=== PATIENT | male | born 1935 | race Caucasian/White ===

== ENCOUNTER → 2019-03-31 09:19 | Outpatient (BNVA) | payer MEDICARE, SELFPAY | PROVIDERS: Family Provider Internal Medicine; PCP Internal Medicine | DX: I48.91 Unspecified atrial fibrillation (principal) | CPT/HCPCS: 85610 ==

== ENCOUNTER → 2019-04-07 09:54 | Outpatient (BNVA) | payer MEDICARE, SELFPAY | PROVIDERS: Family Provider Internal Medicine; PCP Internal Medicine; Visit Provider Internal Medicine Cardiovascular Disease | DX: I48.91 Unspecified atrial fibrillation (principal) | CPT/HCPCS: 85610 ==

== ENCOUNTER → 2019-04-14 10:52 | Outpatient (BNVA) | payer MEDICARE, SELFPAY | PROVIDERS: Family Provider Internal Medicine; PCP Internal Medicine; Visit Provider Internal Medicine Cardiovascular Disease | DX: I48.91 Unspecified atrial fibrillation (principal) | CPT/HCPCS: 85610 ==

== ENCOUNTER → 2019-04-20 16:40 | Outpatient (BNVA) | payer MEDICARE, SELFPAY | PROVIDERS: Family Provider Internal Medicine; PCP Internal Medicine; Visit Provider Internal Medicine Cardiovascular Disease | DX: I48.19 Other persistent atrial fibrillation (principal); Z95.0 Presence of cardiac pacemaker; I10 Essential (primary) hypertension; E78.2 Mixed hyperlipidemia; I65.23 Occlusion and stenosis of bilateral carotid arteries; I42.0 Dilated cardiomyopathy | CPT/HCPCS: 85610 ==

== ENCOUNTER → 2019-05-18 10:30 | Outpatient (BNVA) | payer MEDICARE, SELFPAY | PROVIDERS: Family Provider Internal Medicine; PCP Internal Medicine; Visit Provider Internal Medicine Cardiovascular Disease | DX: I48.91 Unspecified atrial fibrillation (principal); Z79.01 Long term (current) use of anticoagulants | CPT/HCPCS: 85610 ==

== ENCOUNTER → 2019-05-21 11:19 | Outpatient (BNVA) | payer MEDICARE, SELFPAY | PROVIDERS: Family Provider Internal Medicine; PCP Internal Medicine; Visit Provider Internal Medicine Cardiovascular Disease | DX: I48.91 Unspecified atrial fibrillation (principal) | CPT/HCPCS: 85610 ==

== ENCOUNTER 2019-05-30 01:32 | Emergency (ER) | payer MEDICARE, SELFPAY ==
[2019-05-30 01:41] VITALS: BP 172/84; PULSE 65; RESP 18; O2SAT 96; BMI 30.6
--- NOTE | 2019-05-30 01:48 | XR_ITS ---
WS: [id number] XR chest 1V portable [id number] REASON FOR EXAM: chest pain FINDINGS: Comparisons were made to November 18, 2017. A dual electrode pacemaker seen extends from the left side. There is again noted right lower lung pleural and are parenchymal scarring granulomatous changes are again noted in both lung judge. The heart is borderline enlarged. XR/XR chest 1V portable [id number] IMPRESSION: Prior defibrillator device placement. Mild arteriosclerotic heart disease. Right lower lobe pleural and or parenchymal scarring. No acute findings in the chest.
--- NOTE | 2019-05-30 01:48 | ECG_ITS ---
Measurements Intervals [place] Rate: 61 P: -13 RI: 179 QRS: -59 QRSD: 158 T: 133 QT: 419 QTc: 424 SINUS RHYTHM LEFT AXIS DEVIATION [QRS AXIS < -30] LEFT BUNDLE BRANCH BLOCK [120+ ms QRS DURATION, 80+ ms Q/S IN V1/V2, 85+ ms R IN I/aVL/V5/V6] Compared to ECG 09/30/2017 18:23:08 Atrial-paced complex(es) or rhythm no longer present Electronically Signed On 05-30-2019 19:04:04 MEDICAL CODING AUDITOR by Grant Leonardo M.D. [email or web address]
--- NOTE | 2019-05-30 01:56 | ED_ITS ---
Entered by Madalyn Jones, acting as scribe for Keith Melendez DO May 30, 2019 01:32 HPI - Chest Pain General: Chief Complaint: Chest Pain Stated Complaint: CHEST PRESSURE/HANLEY Time Seen by Provider: 05/30/19 01:54 Source: patient Mode of arrival: ambulatory Limitations: no limitations History of Present Illness: HPI narrative: 84 yo m came to the er pov for chest pressure and headache. Onset was last night. Pt said that he was at rest when this pain started. Pt states that the pressure and pain is in the center of his chest. Pt said that he has a pacemaker. Pt said that he has been some short of breath and that he has had some mild swelling in the right foot. 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 Pt said that he has a cpap machine. MD complaint: chest pain Onset (ago): day(s) (yesterday) Prior episodes: Yes Onset: during rest Pain location: epigastric (tenderness) Pain radiation: none Severity: mild Quality: tightness Associated symptoms: Reports abdominal pain and dyspnea; Deny fever(s), nausea or vomiting Review of Systems General: Reports: other (negative unless marked) Const: Denies: fever, chills or body aches Card: Reports: chest pain and swelling of feet/ankles Resp: Reports: shortness of breath GI: Reports: abdominal pain; Denies: nausea, vomiting or vomiting blood : Denies: flank pain or painful urination Musc: Denies: neck pain or back pain Skin/Breast: Denies: rash Neuro: Reports: headache; Denies: weakness in extremities, confusion or slurred speech Psych: Denies: anxiety PFSH ED PFSH: Medical History Atrial fibrillation Cardiomyopathy Carotid artery stenosis COPD (chronic obstructive pulmonary disease) DDD (degenerative disc disease) GERD (gastroesophageal reflux disease) Gout Hyperlipidemia Hypertension Pacemaker Surgical History History of appendectomy History of cataract extraction History of tonsillectomy and adenoidectomy Hx of laminectomy Social History Smoking and tobacco status: never smoked Alcohol intake: never Physical Exam Const: GENERAL APPEARANCE: well developed ORIENTATION/CONSCIOUSNESS: Yes oriented to person, Yes oriented to place and Yes oriented to time HENMT: COMMON NORMALS: external nose normal FACE & SINUS: normal facial exam NOSE: external nose normal and no nasal discharge MOUTH: tongue normal Eye: COMMON NORMALS: PERRL, EOMs intact bilaterally and conjunctivae normal EYELID: eyelids normal CONJUNCTIVA: Yes conjunctivae normal PUPIL: Yes PERRL Neck/C-Spine: COMMON NORMALS: full ROM GENERAL: No tracheal deviation Chest: COMMONS NORMALS: inspection of chest normal CHEST: No tenderness Resp: COMMON NORMALS: clear to auscultation bilaterally EFFORT & INSPECTION: No tachypneic, No respiratory distress, No retractions, No uses accessory muscles and No tracheal deviation AUSCULTATION: clear to auscultation bilaterally, no rhonchi, no wheezes and lung sounds not diminished Cardio: COMMON NORMALS: regular rate and regular rhythm RATE: regular rate RHYTHM: regular rhythm HEART SOUNDS: no murmurs PERIPHERAL PULSES: radial pulses present GI: COMMON NORMALS: soft to palpation INSPECTION: No abdominal distension AUSCULTATION: No hyperactive bowel sounds and No hypoactive bowel sounds PALPATION: Yes soft, Yes tender (epigastric), No guarding and No rigid PERCUSSION: no dullness to percussion and no tympanic to percussion Neuro: SENSORIUM/ORIENTATION: Yes oriented to person, Yes oriented to place and Yes oriented to time Psych: COMMON NORMALS: mental status grossly normal Skin: COMMON NORMALS: no rashes or lesions noted GENERAL SKIN EXAM: no rashes or lesions noted Course Vital Signs: Vital signs: Vital Signs Pulse Rate 78 05/30/19 04:28 Respiratory Rate 28 H 05/30/19 04:28 Blood Pressure 152/71 05/30/19 03:17 Pulse Oximetry 100 05/30/19 04:28 MDM - Chest Pain MDM Narrative: Medical decision making narrative: 84-year-old gentleman with a history of pacemaker placement, but evidently no history of heart failure or coronary disease, presents with chest discomfort. Chest discomfort is essentially epigastric discomfort, that is reproducible on exam. It is completely relieved with a GI cocktail. His troponin did not change at 2 hours. His EKG shows a paced rhythm. His chest x-ray is negative for acute infiltrate. His labs are otherwise benign. With resolution of his symptoms, he will be allowed home. We will place him on some famotidine for control. Lab Data: Labs: Lab Results 05/30/19 05/30/19 05/30/19 Range/Units 01:51 01:51 01:51 WBC 6.7 (4.0-10.0) 10^3/ uL RBC 5.10 (4.1-5.3) 10^6/u L Hgb 15.4 (11.7-16.6) g/dL Hct 47.2 (42.0-52.0) % MCV 92.5 (80-94) fL MCH 30.2 (28.0-34.0) pg MCHC 32.6 (30.0-36.0) g/dL RDW 13.0 (12.1-15.1) % Plt Count 148 (130-400) 10^3/c mm MPV 9.6 (7.4-10.4) fL Neut % (Auto) 75.7 % Lymph % (Auto) 11.9 % Lipscomb % (Auto) 10.1 % Eos % (Auto) 1.8 % Baso % (Auto) 0.4 % Neut # (Auto) 5.1 (1.8-7.7) 10^3/u L Lymph # (Auto) 0.8 (0.8-4.8) 10^3/u L Lipscomb # (Auto) 0.7 (0.2-0.9) 10^3/u L Eos # (Auto) 0.1 (0.0-0.8) 10^3/u L Baso # (Auto) 0.0 (0.0-0.1) 10^3/u L Nucleated RBC % (a uto) 0 % Nucleated RBCs # 0.0 /100WBC PT (10.5-13.3) SECO NDS INR (0.8-1.2) Sodium 133 L (136-145) mmol/L Potassium 4.8 (3.5-5.1) mmol/L Chloride 98 (98-107) mmol/L Carbon Dioxide 25 (22-29) mmol/L Anion Gap 14.8 (5-19) BUN 26 H (8-23) mg/dL Creatinine 2.0 H (0.7-1.2) mg/dL Glucose 110 (65-115) mg/dL Calcium 9.8 (8.5-10.5) mg/dL Total Bilirubin 0.4 (0.15-1.2) mg/dL AST 17 (0-40) U/L ALT 12 (0-41) U/L Alkaline Phosphata se 92 (40-130) IU/L Troponin T Baselin e 21 H (0-15) ng/mL Troponin T 120 Min yun (0-15) ng/mL Delta Troponin T (0-10) ABS# NT-Pro-B Natriuret Pep (0-450) pg/mL Total Protein 7.0 (6.6-8.7) g/dL Albumin 3.8 (3.5-5.2) g/dL Globulin 3.2 (1.3-4.6) g/dL 05/30/19 05/30/19 05/30/19 Range/Units 01:51 01:51 03:41 WBC (4.0-10.0) 10^3/ uL RBC (4.1-5.3) 10^6/u L Hgb (11.7-16.6) g/dL Hct (42.0-52.0) % MCV (80-94) fL MCH (28.0-34.0) pg MCHC (30.0-36.0) g/dL RDW (12.1-15.1) % Plt Count (130-400) 10^3/c mm MPV (7.4-10.4) fL Neut % (Auto) % Lymph % (Auto) % Lipscomb % (Auto) % Eos % (Auto) % Baso % (Auto) % Neut # (Auto) (1.8-7.7) 10^3/u L Lymph # (Auto) (0.8-4.8) 10^3/u L Lipscomb # (Auto) (0.2-0.9) 10^3/u L Eos # (Auto) (0.0-0.8) 10^3/u L Baso # (Auto) (0.0-0.1) 10^3/u L Nucleated RBC % (a uto) % Nucleated RBCs # /100WBC PT 37.40 H (10.5-13.3) SECO NDS INR 3.61 H (0.8-1.2) Sodium (136-145) mmol/L Potassium (3.5-5.1) mmol/L Chloride (98-107) mmol/L Carbon Dioxide (22-29) mmol/L Anion Gap (5-19) BUN (8-23) mg/dL Creatinine (0.7-1.2) mg/dL Glucose (65-115) mg/dL Calcium (8.5-10.5) mg/dL Total Bilirubin (0.15-1.2) mg/dL AST (0-40) U/L ALT (0-41) U/L Alkaline Phosphata se (40-130) IU/L Troponin T Baselin e (0-15) ng/mL Troponin T 120 Min yun 18.19 H (0-15) ng/mL Delta Troponin T -2.81 L (0-10) ABS# NT-Pro-B Natriuret Pep 526 H (0-450) pg/mL Total Protein (6.6-8.7) g/dL Albumin (3.5-5.2) g/dL Globulin (1.3-4.6) g/dL Discharge Plan Discharge Patient Disposition: Home, Self-Care Clinical Impression: Chest pain Qualifiers: Chest pain type: unspecified Qualified Code(s): R07.9 - Chest pain, unspecified Gastro-esophageal reflux Qualifiers: Esophagitis presence: esophagitis presence not specified Qualified Code(s): K21.9 - Gastro-esophageal reflux disease without esophagitis Condition: Stable Prescriptions: New famotidine 40 mg tablet 40 mg PO BID Qty: 20 RF: 0 No Action paroxetine HCl PO .at bedtime RF: 0 tamsulosin 0.4 mg capsule 0.4 mg PO QDAY RF: 0 allopurinol PO DAILY RF: 0 metoprolol tartrate 75 mg tablet 75 mg PO BID RF: 0 Lantus U-100 Insulin 100 unit/mL solution 15 unit SUBCUT QDAY RF: 0 warfarin 1 mg tablet 1 mg PO DAILY RF: 0 warfarin 4 mg tablet 4 mg PO QDAY Qty: 90 RF: 3 Discharge Orders: Discharge Order (Routine); Ordered 05/30/19 Ordered By: Keith Melendez Referrals: Magaly Rivas MD [Primary Care Provider] - 4-7 days Discharge Diet: Advance as tolerated Discharge Activity: Increase activity as tolerated Patient Instructions: Chest Pain (ED), Gastroesophageal Reflux Disease (ED) Activity Restrictions/Additional Instructions: Return for return of chest pain, shortness of breath, nausea or vomiting, fever greater than 100, other concerning symptoms. Coding Level of Care Code ED Printed Circuit Boards Laminator for Chg Fwd Exam Comprehensive The documentation recorded by the Robert bush Stephanie Lyn, accurately reflects the service I personally performed and the decisions made by Al london Jeremy John, DO May 30, 2019 01:32
[2019-05-30 01:57] VITALS: O2SAT 95
[2019-05-30 02:00] LABS: Basophils % 0.4 %; Eosinophils # 0.1 10^3/uL (0.0-0.8); Eosinophils % 1.8 %; Hematocrit 47.2 % (42.0-52.0); Hemoglobin 15.4 g/dL (11.7-16.6); Lymphocytes # 0.8 10^3/uL (0.8-4.8); Lymphocytes % 11.9 %; Mean Corpuscular HGB Conc 32.6 g/dL (30.0-36.0); Mean Corpuscular Hemoglobin 30.2 pg (28.0-34.0); Mean Corpuscular Volume 92.5 fL (80-94); Mean Platelet Volume 9.6 fL (7.4-10.4); Monocytes # 0.7 10^3/uL (0.2-0.9); Monocytes % 10.1 %; Neutrophils # 5.1 10^3/uL (1.8-7.7); Neutrophils % 75.7 %; Nucleated Red Blood Cells % 0 %; Platelet Count 148 10^3/cmm (130-400); White Blood Count 6.7 10^3/uL (4.0-10.0)
[2019-05-30] MEDS: lidocaine 2% viscous 15 ML, aluminum-mag hydrox-simethicon 30 ML, sucralfate oral liq 1 GM PO (02:17)
[2019-05-30] MEDS: morphine 4 mg/mL SDV 1 mL IVP (02:17)
[2019-05-30] MEDS: ondansetron 2 mg/ML SDV 2 mL 4 MG IVP (02:18)
[2019-05-30 02:27] LABS: Alanine Aminotransferase 12 U/L (0-41); Albumin Level 3.8 g/dL (3.5-5.2); Alkaline Phosphatase 92 IU/L (40-130); Anion Gap 14.8 (5-19); Aspartate Amino Transferase 17 U/L (0-40); Blood Urea Nitrogen 26 mg/dL (8-23); Calcium 9.8 mg/dL (8.5-10.5); Carbon Dioxide 25 mmol/L (22-29); Chloride 98 mmol/L (98-107); Globulin 3.2 g/dL (1.3-4.6); Glucose 110 mg/dL (65-115); INR 3.61 (0.8-1.2); Potassium 4.8 mmol/L (3.5-5.1); Sodium 133 mmol/L (136-145); Total Bilirubin 0.4 mg/dL (0.15-1.2)
[2019-05-30 02:30] LABS: Troponin(5th) Baseline 21 ng/mL (0-15)
[2019-05-30 02:53] LABS: NT Pro B Type Natriuretic Pept 526 pg/mL (0-450)
[2019-05-30 03:17] VITALS: BP 152/71; PULSE 63; O2SAT 92
--- NOTE | 2019-05-30 03:17 | PC.NURSE ---
portable chest xray at bedside
--- NOTE | 2019-05-30 03:48 | ECG_ITS ---
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 [id number]
--- NOTE | 2019-05-30 04:00 | PC.NURSE ---
pt placed on BIPAP ventilation
[2019-05-30 04:05] LABS: Troponin 5 2HR 18.19 ng/mL (0-15)
[2019-05-30 04:12] LABS: Troponin 5 2HR Delta -2.81 ABS# (0-10)
--- NOTE | 2019-05-30 04:14 | PC.NURSE ---
EKG done at 0405 and shown to ER doctor
[2019-05-30 04:28] VITALS: PULSE 78; RESP 28; O2SAT 100
[2019-05-30 04:57] VITALS: BP 107/75; PULSE 64; RESP 16; O2SAT 97
== END 2019-05-30 04:57 | disposition home or self-care (01) ==
PROVIDERS: Emergency Provider Emergency Medicine; Family Provider Internal Medicine; PCP Internal Medicine
DX: R07.89 Other chest pain (principal); K21.9 Gastro-esophageal reflux disease without esophagitis; I48.91 Unspecified atrial fibrillation; I42.9 Cardiomyopathy, unspecified; J44.9 Chronic obstructive pulmonary disease, unspecified; E78.5 Hyperlipidemia, unspecified; I10 Essential (primary) hypertension; Z79.01 Long term (current) use of anticoagulants; Z95.0 Presence of cardiac pacemaker
CPT/HCPCS: 12345; 36415; 71045; 80053; 83880; 84484; 85025; 85610; 93005; 96374; 96375; 99283; 99284; J2270; J2405

== ENCOUNTER → 2019-06-18 11:03 | Outpatient (BNVA) | payer MEDICARE, SELFPAY | PROVIDERS: Family Provider Internal Medicine; PCP Internal Medicine; Visit Provider Internal Medicine Cardiovascular Disease | DX: I48.91 Unspecified atrial fibrillation (principal) | CPT/HCPCS: 85610 ==

== ENCOUNTER → 2019-07-02 10:41 | Outpatient (BNVA) | payer MEDICARE, SELFPAY | PROVIDERS: Family Provider Internal Medicine; PCP Internal Medicine; Visit Provider Internal Medicine Cardiovascular Disease | DX: I48.91 Unspecified atrial fibrillation (principal) | CPT/HCPCS: 85610 ==

== ENCOUNTER → 2019-07-16 11:01 | Outpatient (BNVA) | payer MEDICARE, SELFPAY | PROVIDERS: Family Provider Internal Medicine; PCP Internal Medicine; Visit Provider Internal Medicine Cardiovascular Disease | DX: I48.91 Unspecified atrial fibrillation (principal) | CPT/HCPCS: 85610 ==

== ENCOUNTER 2019-08-20 15:43 | Outpatient (CLI) | payer MEDICARE, SELFPAY ==
--- NOTE | 2019-08-20 15:53 | CT_ITS ---
WS: [id number] CT CHEST TECHNIQUE: Noncontrast CT of the chest with coronal and sagittal reformatted images. CLINICAL INFORMATION: PULMONARY NODULE COMPARISON: October 30 2018 DLP: 1110.[address] scans at [facility] use at least one of these dose optimization techniques: automat ed exposure control; mA and/or kV adjustment per patient size (includes targeted exams where dose is matched to clinical indication); or iterative reconstruction. FINDINGS: Moderate chronic emphysematous changes. Subsegmental atelectasis and parenchymal fibrosis bilateral l ower lobes similar to previous. No acute-appearing pulmonary infiltrates. No consolidation or pleural fluid. AICD. No mediastinal or hilar lymphadenopathy. Fibrosis right lung apex. Small hazy noncalcified pulmonary nodule in the right middle lobe measuring 6 mm. Additional hazy non calcified pulmonary nodule in the left lung apex measuring 5.36 mm better seen today but appears stab le from previous. Scattered calcified granulomas. Tiny calcified granulomas.Vascular calcification including coronary. No axillary lymphadenopathy. Partially visualized right greater than left renal cysts. Normal gastroesophageal junction. Fatty atr ophy of the pancreas. Adrenal glands are normal. Hypertrophic changes thoracic spine with ankylosis. Chronic compression fracture with anterior wedging L1 vertebral body. CT/CT chest wo con [id number] IMPRESSION: 1. Moderate chronic emphysematous changes. 2. No acute pulmonary infiltrates. 3. Stable pleural plaques in right lung base along the right hemidiaphragm. 4. Stable subsegmental atelectasis and parenchymal fibrosis in the lung bases. 5. Stable 6 mm noncalcified subpleural nodule right middle lobe. Additional st able hazy groundglass nodule left upper lobe measuring 5.3 mm. Recommend 12 mon follow-up.
== END 2019-08-20 15:44 | disposition home or self-care (01) ==
PROVIDERS: Family Provider Internal Medicine; PCP Internal Medicine; Visit Provider Internal Medicine
DX: R91.1 Solitary pulmonary nodule (principal); J98.11 Atelectasis
CPT/HCPCS: 71250

== ENCOUNTER 2020-03-10 09:30 | Outpatient (CLI) | payer MEDICARE, SELFPAY ==
--- NOTE | 2020-03-10 09:39 | ECG_ITS ---
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 The perfusion scan will be documented separately. DATA: Baseline heart rate was 73 beats per minute. Baseline blood pressure was 106/77 millimeters of mercury. Target heart rate was 138. Maximum heart rate achieved was 88. which was 63 % of the predicted target heart rate. Maximum blood pressure was 135/77 millimeters of mercury. The reason for ending the test was completion of the protocol. The patient did not experience any symptoms. ELECTROCARDIOGRAM: BASELINE: Paced rhythm, no further analysis EXERCISE: After Lexiscan injection, no ST-T changes suggestive of ischemic noted. No arrhythmia noted. CONCLUSION: Please note due to baseline abnormality of the EKG specificity and sensitivity of the EKG portion of LexiScan MIBI stress test will be low 1. EKG not suggestive of ischemia 2. Lexiscan injection unremarkable. 3. Perfusion scan will be documented separately. Electronically Signed On 03-10-2020 19:30:23 CUSHION SPRING ASSEMBLER by JASON OSULLIVAN [id number]
--- NOTE | 2020-03-10 09:39 | NMCV_ITS ---
NM aurelia perf SPECT r/s* [id number] Alexey An Age: 84 Gender: M : 1935 Exam Date: 03/10/2020 11:05 Ordering Phys: Magaly Rivas MD Technologist: LUIS ANGEL Dougherty Exam Location: [facility] Indications: CHEST PAIN STRESS TEST [facility] IMAGE PROTOCOL Rest/Stress 1 Lexiscan Day Radiopharmaceutical Dose (mCi) Administration Site Administered by Rest: Tc-99m 10.6 IV LUIS ANGEL Arteaga Sestamibi Stress:Tc-99m 32.6 IV LUIS ANGEL Arteaga Sestamibi Rest: 10-Mar-2020 60 Discovery 630 Stress: 10-Mar-2020 30 Discovery 630 0.4mg Lexiscan. Supine position only as patient was unable to lay prone. SPECT RESULTS Technical Quality: Excellent Raw Data Analysis: Normal Image Corrections: No attenuation or motion correction applied Summed Stress Score: 7 Summed Rest Score: 7 Summed Difference Score: 1 PERFUSION FINDINGS Medium-sized area of persistently decreased tracer uptake noted in basal to distal inferior wall surrounded by medium-sized area of moderate reversibility suggestive of old myocardial infarction surrounded by moderate cathie-infarct ischemia FUNCTIONAL RESULTS (calculated via Gated SPECT) Stress Image LV EF (%): 50 Stress EDV (mL):101 TID: 0.91 Stress ESV (mL):51 Rest Image LV EF (%): 50 FUNCTIONAL FINDINGS: Inferior wall hypokinesis IMPRESSIONS 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 Please note that patient was not able to perform prone images therefore cannot rule out artifact. EKG segment will be documented separately. Grant Leonardo MD (Electronically Signed) Final Date: 10 March 2020 19:23 S
[2020-03-10 09:40] VITALS: BMI 29.7
--- NOTE | 2020-03-10 12:07 | SUR.PREOP ---
Patient reports no pain or discomfort prior to the start of the procedure.
[2020-03-10] MEDS: regadenoson 0.4 Mg/5 ml Syringe IVP (12:08)
[2020-03-10 12:51] VITALS: BP 120/78; PULSE 73
== END 2020-03-10 09:31 | disposition home or self-care (01) ==
LOC: RAD 09:34 → CDL 09:38
PROVIDERS: PCP Internal Medicine; Visit Provider Internal Medicine
DX: I25.2 Old myocardial infarction (principal); R07.9 Chest pain, unspecified; Z95.0 Presence of cardiac pacemaker
CPT/HCPCS: 78452; 93017; A9500; J2785

== ENCOUNTER 2020-07-18 12:46 | Outpatient (CLI) | payer MEDICARE, SELFPAY ==
--- NOTE | 2020-07-18 12:59 | CT_ITS ---
WS: [id number] Exam: CT neck wo con [id number] Date/Time of Exam: 07/18/2020 12:59 PM Reason For Exam: NECK MASS DLP: All CT scans at [facility] use at least one of these dose optimization techniques: automat ed exposure control; mA and/or kV adjustment per patient size (includes targeted exams where dose is matched to clinical indication); or iterative reconstruction. The clinically reported lump in the left neck is marked with a metallic skin marker. The neck is eric luated in the axial plane with sagittal and coronal reformatted images. There was no sign of neck mass or significant cervical lymphadenopathy. No masses or nodules identifi ed in the region of the left skin marker. The airway is patent. No lesions noted in the region of the tongue base. The parotid glands and submandibular glands are symmetrical side to side. Opacified rig ht maxillary sinus. Mucosal thickening in the ethmoid sinuses. Normal orbits and optic globes. Modera te degenerative change and spondylosis of the cervical spine. Normal thyroid tissue. No superior medi astinal lymphadenopathy. CT/CT neck wo con [id number] IMPRESSION: 1. No sign of neck mass or significant cervical lymphadenopathy. 2. Opacified right maxillary sinus. Chronic mucosal thickening in the ethmoid s inuses as well as the anterior left maxillary sinus.
--- NOTE | 2020-07-18 12:59 | CT_ITS ---
WS: [id number] Exam: CT chest wo con [id number] Date/Time of Exam: 07/18/2020 12:59 PM Reason For Exam: PULMONARY NODULE DLP: All CT scans at [facility] use at least one of these dose optimization techniques: automat ed exposure control; mA and/or kV adjustment per patient size (includes targeted exams where dose is matched to clinical indication); or iterative reconstruction. Comparison with the most recent exam 08/20/2019. Stable-appearing 6 mm noncalcified nodule in the right middle lobe. There is also a stable 5 mm groun dglass nodule in the left upper lobe. There is pulmonary parenchymal scarring noted in the both lower lobes. Right-sided calcified pleural plaque formation noted and also calcified pleural plaque format ion along the right diaphragm stable in appearance. No acute infiltrates are seen. No pleural effusio ns. The airway is patent. No lymphadenopathy in the chest. The thoracic aorta is normal in caliber. A permanent cardiac pacer is implanted in the left chest wall. No pericardial effusion is noted. Multi ple cysts in the visualized right kidney. No destructive bone lesions are seen. Old stable appearing compression fracture of L1 noted. CT/CT chest wo con [id number] IMPRESSION: 1. Stable-appearing subcentimeter nodules in the right middle lobe and left upp er lobe. 2. Calcified pleural plaque formation involving the right pleural cavity and ri ght diaphragm. 3. Bilateral pulmonary parenchymal scarring. No sign of new suspicious pulmonar y mass or lymphadenopathy in the chest.
== END 2020-07-18 12:47 | disposition home or self-care (01) ==
PROVIDERS: PCP Internal Medicine; Visit Provider Internal Medicine
DX: R91.1 Solitary pulmonary nodule (principal)
CPT/HCPCS: 70490; 71250

== ENCOUNTER 2020-08-15 12:32 | Outpatient (CLI) | payer MEDICARE, SELFPAY ==
--- NOTE | 2020-08-15 12:42 | CT_ITS ---
WS: [id number] CT HEAD NONCONTRAST HISTORY: TINNITUS, LEFT EAR TECHNIQUE: Contiguous axial imaging performed through the brain in 2.5 mm imaging. Bone and soft tiss ue windows. Sagittal and coronal reformats reviewed. All CT scans at [facility] use at ast one of these dose optimization techniques: automated exposure control; mA and/or kV adjustment pe r patient size (includes targeted exams where dose is matched to clinical indication); or iterative r econstruction. DLP: 1058.18 mGycm COMPARISON: 10/02/2018 No acute intracranial hemorrhage, midline shift or mass effect. Mild atrophy and mild chronic microvascular ischemic disease. Prior lacunar infarcts noted near the c audate heads bilaterally. Ventricles: Normal size with no hydrocephalus. Paranasal sinuses: Extensive mucoperiosteal thickening and near complete opacification of the RIGHT m axillary sinus. Mild ethmoid sinus disease. Mastoid air cells: Well pneumatized. Calvarium and scalp: Skull is intact with no soft tissue edema or swelling. CT/CT head wo con* [id number] IMPRESSION: 1. No acute intracranial hemorrhage or edema. 2. Mild atrophy and mild chronic microvascular ischemic disease. 3. RIGHT maxillary and sphenoid sinusitis.
== END 2020-08-15 12:33 | disposition home or self-care (01) ==
PROVIDERS: PCP Internal Medicine; Visit Provider Specialist
DX: H93.12 Tinnitus, left ear (principal); J01.30 Acute sphenoidal sinusitis, unspecified; J01.00 Acute maxillary sinusitis, unspecified
CPT/HCPCS: 70450

== ENCOUNTER 2020-09-20 10:49 | Emergency (ER) | payer MEDICARE, SELFPAY ==
[2020-09-20 11:10] VITALS: BP 185/67; PULSE 42; RESP 16; TEMP 36.4; O2SAT 96; BMI 29.3
--- NOTE | 2020-09-20 12:12 | PC.NURSE ---
Patient reports severe back pain starting on Saturday. Denies any known injury. Denies any previous history. Reports right sided low back pain that radiates down leg. Rates pain as 10 and describes as stabbing.
[2020-09-20 12:15] VITALS: BP 116/92; PULSE 68; RESP 18; O2SAT 94
--- NOTE | 2020-09-20 12:41 | CT_ITS ---
WS: [id number] CT LUMBAR SPINE TECHNIQUE: Noncontrast CT of the lumbar spine with coronal and sagittal reformatted images. CLINICAL INFORMATION: back pain COMPARISON: CT myelogram 1 DLP: 2477.[address] scans at [facility] use at least one of these dose optimization techniques: automat ed exposure control; mA and/or kV adjustment per patient size (includes targeted exams where dose is matched to clinical indication); or iterative reconstruction. FINDINGS: Mild lumbar curve. No acute compression. Slight retrolisthesis L2 on L3. Chronic compression L1 verte bral body with bony fusion is unchanged since 2014. Anterior hypertrophic changes in the lower thorac ic and upper lumbar spine. L1-L2: Osteophytic ridging. Slight effacement of ventral thecal sac. Moderate facet arthropathy. Slig ht narrowing of the subarticular recess. Foramen are patent. L2-L3: Slight retrolisthesis L2 on L3. Mild disc bulging with osteophytic ridging. Tiny central protr usion. Mild central canal stenosis. Slight impingement traversing L3 nerve roots bilaterally. Foramen are patent. Moderate facet arthropathy. L3-L4: Central disc osteophyte protrusion with moderate central canal stenosis. Impingement subarticu lar recess bilaterally. Moderate bilateral foraminal narrowing with eccentric disc bulging. Advanced facet arthropathy. This is progressed since 2014. L4-L5: Mild disc bulging with osteophytic ridging. Mild central canal stenosis. Impingement subarticu lar recess bilaterally. Moderate bilateral foraminal narrowing. This is worse in the right with impin gement on the exiting right L4 nerve root with small right foraminal protrusion. This is slightly pro gressed compared to 2014. L5-S1: Mild disc bulging and osteophytic ridging. Moderate to advanced facet arthropathy. Mild centra l canal stenosis. Slight impingement traversing S1 nerve roots. Mild to moderate bilateral foraminal narrowing. Adrenal glands are normal. Partially visualized renal cysts right greater than left. Polycystic right kidney. Normal caliber abdominal aorta. CT/CT lumbar spine wo con* [id number] IMPRESSION: 1. Mild lumbar curve. No acute compression. Chronic burst fracture L1 is uncha nged. 2. Disc bulging L3-L4 with central protrusion is progressed compared to 2014 w ith moderate central canal stenosis and impingement on the traversing L4 nerve roots. Advanced facet arthropathy at this level. 3. Moderate bilateral L3-L4 foraminal narrowing. 4. Right foraminal protrusion L4-5 impinges the exiting right L4 nerve root wi th moderate right foraminal narrowing. This appears slightly progressed compare d to previous. Moderate central canal stenosis at this level appears stable. 5. Mild central canal stenosis L5-S1 with slight impingement on the traversing S1 nerve roots bilaterally and mild to moderate foraminal narrowing slightly p rogressed compared to previous. 6. No other significant interval changes.
[2020-09-20 12:55] VITALS: RESP 18
[2020-09-20] MEDS: morphine 4 mg/mL SDV 1 mL IVP (12:55)
--- NOTE | 2020-09-20 13:09 | W.ED.BACK ---
HPI - Back Pain/Injury General: Chief Complaint: Back Pain/Injury Stated Complaint: BACK PAIN Time Seen by Provider: 09/20/20 12:16 History of Present Illness: HPI Narrative: 85-year-old male presents emergency room with complaints of sharp pain in his back feels like it is seizing up. While I was at the bedside patient had several episodes where he would have back spasm severe pain states pain radiates down his right leg at times. He has not had any problem with urinary retention or fecal incontinence he has previously had surgery on his back. No recent precipitating events that seem to just slowly worsen over the course of several days culminating in today's visit. Denies any dysuria urgency or frequency no history of cancer although he does have BPH and is on tamsulosin. He has been able to void without difficulty. He denies any hematuria. MD elicited complaint: back pain Pertinent past history: prior back pain Onset (ago): day(s) Timing: intermittent Severity: severe Quality: sharp, stabbing and spasming Location: lumbar spine Radiation: none Exacerbating factors: none Relieving factors: immobilization Associated symptoms: Deny abdominal pain, arthralgias, chills, change in bowel habits, difficulty walking, dysuria, fatigue, fecal incontinence, fever(s), hematuria, myalgias, nausea, numbness, syncope, tingling/numbness/burning, urinary frequency, urinary urgency, vomiting or weakness Review of Systems Const: Denies: fever(s), chills or fatigue ENMT: Denies: throat pain, ear or mastoid pain, nasal discharge or nasal congestion Card: Denies: syncope Resp: Denies: dyspnea, productive cough or non-productive cough GI: Denies: abdominal pain, nausea, vomiting, fecal incontinence or change in bowel habits : Denies: dysuria, urinary urgency or hematuria Skin/Breast: Denies: rash or pruritus Neuro: Denies: difficulty walking PFSH ED PFSH: Medical History Atrial fibrillation Cardiomyopathy Carotid artery stenosis COPD (chronic obstructive pulmonary disease) DDD (degenerative disc disease) GERD (gastroesophageal reflux disease) Gout Hyperlipidemia Hypertension Pacemaker Surgical History History of appendectomy History of cataract extraction History of tonsillectomy and adenoidectomy Hx of laminectomy Family History Mother CAD (coronary artery disease) Brother Chronic kidney disease (CKD) Father Stroke Family/Other Suicide Denies family history of Diabetes Clotting disorder Dementia Anesthesia complication Bleeding disorder Lung disease Cancer Social History Smoking and tobacco status: never smoked Alcohol intake: never Physical Exam Const: COMMON NORMALS: no acute distress GENERAL APPEARANCE: cooperative and comfortable ORIENTATION/CONSCIOUSNESS: Yes awake, Yes oriented to person, Yes oriented to place and Yes oriented to time HENMT: COMMON NORMALS: normocephalic, atraumatic and hearing grossly normal bilaterally HEAD & SCALP: normocephalic and atraumatic Eye: COMMON NORMALS: Equal, round and reactive pupils present, EOMs intact bilaterally, conjunctivae normal and no scleral icterus CONJUNCTIVA: Yes conjunctivae normal PUPIL: Yes Equal, round and reactive pupils present Neck/C-Spine: COMMON NORMALS: full ROM, no lymphadenopathy, supple and no JVD Lymph: LYMPHATIC: no lymphadenopathy noted and no lymphedema noted Resp: COMMON NORMALS: normal respiratory effort, No retractions, No use of accessory muscles and clear to auscultation bilaterally AUSCULTATION: clear to auscultation bilaterally Cardio: COMMON NORMALS: no JVD, regular rate, regular rhythm and No murmurs present (Cardio) RATE: regular rate RHYTHM: regular rhythm GI: COMMON NORMALS: Soft to palpation and No hepatosplenomegaly present AUSCULTATION: Yes normoactive bowel sounds PALPATION: Yes Soft to palpation, No Tenderness to palpation present (GI), No Guarding due to palpation present (GI) and Yes No hepatosplenomegaly present Extremity: COMMON NORMALS: normal to inspection, capillary refill normal, no clubbing, cyanosis or edema, no calf tenderness and no pedal edema Neuro: SENSORIUM/ORIENTATION: Yes oriented to person, Yes oriented to place and Yes oriented to time Skin: COMMON NORMALS: no rashes or lesions noted GENERAL SKIN EXAM: no rashes or lesions noted Course Vital Signs: Vital signs: Vital Signs Temperature 97.7 F 09/20/20 14:48 Pulse Rate 65 09/20/20 14:48 Respiratory Rate 18 09/20/20 14:48 Blood Pressure 160/90 09/20/20 14:48 Pulse Oximetry 96 09/20/20 14:48 Discharge Plan Discharge Patient Disposition: Home Clinical Impression: Lumbar radiculopathy Condition: Stable Prescriptions: New hydrocodone-acetaminophen 5-325 mg tablet 1 tab PO Q6H PRN (Reason: pain) Qty: 20 RF: 0 diclofenac sodium 75 mg tablet,delayed release (DR/EC) 75 mg PO Q12H PRN (Reason: pain) Qty: 20 RF: 0 Medrol (Zhen) 4 mg tablets,dose pack See Rx Instructions .ROUTE .COMPLEX Qty: 21 RF: 0 tizanidine 2 mg capsule 2 mg PO Q6H PRN (Reason: muscle spasticity) Qty: 20 RF: 0 No Action famciclovir 500 mg tablet 500 mg PO Q8H 7 Days Qty: 21 RF: 0 paroxetine HCl PO .at bedtime RF: 0 tamsulosin 0.4 mg capsule 0.4 mg PO QDAY RF: 0 Lantus U-100 Insulin 100 unit/mL solution 15 unit SUBCUT QDAY RF: 0 allopurinol 1 ea PO DAILY RF: 0 isosorbide mononitrate 30 mg tablet extended release 24 hr 30 mg PO DAILY RF: 0 cyclobenzaprine 10 mg tablet 10 mg PO .bedtime Qty: 15 RF: 0 warfarin 1 mg tablet 1 mg PO DAILY RF: 0 warfarin 4 mg tablet 4 mg PO QDAY Qty: 90 RF: 3 warfarin 6 mg tablet 6 mg PO DAILY Qty: 30 RF: 6 metoprolol tartrate 75 mg tablet 75 mg PO BID Qty: 180 RF: 3 losartan 100 mg tablet 100 mg PO DAILY Qty: 90 RF: 3 famotidine 40 mg tablet 40 mg PO BID Qty: 20 RF: 0 Discharge Orders: Discharge ED (Routine); Ordered 09/20/20 Ordered By: Yifan Restrepo Referrals: Magaly Rivas MD [Primary Care Provider] - Discharge Diet: As Directed Discharge Activity: Increase activity as tolerated Patient Instructions: Opioid Safety Activity Restrictions/Additional Instructions: Follow-up with your primary care doctor to be evaluated for possible advanced imaging and/or referral to neurosurgery or spine surgery. 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
[2020-09-20 14:00] VITALS: BP 157/77; PULSE 64; RESP 18; O2SAT 95
[2020-09-20 14:48] VITALS: BP 160/90; PULSE 65; RESP 18; TEMP 36.5; O2SAT 96
== END 2020-09-20 14:48 | disposition home or self-care (01) ==
PROVIDERS: Emergency Provider Family Medicine; PCP Internal Medicine
DX: M54.16 Radiculopathy, lumbar region (principal); Z79.4 Long term (current) use of insulin; Z79.01 Long term (current) use of anticoagulants; J44.9 Chronic obstructive pulmonary disease, unspecified; E78.5 Hyperlipidemia, unspecified; I10 Essential (primary) hypertension; Z95.0 Presence of cardiac pacemaker
CPT/HCPCS: 72131; 96374; 99283; J2270

== ENCOUNTER → 2020-10-06 13:20 | Outpatient (BNVA) | payer MEDICARE, SELFPAY | PROVIDERS: PCP Internal Medicine; Referring Provider Internal Medicine; Visit Provider Orthopaedic Surgery | DX: M54.9 Dorsalgia, unspecified (principal); M54.5 Low back pain; M47.819 Spondylosis without myelopathy or radiculopathy, site unspecified | CPT/HCPCS: 72110 ==

== ENCOUNTER 2020-10-31 17:04 | Emergency (ER) | payer MEDICARE, SELFPAY ==
[2020-10-31 17:55] LABS: Basophils # 0.1 10^3/uL (0.0-0.1); Eosinophils # 0.2 10^3/uL (0.0-0.8); Eosinophils % 3.3 %; Hematocrit 41.2 % (42.0-52.0); Hemoglobin 13.6 g/dL (11.7-16.6); Lymphocytes # 1.3 10^3/uL (0.8-4.8); Lymphocytes % 18.8 %; Mean Corpuscular Hemoglobin 32.2 pg (28.0-34.0); Mean Corpuscular Volume 97.6 fL (80-94); Mean Platelet Volume 9.7 fL (7.4-10.4); Monocytes # 0.7 10^3/uL (0.2-0.9); Monocytes % 9.8 %; Neutrophils # 4.59 10^3/uL (1.8-7.7); Neutrophils % 66.8 %; Nucleated Red Blood Cells % 0 %; Platelet Count 184 10^3/cmm (130-400); Red Blood Count 4.22 10^6/uL (4.1-5.3); Red Cell Distribution Width 14.3 % (12.1-15.1); White Blood Count 6.9 10^3/uL (4.0-10.0)
[2020-10-31 18:18] LABS: INR 1.49 (0.8-1.2)
[2020-10-31 18:19] LABS: Partial Thromboplastin Time 30.6 SECONDS (23.9-36.7)
[2020-10-31 18:34] LABS: Alanine Aminotransferase 12 U/L (0-41); Albumin Level 3.4 g/dL (3.5-5.2); Alkaline Phosphatase 94 IU/L (40-130); Aspartate Amino Transferase 12 U/L (0-40); Blood Urea Nitrogen 31 mg/dL (8-23); Calcium 9.1 mg/dL (8.5-10.5); Carbon Dioxide 22 mmol/L (22-29); Chloride 107 mmol/L (98-107); Globulin 2.9 g/dL (1.3-4.6); Glucose 89 mg/dL (65-115); Total Bilirubin 0.2 mg/dL (0.15-1.2); Total Protein 6.3 g/dL (6.6-8.7)
[2020-10-31 18:39] LABS: Osmolality Calculated 304 mOsm/kg (285-295)
[2020-10-31 18:59] LABS: Anion Gap 19.3 (5-19)
[2020-10-31 19:01] LABS: Potassium 4.3 mmol/L (3.5-5.1); Sodium 144 mmol/L (136-145)
== END 2020-10-31 17:57 ==
LOC: ER 17:09
PROVIDERS: Physician Assistant; PCP Internal Medicine
DX: Z53.21 Procedure and treatment not carried out due to patient leaving prior to being seen by health care provider (principal)
CPT/HCPCS: 36415; 80053; 85025; 85610; 85730

== ENCOUNTER 2020-11-29 11:48 | Outpatient (CLI) | payer MEDICARE, SELFPAY ==
--- NOTE | 2020-11-29 12:05 | XRR_ITS ---
PROCEDURE INFORMATION: Exam: XR Chest Exam date and time: 11/29/2020 12:05 PM Age: 85 years old Clinical indication: Condition or disease; Lung condition and disease; Copd; Complications not specified; Cough; Prior surgery; Surgery type: Pacemaker; Additional info: Rul crackles/copd/cough TECHNIQUE: Imaging protocol: XR of the chest. Views: 2 views. Total images: 2 COMPARISON: CT chest wo con [id number] 07/18/2020 1:18 PM FINDINGS: Tubes, catheters and devices: AICD projects in satisfactory location. Lungs: Coarse chronic pulmonary markings. Benign granulomatous disease of the lung is noted. Trace bibasilar atelectasis or scar. Pleural spaces: Pleural calcifications noted at the right lung base; There is blunting of the right costophrenic angle, likely indicating chronic pleural thickening. Heart/Mediastinum: Heart size is stable when compared to the prior exam. Bones/joints: Unremarkable. XR/XR chest 2V* [id number] IMPRESSION: 1. Coarse chronic pulmonary markings. 2. Trace bibasilar atelectasis or scar. 3. There is blunting of the right costophrenic angle, likely indicating chronic pleural thickening.
== END 2020-11-29 11:49 | disposition home or self-care (01) ==
PROVIDERS: PCP Internal Medicine; Visit Provider Internal Medicine
DX: R05 Cough (principal); J44.9 Chronic obstructive pulmonary disease, unspecified
CPT/HCPCS: 71046

== ENCOUNTER → 2020-12-01 12:40 | Outpatient (BNVA) | payer MEDICARE, SELFPAY | PROVIDERS: PCP Internal Medicine; Visit Provider Anesthesiology Pain Medicine | DX: G89.29 Other chronic pain (principal); M54.41 Lumbago with sciatica, right side; M48.062 Spinal stenosis, lumbar region with neurogenic claudication; M47.816 Spondylosis without myelopathy or radiculopathy, lumbar region; M51.36 Other intervertebral disc degeneration, lumbar region; M79.606 Pain in leg, unspecified; F17.210 Nicotine dependence, cigarettes, uncomplicated | CPT/HCPCS: 99205 ==

== ENCOUNTER → 2020-12-14 13:07 | Outpatient (BNVA) | payer MEDICARE, SELFPAY | PROVIDERS: PCP Internal Medicine; Visit Provider Anesthesiology Pain Medicine | DX: M47.816 Spondylosis without myelopathy or radiculopathy, lumbar region (principal); M48.062 Spinal stenosis, lumbar region with neurogenic claudication; Z79.891 Long term (current) use of opiate analgesic | CPT/HCPCS: 64493; 64494; 64495; J3490 ==

== ENCOUNTER → 2020-12-28 10:07 | Outpatient (BNVA) | payer MEDICARE, SELFPAY | PROVIDERS: PCP Internal Medicine; Visit Provider Anesthesiology Pain Medicine | DX: M48.062 Spinal stenosis, lumbar region with neurogenic claudication (principal); M47.816 Spondylosis without myelopathy or radiculopathy, lumbar region; M51.36 Other intervertebral disc degeneration, lumbar region; Z87.891 Personal history of nicotine dependence | CPT/HCPCS: 99214 ==

== ENCOUNTER 2021-01-06 08:43 | Outpatient (CLI) | payer MEDICARE, SELFPAY ==
--- NOTE | 2021-01-06 | XR_ITS ---
WS: [id number] XR lumbar spine 2-3V* [id number] REASON FOR EXAM: UNSUCCESSFUL MYELO FINDINGS: Examination is unchanged compared to previous study 10/06/2020. Old wedge-shaped compression deformity of L1 with focal dorsal kyphosis. Calcification in the adjacen t disc spaces. No other significant vertebral body abnormality. Significant narrowing of the L5-S1 disc space. 6 to 7 mm of anterolisthesis of L3 in relation to L2. 4-5 mm of anterolisthesis of L4 in relation to L3. XR/XR lumbar spine 2-3V* [id number] IMPRESSION: Old compression deformity in degenerative spondylosis degenerative changes in t he facet joints L3-S1.
== END 2021-01-06 08:44 | disposition home or self-care (01) ==
LOC: RAD 08:46
PROVIDERS: PCP Internal Medicine; Visit Provider Orthopaedic Surgery
DX: M54.50 Low back pain, unspecified (principal); M47.817 Spondylosis without myelopathy or radiculopathy, lumbosacral region
CPT/HCPCS: 36415; 62304; 72100; 72120; 85610

== ENCOUNTER 2021-01-09 12:33 | Outpatient (CLI) | payer MEDICARE, SELFPAY ==
--- NOTE | 2021-01-09 12:37 | IR_ITS ---
WS: [id number] MYELOGRAM LUMBAR SPINE Fluoroscopic guided lumbar myelogram Fluoroscopy time: CLINICAL INFORMATION: M54.5 - Low back pain COMPARISON: None. TECHNIQUE: The procedure, including risks, benefits, and complications, were discussed with the patie nt who agreed to proceed. A timeout was performed to confirm correct patient, procedure, and site. Using sterile technique, the patient was prepped and draped in the usual sterile fashion. After admin istration of local anesthesia using 1% preservative-free lidocaine and using fluoroscopic guidance, a 22-gauge spinal needle was advanced into the subarachnoid space at the L5-S1 level. Subsequently 13 cc of Omnipaque 240 was administered into the thecal sac. The needle was removed and hemostasis was a chieved. Spot fluoroscopic images were obtained. IR/[place] myelogram sp lumbar [id number] IMPRESSION: 1. Uncomplicated lumbar myelogram. 2. Please see CT myelogram report for additional detail.
--- NOTE | 2021-01-09 12:37 | CT_ITS ---
WS: [id number] CT LUMBAR SPINE TECHNIQUE: Contrast-enhanced CT of the lumbar spine with coronal and sagittal reformatted images. CLINICAL INFORMATION: M54.5 - Low back pain COMPARISON: CT September 20, 2020 DLP: 2608.[address] scans at [facility] use at least one of these dose optimization techniques: automated e xposure control; mA and/or kV adjustment per patient size (includes targeted exams where dose is matc hed to clinical indication); or iterative reconstruction. FINDINGS: Mild lumbar curve. No acute compression. Chronic compression fracture L1 vertebral body with anterior wedging and chronic ankylosis is unchanged. Minimal chronic retropulsion of the posterior L1 cortex with mild central canal stenosis. Stable slight retrolisthesis L2 on L3. L1-L2: Osteophytic ridging. Spinal canal and foramen are patent. Moderate facet arthropathy. L2-L3: Slight retrolisthesis. Mild disc osteophytic bulging with slight narrowing of the left subarti cular recess. Mild left foraminal narrowing. Right foramen is patent. Moderate facet arthropathy. Spi nal canal is patent. L3-L4: Disc osteophyte complex with small central disc protrusion. Moderate central canal stenosis. N arrowing of the subarticular recess bilaterally. Moderate left greater than right foraminal narrowing . Moderate facet arthropathy and ligamentum flavum hypertrophy. L4-L5: Mild disc osteophytic ridging with slight effacement of the ventral thecal sac. Slight narrowi ng of the subarticular recess bilaterally. Mild central canal stenosis. Moderate right and mild left foraminal narrowing. Moderate to advanced facet arthropathy. L5-S1: Mild disc bulging with osteophytic ridging. Slight effacement of ventral thecal sac. Mild bila teral foraminal narrowing. Advanced facet arthropathy ligament flavum hypertrophy. Adrenal glands are normal. Bilateral renal cysts larger on the right. CT/CT lumbar spine w con [id number] IMPRESSION: 1. Mild lumbar curve. No acute compression. Chronic compression fracture L1 wi th bony ankylosis is unchanged. 2. Moderate central canal stenosis L3-4 with impingement traversing L4 nerve r oots bilaterally. Advanced facet arthropathy. 3. Eccentric disc bulging L3-4 with moderate bilateral L3-4 foraminal narrowin g. 4. Right foraminal protrusion L4-5 impinges the exiting right L4 nerve root wi th moderate right foraminal narrowing. Mild central canal stenosis L4-5. 5. Eccentric disc bulging L5-S1 with mild bilateral L5-S1 foraminal narrowing. 6. Moderate to advanced facet arthropathy L3-L5.
[2021-01-09 13:17] LABS: INR 1.11 (0.83-1.21); Prothrombin Time (Patient) 14.7 Seconds (12.0-15.1)
[2021-01-09 13:31] LABS: Alanine Aminotransferase 23 U/L (0-41); Albumin Level 3.8 g/dL (3.5-5.2); Alkaline Phosphatase 95 IU/L (40-130); Aspartate Amino Transferase 29 U/L (0-40); Globulin 2.8 g/dL (1.3-4.6); Total Bilirubin 0.5 mg/dL (0.15-1.2); Total Protein 6.6 g/dL (6.6-8.7)
[2021-01-09] MEDS: iohexol 240 mg/mL 50 mL Btl INTRATHECA (15:35)
== END 2021-01-09 12:34 | disposition home or self-care (01) ==
LOC: RAD 12:35
PROVIDERS: Internal Medicine Cardiovascular Disease; PCP Internal Medicine; Visit Provider Orthopaedic Surgery
DX: M54.50 Low back pain, unspecified (principal); M48.062 Spinal stenosis, lumbar region with neurogenic claudication; I48.19 Other persistent atrial fibrillation; E78.2 Mixed hyperlipidemia; I10 Essential (primary) hypertension
CPT/HCPCS: 36415; 62304; 72120; 72132; 80076; 85610

== ENCOUNTER 2021-02-20 12:48 | Emergency (ER) | payer MEDICARE, SELFPAY ==
[2021-02-20 13:40] VITALS: BP 144/70; PULSE 96; RESP 16; TEMP 36.8; O2SAT 96; BMI 30.2
[2021-02-20 14:04] VITALS: BP 167/89; PULSE 62; RESP 16; O2SAT 97
--- NOTE | 2021-02-20 14:04 | XRR_ITS ---
PROCEDURE INFORMATION: Exam: XR Right Shoulder Exam date and time: 02/20/2021 2:04 PM Age: 85 years old Clinical indication: Fall with blunt right shoulder trauma. Injury date: 02/15/21. Fall landing on shoulder. TECHNIQUE: Imaging protocol: XR Right shoulder. Views: 2 or more views. COMPARISON: CR XR chest 2V* [id number] 11/29/2020 12:27 PM FINDINGS: Bones/joints: There is mild primary osteoarthritis at the acromioclavicular joint. Irregularity of the greater tuberosity likely reflecting rotator cuff degeneration and/or tearing. No fracture, dislocation or subluxation. No periosteal reaction or supsicious bone lesion. Lungs: A calcified granuloma is again noted in the right chest. Soft tissues: No gross soft tissue swelling. XR/XR shoulder RT min 2V* [id number] IMPRESSION: 1. No acute fracture is seen. 2. Probable rotator cuff degeneration and/or tearing. 3. 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 Radiation Dose CTDIVOL = (mGy): DLP = (mGy-cm)
--- NOTE | 2021-02-20 14:04 | XRR_ITS ---
PROCEDURE INFORMATION: Exam: XR Chest Exam date and time: 02/20/2021 2:04 PM Age: 85 years old Clinical indication: Cough. Dizziness. Fall. COPD. TECHNIQUE: Imaging protocol: XR of the chest. Views: 2 views. COMPARISON: CR XR chest 2V* [id number] 11/29/2020 12:27 PM FINDINGS: Tubes, catheters and devices: A left subclavian AICD is noted. An electronic device overlies the heart. Lungs: Mild scarring at the right base. No leia consolidation is seen. Pleural spaces: There is pleural based calcification and thickening on the right. No pleural effusion.. No pneumothorax. Heart/Mediastinum: The cardiac silhouette is grossly unchanged. No gross evidence of pneumomediastinum. Bones/joints: No gross fracture. Soft tissues: A calcified nodule in the mid to lower right chest is unchanged. XR/XR chest 2V* [id number] IMPRESSION: 1. No acute cardiopulmonary abnormality identified. 2. Probable prior asbestos exposure. Radiation Dose CTDIVOL = (mGy): DLP = (mGy-cm)
--- NOTE | 2021-02-20 14:32 | ED_ITS ---
HPI - Fall General: Chief Complaint: Fall Stated Complaint: LIGHT HEADED, FALL Time Seen by Provider: 02/20/21 13:54 Source: patient Mode of arrival: ambulatory Limitations: no limitations History of Present Illness: HPI Narrative: 85-year-old male presents to the ER today for right shoulder pain and a cough x5 days. Patient reports his shoulder began hurting last Saturday after he fell from a stool. 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 Patient reports he has a large bruise to the posterior shoulder and has tenderness over the posterior shoulder and with any movement greater than 60 degrees. Patient denies any prior injury to that shoulder and reports prior to the incident he was able to move it normally. He has not taken anything for the pain at this time. Patient also reports a cough that began around last Saturday and is w orsening. Patient has a history of COPD and takes home inhalers as prescribed. Patient reports the cough is productive and seems to be worsening and he has increased shortness of breath. Denies any fever or chills. Denies any recent sick contacts. Denies any headache, ear pain, congestion, runny nose, sore throat, chest pain, nausea, vomiting, diarrhea, constipation. MD complaint: fall PFSH ED PFSH: Medical History (Updated 02/20/21 @ 14:59 by Neha Collins PA-C) Atrial fibrillation Cardiomyopathy Carotid artery stenosis COPD (chronic obstructive pulmonary disease) DDD (degenerative disc disease) GERD (gastroesophageal reflux disease) Gout Hyperlipidemia Hypertension Pacemaker Surgical History History of appendectomy History of cataract extraction History of tonsillectomy and adenoidectomy Hx of laminectomy Family History Mother CAD (coronary artery disease) Brother Chronic kidney disease (CKD) Father Stroke Family/Other Suicide Denies family history of Diabetes Clotting disorder Dementia Anesthesia complication Bleeding disorder Lung disease Cancer Social History Smoking and tobacco status: former smoker Alcohol intake: never Course Vital Signs: Vital signs: Vital Signs Temperature 98.3 F 02/20/21 13:40 Pulse Rate 62 02/20/21 14:04 Respiratory Rate 16 02/20/21 14:04 Blood Pressure 167/89 02/20/21 14:04 Pulse Oximetry 97 02/20/21 14:04 MDM - Fall MDM Narrative: Medical decision making narrative: 85-year-old male presents to the ER today for right shoulder pain after falling 5 days ago. Patient also reports a worsening cough with a history of COPD. X-ray of the right shoulder indicates chronic changes with probable rotator cuff injury. This is consistent with physical exam. I discussed findings with patient and recommended follow-up with PCP for probable MRI. We will try prednisone to treat COPD exacerbation at this time. The prednisone may also help patient some with the shoulder pain. We will also try meloxicam for shoulder pain, do not take ibuprofen in addition to the meloxicam. Warm moist heat alternating with ice should be applied to the shoulder for comfort. Follow-up with PCP in 7 to 10 days. Return to the ER with any new or worsening symptoms. Patient verbalized understanding and is in agreement with this treatment plan. Imaging Data^: Xray Ortho: Radiologist's impression: [facility] [employer] [place] [address] XRay Report Signed Patient: Alexey An Unit #: [id number] : 1935 Age/Sex: 85 / M ADM Date: 02/20/21 Loc: ER Room/Bed: Attending Dr: Ordering Provider/Ordering MD: Neha Collins Date of Service: 02/20/21 Procedure(s): XR shoulder RT min 2V* [id number] Accession Number(s): [id number] Report Number: [id number] PROCEDURE INFORMATION: Exam: XR Right Shoulder Exam date and time: 02/20/2021 2:04 PM Age: 85 years old Clinical indication: Fall with blunt right shoulder trauma. Injury date: 02/15/21. Fall landing on shoulder. TECHNIQUE: Imaging protocol: XR Right shoulder. Views: 2 or more views. COMPARISON: CR XR chest 2V* [id number] 11/29/2020 12:27 PM FINDINGS: Bones/joints: There is mild primary osteoarthritis at the acromioclavicular joint. Irregularity of the greater tuberosity likely reflecting rotator cuff degeneration and/or tearing. No fracture, dislocation or subluxation. No periosteal reaction or supsicious bone lesion. Lungs: A calcified granuloma is again noted in the right chest. Soft tissues: No gross soft tissue swelling. XR/XR shoulder RT min 2V* [id number] IMPRESSION: 1. No acute fracture is seen. 2. Probable rotator cuff degeneration and/or tearing. 3. 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 Radiation Dose CTDIVOL = (mGy): DLP = (mGy-cm) Dictated By: Kris John Signed By: Kris John Signed Date/Time: 1441 DD/ 1404 CXR: Radiologist's impression: [address] [address] XRay Report Signed Patient: Alexey An Unit #: [id number] : 1935 Age/Sex: 85 / M ADM Date: 02/20/21 Loc: ER Room/Bed: Attending Dr: Ordering Provider/Ordering MD: Neha Collins Date of Service: 02/20/21 Procedure(s): XR chest 2V* [id number] Accession Number(s): [id number] Report Number: [id number] PROCEDURE INFORMATION: Exam: XR Chest Exam date and time: 02/20/2021 2:04 PM Age: 85 years old Clinical indication: Cough. Dizziness. Fall. COPD. TECHNIQUE: Imaging protocol: XR of the chest. Views: 2 views. COMPARISON: CR XR chest 2V* [id number] 11/29/2020 12:27 PM FINDINGS: Tubes, catheters and devices: A left subclavian AICD is noted. An electronic device overlies the heart. Lungs: Mild scarring at the right base. No leia consolidation is seen. Pleural spaces: There is pleural based calcification and thickening on the right. No pleural effusion.. No pneumothorax. Heart/Mediastinum: The cardiac silhouette is grossly unchanged. No gross evidence of pneumomediastinum. Bones/joints: No gross fracture. Soft tissues: A calcified nodule in the mid to lower right chest is unchanged. XR/XR chest 2V* [id number] IMPRESSION: 1. No acute cardiopulmonary abnormality identified. 2. Probable prior asbestos exposure. Radiation Dose CTDIVOL = (mGy): DLP = (mGy-cm) Dictated By: Kris John Signed By: Kris John Signed Date/Time: 02/20/21 1443 DD/ 1404 Critical Care Time Critical Care Time: Critical Care Time: No Discharge Plan Discharge Patient Disposition: Home Clinical Impression: COPD exacerbation Sprain of shoulder, right Qualifiers: Encounter type: initial encounter Shoulder sprain type: rotator cuff capsule Qualified Code(s): S43.421A - Sprain of right rotator cuff capsule, initial encounter Condition: Stable Prescriptions: New prednisone 20 mg tablet 40 mg PO DAILY 4 Days RF: 0 meloxicam 15 mg tablet 15 mg PO DAILY Qty: 10 RF: 0 No Action paroxetine HCl 30 mg tablet 30 mg PO DAILY RF: 0 cyclobenzaprine 5 mg tablet 5 mg PO BID PRN (Reason: muscle spasm) Qty: 60 RF: 0 tamsulosin 0.4 mg capsule 0.4 mg PO QDAY RF: 0 Lantus U-100 Insulin 100 unit/mL solution 15 unit SUBCUT QDAY RF: 0 allopurinol 1 ea PO DAILY RF: 0 isosorbide mononitrate 30 mg tablet extended release 24 hr 30 mg PO DAILY RF: 0 metoprolol tartrate 75 mg tablet 75 mg PO BID Qty: 180 RF: 3 warfarin 4 mg tablet 4 mg PO QDAY Qty: 90 RF: 3 warfarin 6 mg tablet 6 mg PO DAILY Qty: 30 RF: 6 warfarin 1 mg tablet 1 mg PO DAILY Qty: 90 RF: 2 losartan 100 mg tablet 100 mg PO DAILY Qty: 30 RF: 0 prednisone 50 mg tablet 50 mg PO DAILY Qty: 3 RF: 0 diphenhydramine HCl [Benadryl Allergy] 25 mg tablet 25 mg PO TID PRN (Reason: allergy symptoms) Qty: 2 RF: 0 hydrocodone-acetaminophen 5-325 mg tablet 1 tab PO Q6H PRN (Reason: pain) Qty: 20 RF: 0 Discharge Orders: Discharge ED (Routine); Ordered 02/20/21 Ordered By: Neha Collins Referrals: Magaly Rivas MD [Primary Care Provider] - Discharge Diet: Usual diet Discharge Activity: Limit activity as instructed Patient Instructions: Rotator Cuff Injury (ED), Rotator Cuff Injury Exercises (DC), Opioid Safety Activity Restrictions/Additional Instructions: Take steroid as prescribed. Take meloxicam as prescribed. Avoid lifting anything greater than 10 pounds. Apply ice alternated with heat for comfort of shoulder pain. Follow-up with primary care doctor in 7 to 10 days regarding shoulder, probable MRI will be needed. Continue home medications for COPD. Mucinex twice daily recommended. Return to the ER with any new or worsening symptoms. 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
== END 2021-02-20 15:06 | disposition home or self-care (01) ==
PROVIDERS: Emergency Provider Physician Assistant; PCP Internal Medicine
DX: J44.1 Chronic obstructive pulmonary disease with (acute) exacerbation (principal); Z87.891 Personal history of nicotine dependence; S43.421A Sprain of right rotator cuff capsule, initial encounter; W08.XXXA Fall from other furniture, initial encounter
CPT/HCPCS: 71046; 73030; 99282

== ENCOUNTER 2021-04-21 11:33 | Emergency (ER) | payer MEDICARE, SELFPAY ==
[2021-04-21 11:33] VITALS: BP 178/111; PULSE 82; RESP 18; TEMP 36.5; O2SAT 95; BMI 30.6
--- NOTE | 2021-04-21 11:45 | CT_ITS ---
WS: [id number] CT CERVICAL SPINE HISTORY: trauma TECHNIQUE: Contiguous 2.5 mm axial imaging performed through the entire cervical spine. Sagittal and coronal reformats also performed. All CT scans at [facility] use at least one of these dose o ptimization techniques: automated exposure control; mA and/or kV adjustment per patient size (include s targeted exams where dose is matched to clinical indication); or iterative reconstruction. DLP: 747.78 mGy.cm COMPARISON: 07/18/2020 Straightening and mild scoliosis of the cervical spine. Posterior alignment is normal. Large anterior bridging osteophytes in the mid to lower cervical spine. No fractures. Facet joints are narrowed thr oughout. C2-C3: Mild facet joint arthritis. C3-C4: Moderate bilateral facet joint arthritis and osteophytic ridging. Moderate central and bilater al foraminal stenosis. C4-C5: Moderate LEFT foraminal stenosis. Small central disc protrusion. C5-C6: Severe osteophytic ridging encroaching into the central canal and foramina. C6-C7: Mild osteophytic ridging. Mild central and foraminal stenosis. C7-T1: Normal. Calcification in the RIGHT carotid artery. CT/CT cervical spin wo con* [id number] IMPRESSION: 1. No acute cervical spine fracture identified. 2. Advanced facet joint arthritis and spondylitic changes. 3. Central and foraminal stenosis as above. Most significant at C5-6.
--- NOTE | 2021-04-21 11:45 | XR_ITS ---
WS: [id number] RIGHT SHOULDER: 3 VIEW(S) TECHNIQUE: Internal and external rotation with Y view. HISTORY: trauma COMPARISON: 02/20/2021 and 12/30/2009 No fracture or dislocation or soft tissue abnormality. Moderate narrowing of the AC joint. The alignment is similar to a prior study from 05/02/2009. High rid ing RIGHT humeral head. Small spur from the distal acromion causing encroachment upon the humeral hea d. XR/XR shoulder RT min 2V* [id number] IMPRESSION: 1. No acute shoulder fracture. 2. Moderate AC joint arthritis and acromial osteophytosis. Similar to prior radha.
--- NOTE | 2021-04-21 11:45 | CT_ITS ---
WS: [id number] CT HEAD NONCONTRAST HISTORY: trauma TECHNIQUE: Contiguous axial imaging performed through the brain in 2.5 mm imaging. Bone and soft tiss ue windows. Sagittal and coronal reformats reviewed. All CT scans at [facility] use at least one of these dose optimization techniques: automated exposure control; mA and/or kV adjustment per pa tient size (includes targeted exams where dose is matched to clinical indication); or iterative recon struction. DLP: 1031.24 mGy.cm COMPARISON: 08/15/2020 No acute intracranial hemorrhage, midline shift or mass effect. Mild atrophy and mild chronic microvascular ischemic disease. No prior infarcts. Ventricles: Normal size with no hydrocephalus. No inferior displacement of the cerebellar tonsils. Paranasal sinuses: No air-fluid levels. Mild mucoperiosteal thickening throughout the ethmoid air moises ls. Mastoid air cells: Well pneumatized. Calvarium and scalp: No skull fracture. There is a moderate size scalp hematoma centered over the RIG HT frontal bone. Soft tissue laceration extends to the frontal bone. No foreign body. CT/CT head wo con* [id number] IMPRESSION: 1. No acute intracranial hemorrhage or edema. 2. Scalp hematoma with laceration over the RIGHT frontal bone. 3. Mild cerebral atrophy and chronic microvascular ischemic disease.
--- NOTE | 2021-04-21 11:45 | XR_ITS ---
WS: [id number] RIGHT HAND: 3 VIEW(S) TECHNIQUE: PA, oblique and lateral. HISTORY: trauma COMPARISON: None available. No acute fracture or dislocation. Mild diffuse interphalangeal joint space narrowing. Mild narrowing of the radiocarpal joint. XR/XR hand RT min 3V* [id number] IMPRESSION: No acute RIGHT hand fracture.
[2021-04-21 11:54] VITALS: BP 178/111; PULSE 66; O2SAT 98
[2021-04-21] MEDS: tetanus-diphtheria tox (adult) 0.5 mL SDV IM (12:00)
--- NOTE | 2021-04-21 12:16 | ED_ITS ---
HPI - Fall General: Chief Complaint: Fall Stated Complaint: FALL/ LACERATION TO HEAD Time Seen by Provider: 04/21/21 11:42 History of Present Illness: Laceration, patient lungs Dr. Lema and he has done charting on patient. [facility] ED PFSH: Medical History Atrial fibrillation Cardiomyopathy Carotid artery stenosis COPD (chronic obstructive pulmonary disease) DDD (degenerative disc disease) GERD (gastroesophageal reflux disease) Gout Hyperlipidemia Hypertension Pacemaker Surgical History History of appendectomy History of cataract extraction History of tonsillectomy and adenoidectomy Hx of laminectomy Family History Mother CAD (coronary artery disease) valve replaced at 86 Brother Chronic kidney disease (CKD) Father Stroke Family/Other Suicide Denies family history of Diabetes Clotting disorder Dementia Anesthesia complication Bleeding disorder Lung disease Cancer Social History Smoking and tobacco status: former smoker Alcohol intake: never Procedures Laceration Laceration 1: Site: face Size (cm): 8 Description: irregular and other (Upside down horseshoe shape) Depth: simple, single layer Local Anesthetic: lidocaine 1% Amount of anesthesia used (mL): 5 Pre-repair: wound explored, irrigated extensively and deep structures intact Skin layer closed with: nylon (4) Size (cm): 4-0 Number of sutures: 11 Technique: simple, interrupted Course Vital Signs: Vital signs: Vital Signs Temperature 97.7 F 04/21/21 11:33 Pulse Rate 66 04/21/21 11:54 Respiratory Rate 18 04/21/21 11:33 Blood Pressure 178/111 04/21/21 11:54 Pulse Oximetry 98 04/21/21 11:54 MDM - Fall Medical Decision Making Laceration repair patient is a patient Dr. Lema's Lab Data : 04/21/21 12:00 Laboratory Results WBC 10.0 10^3/uL (4.0-10.0) 04/21/21 12:00 RBC 4.16 10^6/uL (4.1-5.3) 04/21/21 12:00 Hgb 13.2 g/dL (11.7-16.6) 04/21/21 12:00 Hct 40.4 % (42.0-52.0) L 04/21/21 12:00 MCV 97.1 fl (80-94) H 04/21/21 12:00 MCH 31.7 pg (28.0-34.0) 04/21/21 12:00 MCHC 32.7 g/dL (30.0-36.0) 04/21/21 12:00 RDW 13.2 % (12.1-15.1) 04/21/21 12:00 Plt Count 202 10^3/cmm (130-400) 04/21/21 12:00 MPV 10.0 fL (7.4-10.4) 04/21/21 12:00 Neut % (Auto) 64.4 % 04/21/21 12:00 Lymph % (Auto) 21.1 % 04/21/21 12:00 [place] % (Auto) 10.7 % 04/21/21 12:00 Eos % (Auto) 2.9 % 04/21/21 12:00 Baso % (Auto) 0.6 % 04/21/21 12:00 Neut # (Auto) 6.44 10^3/uL (1.8-7.7) 04/21/21 12:00 Lymph # (Auto) 2.1 10^3/uL (0.8-4.8) 04/21/21 12:00 [place] # (Auto) 1.1 10^3/uL (0.2-0.9) H 04/21/21 12:00 Eos # (Auto) 0.3 10^3/uL (0.0-0.8) 04/21/21 12:00 Baso # (Auto) 0.1 10^3/uL (0.0-0.1) 04/21/21 12:00 Nucleated RBC % (auto) 0 % 04/21/21 12:00 Nucleated RBCs # 0.0 /100WBC 04/21/21 12:00 Discharge Plan Discharge Condition: Stable Prescriptions: No Action paroxetine HCl 30 mg tablet 30 mg PO DAILY 0RF cyclobenzaprine 5 mg tablet 5 mg PO BID PRN (Reason: muscle spasm) Qty: 60 0RF losartan 100 mg tablet 50 mg PO BID 0RF tamsulosin 0.4 mg capsule 0.4 mg PO QDAY 0RF Lantus U-100 Insulin 100 unit/mL solution 15 unit SUBCUT QDAY 0RF allopurinol 1 ea PO DAILY 0RF metoprolol tartrate 75 mg tablet 75 mg PO BID Qty: 180 3RF warfarin 4 mg tablet 4 mg PO QDAY Qty: 90 3RF Protocol: Dose Management Condition: Saturday Dose/Route: 4 mg Instruction: 1 x 4 mg tablet Condition: Saturday Dose/Route: 4 mg Instruction: 1 x 4 mg tablet Condition: Saturday Dose/Route: 3 mg Instruction: 3 x 1 mg tablets Condition: Saturday Dose/Route: 4 mg Instruction: 1 x 4 mg tablet Condition: Dose/Route: 4 mg Instruction: 1 x 4 mg tablet Condition: Saturday Dose/Route: 4 mg Instruction: 1 x 4 mg tablet Condition: Saturday Dose/Route: 4 mg Instruction: 1 x 4 mg tablet Protocol Text: Adjustment Start Date: Saturday04/07/21 INR Value: 3.0 INR Date: 04/04/21 Recheck Date: 04/14/21 Rx Instructions: As directed by Dr Hsieh warfarin 6 mg tablet 6 mg PO DAILY Qty: 30 6RF Protocol: Dose Management Condition: Saturday Dose/Route: 4 mg Instruction: 1 x 4 mg tablet Condition: Saturday Dose/Route: 4 mg Instruction: 1 x 4 mg tablet Condition: Saturday Dose/Route: 3 mg Instruction: 3 x 1 mg tablets Condition: Saturday Dose/Route: 4 mg Instruction: 1 x 4 mg tablet Condition: Dose/Route: 4 mg Instruction: 1 x 4 mg tablet Condition: Saturday Dose/Route: 4 mg Instruction: 1 x 4 mg tablet Condition: Saturday Dose/Route: 4 mg Instruction: 1 x 4 mg tablet Protocol Text: Adjustment Start Date: Saturday04/07/21 INR Value: 3.0 INR Date: 04/04/21 Recheck Date: 04/14/21 warfarin 1 mg tablet 1 mg PO DAILY Qty: 90 2RF Protocol: Dose Management Condition: Saturday Dose/Route: 4 mg Instruction: 1 x 4 mg tablet Condition: Saturday Dose/Route: 4 mg Instruction: 1 x 4 mg tablet Condition: Saturday Dose/Route: 3 mg Instruction: 3 x 1 mg tablets Condition: Saturday Dose/Route: 4 mg Instruction: 1 x 4 mg tablet Condition: Dose/Route: 4 mg Instruction: 1 x 4 mg tablet Condition: Saturday Dose/Route: 4 mg Instruction: 1 x 4 mg tablet Condition: Saturday Dose/Route: 4 mg Instruction: 1 x 4 mg tablet Protocol Text: Adjustment Start Date: Saturday04/07/21 INR Value: 3.0 INR Date: 04/04/21 Recheck Date: 04/14/21 prednisone 50 mg tablet 50 mg PO DAILY Qty: 3 0RF Rx Instructions: Take 1- 50 mg tablet [address] Take 1- 50mg tablet [address] Take 1- 50 mg tablet [address] diphenhydramine HCl [Benadryl Allergy] 25 mg tablet 25 mg PO TID PRN (Reason: allergy symptoms) Qty: 2 0RF Rx Instructions: Take 50mg (2-25mg) tab [address] scan hydrocodone-acetaminophen 5-325 mg tablet 1 tab PO Q6H PRN (Reason: pain) Qty: 20 0RF meloxicam 15 mg tablet 15 mg PO DAILY Qty: 10 0RF Referrals: Magaly Rivas MD [Primary Care Provider] - Coding Level of Care Code ED Segment Block Layer for Nataliia Suggs
[2021-04-21 12:23] LABS: Basophils # 0.1 10^3/uL (0.0-0.1); Basophils % 0.6 %; Eosinophils # 0.3 10^3/uL (0.0-0.8); Eosinophils % 2.9 %; Hematocrit 40.4 % (42.0-52.0); Hemoglobin 13.2 g/dL (11.7-16.6); Lymphocytes # 2.1 10^3/uL (0.8-4.8); Lymphocytes % 21.1 %; Mean Corpuscular HGB Conc 32.7 g/dL (30.0-36.0); Mean Corpuscular Hemoglobin 31.7 pg (28.0-34.0); Mean Corpuscular Volume 97.1 fl (80-94); Monocytes # 1.1 10^3/uL (0.2-0.9); Monocytes % 10.7 %; Neutrophils # 6.44 10^3/uL (1.8-7.7); Neutrophils % 64.4 %; Nucleated Red Blood Cells % 0 %; Platelet Count 202 10^3/cmm (130-400); Red Blood Count 4.16 10^6/uL (4.1-5.3); Red Cell Distribution Width 13.2 % (12.1-15.1)
== END 2021-04-21 14:19 | disposition home or self-care (01) ==
PROVIDERS: Emergency Provider Family Medicine; PCP Internal Medicine
DX: S01.81XA Laceration without foreign body of other part of head, initial encounter (principal); Z79.4 Long term (current) use of insulin; Z79.01 Long term (current) use of anticoagulants; Z87.891 Personal history of nicotine dependence; J44.9 Chronic obstructive pulmonary disease, unspecified; E78.5 Hyperlipidemia, unspecified; I10 Essential (primary) hypertension; Z95.0 Presence of cardiac pacemaker; X58.XXXA Exposure to other specified factors, initial encounter; Z23 Encounter for immunization
CPT/HCPCS: 12015; 70450; 72125; 73030; 73130; 85025; 90471; 90714; 99283

== ENCOUNTER 2021-05-04 13:47 | Outpatient (CLI) | payer MEDICARE, SELFPAY ==
--- NOTE | 2021-05-04 14:22 | XR_ITS ---
WS: [id number] XR hip RT 2-3V wo/w pel* [id number] REASON FOR EXAM: PAIN IN R HIP FINDINGS: No fracture or focal bone lesion. Moderate narrowing of the joint space with subchondral sclerosis and marginal osteophyte formation of the acetabulum. No soft tissue calcification. XR/XR hip RT 2-3V wo/w pel* [id number] IMPRESSION: Osteoarthritis right hip.
== END 2021-05-04 13:48 | disposition home or self-care (01) ==
LOC: RAD 14:18
PROVIDERS: PCP Internal Medicine; Visit Provider Internal Medicine
DX: M16.11 Unilateral primary osteoarthritis, right hip (principal)
CPT/HCPCS: 73502

== ENCOUNTER → 2021-05-24 16:15 | Outpatient (BNVA) | payer MEDICARE, SELFPAY | PROVIDERS: PCP Internal Medicine; Visit Provider Internal Medicine Cardiovascular Disease | DX: Z79.01 Long term (current) use of anticoagulants (principal) ==

== ENCOUNTER → 2021-06-02 10:53 | Outpatient (BNVA) | payer MEDICARE, SELFPAY | PROVIDERS: PCP Internal Medicine; Visit Provider Internal Medicine Cardiovascular Disease | DX: Z79.01 Long term (current) use of anticoagulants (principal) ==

== ENCOUNTER → 2021-06-07 14:33 | Outpatient (BNVA) | payer MEDICARE, SELFPAY | PROVIDERS: PCP Internal Medicine; Visit Provider Internal Medicine Cardiovascular Disease | DX: Z79.01 Long term (current) use of anticoagulants (principal) ==

== ENCOUNTER → 2021-06-16 08:12 | Outpatient (BNVA) | payer MEDICARE, SELFPAY | PROVIDERS: PCP Internal Medicine; Visit Provider Internal Medicine Cardiovascular Disease | DX: Z79.01 Long term (current) use of anticoagulants (principal) ==

== ENCOUNTER → 2021-06-23 13:24 | Outpatient (BNVA) | payer MEDICARE, SELFPAY | PROVIDERS: PCP Internal Medicine; Visit Provider Internal Medicine Cardiovascular Disease | DX: I48.91 Unspecified atrial fibrillation (principal); Z79.01 Long term (current) use of anticoagulants ==

== ENCOUNTER → 2021-07-12 11:41 | Outpatient (BNVA) | payer MEDICARE, SELFPAY | PROVIDERS: PCP Internal Medicine; Visit Provider Internal Medicine Cardiovascular Disease | DX: Z79.01 Long term (current) use of anticoagulants (principal) ==

== ENCOUNTER → 2021-07-14 10:29 | Outpatient (BNVA) | payer MEDICARE, SELFPAY | PROVIDERS: PCP Internal Medicine; Visit Provider Internal Medicine Cardiovascular Disease | DX: Z45.02 Encounter for adjustment and management of automatic implantable cardiac defibrillator (principal) | CPT/HCPCS: 93283 ==

== ENCOUNTER → 2021-07-20 09:19 | Outpatient (BNVA) | payer MEDICARE, SELFPAY | PROVIDERS: PCP Internal Medicine; Visit Provider Internal Medicine Cardiovascular Disease | DX: Z79.01 Long term (current) use of anticoagulants (principal) ==

== ENCOUNTER → 2021-07-27 15:33 | Outpatient (BNVA) | payer MEDICARE, SELFPAY | PROVIDERS: PCP Internal Medicine; Visit Provider Internal Medicine Cardiovascular Disease | DX: Z79.01 Long term (current) use of anticoagulants (principal) ==

== ENCOUNTER → 2021-08-04 09:53 | Outpatient (BNVA) | payer MEDICARE, SELFPAY | PROVIDERS: PCP Internal Medicine; Visit Provider Internal Medicine Cardiovascular Disease | DX: Z79.01 Long term (current) use of anticoagulants (principal) ==

== ENCOUNTER → 2021-08-11 11:43 | Outpatient (BNVA) | payer MEDICARE, SELFPAY | PROVIDERS: PCP Internal Medicine; Visit Provider Internal Medicine Cardiovascular Disease | DX: Z79.01 Long term (current) use of anticoagulants (principal) ==

== ENCOUNTER → 2021-08-17 10:32 | Outpatient (BNVA) | payer MEDICARE, SELFPAY | PROVIDERS: PCP Internal Medicine; Visit Provider Internal Medicine Cardiovascular Disease | DX: Z79.01 Long term (current) use of anticoagulants (principal) ==

== ENCOUNTER → 2021-08-25 10:10 | Outpatient (BNVA) | payer MEDICARE, SELFPAY | PROVIDERS: PCP Internal Medicine; Visit Provider Internal Medicine Cardiovascular Disease | DX: Z79.01 Long term (current) use of anticoagulants (principal) ==

== ENCOUNTER → 2021-09-01 11:23 | Outpatient (BNVA) | payer MEDICARE, SELFPAY | PROVIDERS: PCP Internal Medicine; Visit Provider Internal Medicine Cardiovascular Disease | DX: Z79.01 Long term (current) use of anticoagulants (principal) ==

== ENCOUNTER → 2021-09-07 09:54 | Outpatient (BNVA) | payer MEDICARE, SELFPAY | PROVIDERS: PCP Internal Medicine; Visit Provider Internal Medicine Cardiovascular Disease | DX: Z79.01 Long term (current) use of anticoagulants (principal) ==

== ENCOUNTER → 2021-09-14 17:18 | Outpatient (BNVA) | payer MEDICARE, SELFPAY | PROVIDERS: PCP Internal Medicine; Visit Provider Internal Medicine Cardiovascular Disease | DX: Z79.01 Long term (current) use of anticoagulants (principal) ==

== ENCOUNTER → 2021-09-22 10:24 | Outpatient (BNVA) | payer MEDICARE, SELFPAY | PROVIDERS: PCP Internal Medicine; Visit Provider Internal Medicine Cardiovascular Disease | DX: Z79.01 Long term (current) use of anticoagulants (principal) ==

== ENCOUNTER → 2021-09-27 11:49 | Outpatient (BNVA) | payer MEDICARE, SELFPAY | PROVIDERS: PCP Internal Medicine; Visit Provider Internal Medicine Cardiovascular Disease | DX: I48.19 Other persistent atrial fibrillation (principal); Z95.0 Presence of cardiac pacemaker | CPT/HCPCS: 85610; 99214 ==

== ENCOUNTER → 2021-10-06 09:18 | Outpatient (BNVA) | payer MEDICARE, SELFPAY | PROVIDERS: PCP Internal Medicine; Visit Provider Internal Medicine Cardiovascular Disease | DX: Z79.01 Long term (current) use of anticoagulants (principal) ==

== ENCOUNTER → 2021-10-12 10:11 | Outpatient (BNVA) | payer MEDICARE, SELFPAY | PROVIDERS: PCP Internal Medicine; Visit Provider Internal Medicine Cardiovascular Disease | DX: Z79.01 Long term (current) use of anticoagulants (principal) ==

== ENCOUNTER → 2021-10-13 10:22 | Outpatient (BNVA) | payer MEDICARE, SELFPAY | PROVIDERS: PCP Internal Medicine; Visit Provider Internal Medicine Cardiovascular Disease | DX: Z45.02 Encounter for adjustment and management of automatic implantable cardiac defibrillator (principal) | CPT/HCPCS: 93283 ==

== ENCOUNTER → 2021-10-17 11:25 | Outpatient (BNVA) | payer MEDICARE, SELFPAY | PROVIDERS: PCP Internal Medicine; Visit Provider Internal Medicine Cardiovascular Disease | DX: Z79.01 Long term (current) use of anticoagulants (principal) ==

== ENCOUNTER 2021-10-26 13:26 | Observation (INO) | payer OTHER, MEDICARE, SELFPAY ==
[2021-10-26] VITALS (7 sets, daily range): BP systolic 148–183; BP diastolic 76–97; PULSE 63–86; RESP 14–26; TEMP 36.4–36.6; O2SAT 93–98; BMI 29.7
--- NOTE | 2021-10-26 14:38 | W.ED.GENADLT ---
HPI - General Adult General: Chief complaint: General Medical Stated complaint: Confusion, Lethargic, memory loss Time Seen by Provider: 10/26/21 14:38 History of Present Illness: Mr. An is an 86-year-old gentleman with history of hypertension, hyperlipidemia, carotid artery stenosis, A. fib on warfarin, history of TIAs who presents to the emergency department due to abnormal neurologic symptoms. Symptom onset was approximately 2 weeks ago and subacute. Since that time he has had intermittent episodes of gait instability which he describes as feeling off balance as well as lightheadedness and episodes of confusion. These have become more frequent and intense and essentially have been more constant over the past 4 days. He denies new numbness or tingling. He did have difficulty with texting and did not know what day it was earlier today when texting granddaughter. Intensity of symptoms is moderate to severe. No other specific changes in health, exacerbating, or alleviating factors identified. Onset (ago): week(s) Severity: moderate Pain Consistency: intermittent Review of Systems General: Reports: 10 or more systems reviewed and unremarkable except in HPI and below PFSH ED PFSH: Medical History (Updated 10/28/21 @ 00:01 by ) Ataxia Atrial fibrillation Cardiomyopathy Carotid artery stenosis Chronic anticoagulation COPD (chronic obstructive pulmonary disease) CVA (cerebral vascular accident) DDD (degenerative disc disease) GERD (gastroesophageal reflux disease) Gout Hyperlipidemia Hypertension Implantable cardioverter-defibrillator (ICD) discharge Long-term (current) use of anticoagulants, INR goal 2.0-3.0 Pacemaker Stroke-like symptom Surgical History History of appendectomy History of cataract extraction History of tonsillectomy and adenoidectomy Hx of laminectomy Family History Mother CAD (coronary artery disease) valve replaced at 86 Brother Chronic kidney disease (CKD) Father Stroke Family/Other Suicide Denies family history of Diabetes Clotting disorder Dementia Anesthesia complication Bleeding disorder Lung disease Cancer Social History Smoking and tobacco status: former smoker Alcohol intake: never Physical Exam Const: COMMON NORMALS: patient oriented x3 and alert GENERAL APPEARANCE: cooperative and well developed HENMT: COMMON NORMALS: normocephalic and atraumatic HEAD & SCALP: normocephalic and atraumatic THROAT: posterior oropharynx normal Eye: COMMON NORMALS: conjunctivae normal CONJUNCTIVA: Yes conjunctivae normal SCLERA: sclerae normal Neck/C-Spine: COMMON NORMALS: supple GENERAL: Yes trachea midline Resp: COMMON NORMALS: normal respiratory effort EFFORT & INSPECTION: Yes able to speak in complete sentences Cardio: COMMON NORMALS: regular rate and regular rhythm RATE: regular rate RHYTHM: regular rhythm GI: COMMON NORMALS: Soft to palpation PALPATION: Yes Soft to palpation and No Tenderness to palpation present (GI) PERCUSSION: normal to percussion Extremity: GENERAL: Yes normal exam except as noted and No edema Neuro: COMMON NORMALS: patient oriented x3, CN's II-XII intact bilaterally, moves all extremities, no focal motor deficits and no sensory deficits noted SENSORIUM/ORIENTATION: Yes alert and No Orientation impaired Psych: COMMON NORMALS: mental status grossly normal and Normal thought process present THOUGHT PROCESS: Normal thought process present Course ED course: - Patient was seen and evaluated by me at bedside - Patient placed on cardiac monitors, IV access obtained - Initial evaluation notable for exam as above. - Labs and xrays personally interpreted by me. EKG showing sinus rhythm with first-degree AV block, nonspecific ST segment abnormalities. No STEMI. - Labs notable for no leukocytosis, normal hemoglobin. INR mildly supratherapeutic. Elevated creatinine. Negative delta troponin. No evidence of urinary tract infection. - Imaging notable for no lobar consolidation or pneumothorax on chest x-ray. CT head without acute intracranial hemorrhage or mass. - Upon serial reexamination after treatment the patient was similar. Patient ambulates with ataxic unsteady gait upon ambulation testing. - Based on patient history, evaluation, and testing as interpreted the most likely cause of the patient's condition is ataxia with other neurologic symptoms of uncertain etiology. - The results of ED evaluation were discussed with the patient including plan for admission due to requirement for level of care not available if discharged to prevent significant worsening/deterioration. - Admitting service was contacted and [] with [] agreed to admit the patient - Patient was admitted without further deterioration or significant events. Note: Click bubbles or prepopulated judge in note writing are used for assistance with data collection and billing and are inherently more limited than narrative and other text portions of this note. Please use narrative for additional clinical history and defer to narrative/free test for any case of contradictory information. If information appears in only free text or click bubble it should be considered present or absent as reported. Please contact note insurance underwriter sales for clarifications of clinical information or contradictory information. MDM is a brief summary, contradictory or erroneous seeming information should be clarified and full note should be reviewed. Vital Signs: Vital signs: Vital Signs Temperature 98.0 F 10/27/21 11:59 Pulse Rate 65 10/27/21 11:59 Respiratory Rate 18 10/27/21 11:59 Blood Pressure 148/73 10/27/21 11:59 Pulse Oximetry 96 10/27/21 11:59 Oxygen Delivery Me thod 10/27/21 11:59 Fraction of Inspir ed Oxygen 21 10/27/21 00:54 MDM - General Adult Medical Decision Making 86-year-old gentleman with 2-week history of progressive abnormal neurologic symptoms. No focality on initial exam however gait is grossly ataxic and patient unable to ambulate safely. No clear etiology on ED evaluation. Admitted for further management. Medical Records I reviewed the patient's medical records. Lab Data I reviewed the patient's lab results. : 10/27/21 02:11 10/27/21 02:11 Radiology Impressions Chest X-Ray 10/26/21 14:52 Impression: Atherosclerosis and permanent pacemaker. Head CT 10/26/21 14:52 IMPRESSION: 1. No evidence of intracranial hemorrhage or mass effect. 2. Mild small vessel changes with mild parenchymal volume loss. 3. Tiny chronic appearing lacunar infarct RIGHT thalamus is new from previous but has a chronic appearance. 4. No other significant findings. Laboratory Results WBC 6.6 10^3/uL (4.0-10.0) 10/26/21 15:16 RBC 4.09 10^6/uL (4.1-5.3) L 10/26/21 15:16 Hgb 12.8 g/dL (11.7-16.6) 10/26/21 15:16 Hct 39.3 % (42.0-52.0) L 10/26/21 15:16 MCV 96.1 fl (80-94) H 10/26/21 15:16 MCH 31.3 pg (28.0-34.0) 10/26/21 15:16 MCHC 32.6 g/dL (30.0-36.0) 10/26/21 15:16 RDW 14.1 % (12.1-15.1) 10/26/21 15:16 Plt Count 174 10^3/cmm (130-400) 10/26/21 15:16 MPV 9.7 fL (7.4-10.4) 10/26/21 15:16 Neut % (Auto) 59.3 % 10/26/21 15:16 Lymph % (Auto) 27.4 % 10/26/21 15:16 Simpson % (Auto) 8.6 % 10/26/21 15:16 Eos % (Auto) 3.6 % 10/26/21 15:16 Baso % (Auto) 0.8 % 10/26/21 15:16 Neut # (Auto) 3.92 10^3/uL (1.8-7.7) 10/26/21 15:16 Lymph # (Auto) 1.8 10^3/uL (0.8-4.8) 10/26/21 15:16 Simpson # (Auto) 0.6 10^3/uL (0.2-0.9) 10/26/21 15:16 Eos # (Auto) 0.2 10^3/uL (0.0-0.8) 10/26/21 15:16 Baso # (Auto) 0.1 10^3/uL (0.0-0.1) 10/26/21 15:16 Nucleated RBC % (auto) 0 % 10/26/21 15:16 Nucleated RBCs # 0.0 /100WBC 10/26/21 15:16 PT 42.20 SECONDS (12.1-14.9) H 10/26/21 15:16 INR 4.39 (0.8-1.2) H 10/26/21 15:16 APTT 47.6 SECONDS (23.9-36.7) H 10/26/21 15:16 Sodium 138 mmol/L (136-145) 10/26/21 15:16 Potassium 4.8 mmol/L (3.5-5.1) 10/26/21 15:16 Chloride 105 mmol/L (98-107) 10/26/21 15:16 Carbon Dioxide 27 mmol/L (22-29) 10/26/21 15:16 Anion Gap 10.8 (5-19) 10/26/21 15:16 BUN 28 mg/dL (8-23) H 10/26/21 15:16 Creatinine 2.2 mg/dL (0.7-1.2) H 10/26/21 15:16 GFR Calculation Not Reportable 10/26/21 15:16 Glucose 90 mg/dL (65-115) 10/26/21 15:16 POC Glucose 105 mg/dL (70-110) 10/26/21 18:30 Estimat Average Glucose 131 10/26/21 15:16 Hemoglobin A1c 6.2 % (4.0-6.0) H 10/26/21 15:16 Calculated Osmolality 291 mOsm/kg (285-295) 10/26/21 15:16 Calcium 9.3 mg/dL (8.5-10.5) 10/26/21 15:16 Total Bilirubin 0.2 mg/dL (0.15-1.2) 10/26/21 15:16 AST 14 U/L (0-40) 10/26/21 15:16 ALT 11 U/L (0-41) 10/26/21 15:16 Alkaline Phosphatase 113 IU/L (40-130) 10/26/21 15:16 Ammonia 15 umol/L (16-60) L 10/26/21 16:38 Troponin T Baseline 25 ng/L (0-15) H 10/26/21 15:16 Troponin T 120 Minute 24.14 ng/L (0-15) H 10/26/21 17:07 Delta Troponin T -0.86 ABS# (0-10) L 10/26/21 17:07 Troponin T Hi Sens 6Hr 23.46 ng/L (0-15) H 10/26/21 21:41 Troponin T Hi Sens 6Hr Delta -1.54 ng/L (0-12) L 10/26/21 21:41 NT-Pro-B Natriuret Pep 428 pg/mL (0-450) 10/26/21 15:16 Total Protein 6.3 g/dL (6.6-8.7) L 10/26/21 15:16 Albumin 3.4 g/dL (3.5-5.2) L 10/26/21 15:16 Globulin 2.9 g/dL (1.3-4.6) 10/26/21 15:16 Triglycerides 174 mg/dL (0-150) H 10/26/21 15:16 Cholesterol 181 mg/dL (0-200) 10/26/21 15:16 LDL Cholesterol, Calc 115 mg/dL (50-129) 10/26/21 15:16 HDL Cholesterol 31 mg/dL (60-100) L 10/26/21 15:16 LDL/HDL Ratio 3.71 RATIO (0.00-3.22) H 10/26/21 15:16 Cholesterol/HDL Ratio 5.84 mg/dL (1.0-5.00) H 10/26/21 15:16 Vitamin B12 388 pg/mL (232-1245) 10/26/21 15:16 TSH 2.19 uIU/mL (0.27-4.20) 10/26/21 15:16 TSH 2.26 uIU/mL (0.27-4.20) 10/26/21 15:16 Urine Color Yellow (Yellow) 10/26/21 16:18 Urine Appearance Clear (CLEAR) 10/26/21 16:18 Urine pH 6 (5-7) 10/26/21 16:18 Ur Specific [place] 1.020 (1.005-1.030) 10/26/21 16:18 Urine Protein 2+ (Negative) H 10/26/21 16:18 Urine Glucose (UA) Norm (Normal) 10/26/21 16:18 Urine Ketones Negative (Negative) 10/26/21 16:18 Urine Blood Trace (Negative) H 10/26/21 16:18 Urine Nitrate Negative (Negative) 10/26/21 16:18 Urine Bilirubin Neg (Negative) 10/26/21 16:18 Urine Urobilinogen Norm mg/dL (Negative) 10/26/21 16:18 Ur Leukocyte Esterase Negative (Negative) 10/26/21 16:18 Urine RBC 0-4 /hpf (0-2) H 10/26/21 16:18 Urine WBC 0-4 /hpf (0-5) H 10/26/21 16:18 Ur Squamous Epith Cells 0-4 /hpf (0-5) H 10/26/21 16:18 Amorphous Sediment Not Reportable 10/26/21 16:18 Urine Bacteria None /hpf (NONE) 10/26/21 16:18 Discharge Plan Discharge Patient Disposition: Placed in Observation Admit Provider: Sanjana Busch Clinical Impression: Stroke-like symptom Discharge Diet: Diabetic Discharge Activity: As per PT/OT instructions Coding Level of Care Code ED Digital Marketing Analyst for Chg Fwd Exam Comprehensive
--- NOTE | 2021-10-26 14:52 | ECG_ITS ---
[facility] Test Date: 2021-10-26 Pat Name: Alexey An Department: Room: Gender: Male Radio Host: : [phone] Requested By: Rubens Cueto Order Number: [id number] Iain MD: Munira Balderas M.D. Measurements Intervals [place] Rate: 66 P: 117 IN: 222 QRS: -42 QRSD: 166 T: 138 QT: 430 QTc: 451 Interpretive Statements ELECTRONIC ATRIAL PACEMAKER LEFT AXIS DEVIATION [QRS AXIS < -30] LEFT BUNDLE BRANCH BLOCK [120+ ms QRS DURATION, 80+ ms Q/S IN V1/V2, 85+ ms R IN I/aVL/V5/V6] Compared to ECG 05/30/2019 04:09:46 No significant changes Electronically Signed On 10-27-2021 12:49:39 CDT by Munira Balderas M.D. [id number]
--- NOTE | 2021-10-26 14:52 | XR_ITS ---
WS: [id number] Portable AP upright chest, 10/26/2021 Clinical Data: confusion Comparison: PA and lateral chest, 02/20/2021. Findings: No nodules, masses or effusions are seen. The heart is normal. The pulmonary vascularity is not increased. No pneumonia or pneumothorax is seen. The aortic arch and descending thoracic aorta s how mild tortuosity. There is a permanent pacemaker in good position with the generator overlying the left lower lateral chest. There is a calcification of the surface of the right diaphragm. XR/XR chest 1V portable [id number] Impression: Atherosclerosis and permanent pacemaker.
--- NOTE | 2021-10-26 14:52 | CT_ITS ---
WS: [id number] CT HEAD TECHNIQUE: Noncontrast CT of the head obtained from the skullbase to the vertex. CLINICAL INFORMATION: off balance, confusion COMPARISON: April 21, 2021 DLP: 1048.[address] scans at [facility] use at least one of these dose optimization techniques: automated e xposure control; mA and/or kV adjustment per patient size (includes targeted exams where dose is matc hed to clinical indication); or iterative reconstruction. FINDINGS: No evidence of intracranial hemorrhage or mass effect. Ventricular system and basal cisterns are jean nt. Mild small vessel changes with mild parenchymal volume loss. Tiny chronic appearing lacunar infar ct RIGHT thalamus is new from previous but has a chronic appearance. Chronic lacunar infarct LEFT cau date unchanged. Intracranial vascular calcification. No extra-axial fluid collections. No evidence of mass or mass effect. Partial opacification RIGHT maxillary sinus mucosal thickening. Mucosal thickening ethmoid air cells. Partial opacification RIGHT mastoid air cells. CT/CT head wo con* [id number] IMPRESSION: 1. No evidence of intracranial hemorrhage or mass effect. 2. Mild small vessel changes with mild parenchymal volume loss. 3. Tiny chronic appearing lacunar infarct RIGHT thalamus is new from previous but has a chronic appearance. 4. No other significant findings.
[2021-10-26 15:28] LABS: Basophils # 0.1 10^3/uL (0.0-0.1); Basophils % 0.8 %; Eosinophils # 0.2 10^3/uL (0.0-0.8); Eosinophils % 3.6 %; Hematocrit 39.3 % (42.0-52.0); Hemoglobin 12.8 g/dL (11.7-16.6); Lymphocytes # 1.8 10^3/uL (0.8-4.8); Lymphocytes % 27.4 %; Mean Corpuscular HGB Conc 32.6 g/dL (30.0-36.0); Mean Corpuscular Hemoglobin 31.3 pg (28.0-34.0); Mean Corpuscular Volume 96.1 fl (80-94); Mean Platelet Volume 9.7 fL (7.4-10.4); Monocytes # 0.6 10^3/uL (0.2-0.9); Monocytes % 8.6 %; Neutrophils # 3.92 10^3/uL (1.8-7.7); Neutrophils % 59.3 %; Nucleated Red Blood Cells % 0 %; Platelet Count 174 10^3/cmm (130-400); Red Blood Count 4.09 10^6/uL (4.1-5.3); Red Cell Distribution Width 14.1 % (12.1-15.1); White Blood Count 6.6 10^3/uL (4.0-10.0)
[2021-10-26 15:55] LABS: INR 4.39 (0.8-1.2)
[2021-10-26 15:56] LABS: Partial Thromboplastin Time 47.6 SECONDS (23.9-36.7)
[2021-10-26 16:06] LABS: Troponin(5th) Baseline 25 ng/L (0-15)
[2021-10-26 16:13] LABS: Alanine Aminotransferase 11 U/L (0-41); Albumin Level 3.4 g/dL (3.5-5.2); Alkaline Phosphatase 113 IU/L (40-130); Anion Gap 10.8 (5-19); Aspartate Amino Transferase 14 U/L (0-40); Blood Urea Nitrogen 28 mg/dL (8-23); Calcium 9.3 mg/dL (8.5-10.5); Carbon Dioxide 27 mmol/L (22-29); Chloride 105 mmol/L (98-107); Globulin 2.9 g/dL (1.3-4.6); Glucose 90 mg/dL (65-115); NT Pro B Type Natriuretic Pept 428 pg/mL (0-450); Osmolality Calculated 291 mOsm/kg (285-295); Potassium 4.8 mmol/L (3.5-5.1); Sodium 138 mmol/L (136-145); Thyroid Stimulating Hormone 2.26 uIU/mL (0.27-4.20); Total Bilirubin 0.2 mg/dL (0.15-1.2); Total Protein 6.3 g/dL (6.6-8.7)
[2021-10-26 16:43] LABS: Add Urine Microscopic? YES; Bilirubin Urine Neg (Negative); Blood Urine Trace (Negative); Glucose Urine UA Norm (Normal); Ketones Urine Negative (Negative); Leukocyte Esterase Urine Negative (Negative); Nitrate Urine Negative (Negative); Protein Urine 2+ (Negative); Urine Appearance Clear (CLEAR); Urine Color Yellow (Yellow); Urobilinogen Urine Norm (Negative); pH Urine 6 (5-7)
[2021-10-26 16:59] LABS: Add Urine Culture? No; RBC Urine 0-4 /hpf (0-2); Squamous Epithelial Cell Urine 0-4 /hpf (0-5); WBC Urine 0-4 /hpf (0-5)
[2021-10-26 17:05] LABS: Ammonia 15 umol/L (16-60)
--- NOTE | 2021-10-26 17:26 | ECG_ITS ---
[facility] Test Date: 2021-10-26 Pat Name: Alexey An Department: Room: Gender: Male Belt Picker: : [phone] Requested By: Rubens Cueto Order Number: [id number] Iain MD: Munira Balderas M.D. Measurements Intervals [place] Rate: 79 P: 121 WI: 252 QRS: -48 QRSD: 166 T: 141 QT: 423 QTc: 487 Interpretive Statements ELECTRONIC ATRIAL PACEMAKER LEFT AXIS DEVIATION [QRS AXIS < -30] LEFT BUNDLE BRANCH BLOCK [120+ ms QRS DURATION, 80+ ms Q/S IN V1/V2, 85+ ms R IN I/aVL/V5/V6] Compared to ECG 10/26/2021 15:24:41 No significant changes Electronically Signed On 10-27-2021 12:53:11 CDT by Munira Balderas M.D. [id number]
[2021-10-26 17:59] LABS: Troponin 5 2HR 24.14 ng/L (0-15)
[2021-10-26 18:01] LABS: Troponin 5 2HR Delta -0.86 ABS# (0-10)
[2021-10-26 18:34] LABS: Glucose Point of Care 105 mg/dL (70-110)
--- NOTE | 2021-10-26 19:18 | P.HP_ITS ---
Providers/Chief Complaint Primary Care Provider: Magaly Rivas MD Chief Complaint: Confusion, Lethargic, memory loss History of Present Illness Alexey An is a 86 year old male with history of atrial fibrillation, carotid artery stenosis, COPD, GERD, gout, hyperlipidemia, hypertension, pacemaker, history of TIAs who presented to the ER with abnormal neurological symptoms. Patient has been experiencing gait instability and has been feeling off balance as well as being lightheaded and has been having intermittent episodes of confusion. These have become more more frequent and have pretty much become constant over the last few days. He was also unable to text his granddaughter earlier as he was having difficulty typing the text on his phone. He is also being forgetful in the recent past. Patient is chronically on warfarin for his atrial fibrillation. He says he did have a recent ear infection about a month ago and was on antibiotics. He also describes the room spinning around him at times and he also gets lightheaded when he tries to walk. Because of that he tends to sway right to left. He says he attempts to walk straight but sometimes finds himself going to the right and sometimes find himself going to the left. He has had TIAs before needs to follow-up with Dr. Mckeon. Used to be on a statin and aspirin but no longer takes them. Also describes issues with sinus congestion. Is not currently on any nasal sprays at home. He says that he has noticed that ever since his ear infection his symptoms have worsened. Patient does follow with Dr. Hsieh as an outpatient. At his most recent visit on September 27, 2021 he did report frequent falls dizziness and presyncope. With last episode being 3 weeks prior to his visit in September. INR has also been subtherapeutic lately. Overall functional status seems to be slowly deteriorating as per cardiology note. ICD function was found to be appropriate. ED course: Blood pressure 181/79, history 14, pulse 75, temperature 97.8, saturating 96% on room air. Head CT done showed no evidence of intracranial hemorrhage or mass-effect. It did show tiny chronic appearing lacunar infarct right thalamus that is new from previous but has a chronic appearance. Medications/Allergies Home Medications Medication Instructions Recorded Confirmed Last Taken Type tamsulosin 0.4 mg capsule 0.4 mg PO DAILY 04/13/19 10/26/21 10/26/21 History hydrocodone 5 mg-acetaminophen 325 1 tab PO Q6H PRN pain #20 tabs 09/20/20 10/26/21 Unknown Rx mg tablet paroxetine HCl 30 mg tablet 30 mg PO BEDTIME 12/01/20 10/26/21 10/25/21 History diphenhydramine HCl 25 mg tablet 25 mg PO TID PRN allergy symptoms 01/06/21 10/26/21 Unknown Rx (Benadryl Allergy) #2 tabs allopurinol 100 mg tablet 100 mg PO DAILY 10/26/21 10/26/21 10/26/21 History metoprolol tartrate 100 mg tablet 100 mg PO BID 10/26/21 10/26/21 10/26/21 History omeprazole 20 mg capsule,delayed 20 mg PO DAILY 10/26/21 10/26/21 10/26/21 History release warfarin 4 mg tablet See Rx Instructions .Route .COMPLEX 10/26/21 10/26/21 10/26/21 History 4 MG Allergies Allergy/AdvReac Type Severity Reaction Status Date / Time Iodinated Contrast Media AdvReac STOMACH Verified 10/26/21 13:42 CRAMPING DURING A STRESS TEST. WAS TOLD D/T IODINE PFSH Acute PFSH: Medical History (Updated 10/26/21 @ 19:20 by Sanjana Busch MD) Atrial fibrillation Cardiomyopathy Carotid artery stenosis COPD (chronic obstructive pulmonary disease) DDD (degenerative disc disease) GERD (gastroesophageal reflux disease) Gout Hyperlipidemia Hypertension Long-term (current) use of anticoagulants, INR goal 2.0-3.0 Pacemaker Surgical History History of appendectomy History of cataract extraction History of tonsillectomy and adenoidectomy Hx of laminectomy Family History Mother CAD (coronary artery disease) valve replaced at 86 Brother Chronic kidney disease (CKD) Father Stroke Family/Other Suicide Denies family history of Diabetes Clotting disorder Dementia Anesthesia complication Bleeding disorder Lung disease Cancer Social History Smoking and tobacco status: former smoker Alcohol intake: never Vitals/I&O/Wt Last Vital Signs Temp 97.8 F 10/26/21 13:39 Pulse 75 10/26/21 18:14 Resp 14 10/26/21 18:14 BP 181/79 10/26/21 18:14 Pulse Ox 96 10/26/21 18:14 O2 Del Method 10/26/21 18:14 Physical Exam Narrative: General: Alert oriented x3, patient seen sitting up in bed appearing comfortable with HEENT: Normocephalic, atraumatic, EOMI, breathing normally on room air Cardio: Regular rate rhythm, normal S1-S2, ICD in place Respiratory: CTA b/l, no wheezes or ronchi GI: Abdomen soft, nontender, nondistended, bowel sounds + Behavior: Appropriate and cooperative Extremities: No lower extremity edema noted Neuro: Cranial nerves II to XII intact, strength 5 out of 5 upper extremity symmetrical, 4 out of 5 bilateral lower extremity symmetrical. No apparent ataxia noted however while walking at one point he felt dizzy for few seconds which resolved immediately. No dysdiadochokinesia, no dysmetria, romberg sign negative. Data : 10/26/21 15:16 10/26/21 15:16 A&P Assessment and plan (1) Stroke-like symptom: Status: Acute (2) Implantable cardioverter-defibrillator (ICD) discharge: Status: Acute (3) Hypertension: Status: Acute Qualifiers: Hypertension type: essential hypertension Qualified Code(s): I10 - Essential (primary) hypertension (4) Hyperlipidemia: Status: Acute Qualifiers: Hyperlipidemia type: mixed hyperlipidemia Qualified Code(s): E78.2 - Mixed hyperlipidemia (5) Carotid artery stenosis: Status: Acute Qualifiers: Laterality: bilateral Qualified Code(s): I65.23 - Occlusion and stenosis of bilateral carotid arteries (6) Atrial fibrillation: Status: Acute Qualifiers: Atrial fibrillation type: other persistent Qualified Code(s): I48.19 - Other persistent atrial fibrillation (7) Chronic anticoagulation: Status: Acute (8) CVA (cerebral vascular accident): Status: Acute (9) Ataxia: Status: Acute Plan #Vertigo and ataxic gait 2/2 to TIA vs vestibular neuritis? 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 However there is a questionable report of lacunar infarct in right thalamus that is new from previous but also appears chronic at this time. CTA head and neck not done due to elevated creatinine and patient allergic to contrast. ? MRI cannot be done at this time due to ICD in place ? We will check echo and carotid Dopplers. ? Start on aspirin, atorvastatin. ? Pharmacy consult to dose warfarin. INR supratherapeutic today at 4.39. ? Continue metoprolol heart rate 100 twice daily, paroxetine 30 at bedtime, tamsulosin 0.4 daily ? This is probably a subacute recent event and not within the last 1 or 2 days. ? Blood pressure 170-180 systolic. We will add amlodipine 5 mg daily. ? We will need to titrate blood pressure medications -Patient did have a recent ear infection and was antibiotics. He also has chronic sinusitis issues. There is some fluid bubbles noted behind the right tympanic membrane, right TM very opaque. Loss of light reflex. Unsure if there is a questionable vestibular neuritis. ? Start meclizine 25 every 6 hours as needed ? We will start fluticasone nasal spray twice a day ? Patient may benefit from short course of oral steroids. To be reevaluated. Patient to follow-up with primary care doctor. ? We will check vitamin B12 level. ? Highly recommend neurology follow-up at discharge. Patient used to follow-up with Dr. Mckeon but no longer sees her. Full code DVT prophylaxis: On warfarin supratherapeutic INR today. Granddaughter at bedside. Updated in detail. Attestations Medical Necessity Statement*: Admit for observation overnight for stroke workup. Coding Level of Care Code Acute Tape Control Skin Or [employer] Operator for [facility] Fwd Diagnoses Stroke-like symptom R29.90 Implantable cardioverter-defibrillator (ICD) discharge Z45.02 Hypertension I10 Hypertension type: essential hypertension Hyperlipidemia E78.2 Hyperlipidemia type: mixed hyperlipidemia Carotid artery stenosis I65.23 Laterality: bilateral Atrial fibrillation I48.19 Atrial fibrillation type: other persistent Chronic anticoagulation Z79.01 CVA (cerebral vascular accident) I63.9 Ataxia R27.0
--- NOTE | 2021-10-26 19:24 | USCV_ITS ---
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 DM2. Non-smoker. BP: 169 / 94 HR: 74 Rhythm: Sinus Technical Quality: Adequate with [employer] MEASUREMENTS (Male / Female) Normal Values 2D ECHO LV Diastolic Diameter PLAX 4.5 cm 4.2 - 5.9 / 3.9 - 5.3 cm LV Systolic Diameter PLAX 3.0 cm IVS Diastolic Thickness 1.6 cm 0.6 - 1.0 / 0.6 - 0.9 cm IVS Systolic Thickness 1.7 cm LVPW Diastolic Thickness 1.0 cm 0.6 - 1.0 / 0.6 - 0.9 cm LVPW Systolic Thickness 2.9 cm LVOT Diameter 2.2 cm LV Ejection Fraction 2D Teich 62.3 % LV Ejection Fraction MOD 2C 58.4 % LV Ejection Fraction 2C AL 61.2 % LA Diameter 3.4 cm LA Width 3.0 cm LA Height 4.9 cm RA Width 3.1 cm RA Height 5.5 cm Aorta at Sinotubular Diameter 3.0 cm IVC Diameter 1.7 cm M-MODE Aortic Annulus Diameter 3.3 cm LA Ao Ratio MM 1.1 MV E Point Septal Separation 0.8 cm DOPPLER AV Peak Velocity 146.0 cm/s LVOT Peak Velocity 56.0 cm/s AV Area Cont Eq vti 1.5 cm squared AV Area Cont Eq pk 1.4 cm squared MV Area PHT 3.5 cm squared Mitral E to A Ratio 0.8 MV E' Velocity 43.5 cm/s Mitral E to MV E' Ratio 14.4 Mitral E to LV E' Lateral Ratio 13.5 Mitral E to LV E' Septal Ratio 15.5 TR Peak Velocity 254.0 cm/s TR Peak Gradient 25.8 mmHg TV Peak E Velocity 59.0 cm/s Right Atrial Pressure 5.0 mmHg Pulmonary Artery Systolic Pressu 30.8 mmHg PV Peak Velocity 106.0 cm/s RV Acceleration Time 0.0 s RV Ejection Time 0.4 s RV AcT/ET 0.1 FINDINGS Left Ventricle Normal left ventricular cavity size. Mildly decreased left ventricular systolic function. Left ventricular ejection fraction is estimated at 45 %. Mild global hypokinesis. Abnormal septal motion consistent with pacemaker. Right Ventricle Normal right ventricular size and systolic function. Right ventricular systolic pressure 30.8 mmHg. Pacemaker wire visualized in the right ventricle. Right Atrium Normal right atrial size. Left Atrium Normal left atrial size. Mitral Valve Structurally normal mitral valve. No mitral valve stenosis. Mild mitral valve regurgitation. Aortic Valve Mildly thickened and calcified trileaflet aortic valve. Sclerotic aortic valve without significant stenosis. Mild aortic valve regurgitation. Tricuspid Valve Structurally normal tricuspid valve. No tricuspid valve stenosis. Mild tricuspid valve regurgitation. Pulmonic Valve Structurally normal pulmonic valve. Trace pulmonary valve regurgitation. Pericardium No pericardial effusion. Aorta Normal size aortic root and proximal ascending aorta. IVC Normal IVC dimension with >50% respiratory change of the inferior vena cava. CONCLUSIONS 1. This is a technically difficult study in spite of using echo contrast. 2. Normal left ventricular cavity size. Mildly decreased left ventricular systolic function. Left ventricular ejection fraction is estimated at 45 %. Mild global hypokinesis. 3. Mild mitral and tricuspid valve regurgitation. 4. Sclerotic aortic valve without significant stenosis. Mild aortic valve regurgitation. 5. When compared to study dated 02/28/2016, left ventricle systolic function seems to have decreased. Munira Balderas MD (Electronically Signed) Final Date: 27 October 2021 12:22 S
--- NOTE | 2021-10-26 19:24 | USCV_ITS ---
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 DM2. Non-smoker. 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 DM2. Non-smoker. Previous Vascular Surgery: None Right Brachial BP: / Left Brachial BP: / Right Left Velocity (cm/s) Spectral Plaque Velocity (cm/s) Spectral Plaque Syst/Diast Broadening Syst/Diast Broadening 91.50/ 8.80 None None Prox CCA 56.90 / 7.80 None None 66.20/ 8.80 None None Mid CCA 62.80 / 9.90 None None 53.90/ 11.20 None None Distal CCA 59.50 / 11.00 None None 63.20/ 17.10 Min Kennedy Prox ICA 72.20 / 21.00 Min Kennedy 44.00/ 12.50 Min Hetro Mid ICA 154.70/ 41.40 Min Hetro 232.10/41.40 Mod Hetro Distal ICA 161.90/ 23.40 Mod Hetro 130.10 Min None ECA 81.60 Min None 2.54 ICA/CCA 2.58 Antegrade Vertebral Antegrade 36.00/ 10.80 cm/s 59.50/ 12.10 cm/s Tri Subclavian Tri 112.5 63.20 0 FINDINGS Comparison:. 12/10/14. Diffuse bilateral scattered calcified plaque and intimal thickening throughout the common carotid arteries and extending through the bifurcation. Systolic velocity is elevated in the distal ICA's but low diastolic velocity. Antegrade vertebral arteries. CONCLUSIONS Bilateral ICA stenosis less than 50%. Diffuse mid carotid atherosclerotic disease. Dr. Nicolle Noland DO (Electronically Signed) Final Date: 27 October 2021 07:23 S
[2021-10-26 20:26] LABS: Chol HDL Ratio 5.84 mg/dL (1.0-5.00); Cholesterol 181 mg/dL (0-200); HDL Cholesterol 31 mg/dL (60-100); LDL Cholesterol Calculated 115 mg/dL (50-129); LDL HDL Ratio 3.71 RATIO (0.00-3.22); Thyroid Stimulating Hormone 2.19 uIU/mL (0.27-4.20); Triglycerides 174 mg/dL (0-150); Vitamin B12 388 pg/mL (232-1245)
[2021-10-26 21:28] LABS: Estmated Average Glucose 131; Hemoglobin A1C 6.2 % (4.0-6.0)
--- NOTE | 2021-10-26 22:06 | ECG_ITS ---
[facility] Test Date: 2021-10-26 Pat Name: Alexey An Department: Room: 251 Gender: Male Landmen: : 1935 Requested By: Rubens Cueto Order Number: [id number] Iain MD: Munira Balderas M.D. Measurements Intervals Rolfe Rate: 68 P: 102 MA: 211 QRS: -42 QRSD: 154 T: 245 QT: 418 QTc: 446 Interpretive Statements ELECTRONIC ATRIAL PACEMAKER LEFT AXIS DEVIATION [QRS AXIS < -30] LEFT BUNDLE BRANCH BLOCK [120+ ms QRS DURATION, 80+ ms Q/S IN V1/V2, 85+ ms R IN I/aVL/V5/V6] Compared to ECG 10/26/2021 17:26:31 No significant changes Electronically Signed On 10-27-2021 12:52:09 CDT by Munira Balderas M.D. [email or web address]
[2021-10-26 22:11] LABS: Troponin 5 6HR 23.46 ng/L (0-15)
[2021-10-26 22:13] LABS: Troponin 5 6HR Delta -1.54 ng/L (0-12)
[2021-10-26] MEDS: PARoxetine 20 mg Tablet 30 MG PO (23:36)
[2021-10-26] MEDS: fluticasone nasal spray 16gm Btl 2 SPRAY NASAL (23:36)
[2021-10-26] MEDS: meclizine 25 mg tablet PO (23:36)
[2021-10-27 00:54] VITALS: PULSE 107; RESP 15; O2SAT 95
[2021-10-27 02:18] LABS: Basophils # 0.1 10^3/uL (0.0-0.1); Basophils % 0.8 %; Eosinophils # 0.2 10^3/uL (0.0-0.8); Eosinophils % 3.3 %; Hematocrit 39.1 % (42.0-52.0); Hemoglobin 12.8 g/dL (11.7-16.6); Lymphocytes # 1.8 10^3/uL (0.8-4.8); Lymphocytes % 24.3 %; Mean Corpuscular HGB Conc 32.7 g/dL (30.0-36.0); Mean Corpuscular Hemoglobin 31.3 pg (28.0-34.0); Mean Corpuscular Volume 95.6 fl (80-94); Mean Platelet Volume 9.8 fL (7.4-10.4); Monocytes # 0.7 10^3/uL (0.2-0.9); Monocytes % 9.3 %; Neutrophils # 4.52 10^3/uL (1.8-7.7); Nucleated Red Blood Cells % 0 %; Platelet Count 167 10^3/cmm (130-400); Red Blood Count 4.09 10^6/uL (4.1-5.3); White Blood Count 7.3 10^3/uL (4.0-10.0)
[2021-10-27 02:43] LABS: Alanine Aminotransferase 8 U/L (0-41); Albumin Level 3.1 g/dL (3.5-5.2); Alkaline Phosphatase 102 IU/L (40-130); Aspartate Amino Transferase 15 U/L (0-40); Blood Urea Nitrogen 27 mg/dL (8-23); Calcium 9.3 mg/dL (8.5-10.5); Carbon Dioxide 24 mmol/L (22-29); Chloride 108 mmol/L (98-107); Globulin 2.9 g/dL (1.3-4.6); Glucose 106 mg/dL (65-115); Magnesium 1.7 mg/dL (1.7-2.3); Osmolality Calculated 294 mOsm/kg (285-295); Phosphorus 2.7 mg/dL (2.5-4.5); Sodium 139 mmol/L (136-145); Total Bilirubin 0.2 mg/dL (0.15-1.2)
[2021-10-27 02:59] LABS: INR 3.32 (0.8-1.2)
[2021-10-27 04:00] VITALS: BP 157/91; PULSE 55; RESP 16; TEMP 36.4; O2SAT 94
[2021-10-27] MEDS: perflutren protein-a microsphr 0.22 mg/mL SDV 3 mL IV (05:39)
[2021-10-27 07:41] VITALS: BP 159/77; PULSE 63; RESP 18; TEMP 36.5; O2SAT 98
[2021-10-27] MEDS: metoprolol tartrate 50 mg Tablet 100 MG PO (09:07)
[2021-10-27] MEDS: aspirin 81 mg EC Tablet PO (09:07)
[2021-10-27] MEDS: pantoprazole DR 40 mg Tablet PO (09:08)
[2021-10-27] MEDS: meclizine 25 mg tablet PO (09:08)
[2021-10-27] MEDS: allopurinol 100 mg Tablet PO (09:08)
[2021-10-27] MEDS: atorvastatin 40 mg Tablet PO (09:08)
[2021-10-27] MEDS: pyridoxine 50 mg Tablet 25 MG PO (09:08)
[2021-10-27] MEDS: fluticasone nasal spray 16gm Btl 2 SPRAY NASAL (09:10)
[2021-10-27] MEDS: tamsulosin 0.4 mg Capsule PO (09:10)
--- NOTE | 2021-10-27 11:17 | P.DS_ITS ---
Discharge Providers Date of Admission: 10/26/21 22:20 Date of Discharge: October 27, 2021 Attending Provider at Admission: Sanjana Busch MD Attending Provider at Discharge: Grant Levin MD Primary Care Provider: Magaly Rivas MD Diagnoses at Discharge Discharge Diagnosis (1) Stroke-like symptom: Status: Acute (2) Implantable cardioverter-defibrillator (ICD) discharge: Status: Acute (3) Hypertension: Status: Acute Qualifiers: Hypertension type: essential hypertension Qualified Code(s): I10 - Essential (primary) hypertension (4) Hyperlipidemia: Status: Acute Qualifiers: Hyperlipidemia type: mixed hyperlipidemia Qualified Code(s): E78.2 - Mixed hyperlipidemia (5) Carotid artery stenosis: Status: Acute Qualifiers: Laterality: bilateral Qualified Code(s): I65.23 - Occlusion and stenosis of bilateral carotid arteries (6) Atrial fibrillation: Status: Acute Qualifiers: Atrial fibrillation type: other persistent Qualified Code(s): I48.19 - Other persistent atrial fibrillation (7) Chronic anticoagulation: Status: Acute (8) CVA (cerebral vascular accident): Status: Acute (9) Ataxia: Status: Acute Reason for Visit Reason for Visit: Confusion, Lethargic, memory loss Hospital Course Hospital Course Detail note was written by admitting physician Dr. Jo-Ann Hernándezjacqueline An is a 86 year old male with history of atrial fibrillation, carotid artery stenosis, COPD, GERD, gout, hyperlipidemia, hypertension, pacemaker, history of TIAs who presented to the ER with abnormal neurological symptoms.? Patient has been experiencing gait instability and has been feeling off balance as well as being lightheaded and has been having intermittent episodes of confusion.? These have become more more frequent and have pretty much become constant over the last few days.? He was also unable to text his granddaughter earlier as he was having difficulty typing the text on his phone.? He is also being forgetful in the recent past.? Patient is chronically on warfarin for his atrial fibrillation.? He says he did have a recent ear infection about a month ago and was on antibiotics.? He also describes the room spinning around him at times and he also gets lightheaded when he tries to walk.? Because of that he tends to sway right to left.? He says he attempts to walk straight but sometimes finds himself going to the right and sometimes find himself going to the left.? He has had TIAs before needs to follow-up with Dr. Mckeon.? Used to be on a statin and aspirin but no longer takes them.? Also describes issues with sinus congestion.? Is not currently on any nasal sprays at home.? He says that he has noticed that ever since his ear infection his symptoms have worsened. Patient does follow with Dr. Hsieh as an outpatient.? At his most recent visit on September 27, 2021 he did report frequent falls dizziness and presyncope.? With last episode being 3 weeks prior to his visit in September.? INR has also been subtherapeutic lately.? Overall functional status seems to be slowly deteriorating as per cardiology note.? ICD function was found to be appropriate Hospital course Patient was admitted for management evaluation of presyncope. At the time of my examination patient is able to walk on his own, PT recommended using a cane or sticks for ambulation to avoid falls. Romberg sign negative, B12 [id number] which is borderline normal. No signs of stroke. No nystagmus with An-Hallpike maneuver. 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 Sethi for retinal exam. Recently aicdd interrogation unremarkable. I do believe patient has essential tremors. He has resting tremors which get worse on any activity. I would add low-dose propanolol. Carotid Doppler study unremarkable. Head CT unremarkable. Physical Exam Narrative: No signs of stroke Able to walk Romberg sign negative No nystagmus No signs of typical vertigo S1, S2 variable Abdomen soft Pleasant cooperative Euvolemic Discharge Data Studies Completed and Pending Completed Studies During Hospitalization Category Date Time Status CT head wo con* [id number] Urgent Cat Scan 10/26/21 14:52 Completed XR chest 1V portable [id number] Urgent Exams 10/26/21 14:52 Completed CV carotid duplex BI* [id number] Urgent Ultrasound 10/26/21 19:24 Completed Pending at discharge Category Date Time Status CV. echo wo/w contrast [id number] Urgent Ultrasound 10/26/21 19:24 Taken Radiology Impressions Chest X-Ray 10/26/21 14:52 Impression: Atherosclerosis and permanent pacemaker. Head CT 10/26/21 14:52 IMPRESSION: 1. No evidence of intracranial hemorrhage or mass effect. 2. Mild small vessel changes with mild parenchymal volume loss. 3. Tiny chronic appearing lacunar infarct RIGHT thalamus is new from previous but has a chronic appearance. 4. No other significant findings. Laboratory Results WBC 7.3 10^3/uL (4.0-10.0) 10/27/21 02:11 RBC 4.09 10^6/uL (4.1-5.3) L 10/27/21 02:11 Hgb 12.8 g/dL (11.7-16.6) 10/27/21 02:11 Hct 39.1 % (42.0-52.0) L 10/27/21 02:11 MCV 95.6 fl (80-94) H 10/27/21 02:11 MCH 31.3 pg (28.0-34.0) 10/27/21 02:11 MCHC 32.7 g/dL (30.0-36.0) 10/27/21 02:11 RDW 14.0 % (12.1-15.1) 10/27/21 02:11 Plt Count 167 10^3/cmm (130-400) 10/27/21 02:11 MPV 9.8 fL (7.4-10.4) 10/27/21 02:11 Neut % (Auto) 62.0 % 10/27/21 02:11 Lymph % (Auto) 24.3 % 10/27/21 02:11 [place] % (Auto) 9.3 % 10/27/21 02:11 Eos % (Auto) 3.3 % 10/27/21 02:11 Baso % (Auto) 0.8 % 10/27/21 02:11 Neut # (Auto) 4.52 10^3/uL (1.8-7.7) 10/27/21 02:11 Lymph # (Auto) 1.8 10^3/uL (0.8-4.8) 10/27/21 02:11 [place] # (Auto) 0.7 10^3/uL (0.2-0.9) 10/27/21 02:11 Eos # (Auto) 0.2 10^3/uL (0.0-0.8) 10/27/21 02:11 Baso # (Auto) 0.1 10^3/uL (0.0-0.1) 10/27/21 02:11 Nucleated RBC % (auto) 0 % 10/27/21 02:11 Nucleated RBCs # 0.0 /100WBC 10/27/21 02:11 PT 33.90 SECONDS (12.1-14.9) H 10/27/21 02:11 INR 3.32 (0.8-1.2) H 10/27/21 02:11 APTT 47.6 SECONDS (23.9-36.7) H 10/26/21 15:16 Sodium 139 mmol/L (136-145) 10/27/21 02:11 Potassium 5.0 mmol/L (3.5-5.1) 10/27/21 02:11 Chloride 108 mmol/L (98-107) H 10/27/21 02:11 Carbon Dioxide 24 mmol/L (22-29) 10/27/21 02:11 Anion Gap 12.0 (5-19) 10/27/21 02:11 BUN 27 mg/dL (8-23) H 10/27/21 02:11 Creatinine 2.1 mg/dL (0.7-1.2) H 10/27/21 02:11 GFR Calculation Not Reportable 10/27/21 02:11 Glucose 106 mg/dL (65-115) 10/27/21 02:11 POC Glucose 105 mg/dL (70-110) 10/26/21 18:30 Estimat Average Glucose 131 10/26/21 15:16 Hemoglobin A1c 6.2 % (4.0-6.0) H 10/26/21 15:16 Calculated Osmolality 294 mOsm/kg (285-295) 10/27/21 02:11 Calcium 9.3 mg/dL (8.5-10.5) 10/27/21 02:11 Phosphorus 2.7 mg/dL (2.5-4.5) 10/27/21 02:11 Magnesium 1.7 mg/dL (1.7-2.3) 10/27/21 02:11 Total Bilirubin 0.2 mg/dL (0.15-1.2) 10/27/21 02:11 AST 15 U/L (0-40) 10/27/21 02:11 ALT 8 U/L (0-41) 10/27/21 02:11 Alkaline Phosphatase 102 IU/L (40-130) 10/27/21 02:11 Ammonia 15 umol/L (16-60) L 10/26/21 16:38 Troponin T Baseline 25 ng/L (0-15) H 10/26/21 15:16 Troponin T 120 Minute 24.14 ng/L (0-15) H 10/26/21 17:07 Delta Troponin T -0.86 ABS# (0-10) L 10/26/21 17:07 Troponin T Hi Sens 6Hr 23.46 ng/L (0-15) H 10/26/21 21:41 Troponin T Hi Sens 6Hr Delta -1.54 ng/L (0-12) L 10/26/21 21:41 NT-Pro-B Natriuret Pep 428 pg/mL (0-450) 10/26/21 15:16 Total Protein 6.0 g/dL (6.6-8.7) L 10/27/21 02:11 Albumin 3.1 g/dL (3.5-5.2) L 10/27/21 02:11 Globulin 2.9 g/dL (1.3-4.6) 10/27/21 02:11 Triglycerides 174 mg/dL (0-150) H 10/26/21 15:16 Cholesterol 181 mg/dL (0-200) 10/26/21 15:16 LDL Cholesterol, Calc 115 mg/dL (50-129) 10/26/21 15:16 HDL Cholesterol 31 mg/dL (60-100) L 10/26/21 15:16 LDL/HDL Ratio 3.71 RATIO (0.00-3.22) H 10/26/21 15:16 Cholesterol/HDL Ratio 5.84 mg/dL (1.0-5.00) H 10/26/21 15:16 Vitamin B12 388 pg/mL (232-1245) 10/26/21 15:16 TSH 2.19 uIU/mL (0.27-4.20) 10/26/21 15:16 TSH 2.26 uIU/mL (0.27-4.20) 10/26/21 15:16 Urine Color Yellow (Yellow) 10/26/21 16:18 Urine Appearance Clear (CLEAR) 10/26/21 16:18 Urine pH 6 (5-7) 10/26/21 16:18 Ur Specific [place] 1.020 (1.005-1.030) 10/26/21 16:18 Urine Protein 2+ (Negative) H 10/26/21 16:18 Urine Glucose (UA) Norm (Normal) 10/26/21 16:18 Urine Ketones Negative (Negative) 10/26/21 16:18 Urine Blood Trace (Negative) H 10/26/21 16:18 Urine Nitrate Negative (Negative) 10/26/21 16:18 Urine Bilirubin Neg (Negative) 10/26/21 16:18 Urine Urobilinogen Norm mg/dL (Negative) 10/26/21 16:18 Ur Leukocyte Esterase Negative (Negative) 10/26/21 16:18 Urine RBC 0-4 /hpf (0-2) H 10/26/21 16:18 Urine WBC 0-4 /hpf (0-5) H 10/26/21 16:18 Ur Squamous Epith Cells 0-4 /hpf (0-5) H 10/26/21 16:18 Amorphous Sediment Not Reportable 10/26/21 16:18 Urine Bacteria None /hpf (NONE) 10/26/21 16:18 Vitals Last Vital Signs Temp 97.7 F 10/27/21 07:41 Pulse 63 10/27/21 07:41 Resp 18 10/27/21 07:41 BP 159/77 10/27/21 07:41 Pulse Ox 98 10/27/21 07:41 O2 Del Method 10/27/21 07:41 FiO2 21 10/27/21 00:54 Discharge Plan Discharge Patient Disposition: Home Condition: Stable Prescriptions: New meclizine 25 mg Tablet 25 mg PO TID Qty: 90 0RF propranolol 10 mg tablet 10 mg PO BID Qty: 60 2RF Continued paroxetine HCl 30 mg tablet 30 mg PO BEDTIME tamsulosin 0.4 mg capsule 0.4 mg PO DAILY diphenhydramine HCl [Benadryl Allergy] 25 mg tablet 25 mg PO TID PRN (Reason: allergy symptoms) Qty: 2 0RF Rx Instructions: Take 50mg (2-25mg) tab [address] scan hydrocodone-acetaminophen 5-325 mg tablet 1 tab PO Q6H PRN (Reason: pain) Qty: 20 0RF metoprolol tartrate 100 mg Tablet 100 mg PO BID allopurinol 100 mg Tablet 100 mg PO DAILY warfarin 4 mg Tablet See Rx Instructions .ROUTE .COMPLEX Rx Instructions: 2 mg orally on SAT, , AND SATURDAY 4 mg orally on ,, SAT, SUN omeprazole 20 mg Capsule,Delayed Release(Dr/Ec) 20 mg PO DAILY Discharge Orders: Discharge Order (Routine); Ordered 10/27/21 Ordered By: Grant Levin Referrals: Magaly Rivas MD [Primary Care Provider] - 11/02/21 9:30 am (APPOINTMENT WITH NURSE PRACTITIONER BRENDAN ADHIKARI. ) King Sethi MD [Physician] - 7-10 days Discharge Diet: Diabetic Discharge Activity: As per PT/OT instructions Patient Instructions: Opioid Safety Discharge Attestations Time Spent in Discharge Care*: less than 30 min Quality Metrics Clinical Quality Measures [ No reported AMI, CVA or VTE this stay] Coding Level of Care Code Acute Chg FW DC note Diagnoses Stroke-like symptom R29.90 Implantable cardioverter-defibrillator (ICD) discharge Z45.02 Hypertension I10 Hypertension type: essential hypertension Hyperlipidemia E78.2 Hyperlipidemia type: mixed hyperlipidemia Carotid artery stenosis I65.23 Laterality: bilateral Atrial fibrillation I48.19 Atrial fibrillation type: other persistent Chronic anticoagulation Z79.01 CVA (cerebral vascular accident) I63.9 Ataxia R27.0
[2021-10-27 11:59] VITALS: BP 148/73; PULSE 65; RESP 18; TEMP 36.7; O2SAT 96
== END 2021-10-27 13:18 | disposition home or self-care (01) ==
LOC: ER 19:14 → MEDSURG 21:49
PROVIDERS: Admitting Provider Internal Medicine; Emergency Provider Emergency Medicine; PCP Internal Medicine; Visit Provider Internal Medicine
DX: R29.90 Unspecified symptoms and signs involving the nervous system (principal); Z45.02 Encounter for adjustment and management of automatic implantable cardiac defibrillator; I10 Essential (primary) hypertension; E78.2 Mixed hyperlipidemia; I65.23 Occlusion and stenosis of bilateral carotid arteries; I48.19 Other persistent atrial fibrillation; Z79.01 Long term (current) use of anticoagulants; I63.9 Cerebral infarction, unspecified; R27.0 Ataxia, unspecified; I48.91 Unspecified atrial fibrillation; J44.9 Chronic obstructive pulmonary disease, unspecified; Z87.891 Personal history of nicotine dependence; Z86.73 Personal history of transient ischemic attack (TIA), and cerebral infarction without residual deficits; I44.7 Left bundle-branch block, unspecified
CPT/HCPCS: 36415; 36416; 70450; 71045; 80053; 80061; 81001; 82140; 82607; 82962; 83036; 83735; 83880; 84100; 84443; 84484; 85025; 85610; 85730; 93005; 93306; 93880; 94660; 97110; 97161; 97530; 99285; C8929; G0378; J8597; Q9956

== ENCOUNTER 2021-11-15 14:03 | Outpatient (RCR) | payer MEDICARE, SELFPAY | END 2021-11-22 23:59 | disposition home or self-care (01) | LOC: SPT 14:03 | PROVIDERS: PCP Internal Medicine; Visit Provider Internal Medicine | DX: Z91.81 History of falling (principal) | CPT/HCPCS: 97110; 97161 ==

== ENCOUNTER 2021-11-23 06:00 | Outpatient (RCR) | payer OTHER, SELFPAY | END 2021-12-07 23:59 | disposition home or self-care (01) | LOC: SPT 06:00 | PROVIDERS: PCP Internal Medicine; Visit Provider Internal Medicine | DX: R26.9 Unspecified abnormalities of gait and mobility (principal) | CPT/HCPCS: 97110 ==

== ENCOUNTER 2021-12-13 06:00 | Outpatient (RCR) | payer OTHER, SELFPAY | END 2021-12-22 23:59 | disposition home or self-care (01) | LOC: SPT 06:00 | PROVIDERS: PCP Internal Medicine; Visit Provider Emergency Medicine Emergency Medical Services | DX: R26.9 Unspecified abnormalities of gait and mobility (principal) | CPT/HCPCS: 97110; 97161 ==

== ENCOUNTER 2021-12-23 06:00 | Outpatient (RCR) | payer OTHER, SELFPAY | END 2022-01-22 23:59 | disposition home or self-care (01) | LOC: SPT 06:00 | PROVIDERS: PCP Internal Medicine; Visit Provider Emergency Medicine Emergency Medical Services | DX: R26.9 Unspecified abnormalities of gait and mobility (principal); R29.6 Repeated falls | CPT/HCPCS: 97110 ==

== ENCOUNTER 2022-01-22 18:32 | Emergency (ER) | payer OTHER, SELFPAY ==
[2022-01-22 19:25] VITALS: BP 132/68; PULSE 71; RESP 16; TEMP 36.4; O2SAT 97
--- NOTE | 2022-01-22 20:12 | XRR_ITS ---
PROCEDURE INFORMATION: Exam: XR Chest Exam date and time: 01/22/2022 9:28 PM Age: 86 years old Clinical indication: Prior surgery; Surgery type: Pacer; Patient HX: C/O burning pain sensation around pacemaker. ; Additional info: SOB TECHNIQUE: Imaging protocol: Radiologic exam of the chest. Views: 1 view. COMPARISON: CR XR chest 1V portable [id number] 10/26/2021 2:59 PM FINDINGS: Tubes, catheters and devices: Left-sided pacemaker. Lungs: Right mid lung field calcified granuloma. Pleural spaces: Unremarkable. No pleural effusion. No pneumothorax. Heart/Mediastinum: Borderline cardiomegaly. Bones/joints: Unremarkable. XR/XR chest 1V portable [id number] IMPRESSION: 1. Negative for infiltrate 2. Left-sided pacemaker. 3. Right mid lung field calcified granuloma. 4. Borderline cardiomegaly.
--- NOTE | 2022-01-22 20:12 | ECG_ITS ---
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 Measurements Intervals [place] Rate: 60 P: 98 AK: 208 QRS: -46 QRSD: 157 T: 132 QT: 413 QTc: 413 Interpretive Statements ELECTRONIC ATRIAL PACEMAKER LEFT AXIS DEVIATION [QRS AXIS < -30] LEFT BUNDLE BRANCH BLOCK [120+ ms QRS DURATION, 80+ ms Q/S IN V1/V2, 85+ ms R IN I/aVL/V5/V6] Compared to ECG 10/26/2021 22:06:03 No significant changes Electronically Signed On 01-23-2022 21:42:15 CDT by Raya Hsieh M.D. [id number]
[2022-01-22 22:03] LABS: Basophils # 0.1 10^3/uL (0.0-0.1); Basophils % 0.9 %; Eosinophils # 0.3 10^3/uL (0.0-0.8); Eosinophils % 4.2 %; Hematocrit 44.4 % (42.0-52.0); Hemoglobin 14.2 g/dL (11.7-16.6); Lymphocytes % 25.8 %; Mean Corpuscular Hemoglobin 31.2 pg (28.0-34.0); Mean Corpuscular Volume 97.6 fl (80-94); Mean Platelet Volume 10.1 fL (7.4-10.4); Monocytes # 0.8 10^3/uL (0.2-0.9); Monocytes % 9.9 %; Neutrophils # 4.66 10^3/uL (1.8-7.7); Neutrophils % 58.8 %; Nucleated Red Blood Cells % 0 %; Platelet Count 189 10^3/cmm (130-400); Red Blood Count 4.55 10^6/uL (4.1-5.3); Red Cell Distribution Width 12.7 % (12.1-15.1); White Blood Count 7.9 10^3/uL (4.0-10.0)
--- NOTE | 2022-01-22 22:04 | ED_ITS ---
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 He is well-appearing here he denies any pain currently denies any shortness of breath denies any fever he is in no distress. Associated symptoms: Deny chest pain, dyspnea, headache(s), nausea, rash or vomiting Review of Systems Const: Denies: fever(s), chills, body aches or change in appetite Eyes: Denies: blurry vision or eye discomfort ENMT: Denies: throat pain or dental pain Card: Denies: chest pain Resp: Denies: dyspnea GI: Denies: abdominal pain, nausea, vomiting or diarrhea : Denies: dysuria Musc: Denies: neck pain or back pain Skin/Breast: Denies: rash Neuro: Denies: headache(s) Psych: Denies: depression Eriberto/Lymph: Denies: easy bruising All/Imm: Denies: urticaria PFSH ED PFSH: Medical History Ataxia Atrial fibrillation Cardiomyopathy Carotid artery stenosis Chronic anticoagulation COPD (chronic obstructive pulmonary disease) CVA (cerebral vascular accident) DDD (degenerative disc disease) GERD (gastroesophageal reflux disease) Gout Hyperlipidemia Hypertension Implantable cardioverter-defibrillator (ICD) discharge Long-term (current) use of anticoagulants, INR goal 2.0-3.0 Pacemaker Stroke-like symptom Surgical History History of appendectomy History of cataract extraction History of tonsillectomy and adenoidectomy Hx of laminectomy Family History Mother CAD (coronary artery disease) valve replaced at 86 Brother Chronic kidney disease (CKD) Father Stroke Family/Other Suicide Denies family history of Diabetes Clotting disorder Dementia Anesthesia complication Bleeding disorder Lung disease Cancer Social History Smoking and tobacco status: former smoker Alcohol intake: never Physical Exam Const: COMMON NORMALS: no acute distress, patient oriented x3 and healthy appearing HENMT: COMMON NORMALS: normocephalic and atraumatic HEAD & SCALP: normocephalic and atraumatic Eye: COMMON NORMALS: Equal, round and reactive pupils present and EOMs intact bilaterally PUPIL: Yes Equal, round and reactive pupils present Neck/C-Spine: COMMON NORMALS: full ROM and supple Chest: COMMONS NORMALS: normal inspection of the chest and normal palpation of entire chest wall Resp: COMMON NORMALS: normal respiratory effort, No retractions, No use of accessory muscles and clear to auscultation bilaterally AUSCULTATION: clear to auscultation bilaterally Cardio: COMMON NORMALS: regular rate, regular rhythm and No murmurs present (Cardio) RATE: regular rate RHYTHM: regular rhythm GI: COMMON NORMALS: Normal to inspection, nondistended, normoactive bowel sounds present, Soft to palpation, non-tender and no masses PALPATION: Yes Soft to palpation Extremity: COMMON NORMALS: normal to inspection and full ROM Neuro: COMMON NORMALS: patient oriented x3, moves all extremities and no focal motor deficits Psych: COMMON NORMALS: mental status grossly normal, Normal thought process present and cooperative THOUGHT PROCESS: Normal thought process present Skin: COMMON NORMALS: no rashes or lesions noted and no wounds GENERAL SKIN EXAM: no rashes or lesions noted Course Vital Signs: Vital signs: Vital Signs Temperature 97.5 F L 01/22/22 22:35 Pulse Rate 72 01/22/22 22:35 Respiratory Rate 16 01/22/22 22:35 Blood Pressure 188/92 01/22/22 22:35 Pulse Oximetry 97 01/22/22 22:35 Oxygen Delivery Me thod 01/22/22 22:35 MDM - General Adult Medical Decision Making Patient presents for dyspnea and concerns about his pacemaker his pacemaker is working well here he is well-appearing here blood work EKG and x-ray are all normal he stable for discharge he is to follow-up with Dr. Hsieh and return if worsening. Lab Data : 01/22/22 21:31 01/22/22 21:31 Radiology Impressions Chest X-Ray 01/22/22 20:12 IMPRESSION: 1. Negative for infiltrate 2. Left-sided pacemaker. 3. Right mid lung field calcified granuloma. 4. Borderline cardiomegaly. Laboratory Results WBC 7.9 10^3/uL (4.0-10.0) 01/22/22 21: RBC 4.55 10^6/uL (4.1-5.3) 01/22/22 21: Hgb 14.2 g/dL (11.7-16.6) 01/22/22 21: Hct 44.4 % (42.0-52.0) 01/22/22 21: MCV 97.6 fl (80-94) H 01/22/22 21: MCH 31.2 pg (28.0-34.0) 01/22/22 21: MCHC 32.0 g/dL (30.0-36.0) 01/22/22 21: RDW 12.7 % (12.1-15.1) 01/22/22 21: Plt Count 189 10^3/cmm (130-400) 01/22/22 21: MPV 10.1 fL (7.4-10.4) 01/22/22 21: Neut % (Auto) 58.8 % 01/22/22 21: Lymph % (Auto) 25.8 % 01/22/22 21: [place] % (Auto) 9.9 % 01/22/22 21: Eos % (Auto) 4.2 % 01/22/22 21: Baso % (Auto) 0.9 % 01/22/22 21: Neut # (Auto) 4.66 10^3/uL (1.8-7.7) 01/22/22 21: Lymph # (Auto) 2.0 10^3/uL (0.8-4.8) 01/22/22 21: [place] # (Auto) 0.8 10^3/uL (0.2-0.9) 01/22/22 21: Eos # (Auto) 0.3 10^3/uL (0.0-0.8) 01/22/22 21: Baso # (Auto) 0.1 10^3/uL (0.0-0.1) 01/22/22 21:31 Nucleated RBC % (auto) 0 % 01/22/22 21:31 Nucleated RBCs # 0.0 /100WBC 01/22/22 21:31 PT 43.70 SECONDS (12.1-14.9) H 01/22/22 21:31 INR 4.61 (0.8-1.2) H 01/22/22 21:31 Sodium 138 mmol/L (136-145) 01/22/22 21:31 Potassium 4.5 mmol/L (3.5-5.1) 01/22/22 21:31 Chloride 104 mmol/L (98-107) 01/22/22 21:31 Carbon Dioxide 25 mmol/L (22-29) 01/22/22 21:31 Anion Gap 13.5 (5-19) 01/22/22 21:31 BUN 38 mg/dL (8-23) H 01/22/22 21:31 Creatinine 2.6 mg/dL (0.7-1.2) H 01/22/22 21:31 GFR Calculation Not Reportable 01/22/22 21: Glucose 139 mg/dL (65-115) H 01/22/22 21:31 Calculated Osmolality 297 mOsm/kg (285-295) H 01/22/22 21:31 Calcium 9.9 mg/dL (8.5-10.5) 01/22/22 21:31 Total Bilirubin 0.2 mg/dL (0.15-1.2) 01/22/22 21:31 AST 13 U/L (0-40) 01/22/22 21: ALT 11 U/L (0-41) 01/22/22 21:31 Alkaline Phosphatase 110 U/L (40-130) 01/22/22 21:31 NT-Pro-B Natriuret Pep 465 pg/mL (0-450) H 01/22/22 21:31 Total Protein 7.1 g/dL (6.6-8.7) 01/22/22 21:31 Albumin 3.7 g/dL (3.5-5.2) 01/22/22 21:31 Globulin 3.4 g/dL (1.3-4.6) 01/22/22 21:31 Discharge Plan Discharge Patient Disposition: Home Clinical Impression: Dyspnea Condition: Stable Prescriptions: No Action paroxetine HCl 30 mg tablet 30 mg PO BEDTIME tamsulosin 0.4 mg capsule 0.4 mg PO DAILY diphenhydramine HCl [Benadryl Allergy] 25 mg tablet 25 mg PO TID PRN (Reason: allergy symptoms) Qty: 2 0RF Rx Instructions: Take 50mg (2-25mg) tab [address] scan warfarin 5 mg tablet 5 mg PO DAILY Qty: 90 0RF Protocol: Dose Management Condition: Saturday Dose/Route: 4 mg Instruction: 1 x 4 mg tablet Condition: Saturday Dose/Route: 4 mg Instruction: 1 x 4 mg tablet Condition: Saturday Dose/Route: 4 mg Instruction: 1 x 4 mg tablet Condition: Saturday Dose/Route: 4 mg Instruction: 1 x 4 mg tablet Condition: Dose/Route: 4 mg Instruction: 1 x 4 mg tablet Condition: Saturday Dose/Route: 4 mg Instruction: 1 x 4 mg tablet Condition: Saturday Dose/Route: 4 mg Instruction: 1 x 4 mg tablet Protocol Text: Adjustment Start Date: 01/18/22 INR Value: 3.4 INR Date: 01/15/22 Recheck Date: 01/25/22 hydrocodone-acetaminophen 5-325 mg tablet 1 tab PO Q6H PRN (Reason: pain) Qty: 20 0RF metoprolol tartrate 100 mg Tablet 100 mg PO BID allopurinol 100 mg Tablet 100 mg PO DAILY warfarin 4 mg Tablet See Rx Instructions .ROUTE .COMPLEX Protocol: Dose Management Condition: Saturday Dose/Route: 4 mg Instruction: 1 x 4 mg tablet Condition: Saturday Dose/Route: 4 mg Instruction: 1 x 4 mg tablet Condition: Saturday Dose/Route: 4 mg Instruction: 1 x 4 mg tablet Condition: Saturday Dose/Route: 4 mg Instruction: 1 x 4 mg tablet Condition: Dose/Route: 4 mg Instruction: 1 x 4 mg tablet Condition: Saturday Dose/Route: 4 mg Instruction: 1 x 4 mg tablet Condition: Saturday Dose/Route: 4 mg Instruction: 1 x 4 mg tablet Protocol Text: Adjustment Start Date: 01/18/22 INR Value: 3.4 INR Date: 01/15/22 Recheck Date: 01/25/22 Rx Instructions: 2 mg orally on SAT, , AND SATURDAY 4 mg orally on E[place] SANTOS SAT, SUN omeprazole 20 mg Capsule,Delayed Release(Dr/Ec) 20 mg PO DAILY meclizine 25 mg Tablet 25 mg PO TID Qty: 90 0RF propranolol 10 mg tablet 10 mg PO BID Qty: 60 2RF Discharge Orders: Discharge ED (Routine); Ordered 01/22/22 Ordered By: Berna Erwin Referrals: Magaly Rivas MD [Primary Care Provider] - Discharge Diet: Advance as tolerated Discharge Activity: Resume usual activity Patient Instructions: Dyspnea (ED) Coding Level of Care Code ED Vending Route Driver for Chg Fwd Exam Comprehensive
[2022-01-22 22:35] VITALS: BP 188/92; PULSE 72; RESP 16; TEMP 36.4; O2SAT 97
[2022-01-22 22:38] LABS: Alanine Aminotransferase 11 U/L (0-41); Albumin Level 3.7 g/dL (3.5-5.2); Alkaline Phosphatase 110 U/L (40-130); Anion Gap 13.5 (5-19); Aspartate Amino Transferase 13 U/L (0-40); Blood Urea Nitrogen 38 mg/dL (8-23); Calcium 9.9 mg/dL (8.5-10.5); Carbon Dioxide 25 mmol/L (22-29); Chloride 104 mmol/L (98-107); Globulin 3.4 g/dL (1.3-4.6); Glucose 139 mg/dL (65-115); NT Pro B Type Natriuretic Pept 465 pg/mL (0-450); Osmolality Calculated 297 mOsm/kg (285-295); Potassium 4.5 mmol/L (3.5-5.1); Sodium 138 mmol/L (136-145); Total Bilirubin 0.2 mg/dL (0.15-1.2); Total Protein 7.1 g/dL (6.6-8.7)
[2022-01-22 22:40] LABS: INR 4.61 (0.8-1.2)
[2022-01-22 23:43] VITALS: BP 157/97; PULSE 90; RESP 18; TEMP 36.4; O2SAT 98
== END 2022-01-22 23:45 | disposition home or self-care (01) ==
PROVIDERS: Emergency Provider Emergency Medicine; PCP Internal Medicine
DX: R06.00 Dyspnea, unspecified (principal); Z79.01 Long term (current) use of anticoagulants; Z87.891 Personal history of nicotine dependence; J44.9 Chronic obstructive pulmonary disease, unspecified; Z86.73 Personal history of transient ischemic attack (TIA), and cerebral infarction without residual deficits; E78.5 Hyperlipidemia, unspecified; I10 Essential (primary) hypertension; Z95.0 Presence of cardiac pacemaker
CPT/HCPCS: 36415; 71045; 80053; 83880; 85025; 85610; 93005; 99285

== ENCOUNTER 2022-01-23 06:00 | Outpatient (RCR) | payer MEDICARE, SELFPAY | END 2022-02-09 23:59 | disposition home or self-care (01) | LOC: SPT 06:00 | PROVIDERS: PCP Internal Medicine; Visit Provider Emergency Medicine Emergency Medical Services | DX: R26.9 Unspecified abnormalities of gait and mobility (principal) | CPT/HCPCS: 97530 ==

== ENCOUNTER → 2022-02-08 10:12 | Outpatient (BNVA) | payer MEDICARE, SELFPAY | PROVIDERS: PCP Internal Medicine; Visit Provider Internal Medicine Cardiovascular Disease | DX: Z45.02 Encounter for adjustment and management of automatic implantable cardiac defibrillator (principal) | CPT/HCPCS: 93283 ==

== ENCOUNTER 2022-03-06 16:31 | Outpatient (CLI) | payer MEDICARE, SELFPAY ==
[2022-03-06 17:20] LABS: Prothrombin Time (Patient) 56.9 Seconds (12.0-15.1)
[2022-03-07 08:57] LABS: INR 6.49 (0.83-1.21)
== END 2022-03-06 16:32 | disposition home or self-care (01) ==
LOC: LAB 16:34
PROVIDERS: PCP Internal Medicine; Visit Provider Internal Medicine Cardiovascular Disease
DX: I48.19 Other persistent atrial fibrillation (principal)
CPT/HCPCS: 85610

== ENCOUNTER → 2022-03-27 08:33 | Outpatient (BNVA) | payer MEDICARE, MEDICAID, SELFPAY | PROVIDERS: PCP Internal Medicine; Referring Provider Emergency Medicine Emergency Medical Services; Visit Provider Specialist | DX: R25.1 Tremor, unspecified (principal); G31.84 Mild cognitive impairment of uncertain or unknown etiology; I95.1 Orthostatic hypotension; G62.9 Polyneuropathy, unspecified; G45.9 Transient cerebral ischemic attack, unspecified; G47.33 Obstructive sleep apnea (adult) (pediatric); Z86.73 Personal history of transient ischemic attack (TIA), and cerebral infarction without residual deficits; I48.91 Unspecified atrial fibrillation; Z79.01 Long term (current) use of anticoagulants; Z87.891 Personal history of nicotine dependence | CPT/HCPCS: 96116; 99205 ==

== ENCOUNTER 2022-05-08 20:00 | Outpatient (CLI) | payer MEDICARE, MEDICAID, SELFPAY | END 2022-05-08 20:01 | disposition home or self-care (01) | PROVIDERS: PCP Internal Medicine; Visit Provider Specialist | DX: G47.33 Obstructive sleep apnea (adult) (pediatric) (principal) | CPT/HCPCS: 95811 ==

== ENCOUNTER → 2022-05-18 08:01 | Outpatient (BNVA) | payer MEDICARE, SELFPAY | PROVIDERS: PCP Internal Medicine; Visit Provider Nurse Practitioner Family | DX: I42.0 Dilated cardiomyopathy (principal); Z87.891 Personal history of nicotine dependence; Z79.01 Long term (current) use of anticoagulants; Z95.810 Presence of automatic (implantable) cardiac defibrillator; I48.91 Unspecified atrial fibrillation | CPT/HCPCS: 99214 ==

== ENCOUNTER → 2022-05-22 09:02 | Outpatient (BNVA) | payer MEDICARE, SELFPAY | PROVIDERS: PCP Internal Medicine; Visit Provider Specialist | DX: R25.1 Tremor, unspecified (principal); G31.84 Mild cognitive impairment of uncertain or unknown etiology; G62.9 Polyneuropathy, unspecified; I95.1 Orthostatic hypotension; G47.33 Obstructive sleep apnea (adult) (pediatric); Z87.891 Personal history of nicotine dependence | CPT/HCPCS: 99214 ==

== ENCOUNTER 2022-05-29 06:00 | Outpatient (RCR) | payer OTHER, SELFPAY | END 2022-06-22 23:59 | disposition home or self-care (01) | LOC: SPT 06:00 | PROVIDERS: PCP Internal Medicine; Visit Provider Emergency Medicine Emergency Medical Services | DX: R25.1 Tremor, unspecified (principal) | CPT/HCPCS: 97110; 97161 ==

== ENCOUNTER 2022-06-18 13:00 | Outpatient (CLI) | payer MEDICARE, SELFPAY ==
[2022-06-18 14:20] LABS: INR 2.09 (0.83-1.21); Prothrombin Time (Patient) 24.2 Seconds (12.0-15.1)
== END 2022-06-18 13:01 | disposition home or self-care (01) ==
LOC: LAB 13:04
PROVIDERS: PCP Internal Medicine; Visit Provider Internal Medicine Cardiovascular Disease
DX: I48.91 Unspecified atrial fibrillation (principal)
CPT/HCPCS: 36415; 85610

== ENCOUNTER 2022-06-23 06:00 | Outpatient (RCR) | payer OTHER, SELFPAY | END 2022-07-12 23:59 | disposition home or self-care (01) | LOC: SPT 06:00 | PROVIDERS: PCP Internal Medicine; Visit Provider Emergency Medicine Emergency Medical Services | DX: R25.1 Tremor, unspecified (principal) | CPT/HCPCS: 97110 ==

== ENCOUNTER 2022-10-10 17:36 | Inpatient (IN) | payer OTHER, SELFPAY ==
[2022-10-10 17:40] VITALS: BP 192/109; PULSE 99; RESP 25; TEMP 37.2; O2SAT 93
--- NOTE | 2022-10-10 17:41 | CTR_ITS ---
PROCEDURE INFORMATION: Exam: CT Head Without Contrast Exam date and time: 10/10/2022 6:45 PM Age: 87 years old Clinical indication: Altered mental status/memory loss; Additional info: AMS TECHNIQUE: Imaging protocol: Computed tomography of the head without contrast. Radiation optimization: All CT scans at this facility use at least one of these dose optimization techniques: automated exposure control; mA and/or kV adjustment per patient size (includes targeted exams where dose is matched to clinical indication); or iterative reconstruction. REPORTING DATA: Count of CT and Cardiac NM exams in prior 12 months: This patient has received [address] and 0 known cardiac nuclear medicine studies in the 12 months prior to the current study. COMPARISON: CT head wo con* [id number] 10/26/2021 3:43 PM RADIATION DOSE METRICS: Total DLP (mGy-cm): 1168.28 FINDINGS: Brain: No hemorrhage. No edema. Moderate diffuse cerebral atrophy and mild sequela of chronic small vessel ischemic disease. Old lacunar infarcts noted in the right thalamus and deep white matter tracts of the left frontal lobe. No mass effect. Cerebral ventricles: No ventriculomegaly. Paranasal sinuses: Visualized sinuses are unremarkable. No fluid levels. Mastoid air cells: Visualized mastoid air cells are well aerated. Bones/joints: Unremarkable. No acute fracture. Soft tissues: Unremarkable. CT/CT head wo con* [id number] IMPRESSION: No acute intracranial abnormality.
--- NOTE | 2022-10-10 17:41 | XRR_ITS ---
PROCEDURE INFORMATION: Exam: XR Chest Exam date and time: 10/10/2022 6:01 PM Age: 87 years old Clinical indication: Other: Fever and weakness; Prior surgery; Surgery date: 6+ months; Surgery type: Pacemaker TECHNIQUE: Imaging protocol: Radiologic exam of the chest. Views: 1 view. COMPARISON: CR (CHEST, ) 01/22/2022 9:28 PM FINDINGS: Tubes, catheters and devices: There is stable intact pacemaker hardware. Lungs: Reduced lung volumes. No consolidation. Pleural spaces: Unremarkable. No pleural effusion. No pneumothorax. Heart/Mediastinum: Unremarkable. No cardiomegaly. Bones/joints: Unremarkable. XR/XR chest 1V portable [id number] IMPRESSION: No acute findings.
--- NOTE | 2022-10-10 17:42 | ECG_ITS ---
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 Measurements Intervals [place] Rate: 91 P: 34 TN: 165 QRS: -51 QRSD: 154 T: 112 QT: 352 QTc: 433 Interpretive Statements SINUS RHYTHM LEFT AXIS DEVIATION [QRS AXIS < -30] LEFT BUNDLE BRANCH BLOCK [120+ ms QRS DURATION, 80+ ms Q/S IN V1/V2, 85+ ms R IN I/aVL/V5/V6] Compared to ECG 01/22/2022 22:08:47 Atrial-paced complex(es) or rhythm no longer present Electronically Signed On 10-10-2022 21:20:23 CDT by Raya Hsieh M.D. [id number]
[2022-10-10 18:03] LABS: ABG PCO2 29.5 mmHg (35-45); ABG PH Result 7.43 (7.35-7.45); Arterial Blood Gas Hematocrit 45.6 % (42-52); Base Excess ABG -3.3 mmol/L (-2.0-2.0); Blood Gas Allen Test Pos; Blood Gas Operator Identificat WALCI; Blood Gas Sample Site Radial, left; Blood Gas Sample Type Arterial; HCO3 ABG 19.7 mmol/L (22-26); Oxygen Device ROOM AIR; PO2 ABG 64.7 mmHg (80.0-100.0)
[2022-10-10] MEDS: acetaminophen 325 mg Tablet 650 MG PO (18:08)
[2022-10-10] MEDS: sodium chloride 0.9% 1,000 ML 999 ML IV (18:09)
--- NOTE | 2022-10-10 18:15 | W.ED.AMS ---
HPI - Altered Mental Status General: Chief Complaint: Altered Mental Status Stated Complaint: Weakness Time Seen by Provider: 10/10/22 17:37 Source: patient, family and EMS Mode of arrival: EMS Limitations: altered mental status History of Present Illness: 87-year-old male who is here with EMS for weakness and confusion. He does have history of some cognitive impairments and his family had seen him for 2 days, checked on him and he did was in bed he states that he was extremely weak and unable to get out of bed. Per EMS he was febrile he does not have a fever here denies any vomiting patient is able to tell me his name he is confused on the year and worries that Review of Systems General: Reports: ROS unobtainable due to mental status PFSH ED PFSH: Medical History (Updated 10/10/22 @ 20:47 by Avi Mackey MD) Ataxia Atrial fibrillation Cardiomyopathy Carotid artery stenosis Chronic anticoagulation Chronic kidney disease COPD (chronic obstructive pulmonary disease) CVA (cerebral vascular accident) DDD (degenerative disc disease) GERD (gastroesophageal reflux disease) Gout Hyperlipidemia Hypertension Implantable cardioverter-defibrillator (ICD) discharge Long-term (current) use of anticoagulants, INR goal 2.0-3.0 Obstructive sleep apnea Pacemaker Stroke-like symptom Surgical History History of appendectomy History of cataract extraction History of tonsillectomy and adenoidectomy Hx of laminectomy Family History Mother CAD (coronary artery disease) valve replaced at 86 Brother Chronic kidney disease (CKD) Father Stroke Family/Other Suicide Denies family history of Diabetes Clotting disorder Dementia Anesthesia complication Bleeding disorder Lung disease Cancer Social History Smoking and tobacco status: former smoker Alcohol intake: never Substance/Drug Use: never Physical Exam Const: COMMON NORMALS: negative for patient oriented x3 GENERAL APPEARANCE: frail appearing ORIENTATION/CONSCIOUSNESS: Yes oriented to person; not oriented to place and not oriented to time HENMT: COMMON NORMALS: normocephalic and atraumatic HEAD & SCALP: normocephalic and atraumatic Eye: COMMON NORMALS: Equal, round and reactive pupils present, EOMs intact bilaterally and conjunctivae normal CONJUNCTIVA: Yes conjunctivae normal PUPIL: Yes Equal, round and reactive pupils present Neck/C-Spine: COMMON NORMALS: supple Chest: COMMONS NORMALS: normal inspection of the chest Resp: COMMON NORMALS: normal respiratory effort and clear to auscultation bilaterally AUSCULTATION: clear to auscultation bilaterally Cardio: COMMON NORMALS: regular rate and regular rhythm RATE: regular rate RHYTHM: regular rhythm GI: COMMON NORMALS: Normal to inspection, nondistended, normoactive bowel sounds present, Soft to palpation and non-tender PALPATION: Yes Soft to palpation Extremity: COMMON NORMALS: normal to inspection Neuro: COMMON NORMALS: negative for patient oriented x3 SENSORIUM/ORIENTATION: Yes oriented to person, No oriented to place and No oriented to time CRANIAL NERVES: Yes CN normal except as noted MOTOR EXAM: 5/5 motor strength present throughout Psych: COMMON NORMALS: negative for mental status grossly normal Skin: COMMON NORMALS: no rashes or lesions noted GENERAL SKIN EXAM: no rashes or lesions noted Course Vital Signs: Vital signs: Vital Signs Temperature 98.9 F 10/10/22 17:40 Pulse Rate 95 10/10/22 19:45 Respiratory Rate 16 10/10/22 19:45 Blood Pressure 159/79 10/10/22 19:45 Pulse Oximetry 92 10/10/22 19:45 Oxygen Delivery Me thod Room Air 10/10/22 17:40 MDM - Altered Mental Status Medical Decision Making Patient presents here with weakness along with some altered mental status he has a mildly elevated CK spoke to the hospitalist and will admit at this time Medical Records I reviewed the patient's medical records. Lab Data I reviewed the patient's lab results. 10/10/22 17:30 10/10/22 17:30 Radiology Impressions Chest X-Ray 10/10/22 17:41 IMPRESSION: No acute findings. Head CT 10/10/22 17:41 IMPRESSION: No acute intracranial abnormality. Laboratory Results WBC 13.5 10^3/uL (4.0-10.0) H 10/10/22 17:30 RBC 4.74 10^6/uL (4.1-5.3) 10/10/22 17:30 Hgb 14.7 g/dL (11.7-16.6) 10/10/22 17:30 Hct 45.1 % (42.0-52.0) 10/10/22 17:30 MCV 95.1 fl (80-94) H 10/10/22 17:30 MCH 31.0 pg (28.0-34.0) 10/10/22 17:30 MCHC 32.6 g/dL (30.0-36.0) 10/10/22 17:30 RDW 12.9 % (12.1-15.1) 10/10/22 17:30 Plt Count 159 10^3/cmm (130-400) 10/10/22 17:30 MPV 10.6 fL (7.4-10.4) H 10/10/22 17:30 Neut % (Auto) 88.1 % 10/10/22 17:30 Lymph % (Auto) 4.8 % 10/10/22 17:30 [place] % (Auto) 5.8 % 10/10/22 17:30 Eos % (Auto) 0.0 % 10/10/22 17: Baso % (Auto) 0.1 % 10/10/22 17: Neut # (Auto) 11.86 10^3/uL (1.8-7.7) H 10/10/22 17:30 Lymph # (Auto) 0.6 10^3/uL (0.8-4.8) L 10/10/22 17:30 [place] # (Auto) 0.8 10^3/uL (0.2-0.9) 10/10/22 17:30 Eos # (Auto) 0.0 10^3/uL (0.0-0.8) 10/10/22 17:30 Baso # (Auto) 0.0 10^3/uL (0.0-0.1) 10/10/22 17: Nucleated RBC % (auto) 0 % 10/10/22 17: Nucleated RBCs # 0.0 /100WBC 10/10/22 17: PT 20.30 SECONDS (12.1-14.9) H 10/10/22 17:30 INR 1.67 (0.8-1.2) H 10/10/22 17:30 Specimen Type Arterial 10/10/22 17:51 Sample Site Radial, left 10/10/22 17:51 ABG pH 7.43 (7.35-7.45) 10/10/22 17:51 ABG pCO2 29.5 mmHg (35-45) L 10/10/22 17:51 ABG pO2 64.7 mmHg (80.0-100.0) L 10/10/22 17:51 ABG HCO3 19.7 mmol/L (22-26) L 10/10/22 17:51 ABG Base Excess -3.3 mmol/L (-2.0-2.0) L 10/10/22 17:51 López Test Pos 10/10/22 17:51 Hematocrit 45.6 % (42-52) 10/10/22 17:51 O2 Delivery Device Room air 10/10/22 17:51 FiO2 21.0 % 10/10/22 17:51 Moderate Needs Teacher ID Agatha 10/10/22 17:51 Sodium 135 mmol/L (136-145) L 10/10/22 17:30 Potassium 4.7 mmol/L (3.5-5.1) 10/10/22 17:30 Chloride 99 mmol/L (98-107) 10/10/22 17:30 Carbon Dioxide 22 mmol/L (22-29) 10/10/22 17:30 Anion Gap 18.7 (5-19) 10/10/22 17:30 BUN 37 mg/dL (8-23) H 10/10/22 17:30 Creatinine 2.6 mg/dL (0.7-1.2) H 10/10/22 17:30 GFR Calculation Not Reportable 10/10/22 17:30 Glucose 123 mg/dL (65-115) H 10/10/22 17:30 Calculated Osmolality 290 mOsm/kg (285-295) 10/10/22 17:30 Lactic Acid 2.7 mmol/L (0.5-2.2) H 10/10/22 19:25 Calcium 9.9 mg/dL (8.5-10.5) 10/10/22 17:30 Magnesium 1.6 mg/dL (1.7-2.3) L 10/10/22 17:30 Total Bilirubin 0.5 mg/dL (0.15-1.2) 10/10/22 17:30 AST 28 U/L (0-40) 10/10/22 17:30 ALT 11 U/L (0-41) 10/10/22 17:30 Alkaline Phosphatase 82 U/L (40-130) 10/10/22 17:30 Creatine Kinase 796 U/L (39-308) H* 10/10/22 17:30 Total Protein 7.7 g/dL (6.6-8.7) 10/10/22 17:30 Albumin 3.7 g/dL (3.5-5.2) 10/10/22 17: Globulin 4.0 g/dL (1.3-4.6) 10/10/22 17:30 TSH 1.53 uIU/mL (0.27-4.20) 10/10/22 17:30 Urine Color Yellow (Yellow) 10/10/22 19:25 Urine Appearance Clear (CLEAR) 10/10/22 19:25 Urine pH 6 (5-7) 10/10/22 19:25 Ur Specific [place] 1.010 (1.005-1.030) 10/10/22 19:25 Urine Protein 3+ (Negative) H 10/10/22 19:25 Urine Glucose (UA) Trace (Normal) H 10/10/22 19:25 Urine Ketones Negative (Negative) 10/10/22 19:25 Urine Blood 3+ (Negative) H 10/10/22 19:25 Urine Nitrate Negative (Negative) 10/10/22 19:25 Urine Bilirubin Neg (Negative) 10/10/22 19:25 Urine Urobilinogen Norm mg/dL (Negative) 10/10/22 19:25 Ur Leukocyte Esterase Negative (Negative) 10/10/22 19:25 Urine RBC 40-50 /hpf (0-2) H 10/10/22 19:25 Urine WBC 5-10 /hpf (0-5) H 10/10/22 19:25 Ur Squamous Epith Cells 0-4 /hpf (0-5) H 10/10/22 19:25 Amorphous Sediment 2+ /hpf 10/10/22 19:25 Urine Bacteria None /hpf (NONE) 10/10/22 19:25 Urine Mucus 1+ /hpf 10/10/22 19:25 Discharge Plan Discharge Admit Provider: Avi Mackey Condition: Stable Coding Level of Care Code ED Correspondence Review Clerk for Chg Ifeanyi
[2022-10-10 18:26] LABS: Basophils % 0.1 %; Hematocrit 45.1 % (42.0-52.0); Hemoglobin 14.7 g/dL (11.7-16.6); Lymphocytes # 0.6 10^3/uL (0.8-4.8); Lymphocytes % 4.8 %; Mean Corpuscular HGB Conc 32.6 g/dL (30.0-36.0); Mean Corpuscular Volume 95.1 fl (80-94); Mean Platelet Volume 10.6 fL (7.4-10.4); Monocytes # 0.8 10^3/uL (0.2-0.9); Monocytes % 5.8 %; Neutrophils # 11.86 10^3/uL (1.8-7.7); Neutrophils % 88.1 %; Nucleated Red Blood Cells % 0 %; Platelet Count 159 10^3/cmm (130-400); Red Blood Count 4.74 10^6/uL (4.1-5.3); Red Cell Distribution Width 12.9 % (12.1-15.1); White Blood Count 13.5 10^3/uL (4.0-10.0)
[2022-10-10 18:27] LABS: INR 1.67 (0.8-1.2)
[2022-10-10 18:47] LABS: Alanine Aminotransferase 11 U/L (0-41); Albumin Level 3.7 g/dL (3.5-5.2); Alkaline Phosphatase 82 U/L (40-130); Aspartate Amino Transferase 28 U/L (0-40); Blood Urea Nitrogen 37 mg/dL (8-23); Calcium 9.9 mg/dL (8.5-10.5); Carbon Dioxide 22 mmol/L (22-29); Chloride 99 mmol/L (98-107); Glucose 123 mg/dL (65-115); Magnesium 1.6 mg/dL (1.7-2.3); Osmolality Calculated 290 mOsm/kg (285-295); Sodium 135 mmol/L (136-145); Thyroid Stimulating Hormone 1.53 uIU/mL (0.27-4.20); Total Bilirubin 0.5 mg/dL (0.15-1.2); Total Protein 7.7 g/dL (6.6-8.7)
[2022-10-10 19:04] LABS: Anion Gap 18.7 (5-19); Potassium 4.7 mmol/L (3.5-5.1)
[2022-10-10 19:05] LABS: Creatine Phosphokinase 796 U/L (39-308)
[2022-10-10 19:45] VITALS: BP 159/79; PULSE 95; RESP 16; O2SAT 92
[2022-10-10 20:04] LABS: Blood Urine 3+ (Negative); Glucose Urine UA Trace (Normal); Ketones Urine Negative (Negative); Protein Urine 3+ (Negative); Urine Appearance Clear (CLEAR); Urine Color Yellow (Yellow); pH Urine 6 (5-7)
[2022-10-10 20:05] LABS: Add Urine Microscopic? YES; Bilirubin Urine Neg (Negative); Leukocyte Esterase Urine Negative (Negative); Nitrate Urine Negative (Negative); RBC Urine 40-50 /hpf (0-2); Urobilinogen Urine Norm (Negative)
[2022-10-10 20:06] LABS: Add Urine Culture? Yes; Amorphous Sediment Urine 2+ /hpf; Mucus Urine 1+ /hpf; Squamous Epithelial Cell Urine 0-4 /hpf (0-5)
[2022-10-10 20:11] LABS: Lactic Sepsis W/Reflex 2.7 mmol/L (0.5-2.2)
--- NOTE | 2022-10-10 20:11 | CTR_ITS ---
PROCEDURE INFORMATION: Exam: CT Abdomen And Pelvis Without Contrast Exam date and time: 10/10/2022 8:34 PM Age: 87 years old Clinical indication: Other: Hematuria; Prior surgery; Surgery date: 6+ months; Surgery type: Appendectomy, laminectomy TECHNIQUE: Imaging protocol: Computed tomography of the abdomen and pelvis without contrast. Radiation optimization: All CT scans at this facility use at least one of these dose optimization techniques: automated exposure control; mA and/or kV adjustment per patient size (includes targeted exams where dose is matched to clinical indication); or iterative reconstruction. REPORTING DATA: Count of CT and Cardiac NM exams in prior 12 months: This patient has received [address] and 0 known cardiac nuclear medicine studies in the 12 months prior to the current study. COMPARISON: CR XR hip RT 2-3V wo/w pel* [id number] 05/04/2021 2:37 PM RADIATION DOSE METRICS: Total DLP (mGy-cm): 990.22 FINDINGS: Limitations: The absence of intravenous contrast lessens the sensitivity of this study for solid organ abnormalities. Study is somewhat limited by patient respiratory motion. Lungs: There is calcified granuloma in the left lower lobe. Pleural spaces: There is calcified pleural plaque at the right lung base. Liver: There is no focal abnormality within the liver. Gallbladder and bile ducts: Multiple calcified gallstones are present. Pancreas: Pancreas is atrophic but otherwise unremarkable. Spleen: The spleen is normal. Adrenal glands: The adrenal glands are normal. Kidneys and ureters: There are multiple simple renal cysts. Largest cysts are on the right with a 5.8 cm sized cyst in the upper pole of the kidney and multiple cysts in the 2-3 cm size range. There is no evidence of hydronephrosis. There is no evidence of renal or ureteral calcifications. Stomach and bowel: There is no evidence of colitis/diverticulitis. Appendix: Not identified Intraperitoneal space: There is no evidence of free intraperitoneal fluid. Vasculature: The aorta demonstrates moderate atherosclerotic calcification. There is no evidence of an abdominal aortic aneurysm. Lymph nodes: Unremarkable. No enlarged lymph nodes. Urinary bladder: There is mild thickening of the urinary bladder wall which may be due to muscular hypertrophy from chronic outlet obstruction. Reproductive: The prostate demonstrates moderate nonspecific enlargement. The seminal vesicles are normal. Bones/joints: There is chronic appearing compression fracture of L1. The lumbar spine demonstrates moderate degenerative changes at multiple levels. Soft tissues: Unremarkable. CT/CT kidney stone [id number] IMPRESSION: 1. Bilateral renal cysts. 2. No acute findings. 3. The cause for the patient's hematuria not identified on this exam. COMMENTS: Consistent with the [employer]'s Incidental Findings Committee white paper (J Am Fernie Radiol 2018): Any incidental renal lesion less than 1 cm or classified as too small to characterize, or any incidental cystic renal lesion characterized as simple-appearing, is likely benign. No follow-up imaging is recommended for these lesions per consensus recommendations based on imaging criteria.
[2022-10-10] MEDS: cefTRIAXone 1,000 MG in sodium chloride 0.9% (plus) 50 ML 100 MG IV (20:22)
--- NOTE | 2022-10-10 20:37 | PM.HP ---
Providers/Chief Complaint Admitting Physician: Avi Mackey MD Primary Care Provider: Magaly Rivas MD Chief Complaint: Weakness History of Present Illness Alexey An is a 87 year old male presenting from home. Past medical history consistent TIA, hypertension, A-fib. Apparently when caregiver checked on him at some point yesterday had a fever, and was very weak. Today, no one had heard from them so went over to check on him and he had not gotten out of bed, was incontinent of urine, and confused. Family member does not believe he had any specific focal weakness, but comments that he has some chronic left-sided weakness and often tilts that way when walking. Patient has become less confused after presentation to the ER. He reports no chest pain, or shortness of breath. Family reports he is coughing quite a bit. No history of nausea, vomiting, diarrhea, blood in stool. Review of Systems General: Reports: 10 or more systems reviewed and unremarkable except in HPI and below Card: Denies: chest pain Resp: Reports: non-productive cough GI: Denies: abdominal pain, nausea, vomiting, hematochezia or melena Medications/Allergies Home Medications Medication Instructions Recorded Confirmed Last Taken Type tamsulosin 0.4 mg capsule 0.4 mg PO DAILY 04/13/19 05/22/22 10/26/21 History hydrocodone 5 mg-acetaminophen 325 1 tab PO Q6H PRN pain #20 tabs 09/20/20 05/22/22 Unknown Rx mg tablet paroxetine HCl 30 mg tablet 30 mg PO BEDTIME 12/01/20 05/22/22 10/25/21 History allopurinol 100 mg tablet 100 mg PO DAILY 10/26/21 05/22/22 10/26/21 History omeprazole 20 mg capsule,delayed 20 mg PO DAILY 10/26/21 05/22/22 10/26/21 History release warfarin 4 mg tablet See Rx Instructions .Route .COMPLEX 10/26/21 10/05/22 10/26/21 History 4 MG warfarin 5 mg tablet 5 mg PO DAILY #90 tabs 01/09/22 10/05/22 Unknown Rx warfarin 3 mg tablet 3 mg PO DAILY #90 tabs 03/09/22 10/05/22 Unknown Rx calcitriol 0.5 mcg capsule 0.5 mcg PO DAILY 05/18/22 05/22/22 Unknown History metoprolol tartrate 100 mg tablet 50 mg PO BID 05/18/22 05/22/22 Unknown History omega 4-pom-mpj-fish oil 1,000 mg 1 cap PO BID 05/18/22 05/22/22 Unknown History (120 mg-180 mg) capsule (Fish Oil) BiPAP #1 ea 07/11/22 Unknown Rx Allergies Allergy/AdvReac Type Severity Reaction Status Date / Time Iodinated Contrast Media AdvReac STOMACH Verified 05/22/22 09:36 CRAMPING DURING A STRESS TEST. WAS TOLD D/T IODINE PFSH Acute PFSH: Medical History (Updated 10/10/22 @ 20:47 by Avi Mackey MD) Ataxia Atrial fibrillation Cardiomyopathy Carotid artery stenosis Chronic anticoagulation Chronic kidney disease COPD (chronic obstructive pulmonary disease) CVA (cerebral vascular accident) DDD (degenerative disc disease) GERD (gastroesophageal reflux disease) Gout Hyperlipidemia Hypertension Implantable cardioverter-defibrillator (ICD) discharge Long-term (current) use of anticoagulants, INR goal 2.0-3.0 Obstructive sleep apnea Pacemaker Stroke-like symptom Surgical History History of appendectomy History of cataract extraction History of tonsillectomy and adenoidectomy Hx of laminectomy Family History Mother CAD (coronary artery disease) valve replaced at 86 Brother Chronic kidney disease (CKD) Father Stroke Family/Other Suicide Denies family history of Diabetes Clotting disorder Dementia Anesthesia complication Bleeding disorder Lung disease Cancer Social History Smoking and tobacco status: former smoker Alcohol intake: never Substance/Drug Use: never Vitals/I&O/Wt Last Vital Signs Temp 98.9 F 10/10/22 17:40 Pulse 95 10/10/22 19:45 Resp 16 10/10/22 19:45 BP 159/79 10/10/22 19:45 Pulse Ox 92 10/10/22 19:45 O2 Del Method Room Air 10/10/22 17:40 Physical Exam Narrative: General exam demonstrates a slightly confused white male, in no distress, occasional cough who is able to recognize his family members but has trouble with the daughter's name HEENT atraumatic and normocephalic. Oropharynx clear Neck is supple no lymphadenopathy thyromegaly Cardiovascular regular rate and rhythm, heart sounds distant, no obvious murmur Lungs slightly coarse bilaterally. Occasional wheeze Abdomen is soft with positive bowel sounds. No obvious organomegaly. exams deferred Extremities no sinus clubbing edema, cap refill brisk Skin no rash Neuro no obvious focal deficits. Data 10/10/22 17:30 10/10/22 17:30 Other Labs: Previous echocardiogram EF was 45%, global hypokinesis, mild mitral and tricuspid regurgitation as well as aortic regurgitation Chest x-ray by my evaluation demonstrates pacemaker, left chest and cardiomegaly EKG demonstrates left axis deviation, left bundle branch block by my interpretation CT head negative INR 1.67 ABG demonstrates pH 7.43, PCO2 29, PO2 64 LFTs normal Magnesium low at 1.6 Calcium, albumin normal Ammonia pending CK7 96 Troponin pending TSH 1.53 Urinalysis 40-50 white blood cells, 5-10 whites I have ordered a CT renal protocol through the emergency department Micro: Microbiology 10/10/22 19:53 Blood Culture - Preliminary Blood SPECIMEN COLLECTED 10/10/22 18:24 Blood Culture - Preliminary Blood SPECIMEN COLLECTED A&P Assessment and plan (1) Acute metabolic encephalopathy: Patient presents with acute metabolic encephalopathy Etiology not completely clear but could include urinary tract infection. Cannot completely rule out respiratory infection secondary to cough and history of fever as well. Fall precautions Up with PT tomorrow (2) Hypomagnesemia: Supplement IV Recheck tomorrow (3) UTI (urinary tract infection): Blood and urine cultures Initiate Rocephin Continue to follow closely Note that his urine was obtained by cath CT renal protocol secondary to hematuria (4) Rhabdomyolysis: Low-dose IV fluids. These are given cautiously secondary to his known cardiomyopathy Repeat CK tomorrow And as CK is high (5) Cardiomyopathy: Last echocardiogram EF 45% Note that he has a pacemaker. We will perform pacemaker check as he was found down. Qualifiers: Cardiomyopathy type: dilated Qualified Code(s): I42.0 - Dilated cardiomyopathy (6) Atrial fibrillation: Continue metoprolol Continue Coumadin. Pharmacy consultation for management Telemetry Qualifiers: Atrial fibrillation type: other persistent Qualified Code(s): I48.19 - Other persistent atrial fibrillation (7) Chronic kidney disease: Close follow-up of kidney function daily Avoid renal toxic medications Plan History of COPD. Some cough and wheezing. I do not think steroids are warranted currently. DuoNeb every 6 hours, budesonide twice daily, follow closely. Check COVID PCR Other medical problems as outlined in past medical history DNR, confirmed with family and patient Coumadin will suffice for DVT prophylaxis Attestations Medical Necessity Statement*: May require less than 2 midnight stay for evaluation and treatment of acute encephalopathy on admission Diagnoses Acute metabolic encephalopathy G93.41 Hypomagnesemia E83.42 UTI (urinary tract infection) N39.0 Rhabdomyolysis M62.82 Cardiomyopathy I42.0 Cardiomyopathy type: dilated Atrial fibrillation I48.19 Atrial fibrillation type: other persistent Chronic kidney disease N18.9 Time Spent (min) 43
[2022-10-10 20:50] LABS: Troponin(5th) Baseline 52 ng/L (0-15)
[2022-10-10 21:07] LABS: Ammonia 13 umol/L (16-60)
[2022-10-10 21:10] LABS: SARS Covid-2 Antigen negative (Negative)
[2022-10-10 21:36] LABS: Reflex Lactate Order REFLEX LACTIC ORDERD
[2022-10-10 21:53] LABS: Glucose Point of Care 100 mg/dL (70-110)
[2022-10-10 22:00] VITALS: PULSE 100
[2022-10-10] MEDS: magnesium sulfate premix 2 GM/50 ML PIGGYBACK IV (22:13)
[2022-10-10] MEDS: sodium chloride 0.9% 1,000 ML 50 ML IV (22:14)
[2022-10-10] MEDS: PARoxetine 20 mg Tablet 30 MG PO (22:21)
[2022-10-10 22:49] LABS: Lactic Acid level (Lactate) 3.4 mmol/L (0.5-2.2)
[2022-10-10] MEDS: ipratropium-albuterol 3 mL Neb INHALATION (22:53)
[2022-10-10 22:54] VITALS: RESP 20; O2SAT 95
[2022-10-10 22:56] VITALS: RESP 20; O2SAT 95
--- NOTE | 2022-10-10 23:01 | ECG_ITS ---
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 Measurements Intervals [place] Rate: 78 P: 89 MA: 171 QRS: -41 QRSD: 161 T: 158 QT: 384 QTc: 439 Interpretive Statements SINUS RHYTHM LEFT AXIS DEVIATION [QRS AXIS < -30] LEFT BUNDLE BRANCH BLOCK [120+ ms QRS DURATION, 80+ ms Q/S IN V1/V2, 85+ ms R IN I/aVL/V5/V6] Compared to ECG 10/10/2022 17:51:02 No significant changes Electronically Signed On 10-11-2022 4:30:45 CDT by Munira Balderas M.D. [id number]
[2022-10-11] VITALS (18 sets, daily range): BP systolic 139–159; BP diastolic 63–78; PULSE 65–101; RESP 15–27; TEMP 36.4–37.3; O2SAT 85–100
[2022-10-11] MEDS: ipratropium-albuterol 3 mL Neb INHALATION ×4 (01:52→20:32)
--- NOTE | 2022-10-11 02:13 | ECG_ITS ---
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 Measurements Intervals [place] Rate: 104 P: 45 IN: 171 QRS: -47 QRSD: 145 T: 114 QT: 352 QTc: 465 Interpretive Statements SINUS TACHYCARDIA LEFT AXIS DEVIATION [QRS AXIS < -30] LEFT BUNDLE BRANCH BLOCK [120+ ms QRS DURATION, 80+ ms Q/S IN V1/V2, 85+ ms R IN I/aVL/V5/V6] Compared to ECG 10/10/2022 23:01:47 Sinus rhythm no longer present Electronically Signed On 10-11-2022 4:29:36 CDT by Munira Balderas M.D. [id number]
[2022-10-11 03:21] LABS: Basophils % 0.2 %; Hematocrit 38.6 % (42.0-52.0); Hemoglobin 12.6 g/dL (11.7-16.6); Lymphocytes # 0.5 10^3/uL (0.8-4.8); Lymphocytes % 3.8 %; Mean Corpuscular HGB Conc 32.6 g/dL (30.0-36.0); Mean Corpuscular Hemoglobin 31.1 pg (28.0-34.0); Mean Corpuscular Volume 95.3 fl (80-94); Mean Platelet Volume 9.9 fL (7.4-10.4); Monocytes # 0.9 10^3/uL (0.2-0.9); Monocytes % 7.1 %; Neutrophils # 10.59 10^3/uL (1.8-7.7); Neutrophils % 88.4 %; Nucleated Red Blood Cells % 0 %; Platelet Count 127 10^3/cmm (130-400); Red Blood Count 4.05 10^6/uL (4.1-5.3)
[2022-10-11 03:36] LABS: INR 1.81 (0.8-1.2)
[2022-10-11 03:42] LABS: Troponin 5 6HR 61.17 ng/L (0-15)
[2022-10-11 03:45] LABS: Alanine Aminotransferase 11 U/L (0-41); Alkaline Phosphatase 62 U/L (40-130); Anion Gap 17.3 (5-19); Aspartate Amino Transferase 33 U/L (0-40); Chloride 100 mmol/L (98-107); Glucose 110 mg/dL (65-115); Magnesium 1.9 mg/dL (1.7-2.3); Potassium 4.3 mmol/L (3.5-5.1); Total Bilirubin 0.3 mg/dL (0.15-1.2)
[2022-10-11 03:51] LABS: Troponin 5 6HR Delta 9.17 ng/L (0-12)
[2022-10-11 03:54] LABS: Blood Urea Nitrogen 35 mg/dL (8-23); Calcium 8.3 mg/dL (8.5-10.5); Carbon Dioxide 19 mmol/L (22-29); Osmolality Calculated 283 mOsm/kg (285-295); Sodium 132 mmol/L (136-145)
[2022-10-11 03:55] LABS: Albumin Level 3.1 g/dL (3.5-5.2); Total Protein 6.1 g/dL (6.6-8.7)
[2022-10-11 03:58] LABS: Creatine Phosphokinase 984 U/L (39-308)
[2022-10-11] MEDS: budesonide 0.5 mg/2 mL Neb INHALATION ×2 (08:12→20:32)
--- NOTE | 2022-10-11 09:08 | PC.PHAR ---
Addendum entered by Anai Jimenes 10/11/22 15:49: medications entered are from the med bottles the pt brought in and [facility] med list has warfarin 3mg daily-rx bottle brought in dated 03/09/22-pt also brought in bottle for warfarin 5mg daily dated 01/09/22 and warfarin 4mg daily dated 02/28/22-me med list has norco 7.5/325ng one tab bid prn- Addendum entered by Anai Jimenes 10/11/22 12:49: pasquale called back states she is unsure what the pts warfarin dose is-[facility] to call the [facility] and [facility] should [facility] the correct meds for the pt-faxed me for med list Addendum entered by Anai Jimenes 10/11/22 12:25: called pasquale [phone] still no answer Original Note: pt brought in home medication bottles-pts daughter states the pts granddaughter pasquale [phone] could tell me the name of the pts home health-called pasquale [phone] mail box was full and couldnt leave message-called [facility] [phone] states he hasnt been with your company at least 3 months for pc- [facility] [phone] states they dont set up meds for pt per [facility] [place] [phone] states they dont set up his medications -will call pts granddaughter again
[2022-10-11] MEDS: pantoprazole DR 40 mg Tablet PO (09:48)
[2022-10-11] MEDS: allopurinol 100 mg Tablet PO (09:48)
[2022-10-11] MEDS: tamsulosin 0.4 mg Capsule PO (09:48)
[2022-10-11] MEDS: metoprolol tartrate 50 mg Tablet PO ×2 (09:48→20:10)
--- NOTE | 2022-10-11 10:16 | PC.CHAP ---
Pastoral Care Encounter/Spiritual Assessment Type of Contact [] Declined after school tutor visit [] Patient/Family/Request visit [] Outpatient visit [] Follow-up visit [] Physician referral [] Code/Alert [x] Routine visit [] Staff referral [] Actively dying [] Patient sleeping [] Family support [] [] Out of room [] Palliative care [] [x] Receiving care in room [] Pre-surgical visit [] Trauma [] Long length of stay [] ICU visit [] Other: Relational/Emotional Strength [x] Patient feels connected with others/family/visitors/staff [] Distress [] Loneliness/isolation [] Abandonment Spirituality of Patient [x] Person of Sari [] Attends Hinduism of their Sari [x] Believes in Prayer [] Reads Bible or Anabaptism materials [] There are Spiritual issues to be addressed Hat Trimmer Interventions [x] Prayer [x] Active listening [x] Non-anxious presence [x] Spiritual/emotional support [] Crisis/trauma care [x] Spiritual counseling [] Bereavement support [] Provided bereavement packet [] Provided Bible/devotional materials [] Provided toy/stuffed animal, coloring book to patient or family member [] Provided Communion [] Anointing/[place] [] Salvation [x] Completed spiritual assessment [] Other: Impact on Illness or Injury [] Angry [] Fearful [] Anxious [] Often cries [] Exhaustion [] Unable to work [] Unable to attend quaker [] Unable to walk/stand [] Unable to read [] Unable to drive [] Unable to eat/drink [] Unable to sleep [] Unable to be with family [] Patient intubated [] Other: Summary on staff montoring system he is able to communicate not sure when he well go home Time spent with patient 10 mins
[2022-10-11 12:34] LABS: Adenovirus Not Detected (NOT DETECT); Chlamydia Pneumoniae Not Detected (NOT DETECT); Coronavirus 229E,HKU1,NL63,OC4 Not Detected (NOT DETECT); Human Metapneumovirus Not Detected (NOT DETECT); Human Rhinovirus/Enterovirus Not Detected (NOT DETECT); Influenza A Not Detected (NOT DETECT); Influenza A H1 Not Detected (NOT DETECT); Influenza A H1-2009 Not Detected (NOT DETECT); Influenza A H3 Not Detected (NOT DETECT); Influenza B Not Detected (NOT DETECT); Mycoplasma Pneumoniae Not Detected (NOT DETECT); Parainfluenza Virus Type 1 Not Detected (NOT DETECT); Parainfluenza Virus Type 2 Not Detected (NOT DETECT); Parainfluenza Virus Type 3 Not Detected (NOT DETECT); Parainfluenza Virus Type 4 Not Detected (NOT DETECT); Respiratory Syncytial Virus A Not Detected (NOT DETECT); Respiratory Syncytial Virus B Not Detected (NOT DETECT); SARS-COV-2 Not Detected (NOT DETECT)
--- NOTE | 2022-10-11 14:21 | P.PN_ITS ---
Subjective Subjective: He reports he is okay. Denies pain. Knows he is in the hospital. Does take a multiple time to answer questions. States that name is abdominal correctly. States the year is 1982. Does not recall anything events from yesterday. Vitals/I&O/Wt Last Vital Signs Temp 98.6 F 10/11/22 11:44 Pulse 78 10/11/22 11:44 Resp 16 10/11/22 11:44 BP 139/70 10/11/22 07:39 Pulse Ox 97 10/11/22 11:44 O2 Del Method BiPAP 10/11/22 11:44 FiO2 35 10/11/22 08:14 10/10/22 10/11/22 10/11/22 22:59 06:59 14:59 Intake Total 1050 / 1050 290 / 1340 240 / 240 Balance 1050 / 1050 290 / 1340 240 / 240 Physical Exam Const: GENERAL APPEARANCE: cooperative ORIENTATION/CONSCIOUSNESS: Yes awake and Yes confused (Mildly) HENMT: COMMON NORMALS: oropharynx normal Neck/C-Spine: COMMON NORMALS: no JVD Resp: COMMON NORMALS: normal respiratory effort and clear to auscultation bilaterally AUSCULTATION: clear to auscultation bilaterally Cardio: COMMON NORMALS: no JVD, regular rhythm, S1 normal heart sound present, S2 normal heart sound present and No murmurs present (Cardio) RHYTHM: regular rhythm HEART SOUNDS: S1 normal heart sound present and S2 normal heart sound present GI: COMMON NORMALS: Normal to inspection, nondistended, normoactive bowel sounds present, Soft to palpation and non-tender PALPATION: Yes Soft to palpation Extremity: COMMON NORMALS: no joint enlargement and no pedal edema Neuro: COMMON NORMALS: moves all extremities OTHER: Noted intention tremor Skin: COMMON NORMALS: no rashes or lesions noted GENERAL SKIN EXAM: no rashes or lesions noted Data 10/11/22 03:13 10/11/22 03:13 Micro: Microbiology 10/10/22 19:53 Blood Culture - Preliminary Blood SPECIMEN COLLECTED 10/10/22 18:24 Blood Culture - Preliminary Blood SPECIMEN COLLECTED A&P Assessment and plan (1) Acute metabolic encephalopathy: Persistent mild to moderate metabolic encephalopathy which is an acute neurologic change from his baseline. He is not oriented to year, no recollection of recent events. Does seem to know that he is in the hospital, not sure why. Continue treatment of urinary tract infection. With reported cough, fever, check viral panel. Noted normal TSH, B12. Magnesium noted replaced, repeat magnesium 1.9. Follow-up magnesium level. Pacemaker interrogated. Monitor on telemetry. Continue to reorient. Add OT assessment. 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 Neurology note reviewed noted tremor, mild cognitive impairment with memory loss. This was back in April. Noted history of orthostasis. Check orthostatics. Platelet count noted to reduce to 127. Sodium mildly low 132. Transaminases otherwise unremarkable. No focal abnormality in the liver on CT. Difficult to get an idea of synthetic function of the liver as he is also on warfarin, INR 1.8. Albumin mildly low 3.1. Ammonia was checked, noted 13. Patient presents with acute metabolic encephalopathy Etiology not completely clear but could include urinary tract infection. Cannot completely rule out respiratory infection secondary to cough and history of fever as well. Fall precautions Discussed with case management. (2) Hypomagnesemia: Noted 1.9. Recheck magnesium. (3) UTI (urinary tract infection): Follow-up urine culture Blood culture collected, reviewed, so far without results on Gram stain All his medications for some reason became discontinued. Had to restart Rocephin. Continue to follow closely Note that his urine was obtained by cath CT renal protocol without obvious cause of hematuria. No stone, no obstruction. Noted leukocytosis with some improvement down to 12. Predominant neutrophilic neutrophils 10.59. (4) Rhabdomyolysis: Mild rhabdo, but with worsening CK up to 984. Hold additional IV fluids as he is at risk of fluid overload with cardiomyopathy history. Follow-up CK level requested. (5) Cardiomyopathy: Last echocardiogram EF 45% Note that he has a pacemaker. Pacemaker interrogated. Qualifiers: Cardiomyopathy type: dilated Qualified Code(s): I42.0 - Dilated cardiomyopathy (6) Atrial fibrillation: Continue metoprolol Continue Coumadin. Follow-up INR requested Pharmacy consultation for management Telemetry Qualifiers: Atrial fibrillation type: other persistent Qualified Code(s): I48.19 - Other persistent atrial fibrillation (7) Chronic kidney disease: Close follow-up of kidney function daily Avoid renal toxic medications Plan History of COPD. Rapid COVID was noted negative, requested respiratory viral panel. Some cough and wheezing. DuoNeb every 6 hours, budesonide twice daily, follow closely. 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 BP 139/70. Other medical problems as outlined in past medical history DNR Coumadin will suffice for DVT prophylaxis Attestations Medical Necessity Statement*: Continue hospitalization for assessment and management of acute encephalopathy, UTI complicated by encephalopathy, electrolyte replacement, rhabdomyolysis, at r isk of fluid overload, post discharge planning, additional comorbidities as above. Diagnoses Acute metabolic encephalopathy G93.41 Hypomagnesemia E83.42 UTI (urinary tract infection) N39.0 Rhabdomyolysis M62.82 Cardiomyopathy I42.0 Cardiomyopathy type: dilated Atrial fibrillation I48.19 Atrial fibrillation type: other persistent Chronic kidney disease N18.9
[2022-10-11] MEDS: warfarin 2 mg Tablet 4 MG PO (15:49)
[2022-10-11] MEDS: cefTRIAXone 1,000 MG in sodium chloride 0.9% (plus) 50 ML 100 MG IV (20:07)
[2022-10-11] MEDS: PARoxetine 20 mg Tablet 30 MG PO (20:10)
[2022-10-12] VITALS (15 sets, daily range): BP systolic 117–174; BP diastolic 67–81; PULSE 63–107; RESP 15–22; TEMP 36.3–37.6; O2SAT 93–98
[2022-10-12 02:18] LABS: Basophils % 0.1 %; Hematocrit 40.6 % (42.0-52.0); Hemoglobin 13.4 g/dL (11.7-16.6); Lymphocytes # 0.6 10^3/uL (0.8-4.8); Lymphocytes % 7.6 %; Mean Platelet Volume 9.9 fL (7.4-10.4); Monocytes # 0.6 10^3/uL (0.2-0.9); Monocytes % 7.9 %; Neutrophils # 6.31 10^3/uL (1.8-7.7); Nucleated Red Blood Cells % 0 %; Platelet Count 122 10^3/cmm (130-400); Red Blood Count 4.32 10^6/uL (4.1-5.3); White Blood Count 7.5 10^3/uL (4.0-10.0)
[2022-10-12 02:41] LABS: Anion Gap 15.5 (5-19); Blood Urea Nitrogen 41 mg/dL (8-23); Calcium 8.6 mg/dL (8.5-10.5); Carbon Dioxide 21 mmol/L (22-29); Chloride 98 mmol/L (98-107); Glucose 88 mg/dL (65-115); Magnesium 1.8 mg/dL (1.7-2.3); Osmolality Calculated 280 mOsm/kg (285-295); Potassium 4.5 mmol/L (3.5-5.1); Sodium 130 mmol/L (136-145)
[2022-10-12 02:45] LABS: Creatine Phosphokinase 647 U/L (39-308)
[2022-10-12] MEDS: ipratropium-albuterol 3 mL Neb INHALATION ×4 (03:14→20:42)
[2022-10-12 07:59] LABS: INR 1.64 (0.8-1.2)
--- NOTE | 2022-10-12 09:20 | ECG_ITS ---
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 Measurements Intervals [place] Rate: 67 P: 99 [place]: 174 QRS: -43 QRSD: 160 T: 142 QT: 404 QTc: 428 Interpretive Statements SINUS RHYTHM WITH OCCASIONAL SUPRAVENTRICULAR PREMATURE COMPLEXES Occasional atrial pacing with ventricular sensing LEFT AXIS DEVIATION [QRS AXIS < -30] LEFT BUNDLE BRANCH BLOCK [120+ ms QRS DURATION, 80+ ms Q/S IN V1/V2, 85+ ms R IN I/aVL/V5/V6] Compared to ECG 10/11/2022 02:30:19 Sinus tachycardia no longer present Electronically Signed On 10-12-2022 11:45:09 CDT by Bharath Christopher M.D. [id number]
[2022-10-12] MEDS: albumin 25 G/100 ML BAG 60 G IV (09:43)
[2022-10-12] MEDS: allopurinol 100 mg Tablet PO (09:49)
[2022-10-12] MEDS: pantoprazole DR 40 mg Tablet PO (09:49)
[2022-10-12] MEDS: metoprolol tartrate 50 mg Tablet PO (09:49)
[2022-10-12] MEDS: tamsulosin 0.4 mg Capsule PO (09:49)
[2022-10-12 11:07] LABS: Troponin(5th) Baseline 67 ng/L (0-15)
[2022-10-12] MEDS: magnesium sulfate premix 2 GM/50 ML PIGGYBACK IV (11:36)
[2022-10-12 13:11] LABS: Troponin 5 2HR 65.32 ng/L (0-15)
[2022-10-12 13:15] LABS: Troponin 5 2HR Delta -1.68 ABS# (0-10)
[2022-10-12] MEDS: warfarin 5 mg Tablet PO (15:34)
--- NOTE | 2022-10-12 15:44 | ECG_ITS ---
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 Measurements Intervals [place] Rate: 76 P: 103 [place]: 195 QRS: -50 QRSD: 172 T: 128 QT: 426 QTc: 480 Interpretive Statements ELECTRONIC ATRIAL PACEMAKER LEFT AXIS DEVIATION [QRS AXIS < -30] LEFT BUNDLE BRANCH BLOCK [120+ ms QRS DURATION, 80+ ms Q/S IN V1/V2, 85+ ms R IN I/aVL/V5/V6] Compared to ECG 10/12/2022 09:20:26 Sinus rhythm no longer present Electronically Signed On 10-15-2022 21:40:21 CDT by Munira Balderas M.D. [id number]
[2022-10-12 17:44] LABS: Troponin 5 6HR 58.51 ng/L (0-15)
[2022-10-12 17:46] LABS: Troponin 5 6HR Delta -8.49 ng/L (0-12)
--- NOTE | 2022-10-12 19:38 | P.PN_ITS ---
Subjective Subjective: Today he is doing somewhat better. However, wide-complex tachycardia seen on the monitor up to 140. He is sitting up in a chair. He is not symptomatic. Denies any lightheadedness, weakness, chest pain, pressure or shortness of breath. Earlier he was trying to drink from a cup, currently trying to use a urinal but having difficulty with access. Accompanied by his daughter and son-in-law. Vitals/I&O/Wt Last Vital Signs Temp 97.8 F 10/12/22 15:16 Pulse 78 10/12/22 15:16 Resp 15 10/12/22 15:16 BP 136/70 10/12/22 15:16 Pulse Ox 95 10/12/22 15:16 O2 Del Method Nasal Cannula 10/12/22 15:16 O2 Flow Rate 1 10/12/22 14:00 FiO2 35 10/12/22 03:15 10/12/22 10/12/22 10/12/22 06:59 14:59 22:59 Intake Total 390 / 390 240 / 630 Output Total 400 / 400 Balance 390 / 390 -160 / 230 Physical Exam Const: GENERAL APPEARANCE: cooperative ORIENTATION/CONSCIOUSNESS: Yes awake and Yes confused (Mildly) OTHER: More alert, has easier time interacting. Family reports today is oriented x3. HENMT: COMMON NORMALS: oropharynx normal Neck/C-Spine: COMMON NORMALS: no JVD Resp: COMMON NORMALS: normal respiratory effort and clear to auscultation bilaterally AUSCULTATION: clear to auscultation bilaterally Cardio: COMMON NORMALS: no JVD, regular rhythm, S1 normal heart sound present, S2 normal heart sound present and No murmurs present (Cardio) RHYTHM: regular rhythm HEART SOUNDS: S1 normal heart sound present and S2 normal heart sound present GI: COMMON NORMALS: Normal to inspection, nondistended, normoactive bowel sounds present, Soft to palpation and non-tender PALPATION: Yes Soft to palpation Extremity: COMMON NORMALS: no joint enlargement and no pedal edema Neuro: COMMON NORMALS: moves all extremities OTHER: Milder intention tremor Skin: COMMON NORMALS: no rashes or lesions noted GENERAL SKIN EXAM: no rashes or lesions noted Data 10/12/22 02:05 10/12/22 02:05 Micro: Microbiology 10/10/22 19:25 Urine Culture - Final Urine,Clean Catch 10/10/22 19:53 Blood Culture - Preliminary Blood NEGATIVE TO DATE 10/10/22 18:24 Blood Culture - Preliminary Blood NEGATIVE TO DATE A&P Assessment and plan (1) Acute metabolic encephalopathy: Today he is doing somewhat better. He is oriented x3. More alert, having easier time interacting. Encephalopathy improving. Additional magnesium replaced. Continue treatment of urinary tract infection. With reported cough, fever, noted unremarkable viral panel. Noted normal TSH, B12. Continue to reorient. PT, OT He is quite deconditioned. Trying to chair to bed to the required two-person assist. Going home independently at the moment is not a safe option. He and family understand this, we will work with case management on setting up rehabilitation. Discussed with case management. Discussed with family also history of mild cognitive impairment, likely made him predisposed to acute encephalopathy, question may be regarding how long recovery may take and whether he will recover back to his prior baseline. He lives by himself. 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 Neurology note reviewed noted tremor, mild cognitive impairment with memory loss. This was back in April. Noted history of orthostasis. Check orthostatics. Platelet count noted to reduce to 127. Sodium mildly low 132. Transaminases o therwise unremarkable. No focal abnormality in the liver on CT. Difficult to get an idea of synthetic function of the liver as he is also on warfarin, INR 1.8. Albumin mildly low 3.1. Ammonia was checked, noted 13. Patient presents with acute metabolic encephalopathy Etiology not completely clear but could include urinary tract infection. Cannot completely rule out respiratory infection secondary to cough and history of fever as well. Fall precautions Discussed with his family and case management. (2) Hypomagnesemia: Noted 1.8. Additional 2 g medium given. Recheck magnesium. (3) UTI (urinary tract infection): Urine culture unrevealing, 10-20,000 mixed superficial lexy. Blood culture negative to date. Empirically continue with ceftriaxone for now. CT renal protocol without obvious cause of hematuria. No stone, no obstruction. Leukocytosis noted resolved. WBC 7.5. Neutrophilia resolved. (4) Wide-complex tachycardia: Overnight reported nonsustained 5 beats of V. tach. This morning tachycardia af ter sitting up in chair on the monitor wide-complex tachycardia up to 130s 140s concern for possible ventricular tachycardia. However, asymptomatic. With left bundle branch block, intermittently paced rhythm with pacemaker in place. Appears to be likely tachycardia. Troponin EKG series obtained. Given additional magnesium. Requesting additional PPM interrogation. (5) Rhabdomyolysis: Improving. CK down to 647. Follow-up CK level requested. (6) Cardiomyopathy: Last echocardiogram EF 45% Note that he has a pacemaker. Pacemaker interrogated. Qualifiers: Cardiomyopathy type: dilated Qualified Code(s): I42.0 - Dilated cardiomyopathy (7) Atrial fibrillation: Continue metoprolol Continue Coumadin. Follow-up INR 1.64. Repeat INR. Pharmacy consultation for management Telemetry Qualifiers: Atrial fibrillation type: other persistent Qualified Code(s): I48.19 - Other persistent atrial fibrillation (8) Chronic kidney disease: Worsening of BUN up to 41, creatinine 3.1. No clear cause. Albumin 25 g x 1 as he is at risk of fluid overload. No urinary obstruction noted on CT. Close follow-up of kidney function daily Avoid renal toxic medications Plan History of COPD. Rapid COVID was noted negative, noted unremarkable respiratory viral panel. Some cough and wheezing. DuoNeb every 6 hours, budesonide twice d aily, follow closely. 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 BP 139/70. Other medical problems as outlined in past medical history DNR Coumadin will suffice for DVT prophylaxis Attestations Medical Necessity Statement*: Continue hospitalization for assessment and management of acute encephalopathy, UTI complicated by encephalopathy, electrolyte replacement, rhabdomyolysis, at risk of fluid overload, post discharge planning, additional comorbidities as above. Diagnoses Acute metabolic encephalopathy G93.41 Hypomagnesemia E83.42 UTI (urinary tract infection) N39.0 Wide-complex tachycardia R00.0 Rhabdomyolysis M62.82 Cardiomyopathy I42.0 Cardiomyopathy type: dilated Atrial fibrillation I48.19 Atrial fibrillation type: other persistent Chronic kidney disease N18.9
[2022-10-12] MEDS: budesonide 0.5 mg/2 mL Neb INHALATION (20:42)
[2022-10-12] MEDS: cefTRIAXone 1,000 MG in sodium chloride 0.9% (plus) 50 ML 100 MG IV (21:39)
[2022-10-12] MEDS: PARoxetine 20 mg Tablet 30 MG PO (21:45)
[2022-10-12] MEDS: metoprolol tartrate 50 mg Tablet 100 MG PO (21:45)
[2022-10-13] VITALS (14 sets, daily range): BP systolic 110–132; BP diastolic 67–82; PULSE 76–116; RESP 16–23; TEMP 36.6–37.7; O2SAT 92–97
[2022-10-13] MEDS: ipratropium-albuterol 3 mL Neb INHALATION ×4 (03:11→20:11)
[2022-10-13 05:32] LABS: Basophils % 0.2 %; Eosinophils % 0.2 %; Hematocrit 34.6 % (42.0-52.0); Hemoglobin 11.7 g/dL (11.7-16.6); Lymphocytes # 0.8 10^3/uL (0.8-4.8); Lymphocytes % 15.1 %; Mean Corpuscular HGB Conc 33.8 g/dL (30.0-36.0); Mean Corpuscular Hemoglobin 31.5 pg (28.0-34.0); Mean Corpuscular Volume 93.3 fl (80-94); Mean Platelet Volume 10.2 fL (7.4-10.4); Monocytes # 0.6 10^3/uL (0.2-0.9); Monocytes % 12.2 %; Neutrophils # 3.72 10^3/uL (1.8-7.7); Neutrophils % 72.1 %; Nucleated Red Blood Cells % 0 %; Platelet Count 105 10^3/cmm (130-400); Red Blood Count 3.71 10^6/uL (4.1-5.3); Red Cell Distribution Width 13.1 % (12.1-15.1); White Blood Count 5.2 10^3/uL (4.0-10.0)
[2022-10-13 05:55] LABS: Anion Gap 16.5 (5-19); Blood Urea Nitrogen 52 mg/dL (8-23); Carbon Dioxide 20 mmol/L (22-29); Chloride 100 mmol/L (98-107); Glucose 140 mg/dL (65-115); Osmolality Calculated 290 mOsm/kg (285-295); Potassium 4.5 mmol/L (3.5-5.1); Sodium 132 mmol/L (136-145)
[2022-10-13 06:10] LABS: INR 1.97 (0.8-1.2)
[2022-10-13 06:14] LABS: Calcium 8.4 mg/dL (8.5-10.5)
[2022-10-13] MEDS: budesonide 0.5 mg/2 mL Neb INHALATION ×2 (09:30→20:10)
[2022-10-13] MEDS: metoprolol tartrate 50 mg Tablet 100 MG PO ×2 (10:05→21:52)
[2022-10-13] MEDS: allopurinol 100 mg Tablet PO (10:06)
[2022-10-13] MEDS: pantoprazole DR 40 mg Tablet PO (10:06)
[2022-10-13] MEDS: tamsulosin 0.4 mg Capsule PO (10:06)
[2022-10-13 15:00] LABS: Procalcitonin 0.91 ng/mL (0-0.5)
[2022-10-13 15:24] LABS: Lactate Dehydrogenase 275 U/L (135-225)
[2022-10-13 15:30] LABS: LAB Peripheral Smear Sent for Review
[2022-10-13] MEDS: warfarin 5 mg Tablet PO (15:51)
--- NOTE | 2022-10-13 19:03 | USR_ITS ---
PROCEDURE INFORMATION: Exam: US Duplex Lower Extremity Veins, Bilateral Exam date and time: 10/13/2022 7:56 PM Age: 87 years old Clinical indication: Edema, localized; Lower extremity, bilateral; Additional info: Assess for dvt TECHNIQUE: Imaging protocol: Real-time duplex ultrasound of the bilateral extremities with 2-D red scale, color Doppler flow and spectral waveform analysis including responses to compression and other maneuvers (when performed) with image documentation. Complete exam focused on the lower extremity veins. COMPARISON: US renal BI* [id number] 10/28/2018 4:45 PM FINDINGS: Right deep veins: Unremarkable. The common femoral, femoral, proximal profunda femoral and popliteal veins are patent without thrombus. Normal Doppler waveforms. Normal compressibility and/or augmentation response. Right superficial veins: Saphenofemoral junction is patent without thrombus. Left deep veins: Unremarkable. The common femoral, femoral, proximal profunda femoral and popliteal veins are patent without thrombus. Normal Doppler waveforms. Normal compressibility and/or augmentation response. Left superficial veins: Saphenofemoral junction is patent without thrombus. Soft tissues: Unremarkable. US/[place] [id number] IMPRESSION: No evidence of deep vein thrombosis.
[2022-10-13 19:40] LABS: Erythrocyte Sedimentation Rate 41 mm/hr (0-10)
--- NOTE | 2022-10-13 19:53 | P.PN_ITS ---
Subjective Subjective: Today he is feeling somewhat tired. He has been more sleepy this morning compared to yesterday. Denies any new complaints, no new discomfort or pain. Denies headache, no photophobia or neck pain, denies any temporal pain or tenderness, no jaw claudication, no muscle pain. Denies any new respiratory, GI or urinary symptoms. No rash. Vitals/I&O/Wt Last Vital Signs Temp 98.4 F 10/13/22 16:00 Pulse 90 10/13/22 16:00 Resp 18 10/13/22 16:00 BP 126/76 10/13/22 16:00 Pulse Ox 94 10/13/22 16:00 O2 Del Method Nasal Cannula 10/13/22 16:00 O2 Flow Rate 2 10/13/22 13:30 FiO2 35 10/13/22 08:00 10/13/22 10/13/22 10/13/22 06:59 14:59 22:59 Intake Total 360 / 360 480 / 840 Balance 360 / 360 480 / 840 Physical Exam Const: GENERAL APPEARANCE: cooperative OTHER: Sleeping, wakes up to voice. Afterwards but falls back asleep. HENMT: COMMON NORMALS: oropharynx normal Neck/C-Spine: COMMON NORMALS: no JVD Resp: COMMON NORMALS: normal respiratory effort and clear to auscultation bilaterally AUSCULTATION: clear to auscultation bilaterally Cardio: COMMON NORMALS: no JVD, regular rhythm, S1 normal heart sound present, S2 normal heart sound present and No murmurs present (Cardio) RHYTHM: regular rhythm HEART SOUNDS: S1 normal heart sound present and S2 normal heart sound present GI: COMMON NORMALS: Normal to inspection, nondistended, normoactive bowel sounds present, Soft to palpation and non-tender PALPATION: Yes Soft to palpation Extremity: COMMON NORMALS: no joint enlargement and no pedal edema Neuro: COMMON NORMALS: moves all extremities OTHER: Milder intention tremor Skin: COMMON NORMALS: no rashes or lesions noted GENERAL SKIN EXAM: no rashes or lesions noted Data 10/13/22 05:23 10/13/22 05:23 A&P Assessment and plan (1) Acute metabolic encephalopathy: Today some worsening of encephalopathy. He does appear to be still oriented, family tell me he is more sleepy today. Discussed with him and his family low- grade temp 99.8. He does not appear to have any new complaints to explain his symptoms. Possible UTI, although urine culture has been unrevealing, only 10- 20,000 mixed lexy. Noted some worsening thrombocytopenia, platelets down to 105. Additional assessment of thrombocytopenia as below. Check ferritin. No hepatosplenomegaly. Follow-up hypomagnesemia. Discussed with case management. With reported cough, fever, noted unremarkable viral panel. Not coughing currently. Noted normal TSH, B12. Continue to reorient. PT, OT He is quite deconditioned. Trying to chair to bed to the required two-person assist. Going home independently at the moment is not a safe option. He and family understand this, we will work with case management on setting up rehabilitation. Discussed with case management. Discussed with family also history of mild cognitive impairment, likely made him predisposed to acute encephalopathy, question may be regarding how long recovery may take and whether he will recover back to his prior baseline. He lives by himself. 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 Neurology note reviewed noted tremor, mild cognitive impairment with memory loss. This was back in April. Noted history of orthostasis. Check orthostatics. Platelet count noted to reduce to 127. Sodium mildly low 132. Transaminases otherwise unremarkable. No focal abnormality in the liver on CT. Difficult to get an idea of synthetic function of the liver as he is also on warfarin, INR 1.8. Albumin mildly low 3.1. Ammonia was checked, noted 13. Patient presents with acute metabolic encephalopathy Etiology not completely clear but could include urinary tract infection. Cannot completely rule out respiratory infection secondary to cough and history of fever as well. Fall precautions (2) Thrombocytopenia: Noted some worsening thrombocytopenia, platelets down to 105. Discussed we are obtaining some additional blood work, haptoglobin, LDH, peripheral smear. Plasmic score for TTP is low. Procalcitonin obtained, 0.91, although not reliable in setting of CKD. Does not appear to have symptoms of temporal arteritis/PMR. Noted to have some microscopic hematuria, without good explanation found on CT. Noted some proteinuria. We will check urine protein. Check LARRY, ANCA. We will hold Rocephin after tonight's dose. Hold Protonix. (3) Hypomagnesemia: Recheck magnesium level. (4) UTI (urinary tract infection): Urine culture unrevealing, 10-20,000 mixed superficial lexy. Blood culture negative to date. Empirically ceftriaxone tonight and hold after that in case contributing to his thrombocytopenia. CT renal protocol without obvious cause of hematuria. No stone, no obstruction. Leukocytosis noted resolved. Normal WBC. (5) Wide-complex tachycardia: Overnight reported nonsustained 5 beats of V. tach. This morning tachycardia after sitting up in chair on the monitor wide-complex tachycardia up to 130s 140s concern for possible ventricular tachycardia. However, asymptomatic. With left bundle branch block, intermittently paced rhythm with pacemaker in place. Appears to be likely tachycardia. Troponin EKG series obtained. Given additional magnesium. Requesting additional PPM interrogation. (6) Rhabdomyolysis: Recheck CK (7) Cardiomyopathy: Last echocardiogram EF 45% Note that he has a pacemaker. Pacemaker interrogated. Qualifiers: Cardiomyopathy type: dilated Qualified Code(s): I42.0 - Dilated cardiomyopathy (8) Atrial fibrillation: Continue metoprolol Continue Coumadin. INR noted 1.97. Pharmacy consultation for management Telemetry Qualifiers: Atrial fibrillation type: other persistent Qualified Code(s): I48.19 - Other persistent atrial fibrillation (9) Chronic kidney disease: BUN 52, creatinine improved to 2.9. Reassess renal function. Hold ceftriaxone, pantoprazole. Additional assessment of microscopic hematuria as above. No urinary obstruction noted on CT. Close follow-up of kidney function daily Avoid renal toxic medications (10) Microscopic hematuria: No obvious etiology so far. Urine culture not revealing of UTI. Nothing obv ious on CT, no stone, no mass. Additional work-up as above. Will need follow-up for resolution, or addition work-up to exclude urologic malignancy or other source. Plan History of COPD. Rapid COVID was noted negative, noted unremarkable respiratory viral panel. Some cough and wheezing. DuoNeb every 6 hours, budesonide twice daily, follow closely. 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 Other medical problems as outlined in past medical history DNR Coumadin will suffice for DVT prophylaxis Attestations Medical Necessity Statement*: Continue hospitalization for assessment and management of acute encephalopathy, UTI complicated by encephalopathy, electrolyte replacement, rhabdomyolysis, at risk of fluid overload, post discharge planning, additional comorbidities as above. Diagnoses Acute metabolic encephalopathy G93.41 Thrombocytopenia D69.6 Hypomagnesemia E83.42 UTI (urinary tract infection) N39.0 Wide-complex tachycardia R00.0 Rhabdomyolysis M62.82 Cardiomyopathy I42.0 Cardiomyopathy type: dilated Atrial fibrillation I48.19 Atrial fibrillation type: other persistent Chronic kidney disease N18.9 Microscopic hematuria R31.29
[2022-10-13 20:00] LABS: C Reactive Protein 125.3 mg/L (0.0-4.9)
[2022-10-13 21:08] LABS: Ferritin 2130 ng/mL (30-400)
[2022-10-13] MEDS: cefTRIAXone 1,000 MG in sodium chloride 0.9% (plus) 50 ML 100 MG IV (21:51)
[2022-10-13] MEDS: PARoxetine 20 mg Tablet 30 MG PO (21:52)
[2022-10-14] VITALS (14 sets, daily range): BP systolic 124–153; BP diastolic 79–90; PULSE 74–100; RESP 18–30; TEMP 36.3–37.1; O2SAT 94–97
[2022-10-14] MEDS: ipratropium-albuterol 3 mL Neb INHALATION ×4 (02:49→19:48)
[2022-10-14 04:14] LABS: Basophils % 0.3 %; Eosinophils # 0.1 10^3/uL (0.0-0.8); Eosinophils % 0.8 %; Hematocrit 34.3 % (42.0-52.0); Hemoglobin 11.7 g/dL (11.7-16.6); Lymphocytes # 0.8 10^3/uL (0.8-4.8); Lymphocytes % 11.6 %; Mean Corpuscular HGB Conc 34.1 g/dL (30.0-36.0); Mean Corpuscular Hemoglobin 31.7 pg (28.0-34.0); Mean Platelet Volume 10.6 fL (7.4-10.4); Monocytes % 14.1 %; Neutrophils # 5.25 10^3/uL (1.8-7.7); Neutrophils % 72.8 %; Nucleated Red Blood Cells % 0 %; Platelet Count 124 10^3/cmm (130-400); Red Blood Count 3.69 10^6/uL (4.1-5.3); White Blood Count 7.2 10^3/uL (4.0-10.0)
[2022-10-14 04:22] LABS: INR 1.95 (0.8-1.2)
[2022-10-14 04:44] LABS: Creatine Phosphokinase 215 U/L (39-308)
[2022-10-14 04:49] LABS: Anion Gap 15.4 (5-19); Blood Urea Nitrogen 51 mg/dL (8-23); Calcium 8.1 mg/dL (8.5-10.5); Carbon Dioxide 19 mmol/L (22-29); Chloride 98 mmol/L (98-107); Glucose 103 mg/dL (65-115); Osmolality Calculated 280 mOsm/kg (285-295); Potassium 4.4 mmol/L (3.5-5.1); Sodium 128 mmol/L (136-145)
[2022-10-14] MEDS: budesonide 0.5 mg/2 mL Neb INHALATION ×2 (08:58→19:48)
[2022-10-14] MEDS: metoprolol tartrate 50 mg Tablet 100 MG PO ×2 (09:19→19:53)
[2022-10-14] MEDS: allopurinol 100 mg Tablet PO (09:19)
[2022-10-14] MEDS: tamsulosin 0.4 mg Capsule PO (09:19)
[2022-10-14] MEDS: valACYclovir 1,000 mg Tablet 1000 MG PO (12:30)
[2022-10-14] MEDS: warfarin 5 mg Tablet PO (14:19)
--- NOTE | 2022-10-14 14:21 | XRR_ITS ---
PROCEDURE INFORMATION: Exam: XR Chest Exam date and time: 10/14/2022 2:39 PM Age: 87 years old Clinical indication: Cough TECHNIQUE: Imaging protocol: Radiologic exam of the chest. Views: 1 view. COMPARISON: CR (CHEST, ) 10/10/2022 6:01 PM FINDINGS: Tubes, catheters and devices: Two lead pacemaker device. Lungs: There are hazy opacities at the left lung base. Pleural spaces: Calcified pleural plaques are present at the right lung base. Heart/Mediastinum: Unremarkable. No cardiomegaly. Bones/joints: Unremarkable. XR/XR chest 1V portable [id number] IMPRESSION: Hazy opacities at the left lung base are nonspecific and may represent atelectasis and or pneumonia.
[2022-10-14] MEDS: PARoxetine 20 mg Tablet 30 MG PO (19:55)
--- NOTE | 2022-10-14 21:21 | P.PN_ITS ---
Subjective Subjective: Today he is doing better. He is more alert. Denies any new discomfort. However, daughter states that he had developed a rash on his lower lateral left leg with a central blister which got popped by SCDs. Area is very tender. Vitals/I&O/Wt Last Vital Signs Temp 97.3 F L 10/14/22 19:25 Pulse 77 10/14/22 19:48 Resp 22 H 10/14/22 19:48 BP 141/88 10/14/22 19:25 Pulse Ox 94 10/14/22 19:48 O2 Del Method Nasal Cannula 10/14/22 19:48 O2 Flow Rate 2 10/14/22 20:00 FiO2 35 10/14/22 19:48 10/14/22 10/14/22 10/14/22 06:59 14:59 22:59 Intake Total 240 / 1080 960 / 960 360 / 1320 Balance 240 / 1080 960 / 960 360 / 1320 Weight last 48 hrs Weight 113.852 kg Physical Exam Narrative: Daughter at bedside Const: GENERAL APPEARANCE: cooperative ORIENTATION/CONSCIOUSNESS: Yes awake OTHER: Sleeping, wakes up to voice. Afterwards but falls back asleep. HENMT: COMMON NORMALS: oropharynx normal Neck/C-Spine: COMMON NORMALS: no JVD Resp: COMMON NORMALS: normal respiratory effort and clear to auscultation bilaterally AUSCULTATION: clear to auscultation bilaterally Cardio: COMMON NORMALS: no JVD, regular rhythm, S1 normal heart sound present, S2 normal heart sound present and No murmurs present (Cardio) RHYTHM: regular rhythm HEART SOUNDS: S1 normal heart sound present and S2 normal heart sound present GI: COMMON NORMALS: Normal to inspection, nondistended, normoactive bowel sounds present, Soft to palpation and non-tender PALPATION: Yes Soft to palpation Extremity: COMMON NORMALS: no joint enlargement and no pedal edema Neuro: COMMON NORMALS: moves all extremities OTHER: Milder intention tremor Skin: OTHER: Of erythemaNoted small shallow ulceration on lateral left lower leg. Surrounded by small papular lesions. No erythema between papules. Area is very tender to touch. Data 10/14/22 03:15 10/14/22 03:15 A&P Assessment and plan (1) Acute metabolic encephalopathy: Today he is doing better again. No further fever so far. Noted rash on lower left leg, very tender, appears to be secondary to herpes zoster in L5 distribution. Possibly contributed to his condition. Continue to reassess mental status. Reorient. Stopped Rocephin after last night's dose, reassess thrombocytopenia. Urine culture did not confirm UTI. Received 4 days of treatment. However, more cough today, more productive. Discussed repeating chest x-ray. Chest x-ray with noted hazy opacities in left lung base, appears to also have pneumonia not apparent on initial imaging. Again possibly contributing to his encephalopathy. Additionally with pulmonary infiltrates, proteinuria, hematuria, renal dysfunction pending LARRY, ANCA. Noted elevated ferritin. Still does not fit criteria for HLH. Possibly acute phase reactant. Will check additionally iron panel. Noted some worsening thrombocytopenia, platelets down to 105. Pending peripheral smear. Additional assessment of thrombocytopenia as below. Magnesium reassessment noted 2 Discussed with case management. With reported cough, fever, noted unremarkable viral panel. Not coughing currently. Noted normal TSH, B12. Continue to reorient. PT, OT, fall precautions. He is quite deconditioned. Discussed with case management -working with him and family on arrangement of acute rehab. Discussed with family also history of mild cognitive impairment, likely made him predisposed to acute encephalopathy, question may be regarding how long recovery may take and whether he will recover back to his prior baseline. He lives by himself. 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 Neurology note reviewed noted tremor, mild cognitive impairment with memory loss. This was back in April. Noted history of orthostasis. Check orthostatics. Some worsening hyponatremia, down to 128. Not limiting sodium in diet. Follow- up chemistry. Transaminases unremarkable. No focal abnormality in the liver on CT. Ammonia was checked, noted 13. Acute metabolic encephalopathy Etiology not completely clear. (2) Herpes zoster: Central blister ration which popped with SCD on lateral left lower leg surrounded by small papular lesions exquisitely tender to touch. No evidence of cellulitis, no purulent drainage. In L5 dermatome distribution. Appears to be herpes zoster. He does have history of zoster in the past. Start renally adjusted valacyclovir. May have been responsible for his fever, inflammatory markers. We will image central lesion with ultrasound to exclude underlying abscess etiology. (3) Thrombocytopenia: With noted improvement. Held Protonix. Stopped ceftriaxone. Reassess CBC. Pending peripheral smear. Plasmic score for TTP is low. Procalcitonin obtained, 0.91, although not reliable in setting of CKD. Does not appear to have symptoms of temporal arteritis/PMR. Noted to have some microscopic hematuria, without good explanation found on CT. Noted some proteinuria. Requested urine protein. Check LARRY, ANCA for possible autoimmune condition affecting his kidneys and lungs. Noted elevated CRP. (4) Hypomagnesemia: Replaced. (5) UTI (urinary tract infection): Urine culture not suggestive of UTI. Urine culture unrevealing, 10-20,000 mixed superficial lexy. Blood culture negative to date. Discontinued ceftriaxone. Received [address] renal protocol without obvious cause of hematuria. No stone, no obstruction. Leukocytosis noted resolved. Normal WBC. (6) Wide-complex tachycardia: Intermittent wide-complex tachycardia in the setting of LBBB. Requested pacemaker interrogation. Magnesium replaced. (7) Rhabdomyolysis: Recheck CK noted normal. Rhabdomyolysis resolved. (8) Cardiomyopathy: Last echocardiogram EF 45% Note that he has a pacemaker. Pacemaker interrogated. Qualifiers: Cardiomyopathy type: dilated Qualified Code(s): I42.0 - Dilated cardiomyopathy (9) Atrial fibrillation: Continue metoprolol Continue Coumadin. INR noted 1.95. Pharmacy consultation for management Telemetry Qualifiers: Atrial fibrillation type: other persistent Qualified Code(s): I48.19 - Other persistent atrial fibrillation (10) Chronic kidney disease: About steady renal function, BUN 51, creatinine 2.8. Reassess chemistry. Held ceftriaxone, pantoprazole. Proteinuria on dipstick. Microscopic hematuria. Requested urine protein, LARRY, ANCA. With renal disease, pulm infiltrates, assess for possible granulomatosis with polyangiitis. No urinary obstruction noted on CT. Close follow-up of kidney function daily Avoid renal toxic medications (11) Microscopic hematuria: No obvious etiology so far. Urine culture not revealing of UTI. Nothing obvious on CT, no stone, no mass. Additional work-up as above. Will need follow-up for resolution, or addition work-up to exclude urologic malignancy or other source. Plan History of COPD. Rapid COVID was noted negative, noted unremarkable respiratory viral panel. Some cough and wheezing. DuoNeb every 6 hours, budesonide twice daily, follow closely. 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 Other medical problems as outlined in past medical history DNR Coumadin will suffice for DVT prophylaxis Attestations Medical Necessity Statement*: Continue hospitalization for assessment and management of acute encephalopathy, pneumonia complicated by encephalopathy, herpes zoster, electrolyte replacement, assessment for possible autoimmune etiology, post discharge planning, additional comorbidities as above. and High Time for a total of 75 minutes, includes reviewing past or interval history, examining/interviewing patient, placing orders, counseling patient/family/other support, updating patient/family/other support, discussing plan of care with staff, communicating with other healthcare providers, documenting encounter and coordinating care Diagnoses Acute metabolic encephalopathy G93.41 Herpes zoster B02.9 Thrombocytopenia D69.6 Hypomagnesemia E83.42 UTI (urinary tract infection) N39.0 Wide-complex tachycardia R00.0 Rhabdomyolysis M62.82 Cardiomyopathy I42.0 Cardiomyopathy type: dilated Atrial fibrillation I48.19 Atrial fibrillation type: other persistent Chronic kidney disease N18.9 Microscopic hematuria R31.29
[2022-10-14] MEDS: levoFLOXacin 750 mg Tablet PO (22:40)
[2022-10-15] VITALS (16 sets, daily range): BP systolic 117–143; BP diastolic 61–93; PULSE 78–94; RESP 17–27; TEMP 36.2–37.3; O2SAT 92–98
[2022-10-15] MEDS: ipratropium-albuterol 3 mL Neb INHALATION ×4 (03:05→19:33)
[2022-10-15 06:19] LABS: Basophils % 0.3 %; Eosinophils # 0.2 10^3/uL (0.0-0.8); Eosinophils % 2.3 %; Hematocrit 34.5 % (42.0-52.0); Hemoglobin 11.5 g/dL (11.7-16.6); Lymphocytes # 1.3 10^3/uL (0.8-4.8); Lymphocytes % 16.7 %; Mean Corpuscular HGB Conc 33.3 g/dL (30.0-36.0); Mean Corpuscular Hemoglobin 30.9 pg (28.0-34.0); Mean Corpuscular Volume 92.7 fl (80-94); Neutrophils # 5.29 10^3/uL (1.8-7.7); Neutrophils % 67.2 %; Nucleated Red Blood Cells % 0 %; Platelet Count 143 10^3/cmm (130-400); Red Blood Count 3.72 10^6/uL (4.1-5.3); Red Cell Distribution Width 13.1 % (12.1-15.1); White Blood Count 7.9 10^3/uL (4.0-10.0)
[2022-10-15 06:30] LABS: INR 2.58 (0.8-1.2)
[2022-10-15 06:42] LABS: Anion Gap 13.8 (5-19); Blood Urea Nitrogen 55 mg/dL (8-23); Calcium 8.5 mg/dL (8.5-10.5); Carbon Dioxide 21 mmol/L (22-29); Chloride 97 mmol/L (98-107); Glucose 99 mg/dL (65-115); Osmolality Calculated 279 mOsm/kg (285-295); Potassium 4.8 mmol/L (3.5-5.1); Sodium 127 mmol/L (136-145)
[2022-10-15 07:17] LABS: Iron 36 ug/dL (59-158); Percent Saturation 21.1 % (20-50); Total Iron Binding Capacity 170 mcg/dl; Unsaturated Iron Binding 134 ug/dL (112-347)
[2022-10-15] MEDS: allopurinol 100 mg Tablet PO (08:51)
[2022-10-15] MEDS: metoprolol tartrate 50 mg Tablet 100 MG PO ×2 (08:51→22:34)
[2022-10-15] MEDS: valACYclovir 1,000 mg Tablet 1000 MG PO (08:52)
[2022-10-15] MEDS: tamsulosin 0.4 mg Capsule PO (08:52)
[2022-10-15] MEDS: budesonide 0.5 mg/2 mL Neb INHALATION ×2 (08:52→19:32)
--- NOTE | 2022-10-15 13:00 | PM.PN ---
Subjective Subjective: Concern related to contact dermatitis versus herpes Considering worsening kidney function I will hold off on acyclovir for now As per the nursing staff and the patient this rash developed while he was in the hospital and he had SCDs on Creatinine 2.8, sodium 128 Patient is not endorsing new complaints Pleasant and cooperative during my evaluation No signs of confusion Vitals/I&O/Wt Last Vital Signs Temp 97.5 F L 10/15/22 11:48 Pulse 90 10/15/22 11:48 Resp 19 H 10/15/22 11:48 BP 117/77 10/15/22 11:48 Pulse Ox 96 10/15/22 11:48 O2 Del Method Nasal Cannula 10/15/22 11:48 O2 Flow Rate 2 10/15/22 08:00 FiO2 35 10/15/22 03:06 10/14/22 10/15/22 10/15/22 22:59 06:59 14:59 Intake Total 360 / 1320 960 / 960 Output Total 300 / 300 Balance 60 / 1020 960 / 960 Weight last 48 hrs Weight 116.256 kg Weight 113.852 kg Physical Exam Narrative: Awake and alert Laying supine Currently on room air Nonfocal neuro exam GCS 15 Noted left lower extremity blisters rash seems to be involving more than 1 dermatome No signs of meningitis Awake and alert S1, S2 variable Abdomen soft Clinical signs of dehydration Data 10/15/22 05:00 10/15/22 05:00 A&P Assessment and plan (1) Herpes zoster: (2) Microscopic hematuria: (3) Thrombocytopenia: (4) Wide-complex tachycardia: (5) Chronic kidney disease: (6) Atrial fibrillation: Qualifiers: Atrial fibrillation type: other persistent Qualified Code(s): I48.19 - Other persistent atrial fibrillation (7) Rhabdomyolysis: (8) UTI (urinary tract infection): (9) Hypomagnesemia: (10) Acute metabolic encephalopathy: (11) Obstructive sleep apnea: (12) TIA (transient ischemic attack): (13) Peripheral neuropathy: (14) Orthostatic hypotension: (15) Mild cognitive impairment with memory loss: Plan Blisters noted on left lower extremity involving more than 1 dermatome I do not suspect patient had disseminated herpes no need of airborne isolation I will discontinue valacyclovir considering creatinine of 2.8 Acute metabolic encephalopathy: Resolved Therefore temporal arteritis is low ESR not very high A-fib without RVR INR 2.5 Therapeutic Acute on chronic kidney disease No sign of kidney stone Hematuria noted by the admitting physician ANCA autoimmune work-up is pending Clinically patient looks dehydrated I will give him normal saline In case of further worsening of creatinine might consult nephro Hyponatremia: Clinically hypovolemic Add normal saline salt tablet Thrombocytopenia: Ruled out No active signs of TTP Concern for pneumonia Renal dose levofloxacin every 48 hours discontinued, added Augmentin Cardiomyopathy no acute exacerbation EF 45% Pacemaker interrogated UTI: Treated ceftriaxone which has been discontinued History of COPD, TIA, Social dynamics Will need SNF Attestations Medical Necessity Statement*: Continue medical management Diagnoses Herpes zoster B02.9 Microscopic hematuria R31.29 Thrombocytopenia D69.6 Wide-complex tachycardia R00.0 Chronic kidney disease N18.9 Atrial fibrillation I48.19 Atrial fibrillation type: other persistent Rhabdomyolysis M62.82 UTI (urinary tract infection) N39.0 Hypomagnesemia E83.42 Acute metabolic encephalopathy G93.41 Obstructive sleep apnea G47.33 TIA (transient ischemic attack) G45.9 Peripheral neuropathy G62.9 Orthostatic hypotension I95.1 Mild cognitive impairment with memory loss G31.84
[2022-10-15] MEDS: warfarin 5 mg Tablet PO (13:26)
[2022-10-15] MEDS: sodium chloride 1 gm Tablet PO ×2 (13:26→17:34)
[2022-10-15] MEDS: sodium chloride 0.9% 1,000 ML 75 ML IV (13:26)
--- NOTE | 2022-10-15 17:24 | PC.NURSE ---
Patient daughter (Madalyn) came to Jarad Sun LPN asking for information pertaining to this patient. Said daughter was not in the contact list for patient. Patient verbalized Nurse may give information to said daughter. PHI was completed by patient with Jarad Sun LPN as the witness. PHI was placed into the patient's chart.
[2022-10-15] MEDS: amoxicillin-clav 875-125 mg Tablet 1 TAB PO (17:34)
[2022-10-15 21:12] LABS: Urine Creatinine 81 mg/dL (39-259); Urine Random Sodium 31 mmol/L
[2022-10-15 21:16] LABS: Creatinine Urine, Random 80 mg/dL (39-259); Microalbumin Random Urine 38 ug/dL (0-20)
[2022-10-15 21:18] LABS: Microalbum Creatinine Ratio Ur 475 mg/dL (0-20)
--- NOTE | 2022-10-15 21:20 | US_ITS ---
WS: [id number] ULTRASOUND SOFT TISSUES LEFT lower extremity HISTORY: Lateral left lower leg lesion surrounded by rash COMPARISON: None available. TECHNIQUE: 2-D and color Doppler imaging is submitted. Ultrasound is performed of the LEFT lateral lower extremity in the area of edema and rash. There is s mall amount of infiltrating subcutaneous soft tissue edema. No focal collection or abscess. US/US soft tissue/extremity [id number] IMPRESSION: Minimal subcutaneous soft tissue edema LEFT lower extremity.
[2022-10-15 21:27] LABS: Urine Protein Random 65 mg/dL
[2022-10-15] MEDS: PARoxetine 20 mg Tablet 30 MG PO (22:34)
[2022-10-16] VITALS (11 sets, daily range): BP systolic 125–164; BP diastolic 82–84; PULSE 69–93; RESP 16–22; TEMP 36.3–36.6; O2SAT 92–98
[2022-10-16] MEDS: ipratropium-albuterol 3 mL Neb INHALATION ×4 (02:01→23:55)
[2022-10-16 05:29] LABS: Basophils % 0.3 %; Eosinophils # 0.3 10^3/uL (0.0-0.8); Hematocrit 34.7 % (42.0-52.0); Hemoglobin 11.4 g/dL (11.7-16.6); Lymphocytes # 1.2 10^3/uL (0.8-4.8); Lymphocytes % 18.4 %; Mean Corpuscular HGB Conc 32.9 g/dL (30.0-36.0); Mean Corpuscular Hemoglobin 30.8 pg (28.0-34.0); Mean Corpuscular Volume 93.8 fl (80-94); Mean Platelet Volume 10.1 fL (7.4-10.4); Monocytes # 0.8 10^3/uL (0.2-0.9); Monocytes % 11.1 %; Neutrophils # 4.42 10^3/uL (1.8-7.7); Neutrophils % 65.5 %; Nucleated Red Blood Cells % 0 %; Platelet Count 170 10^3/cmm (130-400); Red Cell Distribution Width 13.1 % (12.1-15.1); White Blood Count 6.8 10^3/uL (4.0-10.0)
[2022-10-16 05:43] LABS: INR 2.93 (0.8-1.2)
[2022-10-16 05:57] LABS: Blood Urea Nitrogen 56 mg/dL (8-23); Calcium 8.1 mg/dL (8.5-10.5); Carbon Dioxide 15 mmol/L (22-29); Chloride 103 mmol/L (98-107); Glucose 115 mg/dL (65-115); Osmolality Calculated 288 mOsm/kg (285-295); Sodium 131 mmol/L (136-145)
[2022-10-16 05:59] LABS: Anion Gap 17.2 (5-19); Potassium 4.2 mmol/L (3.5-5.1)
[2022-10-16] MEDS: tamsulosin 0.4 mg Capsule PO (08:31)
[2022-10-16] MEDS: allopurinol 100 mg Tablet PO (08:31)
[2022-10-16] MEDS: sodium chloride 1 gm Tablet PO ×2 (08:31→17:52)
[2022-10-16] MEDS: amoxicillin-clav 875-125 mg Tablet 1 TAB PO ×2 (08:31→17:52)
[2022-10-16] MEDS: metoprolol tartrate 50 mg Tablet 100 MG PO ×2 (08:31→21:37)
[2022-10-16] MEDS: budesonide 0.5 mg/2 mL Neb INHALATION ×2 (10:12→23:54)
--- NOTE | 2022-10-16 13:04 | PM.PN ---
Subjective Subjective: Sodium improving Patient endorsing feeling better Maximal assist with PT Required jail placement On contact isolation Creatinine improved as well. Patient does have proteinuria Vitals/I&O/Wt Last Vital Signs Temp 97.5 F L 10/16/22 11:17 Pulse 80 10/16/22 11:17 Resp 18 10/16/22 11:17 BP 125/83 10/16/22 11:17 Pulse Ox 92 10/16/22 11:17 O2 Del Method Room Air 10/16/22 11:17 O2 Flow Rate 3 10/16/22 09:53 FiO2 35 10/15/22 03:06 10/15/22 10/16/22 10/16/22 22:59 06:59 14:59 Intake Total 480 / 1440 1000 / 2440 480 / 480 Output Total 300 / 650 500 / 1150 Balance 180 / 790 500 / 1290 480 / 480 Weight last 48 hrs Weight 113.897 kg Weight 116.256 kg Weight 113.852 kg Physical Exam Narrative: Patient is awake and alert On focal neuro exam Fatigued and lethargic Currently on room air Afebrile Hemodynamic stable No signs of meningitis or stroke S1, S2 Abdomen soft Eating breakfast Data 10/16/22 05:20 10/16/22 05:20 Micro: Microbiology 10/10/22 19:53 Blood Culture - Final Blood NO GROWTH AFTER 5 DAYS 10/10/22 18:24 Blood Culture - Final Blood NO GROWTH AFTER 5 DAYS A&P Assessment and plan (1) Herpes zoster: (2) Microscopic hematuria: (3) Thrombocytopenia: (4) Wide-complex tachycardia: (5) Chronic kidney disease: (6) Atrial fibrillation: Qualifiers: Atrial fibrillation type: other persistent Qualified Code(s): I48.19 - Other persistent atrial fibrillation (7) Rhabdomyolysis: (8) UTI (urinary tract infection): (9) Hypomagnesemia: (10) Acute metabolic encephalopathy: (11) TIA (transient ischemic attack): (12) Pacemaker: (13) Cardiomyopathy: Qualifiers: Cardiomyopathy type: dilated Qualified Code(s): I42.0 - Dilated cardiomyopathy Plan Blisters on left lower extremity not worsening Nontender nonpruritic today No signs of vascular ischemia Antiviral discontinued 10/15 Acute metabolic encephalopathy related to UTI: Resolved Acute on chronic kidney disease: Creatinine seems to be trending down A-fib without RVR Continue low-dose Eliquis Hypovolemic hyponatremia: Sodium improving gradually Discontinue salt tablets on 10/17 Thrombocytopenia: Stable Community-acquired pneumonia: Patient currently is on Augmentin, IV antibiotics changed to p.o. on 10/15 UTI: Ceftriaxone discontinued Patient will need SNF placement Attestations Medical Necessity Statement*: Continue medical management Diagnoses Herpes zoster B02.9 Microscopic hematuria R31.29 Thrombocytopenia D69.6 Wide-complex tachycardia R00.0 Chronic kidney disease N18.9 Atrial fibrillation I48.19 Atrial fibrillation type: other persistent Rhabdomyolysis M62.82 UTI (urinary tract infection) N39.0 Hypomagnesemia E83.42 Acute metabolic encephalopathy G93.41 TIA (transient ischemic attack) G45.9 Pacemaker Z95.0 Cardiomyopathy I42.0 Cardiomyopathy type: dilated
--- NOTE | 2022-10-16 14:56 | PM.CONSULT ---
Providers/Reason For Consult Consulting Physician/Specialty*: Lucie Mckeon DO, telenephrology Reason for Consult*: Chronic kidney disease Requesting Physician: Grant Levin MD Attending Physician: Grant Levin MD Primary Care Provider: Magaly Rivas MD History of Present Illness History of Present Illness Alexey An is a 87 year old male admitted with altered mental status. Review of Systems Narrative: + weakness + rash left leg Medications/Allergies Home Medications Medication Instructions Recorded Confirmed Last Taken Type tamsulosin 0.4 mg capsule 0.4 mg PO DAILY 04/13/19 10/11/22 10/26/21 History paroxetine HCl 30 mg tablet 30 mg PO DAILY 12/01/20 10/11/22 10/25/21 History allopurinol 100 mg tablet 100 mg PO DAILY 10/26/21 10/11/22 10/26/21 History omeprazole 20 mg capsule,delayed 20 mg PO QAM 10/26/21 10/11/22 10/26/21 History release warfarin 3 mg tablet 3 mg PO DAILY #90 tabs 03/09/22 10/11/22 Unknown Rx calcitriol 0.5 mcg capsule 0.5 mcg PO DAILY 05/18/22 10/11/22 Unknown History BiPAP #1 ea 07/11/22 10/11/22 Unknown Rx bismuth subsalicylate 262 mg 262 mg PO PRN 10/11/22 10/11/22 Unknown History chewable tablet (Pepto-Bismol) diphenhydramine HCl 25 mg capsule 25 mg PO TID PRN Allergy Symptoms 10/11/22 10/11/22 Unknown History (Benadryl) fexofenadine 180 mg tablet 180 mg PO DAILY 10/11/22 10/11/22 Unknown History hydrocodone 7.5 mg-acetaminophen 1 tab PO BID PRN Pain 10/11/22 10/11/22 Unknown History 325 mg tablet loperamide 2 mg tablet 2 mg PO QID PRN Diarrhea 10/11/22 10/11/22 Unknown History metoprolol tartrate 100 mg tablet 100 mg PO BID 10/11/22 10/11/22 Unknown History omega 6-dsj-ohn-fish oil 1,200 mg 1,200 cap PO BID 10/11/22 10/11/22 Unknown History (144 mg-216 mg) capsule (Fish Oil) propranolol 10 mg tablet 10 mg PO BID 10/11/22 10/11/22 Unknown History Allergies Allergy/AdvReac Type Severity Reaction Status Date / Time Iodinated Contrast Media AdvReac STOMACH Verified 05/22/22 09:36 CRAMPING DURING A STRESS TEST. WAS TOLD D/T IODINE Current Medications Generic Name Dose Route Start Last Admin Trade Name Saleem PRN Reason Stop Dose Admin Albuterol/Ipratropium 3 ml 10/11/22 14:45 10/16/22 13:54 Ipratropium-Albuterol 3 Ml Neb INHALATION 3 ml Q6H.RESP MARY JANE Administration Allopurinol 100 mg 10/12/22 09:00 10/16/22 08:31 Allopurinol 100 Mg Tablet PO 100 mg DAILY MARY JANE Administration Amoxicillin/Clavulanate Potassium 1 tab 10/15/22 18:00 10/16/22 08:31 Amoxicillin-Clav 875-125 Mg Tablet PO 1 tab BID MARY JANE Administration Protocol Budesonide 0.5 mg 10/11/22 20:00 10/16/22 10:12 Budesonide 0.5 Mg/2 Ml Neb INHALATION 0.5 mg BID.RESPIRATORY MARY JANE Administration Metoprolol Tartrate 100 mg 10/12/22 21:30 10/16/22 08:31 Metoprolol Tartrate 50 Mg Tablet PO 100 mg BID@0900,2100 MARY JANE Administration Pantoprazole Sodium 40 mg 10/12/22 09:00 10/13/22 10:[address] 40 Mg Tablet PO 40 mg DAILY MARY JANE Administration Paroxetine HCl 30 mg 10/11/22 21:00 10/15/22 22:34 Paroxetine 20 Mg Tablet PO 30 mg BEDTIME MARY JANE Administration Sodium Chloride 1 gm 10/15/22 12:55 10/16/22 08:31 Sodium Chloride 1 Gm Tablet PO 1 gm BID MARY JANE Administration Tamsulosin HCl 0.4 mg 10/12/22 09:00 10/16/22 08:31 Tamsulosin 0.4 Mg Capsule PO 0.4 mg DAILY MARY JANE Administration Warfarin Sodium 5 mg 10/12/22 14:00 10/15/22 13:26 Warfarin 5 Mg Tablet PO 5 mg DAILY@1400 MARY JANE Administration PFSH Acute PFSH: Medical History Ataxia Atrial fibrillation Cardiomyopathy Carotid artery stenosis Chronic anticoagulation Chronic kidney disease COPD (chronic obstructive pulmonary disease) CVA (cerebral vascular accident) DDD (degenerative disc disease) GERD (gastroesophageal reflux disease) Gout Hyperlipidemia Hypertension Implantable cardioverter-defibrillator (ICD) discharge Long-term (current) use of anticoagulants, INR goal 2.0-3.0 Obstructive sleep apnea Pacemaker Stroke-like symptom Surgical History History of appendectomy History of cataract extraction History of tonsillectomy and adenoidectomy Hx of laminectomy Family History Mother CAD (coronary artery disease) valve replaced at 86 Brother Chronic kidney disease (CKD) Father Stroke Family/Other Suicide Denies family history of Diabetes Clotting disorder Dementia Anesthesia complication Bleeding disorder Lung disease Cancer Social History Smoking and tobacco status: former smoker Alcohol intake: never Substance/Drug Use: never Vitals/I&O/Wt Last Vital Signs Temp 97.5 F L 10/16/22 11:17 Pulse 89 10/16/22 13:52 Resp 16 10/16/22 13:52 BP 125/83 10/16/22 11:17 Pulse Ox 94 10/16/22 13:52 O2 Del Method Nasal Cannula 10/16/22 13:52 O2 Flow Rate 3 10/16/22 13:52 FiO2 35 10/15/22 03:06 10/15/22 10/16/22 10/16/22 22:59 06:59 14:59 Intake Total 480 / 1440 1000 / 2440 960 / 960 Output Total 300 / 650 500 / 1150 Balance 180 / 790 500 / 1290 960 / 960 Weight last 48 hrs Weight 113.897 kg Weight 116.256 kg Weight 113.852 kg Physical Exam Const: COMMON NORMALS: no acute distress and alert Extremity: NARRATIVE EXTREMITY EXAM: no edema Neuro: SENSORIUM/ORIENTATION: Yes alert Data 10/16/22 05:20 10/16/22 05:20 Micro: Microbiology 10/10/22 19:53 Blood Culture - Final Blood NO GROWTH AFTER 5 DAYS 10/10/22 18:24 Blood Culture - Final Blood NO GROWTH AFTER [address] Abd/Pel: Radiologist's impression: Adrenal glands: The adrenal glands are normal. Kidneys and ureters: There are multiple simple renal cysts. Largest cysts are on the right with a 5.8 cm sized cyst in the upper pole of the kidney and multiple cysts in the 2-3 cm size range. There is no evidence of hydronephrosis. There is no evidence of renal or ureteral calcifications Other data: seen via telemedicine with assistance of RN at bedside A&P Assessment and plan (1) Chronic kidney disease: Plan 1. Chronic kidney disease with mild albuminuria, eGFR 25 ml/min, renal function relatively stable 2. Hyponatremia, improving 3. Metabolic acidosis, add sodium bicarbonate 4. Microscopic hematuria, urine culture no significant bacteria, + renal cysts Serologic workup as been ordered. Consult Attestations Medical Necessity Statement: per primary service Time Spent in Patient Care: 16 - 35 minutes Coding Level of Care Code Acute Code for Chg Fwd Diagnoses Chronic kidney disease N18.9
[2022-10-16 17:20] LABS: Anti-Nuclear Antibody Screen NEGATIVE (NEGATIVE)
[2022-10-16] MEDS: PARoxetine 20 mg Tablet 30 MG PO (21:36)
[2022-10-16] MEDS: sodium bicarbonate 650 mg Tablet PO (21:37)
[2022-10-17] VITALS (15 sets, daily range): BP systolic 118–140; BP diastolic 64–92; PULSE 68–84; RESP 14–20; TEMP 36.3–36.8; O2SAT 92–100; BMI 29.4
[2022-10-17] MEDS: ipratropium-albuterol 3 mL Neb INHALATION ×4 (03:32→21:02)
--- NOTE | 2022-10-17 05:59 | PC.NURSE ---
current tele strip unable to read due to multiform/frequent PVC's. HR is 80, strip in chart
[2022-10-17 06:32] LABS: Basophils % 0.5 %; Eosinophils # 0.3 10^3/uL (0.0-0.8); Eosinophils % 3.4 %; Hematocrit 33.8 % (42.0-52.0); Hemoglobin 11.3 g/dL (11.7-16.6); Lymphocytes # 1.6 10^3/uL (0.8-4.8); Lymphocytes % 21.2 %; Mean Corpuscular HGB Conc 33.4 g/dL (30.0-36.0); Mean Corpuscular Hemoglobin 31.7 pg (28.0-34.0); Mean Corpuscular Volume 94.9 fl (80-94); Mean Platelet Volume 10.1 fL (7.4-10.4); Monocytes # 0.7 10^3/uL (0.2-0.9); Monocytes % 9.9 %; Neutrophils # 4.72 10^3/uL (1.8-7.7); Neutrophils % 64.2 %; Nucleated Red Blood Cells % 0 %; Platelet Count 217 10^3/cmm (130-400); Red Blood Count 3.56 10^6/uL (4.1-5.3); Red Cell Distribution Width 13.6 % (12.1-15.1); White Blood Count 7.4 10^3/uL (4.0-10.0)
[2022-10-17 06:39] LABS: INR 3.59 (0.8-1.2)
[2022-10-17 06:53] LABS: Blood Urea Nitrogen 53 mg/dL (8-23); Calcium 8.8 mg/dL (8.5-10.5); Carbon Dioxide 18 mmol/L (22-29); Chloride 107 mmol/L (98-107); Glucose 106 mg/dL (65-115); Osmolality Calculated 297 mOsm/kg (285-295); Sodium 136 mmol/L (136-145)
[2022-10-17] MEDS: budesonide 0.5 mg/2 mL Neb INHALATION ×2 (09:43→21:02)
[2022-10-17] MEDS: sodium chloride 1 gm Tablet PO (10:40)
[2022-10-17] MEDS: amoxicillin-clav 875-125 mg Tablet 1 TAB PO ×2 (10:40→18:21)
[2022-10-17] MEDS: tamsulosin 0.4 mg Capsule PO (10:40)
[2022-10-17] MEDS: metoprolol tartrate 50 mg Tablet 100 MG PO ×2 (10:40→20:43)
[2022-10-17] MEDS: sodium bicarbonate 650 mg Tablet PO ×3 (10:40→20:43)
[2022-10-17] MEDS: allopurinol 100 mg Tablet PO (10:40)
--- NOTE | 2022-10-17 11:15 | PM.PN ---
Subjective Subjective: Appreciate nephro recommendations Awaiting placement No overnight events Patient had a bowel movement yesterday Tolerating diet Creatinine 2.5 Sodium improved Discontinue salt tablets Vitals/I&O/Wt Last Vital Signs Temp 97.6 F 10/17/22 07:13 Pulse 84 10/17/22 08:00 Resp 18 10/17/22 08:00 BP 132/86 10/17/22 07:13 Pulse Ox 95 10/17/22 08:00 O2 Del Method Nasal Cannula 10/17/22 08:00 O2 Flow Rate 2 10/17/22 08:00 FiO2 35 10/17/22 04:33 10/16/22 10/17/22 10/17/22 22:59 06:59 14:59 Intake Total 360 / 360 Balance 360 / 360 Weight last 48 hrs Weight 106.764 kg Weight 113.897 kg Physical Exam Narrative: Generalized weakness and fatigue Nonfocal neuro exam Pleasant and cooperative Currently on 2 L of oxygen Abdomen soft Clinically euvolemic GCS 15 S1, S2 Data 10/17/22 05:12 10/17/22 05:12 Micro: Microbiology 10/10/22 19:53 Blood Culture - Final Blood NO GROWTH AFTER 5 DAYS 10/10/22 18:24 Blood Culture - Final Blood A&P Assessment and plan (1) Peripheral neuropathy: (2) Mild cognitive impairment with memory loss: (3) Pacemaker: (4) Cardiomyopathy: Qualifiers: Cardiomyopathy type: dilated Qualified Code(s): I42.0 - Dilated cardiomyopathy (5) Herpes zoster: (6) Microscopic hematuria: (7) Thrombocytopenia: (8) Chronic kidney disease: (9) Atrial fibrillation: Qualifiers: Atrial fibrillation type: other persistent Qualified Code(s): I48.19 - Other persistent atrial fibrillation (10) UTI (urinary tract infection): (11) Acute metabolic encephalopathy: (12) Obstructive sleep apnea: Plan Acute metabolic encephalopathy related to pneumonia Concern for UTI with bacteriuria Cultures negative Resolved Patient currently on Augmentin Hypoxia: Requiring 2 L of oxygen Acute on chronic kidney disease: Improved Antiviral discontinued My suspicion is low for shingles A-fib without RVR Continue Hypovolemic hyponatremia: Sodium improved discontinue salt tablets Proteinuria, hematuria with chronic kidney disease requested nephro consult Appreciate the recommendations Metabolic acidosis: Currently on p.o. bicarb tablets DNR/DNI Disposition plan: Awaiting placement Attestations Medical Necessity Statement*: Started authorization D1 24/ Diagnoses Peripheral neuropathy G62.9 Mild cognitive impairment with memory loss G31.84 Pacemaker Z95.0 Cardiomyopathy I42.0 Cardiomyopathy type: dilated Herpes zoster B02.9 Microscopic hematuria R31.29 Thrombocytopenia D69.6 Chronic kidney disease N18.9 Atrial fibrillation I48.19 Atrial fibrillation type: other persistent UTI (urinary tract infection) N39.0 Acute metabolic encephalopathy G93.41 Obstructive sleep apnea G47.33
--- NOTE | 2022-10-17 11:51 | PC.SOCIAL ---
Pg 2 IMM Explained to pt Pg 2 IMM. No questions voiced. Provided pt a copy. Initialed, dated, & timed a copy & placed in chart.
[2022-10-17 12:15] LABS: ANCA Screen NEGATIVE (NEGATIVE)
[2022-10-17 15:35] LABS: Osmolality Serum 287 mOsm/kg (278-305)
[2022-10-17 16:09] LABS: Osmolality Urine 396 mOsm/kg (50-1200)
--- NOTE | 2022-10-17 16:23 | PC.SLP ---
Patient's daughter reported that patient was asleep.
--- NOTE | 2022-10-17 20:06 | PM.PN ---
Subjective Subjective: no new complaints Medications: Reviewed: Yes Vitals/I&O/Wt Last Vital Signs Temp 97.6 F 10/17/22 15:33 Pulse 73 10/17/22 15:33 Resp 16 10/17/22 15:33 BP 138/92 10/17/22 15:33 Pulse Ox 100 10/17/22 15:33 O2 Del Method BiPAP 10/17/22 15:33 O2 Flow Rate 2 10/17/22 08:00 FiO2 30 10/17/22 15:13 10/17/22 10/17/22 10/17/22 06:59 14:59 22:59 Intake Total 600 / 600 Balance 600 / 600 Weight last 48 hrs Weight 106.764 kg Weight 113.897 kg Physical Exam Extremity: NARRATIVE EXTREMITY EXAM: no edema Data 10/18/22 04:54 10/18/22 04:54 Micro: Microbiology 10/10/22 19:53 Blood Culture - Final Blood NO GROWTH AFTER 5 DAYS 10/10/22 18:24 Blood Culture - Final Blood A&P Assessment and plan (1) Chronic kidney disease: Plan 1. Chronic kidney disease with mild albuminuria, eGFR 25 ml/min, renal function relatively stable 2. Hyponatremia, improving 3. Metabolic acidosis, on sodium bicarbonate 4. Microscopic hematuria, urine culture no significant bacteria, + renal cysts - check Serologies - C3 C4 , LARRY panel , ANCA and Hepatitis panel. Arrange Nephrology follow up @ [place] Attestations Medical Necessity Statement*: per medicine Coding Level of Care Code Acute Code for [facility] Fwd Diagnoses Chronic kidney disease N18.9
[2022-10-17] MEDS: PARoxetine 20 mg Tablet 30 MG PO (20:44)
[2022-10-17 21:00] LABS: Complement C3 140 mg/dL (90-180)
[2022-10-18] VITALS (9 sets, daily range): BP systolic 107–139; BP diastolic 51–84; PULSE 74–96; RESP 14–19; TEMP 36.6–36.9; O2SAT 93–99; BMI 30.2
[2022-10-18] MEDS: ipratropium-albuterol 3 mL Neb INHALATION ×2 (02:58→08:22)
[2022-10-18 05:38] LABS: Basophils # 0.1 10^3/uL (0.0-0.1); Basophils % 0.7 %; Eosinophils # 0.2 10^3/uL (0.0-0.8); Eosinophils % 2.9 %; Hematocrit 33.8 % (42.0-52.0); Hemoglobin 10.9 g/dL (11.7-16.6); Lymphocytes # 1.7 10^3/uL (0.8-4.8); Lymphocytes % 22.9 %; Mean Corpuscular HGB Conc 32.2 g/dL (30.0-36.0); Mean Platelet Volume 9.7 fL (7.4-10.4); Monocytes # 0.8 10^3/uL (0.2-0.9); Monocytes % 10.3 %; Neutrophils # 4.53 10^3/uL (1.8-7.7); Neutrophils % 62.2 %; Nucleated Red Blood Cells % 0 %; Platelet Count 257 10^3/cmm (130-400); Red Blood Count 3.52 10^6/uL (4.1-5.3); Red Cell Distribution Width 13.9 % (12.1-15.1); White Blood Count 7.3 10^3/uL (4.0-10.0)
[2022-10-18 06:01] LABS: Anion Gap 14.1 (5-19); Blood Urea Nitrogen 49 mg/dL (8-23); Calcium 8.7 mg/dL (8.5-10.5); Carbon Dioxide 21 mmol/L (22-29); Chloride 106 mmol/L (98-107); Glucose 97 mg/dL (65-115); Osmolality Calculated 295 mOsm/kg (285-295); Potassium 5.1 mmol/L (3.5-5.1); Sodium 136 mmol/L (136-145)
[2022-10-18] MEDS: budesonide 0.5 mg/2 mL Neb INHALATION (08:22)
[2022-10-18] MEDS: allopurinol 100 mg Tablet PO (09:46)
[2022-10-18] MEDS: metoprolol tartrate 50 mg Tablet 100 MG PO (09:46)
[2022-10-18] MEDS: tamsulosin 0.4 mg Capsule PO (09:46)
[2022-10-18] MEDS: sodium bicarbonate 650 mg Tablet PO (09:46)
[2022-10-18] MEDS: amoxicillin-clav 875-125 mg Tablet 1 TAB PO (09:46)
--- NOTE | 2022-10-18 11:17 | PM.DCS ---
Discharge Providers Date of Admission: 10/14/22 22:45 Date of Discharge: October 18, 2022 Attending Provider at Admission: Avi Mackey MD Attending Provider at Discharge: Grant Levin MD Primary Care Provider: Magaly Rivas MD Diagnoses at Discharge Discharge Diagnosis (1) Chronic kidney disease: Status: Acute Reason for Visit Reason for Visit: Weakness Hospital Course Hospital Course 87-year-old male with history of chronic kidney disease, was sent to the hospital for metabolic encephalopathy related to pneumonia and concern for UTI he was given IV fluid hydration for rhabdomyolysis, kidney function improved with IV fluid hydration, with proteinuria along hematuria and chronic kidney disease nephrology was consulted who started the work-up, patient was given bicarb tablets to improve metabolic acidosis, patient does have 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 Sethi within a week to keep an eye on his kidney function, name date of provided to the nurse and they will follow-up within a week Patient takes Coumadin for A-fib he remained hemodynamically stable, episodic hypertension, will add low-dose hydralazine at this point he may continue calcitriol along bicarb tablets hypovolemic hyponatremia: Improved with salt tablets. Patient is DNR/DNI at baseline he uses 2 to 3 L of oxygen. Physical Exam Narrative: Patient endorsing feeling better Answers my questions appropriately Nonfocal neuro exam no new focal deficit left-sided chronic weakness GCS 15 Mild edema of legs Abdomen distended last bowel movement day before yesterday Currently on 2 L S1, S2 variable Pleasant and cooperative Discharge Data Studies Completed and Pending Completed Studies During Hospitalization Category Date Time Status CT abdomen renal stone [CT kidney stone [id number]] Stat Cat Scan 10/10/22 20:[address] head wo con* [id number] Stat Cat Scan 10/10/22 17:41 Completed CXRP [XR chest 1V portable [id number]] Routine Exams 10/14/22 14:21 Completed XR chest 1V portable [id number] Stat Exams 10/10/22 17:41 [place] [id number] Routine Ultrasound 10/13/22 19:03 Completed US soft tissue/extremity [id number] Routine Ultrasound 10/15/22 21:20 Completed Pending at discharge Category Date Time Status Fibrinogen Degradation Product Routine Lab 10/13/22 Received SARS Covid-2 Antigen Routine Lab 10/18/22 11:11 Uncollected Varicella Zoster IGG&IGM Routine Lab 10/14/22 13:56 Received Radiology Impressions Head CT 10/10/22 17:41 IMPRESSION: No acute intracranial abnormality. Abdomen/Pelvis CT 10/10/22 20:11 IMPRESSION: 1. Bilateral renal cysts. 2. No acute findings. 3. The cause for the patient's hematuria not identified on this exam. COMMENTS: Consistent with the [employer]'s Incidental Findings Committee white paper (J Am Fernie Radiol 2018): Any incidental renal lesion less than 1 cm or classified as too small to characterize, or any incidental cystic renal lesion characterized as simple-appearing, is likely benign. No follow-up imaging is recommended for these lesions per consensus recommendations based on imaging criteria. Venous Duplex 10/13/22 19:03 IMPRESSION: No evidence of deep vein thrombosis. Chest X-Ray 10/14/22 14:21 IMPRESSION: Hazy opacities at the left lung base are nonspecific and may represent atelectasis and or pneumonia. Soft Tissue Ultrasound 10/15/22 21:20 IMPRESSION: Minimal subcutaneous soft tissue edema LEFT lower extremity. Laboratory Results WBC 7.3 10^3/uL (4.0-10.0) 10/18/22 04:54 RBC 3.52 10^6/uL (4.1-5.3) L 10/18/22 04:54 Hgb 10.9 g/dL (11.7-16.6) L 10/18/22 04:54 Hct 33.8 % (42.0-52.0) L 10/18/22 04:54 MCV 96.0 fl (80-94) H 10/18/22 04:54 MCH 31.0 pg (28.0-34.0) 10/18/22 04:54 MCHC 32.2 g/dL (30.0-36.0) 10/18/22 04:54 RDW 13.9 % (12.1-15.1) 10/18/22 04:54 Plt Count 257 10^3/cmm (130-400) 10/18/22 04:54 MPV 9.7 fL (7.4-10.4) 10/18/22 04:54 Neut % (Auto) 62.2 % 10/18/22 04:54 Lymph % (Auto) 22.9 % 10/18/22 04:54 Lanier % (Auto) 10.3 % 10/18/22 04:54 Eos % (Auto) 2.9 % 10/18/22 04:54 Baso % (Auto) 0.7 % 10/18/22 04:54 Neut # (Auto) 4.53 10^3/uL (1.8-7.7) 10/18/22 04:54 Lymph # (Auto) 1.7 10^3/uL (0.8-4.8) 10/18/22 04:54 Lanier # (Auto) 0.8 10^3/uL (0.2-0.9) 10/18/22 04:54 Eos # (Auto) 0.2 10^3/uL (0.0-0.8) 10/18/22 04:54 Baso # (Auto) 0.1 10^3/uL (0.0-0.1) 10/18/22 04:54 Nucleated RBC % (auto) 0 % 10/18/22 04:54 Nucleated RBCs # 0.0 /100WBC 10/18/22 04:54 Peripher Smr Path Cons Sent for review 10/13/22 05:23 ESR 41 mm/hr (0-10) H 10/13/22 05:23 Haptoglobin 340.0 mg/L (30-200) H 10/13/22 13:43 PT 37.20 SECONDS (12.1-14.9) H 10/17/22 05:12 INR 3.59 (0.8-1.2) H 10/17/22 05:12 APTT Cancelled 10/13/22 13:43 Fibrinogen Cancelled 10/13/22 13:43 Fibrin Degrad Products Cancelled 10/13/22 13:43 D-Dimer Cancelled 10/13/22 13:43 Specimen Type Arterial 10/10/22 17:51 Sample Site Radial, left 10/10/22 17:51 ABG pH 7.43 (7.35-7.45) 10/10/22 17:51 ABG pCO2 29.5 mmHg (35-45) L 10/10/22 17:51 ABG pO2 64.7 mmHg (80.0-100.0) L 10/10/22 17:51 ABG HCO3 19.7 mmol/L (22-26) L 10/10/22 17:51 ABG Base Excess -3.3 mmol/L (-2.0-2.0) L 10/10/22 17:51 López Test Pos 10/10/22 17:51 Hematocrit 45.6 % (42-52) 10/10/22 17:51 O2 Delivery Device Room air 10/10/22 17:51 FiO2 21.0 % 10/10/22 17:51 Support Services Manager ID Agatha 10/10/22 17:51 Sodium 136 mmol/L (136-145) 10/18/22 04:54 Potassium 5.1 mmol/L (3.5-5.1) 10/18/22 04:54 Chloride 106 mmol/L (98-107) 10/18/22 04:54 Carbon Dioxide 21 mmol/L (22-29) L 10/18/22 04:54 Anion Gap 14.1 (5-19) 10/18/22 04:54 BUN 49 mg/dL (8-23) H 10/18/22 04:54 Creatinine 2.3 mg/dL (0.7-1.2) H 10/18/22 04:54 GFR Calculation Not Reportable 10/18/22 04:54 Glucose 97 mg/dL (65-115) 10/18/22 04:54 POC Glucose 100 mg/dL (70-110) 10/10/22 21:50 Serum Osmolality 287 mOsm/kg (278-305) 10/14/22 13:56 Calculated Osmolality 295 mOsm/kg (285-295) 10/18/22 04:54 Lactic Acid 2.7 mmol/L (0.5-2.2) H 10/10/22 19:25 Lactic Acid (Sepsis) 3.4 mmol/L (0.5-2.2) H 10/10/22 22:17 Calcium 8.7 mg/dL (8.5-10.5) 10/18/22 04:54 Magnesium 2.0 mg/dL (1.7-2.3) 10/14/22 03:15 Iron 36 ug/dL (59-158) L 10/15/22 05:00 TIBC 170 mcg/dl 10/15/22 05:00 % Saturation 21.1 % (20-50) 10/15/22 05:00 Unsat Iron Binding 134 ug/dL (112-347) 10/15/22 05:00 Ferritin 2130 ng/mL (30-400) H 10/13/22 13:43 Total Bilirubin 0.3 mg/dL (0.15-1.2) 10/11/22 03:13 AST 33 U/L (0-40) 10/11/22 03:13 ALT 11 U/L (0-41) 10/11/22 03:13 Alkaline Phosphatase 62 U/L (40-130) 10/11/22 03:13 Ammonia 13 umol/L (16-60) L 10/10/22 20:45 Lactate Dehydrogenase 275 U/L (135-225) H 10/13/22 13:43 Creatine Kinase 215 U/L (39-308) 10/14/22 03:15 Troponin T Baseline 67 ng/L (0-15) H 10/12/22 10:35 Troponin T 120 Minute 65.32 ng/L (0-15) H 10/12/22 12:31 Delta Troponin T -1.68 ABS# (0-10) L 10/12/22 12:31 Troponin T Hi Sens 6Hr 58.51 ng/L (0-15) H 10/12/22 17:04 Troponin T Hi Sens 6Hr Delta -8.49 ng/L (0-12) L 10/12/22 17:04 C-Reactive Protein 125.3 mg/L (0.0-4.9) H 10/13/22 13:43 Total Protein 6.1 g/dL (6.6-8.7) L D 10/11/22 03:13 Albumin 3.1 g/dL (3.5-5.2) L 10/11/22 03:13 Globulin 3.0 g/dL (1.3-4.6) 10/11/22 03:13 Procalcitonin 0.91 ng/mL (0-0.5) H 10/13/22 13:43 TSH 1.53 uIU/mL (0.27-4.20) 10/10/22 17:30 Urine Color Yellow (Yellow) 10/10/22 19:25 Urine Appearance Clear (CLEAR) 10/10/22 19:25 Urine pH 6 (5-7) 10/10/22 19:25 Ur Specific [place] 1.010 (1.005-1.030) 10/10/22 19:25 Urine Protein 3+ (Negative) H 10/10/22 19:25 Urine Glucose (UA) Trace (Normal) H 10/10/22 19:25 Urine Ketones Negative (Negative) 10/10/22 19:25 Urine Blood 3+ (Negative) H 10/10/22 19:25 Urine Nitrate Negative (Negative) 10/10/22 19:25 Urine Bilirubin Neg (Negative) 10/10/22 19:25 Urine Urobilinogen Norm mg/dL (Negative) 10/10/22 19:25 Ur Leukocyte Esterase Negative (Negative) 10/10/22 19:25 Urine RBC 40-50 /hpf (0-2) H 10/10/22 19:25 Urine WBC 5-10 /hpf (0-5) H 10/10/22 19:25 Ur Squamous Epith Cells 0-4 /hpf (0-5) H 10/10/22 19:25 Amorphous Sediment 2+ /hpf 10/10/22 19:25 Urine Bacteria None /hpf (NONE) 10/10/22 19:25 Urine Mucus 1+ /hpf 10/10/22 19:25 Urine Osmolality 396 mOsm/kg (50-1200) 10/15/22 19:59 Ur Random Microalbumin 38 ug/dL (0-20) H 10/15/22 19:59 U Random Total Protein 65 mg/dL 10/15/22 17:59 Ur Random Sodium 31 mmol/L 10/15/22 19:59 Urine Creatinine 80 mg/dL (39-259) 10/15/22 19:59 Urine Creatinine 81 mg/dL (39-259) 10/15/22 19:59 Microalb/Creat Ratio 475 mg/dL (0-20) H 10/15/22 19:59 Nasal Influ A H1 2008 PCR Not detected (NOT DETECT) 10/11/22 09:55 LARRY Screen Negative (NEGATIVE) 10/13/22 03:15 ANCA Screen Negative (NEGATIVE) 10/13/22 03:15 ANCA Titer Not Reportable 10/13/22 03:15 Complement C3 140 mg/dL (90-180) 10/17/22 05:12 Complement C4 36 mg/dL (10-40) 10/17/22 05:12 Adenovirus (PCR) Not detected (NOT DETECT) 10/11/22 09:55 C. pneumoniae DNA (PCR) Not detected (NOT DETECT) 10/11/22 09:55 Coronavirus 229E (PCR) Not detected (NOT DETECT) 10/11/22 09:55 Human Metapneumovir PCR Not detected (NOT DETECT) 10/11/22 09:55 Influenza A (H1) PCR Not detected (NOT DETECT) 10/11/22 09:55 Influenza A (H3) PCR Not detected (NOT DETECT) 10/11/22 09:55 Influenza Type A (PCR) Not detected (NOT DETECT) 10/11/22 09:55 Influenza Type B (PCR) Not detected (NOT DETECT) 10/11/22 09:55 M. pneumoniae (PCR) Not detected (NOT DETECT) 10/11/22 09:55 Parainfluenza 1 (PCR) Not detected (NOT DETECT) 10/11/22 09:55 Parainfluenza 2 (PCR) Not detected (NOT DETECT) 10/11/22 09:55 Parainfluenza 3 (PCR) Not detected (NOT DETECT) 10/11/22 09:55 Parainfluenza 4 (PCR) Not detected (NOT DETECT) 10/11/22 09:55 RSV Type A (PCR) Not detected (NOT DETECT) 10/11/22 09:55 RSV Type B (PCR) Not detected (NOT DETECT) 10/11/22 09:55 Entero/Rhino (PCR) Not detected (NOT DETECT) 10/11/22 09:55 SARS-CoV-2 (PCR) Not detected (NOT DETECT) 10/11/22 09:55 SARS-CoV-2 Ag (Rapid) negative (Negative) 10/10/22 20:25 Vitals Last Vital Signs Temp 98.4 F 10/18/22 07:33 Pulse 89 10/18/22 08:25 Resp 18 10/18/22 08:25 BP 139/72 10/18/22 07:33 Pulse Ox 98 10/18/22 08:25 O2 Del Method Nasal Cannula 10/18/22 08:25 O2 Flow Rate 2 10/18/22 08:25 FiO2 30 10/18/22 03:00 Discharge Plan Discharge Patient Disposition: Xfer SNF Condition: Stable Prescriptions: New allopurinol 100 mg Tablet 100 mg PO DAILY Qty: 30 0RF sodium bicarbonate 650 mg Tablet 650 mg PO DAILY Qty: 30 0RF amoxicillin-pot clavulanate 875-125 mg Tablet 1 tab PO BID Qty: 8 0RF tamsulosin 0.4 mg Capsule 0.4 mg PO DAILY Qty: 30 0RF hydralazine 10 mg tablet 10 mg PO BID Qty: 60 0RF calcitriol 0.5 mcg capsule 0.5 mcg PO DAILY Qty: 30 0RF Continued paroxetine HCl 30 mg tablet 30 mg PO DAILY tamsulosin 0.4 mg capsule 0.4 mg PO DAILY warfarin 3 mg tablet 3 mg PO DAILY Qty: 90 0RF Protocol: Dose Management Condition: Saturday Dose/Route: 3 mg Instruction: 1 x 3 mg tablet Condition: Saturday Dose/Route: 3 mg Instruction: 1 x 3 mg tablet Condition: Saturday Dose/Route: 3 mg Instruction: 1 x 3 mg tablet Condition: Saturday Dose/Route: 3 mg Instruction: 1 x 3 mg tablet Condition: Dose/Route: 3 mg Instruction: 1 x 3 mg tablet Condition: Saturday Dose/Route: 3 mg Instruction: 1 x 3 mg tablet Condition: Saturday Dose/Route: 3 mg Instruction: 1 x 3 mg tablet Protocol Text: Adjustment Start Date: Saturday10/05/22 INR Value: 1.6 INR Date: 10/01/22 Recheck Date: 10/12/22 (JULITO) BiPAP See Rx Instructions .Route .MEDSUPPLY Qty: 1 0RF Rx Instructions: Settings of 01/29 allopurinol 100 mg Tablet 100 mg PO DAILY omeprazole 20 mg Capsule,Delayed Release(Dr/Ec) 20 mg PO QAM metoprolol tartrate 100 mg tablet 100 mg PO BID loperamide 2 mg Tablet 2 mg PO QID PRN (Reason: Diarrhea) Benadryl 25 mg Capsule 25 mg PO TID PRN (Reason: Allergy Symptoms) Pepto-Bismol 262 mg Tablet,Chewable 262 mg PO PRN Fish Oil 1,200 (144-216) mg Capsule 1,200 cap PO BID hydrocodone-acetaminophen 7.5-325 mg Tablet 1 tab PO BID PRN (Reason: Pain) Discontinued calcitriol 0.5 mcg capsule 0.5 mcg PO DAILY fexofenadine [Taty] 180 mg Tablet 180 mg PO DAILY propranolol 10 mg tablet 10 mg PO BID Discharge Orders: Discharge Order (Routine); Ordered 10/18/22 Ordered By: Grant Levin Referrals: Magaly Rivas MD [Primary Care Provider] - Crissy Sethi MD [Referring] - 1 week (Routine urea, chronic kidney disease stage IV) Discharge Diet: Cardiac Discharge Activity: Increase activity as tolerated Patient Instructions: Allopurinol (By mouth), Amoxicillin/Clavulanate Potassium (By mouth), Tamsulosin (By mouth), Sodium Bicarbonate (By mouth), Opioid Safety Activity Restrictions/Additional Instructions: Please follow-up with your kidney doctor within a week I have requested an appointment as well Added low-dose hydralazine to keep your blood pressure below 140 mmHg, Continue bicarb tablets and vitamin D Discharge Attestations Time Spent in Discharge Care*: greater than 30 min Quality Metrics Clinical Quality Measures [ No reported AMI, CVA or VTE this stay] Coding Level of Care Code Acute Code for [facility] Fwd Diagnoses Chronic kidney disease N18.9
[2022-10-18 12:09] LABS: INR 3.08 (0.8-1.2)
[2022-10-18 12:23] LABS: SARS Covid-2 Antigen negative (Negative)
--- NOTE | 2022-10-18 13:57 | PC.NURSE ---
Report called to Velia at [facility]. All questions answered. Pt currently sitting in chair ready to go. IV removed. Pt tolerated well. Catheter tip intact. 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
--- NOTE | 2022-10-18 20:18 | PM.PN ---
Subjective Subjective: no new complaints Medications: Reviewed: Yes Vitals/I&O/Wt Last Vital Signs Temp 98.4 F 10/18/22 07:33 Pulse 88 10/18/22 14:29 Resp 18 10/18/22 14:29 BP 132/69 10/18/22 14:29 Pulse Ox 96 10/18/22 14:29 O2 Del Method Nasal Cannula 10/18/22 08:25 O2 Flow Rate 2 10/18/22 08:25 FiO2 30 10/18/22 03:00 10/18/22 10/18/22 10/18/22 06:59 14:59 22:59 Intake Total 960 / 960 Output Total 800 / 800 Balance 160 / 160 Weight last 48 hrs Weight 109.458 kg Weight 106.764 kg Data 10/18/22 04:54 10/18/22 04:54 Micro: Microbiology 10/10/22 18:24 Blood Culture - Final Blood Francisella tularensis A&P Assessment and plan (1) Chronic kidney disease: Plan 1. Chronic kidney disease with mild albuminuria, eGFR 25 ml/min, renal function relatively stable 2. Hyponatremia, improving 3. Metabolic acidosis, on sodium bicarbonate 4. Microscopic hematuria, urine culture no significant bacteria, + renal cysts - check Serologies - C3 C4 , LARRY panel , ANCA and Hepatitis panel. Arrange Nephrology follow up @ [place] Attestations Medical Necessity Statement*: per medicine Coding Level of Care Code Acute Code for [facility] Fwd Diagnoses Chronic kidney disease N18.9
[2022-10-24 23:40] LABS: Fibrinogen Degradation Product <5 mcg/mL (LESS THAN 5)
== END 2022-10-18 14:30 | disposition skilled nursing facility (03) | DRG 193 ==
LOC: ER 18:17 → MEDSURG 20:56
PROVIDERS: Hospitalist; Internal Medicine; Admitting Provider Internal Medicine; Emergency Provider Emergency Medicine; PCP Internal Medicine; Visit Provider Internal Medicine
DX: J18.9 Pneumonia, unspecified organism (principal); G93.41 Metabolic encephalopathy; J44.0 Chronic obstructive pulmonary disease with (acute) lower respiratory infection; N39.0 Urinary tract infection, site not specified; M62.82 Rhabdomyolysis; E87.20 Acidosis, unspecified; I69.954 Hemiplegia and hemiparesis following unspecified cerebrovascular disease affecting left non-dominant side; I48.19 Other persistent atrial fibrillation; I42.0 Dilated cardiomyopathy; N17.9 Acute kidney failure, unspecified; E87.1 Hypo-osmolality and hyponatremia; I47.20 Ventricular tachycardia, unspecified; I12.9 Hypertensive chronic kidney disease with stage 1 through stage 4 chronic kidney disease, or unspecified chronic kidney disease; N18.9 Chronic kidney disease, unspecified; R31.29 Other microscopic hematuria; L25.9 Unspecified contact dermatitis, unspecified cause; Z66 Do not resuscitate; Z99.81 Dependence on supplemental oxygen; Z79.01 Long term (current) use of anticoagulants; Z79.891 Long term (current) use of opiate analgesic; K21.9 Gastro-esophageal reflux disease without esophagitis; I95.1 Orthostatic hypotension; G31.84 Mild cognitive impairment of uncertain or unknown etiology; G25.2 Other specified forms of tremor; E83.42 Hypomagnesemia; Z87.891 Personal history of nicotine dependence; G47.33 Obstructive sleep apnea (adult) (pediatric); Z95.810 Presence of automatic (implantable) cardiac defibrillator; E78.5 Hyperlipidemia, unspecified
CPT/HCPCS: 36415; 36416; 36600; 70450; 71045; 74176; 76882; 80048; 80053; 80503; 81001; 82044; 82140; 82550; 82570; 82728; 82803; 82962; 83010; 83540; 83550; 83605; 83615; 83735; 83930; 83935; 84145; 84156; 84300; 84443; 84484; 85025; 85362; 85610; 85651; 86036; 86038; 86140; 86160; 86787; 87040; 87086; 87205; 87426; 87486; 87581; 87633; 92507; 92523; 92526; 92610; 93005; 93970; 94640; 94660; 97110; 97116; 97161; 97166; 97530; 97535; G0378; J0696; J3475; J7030; J7626; P9046; Q3014

== ENCOUNTER 2022-12-17 22:08 | Inpatient (IN) | payer OTHER, SELFPAY ==
[2022-12-17 22:12] VITALS: BP 186/105; PULSE 99; RESP 20; TEMP 36.6; O2SAT 94; BMI 26.2
--- NOTE | 2022-12-17 22:26 | CTR_ITS ---
PROCEDURE INFORMATION: Exam: CT Head Without Contrast Exam date and time: 12/17/2022 10:35 PM Age: 87 years old Clinical indication: Altered mental status/memory loss; Additional info: Fall, AMS TECHNIQUE: Imaging protocol: Computed tomography of the head without contrast. Radiation optimization: All CT scans at this facility use at least one of these dose optimization techniques: automated exposure control; mA and/or kV adjustment per patient size (includes targeted exams where dose is matched to clinical indication); or iterative reconstruction. REPORTING DATA: Count of CT and Cardiac NM exams in prior 12 months: This patient has received 2 known CTs and 0 known cardiac nuclear medicine studies in the 12 months prior to the current study. COMPARISON: CT head wo con* [id number] 10/10/2022 6:45 PM RADIATION DOSE METRICS: Total DLP (mGy-cm): 1213.48 FINDINGS: Brain: No focal hemorrhage or midline shift is identified. The ventricles and parenchyma show moderate atrophy and chronic bicerebral white matter ischemic change. A few scattered old lacunes are likely. Cerebral ventricles: No ventriculomegaly or evidence of hydrocephalus. Paranasal sinuses: [id number] diffuse chronic appearing mucosal thickening. No evidence of acute sinusitis. Mastoid air cells: Visualized mastoid air cells are well aerated. Bones/joints: No displaced skull fracture is noted. Hyperostosis frontalis internus. Soft tissues: Unremarkable. Unchanged minute right-sided facial foreign body on series 5, image 25. Vasculature: Diffuse vascular calcifications are present. CT/CT head wo con* [id number] IMPRESSION: 1. No acute intracranial abnormality. 2. Moderate age-related changes.
--- NOTE | 2022-12-17 22:26 | XRR_ITS ---
PROCEDURE INFORMATION: Exam: XR Chest Exam date and time: 12/17/2022 10:30 PM Age: 87 years old Clinical indication: Other: Fall. AMS; Additional info: Fall, weakness TECHNIQUE: Imaging protocol: Radiologic exam of the chest. Views: 1 view. COMPARISON: CR (CHEST, ) 10/14/2022 2:39 PM FINDINGS: Lungs: Mild COPD. Diffuse interstitial haziness has progressed. Right lung base opacities have increased. Right basilar benign pleural or diaphragmatic calcification again noted. Pleural spaces: Unremarkable. No definite pleural effusion. No pneumothorax. Heart/Mediastinum: Heart is large. Left-sided pacing device. Bones/joints: Unremarkable. XR/XR chest 1V portable [id number] IMPRESSION: 1. Progressive areas of diffuse interstitial atelectasis, pneumonitis, or more likely edema from 10/14/2022. 2. Increasing right lung base atelectasis or scarring.
[2022-12-17 22:34] LABS: Basophils % 0.4 %; Eosinophils # 0.1 10^3/uL (0.0-0.8); Eosinophils % 1.4 %; Lymphocytes # 1.9 10^3/uL (0.8-4.8); Lymphocytes % 18.5 %; Mean Corpuscular HGB Conc 33.4 g/dL (30-55); Mean Corpuscular Hemoglobin 31.1 pg (27-33); Mean Platelet Volume 10.1 fL (7.4-10.4); Monocytes # 1.1 10^3/uL (0.2-0.9); Monocytes % 10.3 %; Neutrophils # 7.14 10^3/uL (1.8-7.7); Nucleated Red Blood Cells % 0 %; Platelet Count 182 10^3/cmm (157-399); Red Blood Count 3.44 10^6/uL (3.85-5.65); Red Cell Distribution Width 12.9 % (12.1-15.1); White Blood Count 10.33 10^3/uL (3.29-11.43)
[2022-12-17 22:40] LABS: INR 1.29 (0.8-1.2)
[2022-12-17 22:41] LABS: Partial Thromboplastin Time 33.6 SECONDS (23.9-36.7)
[2022-12-17 22:46] LABS: Alanine Aminotransferase 16 U/L (0-41); Albumin Level 3.4 g/dL (3.5-5.2); Alkaline Phosphatase 118 U/L (40-130); Anion Gap 17.2 (5-19); Aspartate Amino Transferase 14 U/L (0-40); Blood Urea Nitrogen 33 mg/dL (8-23); C Reactive Protein 143.5 mg/L (0.0-4.9); Calcium 10.3 mg/dL (8.5-10.5); Carbon Dioxide 22 mmol/L (22-29); Chloride 100 mmol/L (98-107); Creatine Phosphokinase 62 U/L (39-308); Globulin 3.7 g/dL (1.3-4.6); Glucose 79 mg/dL (65-115); Magnesium 1.8 mg/dL (1.7-2.3); Osmolality Calculated 286 mOsm/kg (285-295); Potassium 4.2 mmol/L (3.5-5.1); Sodium 135 mmol/L (136-145); Total Bilirubin 0.7 mg/dL (0.15-1.2); Total Protein 7.1 g/dL (6.6-8.7)
[2022-12-17 22:47] LABS: Lactic Sepsis W/Reflex 1.2 mmol/L (0.5-2.2)
[2022-12-17 22:48] LABS: Alcohol Level < 10 mg/dL (0-10)
[2022-12-17] MEDS: sodium chloride 0.9% 1,000 ML 999 ML IV (22:49)
[2022-12-17 23:04] VITALS: BP 195/98; PULSE 87; RESP 20; O2SAT 94
[2022-12-17] MEDS: metoprolol tartrate 1 mg/1 mL SDV 5 mL 5 MG IVP (23:22)
--- NOTE | 2022-12-17 23:25 | ED_ITS ---
HPI - Fall General: Chief Complaint: Fall Stated Complaint: FALL Time Seen by Provider: 12/17/22 22:14 Source: patient History of Present Illness: 87-year-old gentleman who lives at home alone. He presents with generalized weakness and mental status change. Evidently he was last seen 2 days ago. He was found on the floor by EMS. His clothes are soaked in urine. He seems to know where he is, but is confused otherwise. He is a poor historian. MD complaint: fall Review of Systems General: Reports: ROS unobtainable due to mental status PFSH ED PFSH: Medical History Acute metabolic encephalopathy Ataxia Atrial fibrillation Cardiomyopathy Carotid artery stenosis Chronic anticoagulation Chronic kidney disease COPD (chronic obstructive pulmonary disease) CVA (cerebral vascular accident) DDD (degenerative disc disease) GERD (gastroesophageal reflux disease) Gout Herpes zoster Hyperlipidemia Hypertension Hypomagnesemia Implantable cardioverter-defibrillator (ICD) discharge Long-term (current) use of anticoagulants, INR goal 2.0-3.0 Microscopic hematuria Mild cognitive impairment with memory loss Obstructive sleep apnea Orthostatic hypotension Pacemaker Peripheral neuropathy Rhabdomyolysis Stroke-like symptom Thrombocytopenia TIA (transient ischemic attack) UTI (urinary tract infection) Wide-complex tachycardia Surgical History History of appendectomy History of cataract extraction History of tonsillectomy and adenoidectomy Hx of laminectomy Family History Mother CAD (coronary artery disease) valve replaced at 86 Brother Chronic kidney disease (CKD) Father Stroke Family/Other Suicide Denies family history of Diabetes Clotting disorder Dementia Anesthesia complication Bleeding disorder Lung disease Cancer Social History Smoking and tobacco status: former smoker Alcohol intake: never Substance/Drug Use: never Physical Exam Const: GENERAL APPEARANCE: cooperative, disheveled, ill appearing and frail appearing HENMT: COMMON NORMALS: normocephalic, atraumatic and Normal external nose present HEAD & SCALP: normocephalic and atraumatic FACE & SINUS: normal facial exam NOSE: Normal external nose present Eye: COMMON NORMALS: Equal, round and reactive pupils present and EOMs intact bilaterally PUPIL: Yes Equal, round and reactive pupils present Neck/C-Spine: GENERAL: Yes trachea midline Chest: CHEST: Yes Symmetrical chest wall rise Resp: EFFORT & INSPECTION: Yes symmetric chest movement Cardio: COMMON NORMALS: regular rate and regular rhythm RATE: regular rate RHYTHM: regular rhythm GI: COMMON NORMALS: Soft to palpation INSPECTION: No abdominal distension PALPATION: Yes Soft to palpation and No Tenderness to palpation present (GI) Neuro: ALICIA COMA SCALE: document GCS findings [employer] coma scale eye opening: Spontaneous Alicia coma scale verbal response: Confused Alicia coma scale motor response: Obey commands Alicia coma scale total score: 14 Course Vital Signs: Vital signs: Vital Signs Temperature 97.8 F 12/17/22 22:12 Pulse Rate 85 12/17/22 23:45 Respiratory Rate 19 H 12/17/22 23:45 Blood Pressure 193/92 12/17/22 23:45 Pulse Oximetry 95 12/17/22 23:45 Oxygen Delivery Me thod Nasal Cannula 12/17/22 23:45 Oxygen Flow Rate 1.5 12/17/22 23:45 MDM - Fall Medical Decision Making 87-year-old gentleman with generalized weakness and altered mental status. He has periods of lucidity, with periods of confusion. He is awake and alert. He talks normally. No focal neurologic deficits. Although he may have been in the floor for a couple of days, he does not show clinical signs. His creatinine is 2.5 which is his baseline. His CK is normal. His white blood cell count is 10 with a hemoglobin of 11 which is his baseline. Chest x-ray shows interstitial pneumonitis versus edema. Lactic acid is negative. Head CT is negative for acute change. He will be admitted for altered mental status, pneumonia. Hospitalist will see the patient. Lab Data 12/17/22 21:56 12/17/22 21:56 Radiology Impressions Chest X-Ray 12/17/22 22:26 IMPRESSION: 1. Progressive areas of diffuse interstitial atelectasis, pneumonitis, or more likely edema from 10/14/2022. 2. Increasing right lung base atelectasis or scarring. Head CT 12/17/22 22:26 IMPRESSION: 1. No acute intracranial abnormality. 2. Moderate age-related changes. Laboratory Results WBC 10.33 10^3/uL (3.29-11.43) 12/17/22 21:56 RBC 3.44 10^6/uL (3.85-5.65) L 12/17/22 21:56 Hgb 10.70 g/dL (11.27-16.99) L 12/17/22 21:56 Hct 32.0 % (37-53) L 12/17/22 21:56 MCV 93.0 fl (82-101) 12/17/22 21:56 MCH 31.1 pg (27-33) 12/17/22 21:56 MCHC 33.4 g/dL (30-55) 12/17/22 21:56 RDW 12.9 % (12.1-15.1) 12/17/22 21:56 Plt Count 182 10^3/cmm (157-399) 12/17/22 21:56 MPV 10.1 fL (7.4-10.4) 12/17/22 21:56 Neut % (Auto) 69.0 % 12/17/22 21:56 Lymph % (Auto) 18.5 % 12/17/22 21:56 [place] % (Auto) 10.3 % 12/17/22 21:56 Eos % (Auto) 1.4 % 12/17/22 21:56 Baso % (Auto) 0.4 % 12/17/22 21:56 Neut # (Auto) 7.14 10^3/uL (1.8-7.7) 12/17/22 21:56 Lymph # (Auto) 1.9 10^3/uL (0.8-4.8) 12/17/22 21:56 [place] # (Auto) 1.1 10^3/uL (0.2-0.9) H 12/17/22 21:56 Eos # (Auto) 0.1 10^3/uL (0.0-0.8) 12/17/22 21:56 Baso # (Auto) 0.0 10^3/uL (0.0-0.1) 12/17/22 21:56 Nucleated RBC % (auto) 0 % 12/17/22 21:56 Nucleated RBCs # 0.0 /100WBC 12/17/22 21:56 PT 16.50 SECONDS (12.1-14.9) H 12/17/22 21:56 INR 1.29 (0.8-1.2) H 12/17/22 21:56 APTT 33.6 SECONDS (23.9-36.7) 12/17/22 21:56 Sodium 135 mmol/L (136-145) L 12/17/22 21:56 Potassium 4.2 mmol/L (3.5-5.1) 12/17/22 21:56 Chloride 100 mmol/L (98-107) 12/17/22 21:56 Carbon Dioxide 22 mmol/L (22-29) 12/17/22 21:56 Anion Gap 17.2 (5-19) 12/17/22 21:56 BUN 33 mg/dL (8-23) H 12/17/22 21:56 Creatinine 2.5 mg/dL (0.7-1.2) H 12/17/22 21:56 GFR Calculation Not Reportable 12/17/22 21:56 Glucose 79 mg/dL (65-115) 12/17/22 21:56 Calculated Osmolality 286 mOsm/kg (285-295) 12/17/22 21:56 Lactic Acid 1.2 mmol/L (0.5-2.2) 12/17/22 21:56 Calcium 10.3 mg/dL (8.5-10.5) 12/17/22 21:56 Magnesium 1.8 mg/dL (1.7-2.3) 12/17/22 21:56 Total Bilirubin 0.7 mg/dL (0.15-1.2) 12/17/22 21:56 AST 14 U/L (0-40) 12/17/22 21:56 ALT 16 U/L (0-41) 12/17/22 21:56 Alkaline Phosphatase 118 U/L (40-130) 12/17/22 21:56 Creatine Kinase 62 U/L (39-308) 12/17/22 21:56 C-Reactive Protein 143.5 mg/L (0.0-4.9) H 12/17/22 21:56 NT-Pro-B Natriuret Pep 3395 pg/mL (0-450) H 12/17/22 21:50 Total Protein 7.1 g/dL (6.6-8.7) 12/17/22 21:56 Albumin 3.4 g/dL (3.5-5.2) L 12/17/22 21:56 Globulin 3.7 g/dL (1.3-4.6) 12/17/22 21:56 Urine Color Yellow (Yellow) 12/17/22 23:00 Urine Appearance Clear (CLEAR) 12/17/22 23:00 Urine pH 5 (5-7) 12/17/22 23:00 Ur Specific [place] 1.015 (1.005-1.030) 12/17/22 23:00 Urine Protein 2+ (Negative) H 12/17/22 23:00 Urine Glucose (UA) Norm (Normal) 12/17/22 23:00 Urine Ketones Negative (Negative) 12/17/22 23:00 Urine Blood 2+ (Negative) H 12/17/22 23:00 Urine Nitrate Negative (Negative) 12/17/22 23:00 Urine Bilirubin Neg (Negative) 12/17/22 23:00 Urine Urobilinogen Neg mg/dL (Negative) 12/17/22 23:00 Ur Leukocyte Esterase Negative (Negative) 12/17/22 23:00 Urine RBC 0-4 /hpf (0-2) H 12/17/22 23:00 Urine WBC None /hpf (0-5) 12/17/22 23:00 Ur Squamous Epith Cells None /hpf (0-5) 12/17/22 23:00 Amorphous Sediment Not Reportable 12/17/22 23:00 Urine Bacteria Trace /hpf (NONE) 12/17/22 23:00 Urine Mucus 1+ /hpf 12/17/22 23:00 Ethyl Alcohol < 10 mg/dL (0-10) 12/17/22 21:56 SARS-CoV-2 Ag (Rapid) negative (Negative) 12/17/22 23:43 All radiology interpretation(s) finalized by discharge Discharge Plan Discharge Patient Disposition: Admitted As Inpatient Clinical Impression: Pneumonia, Acute alteration in mental status Condition: Fair Coding Level of Care Code ED Electronic Lab Technician for Nataliia Suggs
[2022-12-17 23:32] LABS: Bilirubin Urine Neg (Negative); Blood Urine 2+ (Negative); Glucose Urine UA Norm (Normal); Ketones Urine Negative (Negative); Leukocyte Esterase Urine Negative (Negative); Nitrate Urine Negative (Negative); Protein Urine 2+ (Negative); Specific Gravity, Urine 1.015 (1.005-1.030); Urine Appearance Clear (CLEAR); Urine Color Yellow (Yellow); Urobilinogen Urine Neg (Negative); pH Urine 5 (5-7)
[2022-12-17 23:33] LABS: Add Urine Culture? No; Add Urine Microscopic? YES; Bacteria Urine TRACE /hpf; Mucus Urine 1+ /hpf; RBC Urine 0-4 /hpf (0-2)
[2022-12-17 23:45] VITALS: BP 193/92; PULSE 85; RESP 19; O2SAT 95
[2022-12-18] VITALS (17 sets, daily range): BP systolic 125–161; BP diastolic 64–95; PULSE 60–98; RESP 16–19; TEMP 36.4–36.9; O2SAT 93–98
[2022-12-18 00:04] LABS: SARS Covid-2 Antigen negative (Negative)
--- NOTE | 2022-12-18 00:11 | ECG_ITS ---
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 Measurements Intervals [place] Rate: 78 P: 89 DC: 189 QRS: -47 QRSD: 157 T: 112 QT: 382 QTc: 436 Interpretive Statements Demand AV paced rhythm. Occasional PVCs. LEFT AXIS DEVIATION [QRS AXIS < -30] LEFT BUNDLE BRANCH BLOCK [120+ ms QRS DURATION, 80+ ms Q/S IN V1/V2, 85+ ms R IN I/aVL/V5/V6] Compared to ECG 10/12/2022 15:44:06 No significant changes Electronically Signed On 12-18-2022 21:09:57 CDT by Raya Hsieh M.D. [email or web address]
[2022-12-18 00:32] LABS: NT Pro B Type Natriuretic Pept 3395 pg/mL (0-450)
--- NOTE | 2022-12-18 00:53 | CTR_ITS ---
PROCEDURE INFORMATION: Exam: CT Chest Without Contrast; Diagnostic Exam date and time: 12/18/2022 3:00 AM Age: 87 years old Clinical indication: Dyspnea; Additional info: SOB TECHNIQUE: Imaging protocol: Diagnostic computed tomography of the chest without contrast. Radiation optimization: All CT scans at this facility use at least one of these dose optimization techniques: automated exposure control; mA and/or kV adjustment per patient size (includes targeted exams where dose is matched to clinical indication); or iterative reconstruction. REPORTING DATA: Count of CT and Cardiac NM exams in prior 12 months: This patient has received 3 known CTs and 0 known cardiac nuclear medicine studies in the 12 months prior to the current study. COMPARISON: CT chest wo con [id number] 07/18/2020 1:18 PM RADIATION DOSE METRICS: Total DLP (mGy-cm): 704.31 FINDINGS: Tubes, catheters and devices: Left-sided dual lead pacing device. Lungs: Moderate COPD. Increasing areas of yhtw-rkcyloo-mpua-right bibasilar atelectasis or developing pneumonia. Some areas of reticulonodular scarring also possible. Pleural spaces: Prominent right lower lung pleural and diaphragmatic calcification. Heart: The heart is mildly enlarged. Mild venous congestion. Mild edema possible. Lymph nodes: Mild likely reactive mediastinal lymphadenopathy. Vasculature: Advanced diffuse vascular calcification noted. Mild venous congestion. Gallbladder and bile ducts: Few small gallstones. Kidneys and ureters: Mocbw-plngegt-sshf-left renal cysts measure up to 6.3 cm. Bones/joints: Chronic appearing severe L1 compression deformity. Diffuse osteopenia. Soft tissues: Unremarkable. CT/CT chest wo con [id number] IMPRESSION: 1. Increasing areas of bilateral mid to lower lung atelectasis, edema, or developing pneumonia with underlying likely progressive lung scarring. Lung findings have progressed considerably from 07/18/2020. Recommend three-month follow-up. 2. Large heart with venous congestion, COPD, prominent right basilar benign-appearing calcifications, atherosclerosis, etc. COMMENTS: Consistent with the [employer]'s Incidental Findings Committee white paper (J Am Fernie Radiol 2018): Any incidental renal lesion less than 1 cm or classified as too small to characterize, or any incidental cystic renal lesion characterized as simple-appearing, is likely benign. No follow-up imaging is recommended for these lesions per consensus recommendations based on imaging criteria.
--- NOTE | 2022-12-18 00:55 | P.HP_ITS ---
Providers/Chief Complaint Primary Care Provider: Magaly Rivas MD Chief Complaint: FALL History of Present Illness Alexey An is a 87 year old male with a past medical history of atrial fibrillation on Coumadin, CKD, hypertension, hyperlipidemia, history of cardiomyopathy, who presents to [facility] due to altered mental status. Currently patient is alert to person, to place, not to time he can follow some commands, but at times is encephalopathic. Patient tells that he is here because he has been having fevers, cough, chills, poor appetite. Does report shortness of breath. He denies receiving dialysis, does have CKD. Denies any chest pain, no palpitations. No lightheadedness, dizziness. He cannot tell me his address, denies any falls, no injuries, according to ER provider and EMS, he was found on the floor, he has not been seen in 2 days, his clothes were soaked in urine, Review of Systems Const: Reports: fever(s), chills, fatigue and malaise ENMT: Denies: throat pain Card: Denies: chest pain Resp: Reports: dyspnea and productive cough GI: Denies: abdominal pain : Denies: flank pain or difficulty urinating Skin/Breast: Denies: rash Neuro: Denies: headache(s), numbness in extremities or weakness in extremities Medications/Allergies Home Medications Medication Instructions Recorded Confirmed Last Taken Type tamsulosin 0.4 mg capsule 0.4 mg PO DAILY 04/13/19 11/01/22 10/26/21 History paroxetine HCl 30 mg tablet 30 mg PO DAILY 12/01/20 11/01/22 10/25/21 History allopurinol 100 mg tablet 100 mg PO DAILY 10/26/21 11/01/22 10/26/21 History omeprazole 20 mg capsule,delayed 20 mg PO QAM 10/26/21 11/01/22 10/26/21 History release warfarin 3 mg tablet 3 mg PO DAILY #90 tabs 03/09/22 11/01/22 Unknown Rx BiPAP #1 ea 07/11/22 11/01/22 Unknown Rx bismuth subsalicylate 262 mg 262 mg PO PRN 10/11/22 11/01/22 Unknown History chewable tablet (Pepto-Bismol) diphenhydramine HCl 25 mg capsule 25 mg PO TID PRN Allergy Symptoms 10/11/22 11/01/22 Unknown History (Benadryl) hydrocodone 7.5 mg-acetaminophen 1 tab PO BID PRN Pain 10/11/22 11/01/22 Unknown History 325 mg tablet loperamide 2 mg tablet 2 mg PO QID PRN Diarrhea 10/11/22 11/01/22 Unknown History metoprolol tartrate 100 mg tablet 100 mg PO BID 10/11/22 11/01/22 Unknown History omega 2-kcy-ylc-fish oil 1,200 mg 1,200 cap PO BID 10/11/22 11/01/22 Unknown History (144 mg-216 mg) capsule (Fish Oil) allopurinol 100 mg tablet 100 mg PO DAILY #30 tabs 10/18/22 11/01/22 Unknown Rx amoxicillin 875 mg-potassium 1 tab PO BID #8 tabs 10/18/22 11/01/22 Unknown Rx clavulanate 125 mg tablet calcitriol 0.5 mcg capsule 0.5 mcg PO DAILY #30 caps 10/18/22 11/01/22 Unknown Rx calcitriol 0.5 mcg capsule 0.5 mcg PO DAILY #30 caps 10/18/22 11/01/22 Unknown Rx hydralazine 10 mg tablet 10 mg PO BID #60 tabs 10/18/22 11/01/22 Unknown Rx hydralazine 10 mg tablet 10 mg PO BID #60 tabs 10/18/22 11/01/22 Unknown Rx sodium bicarbonate 650 mg tablet 650 mg PO DAILY #30 tabs 10/18/22 11/01/22 Unknown Rx tamsulosin 0.4 mg capsule 0.4 mg PO DAILY #30 caps 10/18/22 11/01/22 Unknown Rx Allergies Allergy/AdvReac Type Severity Reaction Status Date / Time Iodinated Contrast Media AdvReac STOMACH Verified 12/17/22 22:18 CRAMPING DURING A STRESS TEST. WAS TOLD D/T IODINE PFSH Acute PFSH: Medical History (Updated 12/18/22 @ 01:00 by Aiden Mullen MD) Acute metabolic encephalopathy Ataxia Atrial fibrillation Cardiomyopathy Carotid artery stenosis Chronic anticoagulation Chronic kidney disease COPD (chronic obstructive pulmonary disease) CVA (cerebral vascular accident) DDD (degenerative disc disease) GERD (gastroesophageal reflux disease) Gout Herpes zoster Hyperlipidemia Hypertension Hypomagnesemia Implantable cardioverter-defibrillator (ICD) discharge Long-term (current) use of anticoagulants, INR goal 2.0-3.0 Microscopic hematuria Mild cognitive impairment with memory loss Obstructive sleep apnea Orthostatic hypotension Pacemaker Peripheral neuropathy Rhabdomyolysis Stroke-like symptom Thrombocytopenia TIA (transient ischemic attack) UTI (urinary tract infection) Wide-complex tachycardia Surgical History History of appendectomy History of cataract extraction History of tonsillectomy and adenoidectomy Hx of laminectomy Family History Mother CAD (coronary artery disease) valve replaced at 86 Brother Chronic kidney disease (CKD) Father Stroke Family/Other Suicide Denies family history of Diabetes Clotting disorder Dementia Anesthesia complication Bleeding disorder Lung disease Cancer Social History Smoking and tobacco status: former smoker Alcohol intake: never Substance/Drug Use: never Vitals/I&O/Wt Last Vital Signs Temp 97.8 F 12/17/22 22:12 Pulse 85 12/17/22 23:45 Resp 19 H 12/17/22 23:45 BP 193/92 12/17/22 23:45 Pulse Ox 95 12/17/22 23:45 O2 Del Method Nasal Cannula 12/17/22 23:45 O2 Flow Rate 1.5 12/17/22 23:45 Weight last 48 hrs Weight 95.254 kg Physical Exam Const: COMMON NORMALS: no acute distress EXAM LIMITATIONS: altered mental status ORIENTATION/CONSCIOUSNESS: Yes awake and Yes oriented to person; not oriented to place and not oriented to time HENMT: COMMON NORMALS: normocephalic and Normal external nose present HEAD & SCALP: normocephalic FACE & SINUS: normal facial exam NOSE: Normal external nose present MOUTH: Normal oral and palatal mucosa present Eye: COMMON NORMALS: Equal, round and reactive pupils present, conjunctivae normal and no scleral icterus PUPIL: Yes Equal, round and reactive pupils present Neck/C-Spine: COMMON NORMALS: full ROM, no lymphadenopathy, no JVD, Thyroid normal and No carotid bruits THYROID: Thyroid normal Lymph: LYMPHATIC: no lymphadenopathy noted Chest: COMMONS NORMALS: normal inspection of the chest Resp: COMMON NORMALS: normal respiratory effort, No retractions and No use of accessory muscles AUSCULTATION: wheezes Cardio: COMMON NORMALS: regular rate, regular rhythm, S1 normal heart sound present, S2 normal heart sound present, No murmurs present (Cardio) and Peripheral pulses 2+ throughout RATE: regular rate RHYTHM: regular rhythm HEART SOUNDS: S1 normal heart sound present and S2 normal heart sound present PERIPHERAL PULSES: Peripheral pulses 2+ throughout GI: COMMON NORMALS: Normal to inspection, nondistended, normoactive bowel sounds present, Soft to palpation and non-tender : BLADDER/KIDNEY EXAM: Yes no CVA tenderness Extremity: COMMON NORMALS: normal to inspection, no calf tenderness and no pedal edema Neuro: COMMON NORMALS: moves all extremities and no focal motor deficits Psych: COMMON NORMALS: cooperative APPEARANCE: Yes well kempt Skin: COMMON NORMALS: turgor normal and no jaundice GENERAL SKIN EXAM: turgor normal Urinary Catheter Management: Hightower: Cath Placed During This Visit: yes Urinary Catheter Date of Insertion: 12/17/22 Urinary Catheter Time of Insertion: 22:50 Data 12/17/22 21:56 12/17/22 21:56 Micro: Microbiology 12/18/22 00:31 Blood Culture - Preliminary Blood SPECIMEN COLLECTED 12/18/22 00:31 Blood Culture - Preliminary Blood SPECIMEN COLLECTED A&P Assessment and plan (1) Pneumonia: (2) Acute alteration in mental status: (3) Atrial fibrillation: Qualifiers: Atrial fibrillation type: other persistent Qualified Code(s): I48.19 - Other persistent atrial fibrillation (4) Chronic kidney disease: (5) COPD (chronic obstructive pulmonary disease): (6) Hypertension: Qualifiers: Hypertension type: essential hypertension Qualified Code(s): I10 - Essential (primary) hypertension (7) Cardiomyopathy: Qualifiers: Cardiomyopathy type: dilated Qualified Code(s): I42.0 - Dilated cardiomyopathy Plan Acute encephalopathy -Likely secondary to pneumonia -Potentially related to hypertensive urgency, encephalopathy -Neurochecks, aspiration precautions, nighstroke scale Patient was found on the floor, with generalized weakness -PT OT -Neurochecks, aspiration precautions, nih stroke scale Pneumonia -Order CT of chest -Sputum cultures -Respiratory viral panel -Continue DuoNeb -Continue vancomycin, Zosyn CKD -Watch kidney function -Monitor urine output Hypertensive encephalopathy -Monitor blood pressures -Has received metoprolol -Labetalol as needed -resume home bp medications Atrial fibrillation -Continue home Coumadin -monitor INR Attestations Medical Necessity Statement*: Patient requires hospitalization, inpatient,, for acute encephalopathy, pneumonia, inpatient, greater than 2 midnights Diagnoses Pneumonia J18.9 Acute alteration in mental status R41.82 Atrial fibrillation I48.19 Atrial fibrillation type: other persistent Chronic kidney disease N18.9 COPD (chronic obstructive pulmonary disease) J44.9 Hypertension I10 Hypertension type: essential hypertension Cardiomyopathy I42.0 Cardiomyopathy type: dilated
[2022-12-18] MEDS: piperacillin-tazobactam 4.5 GM in sodium chloride 0.9% (plus) 50 ML IV (00:59)
[2022-12-18 01:48] LABS: Troponin(5th) Baseline 40 ng/L (0-15)
[2022-12-18] MEDS: sodium chloride 0.9% 1,000 ML 50 ML IV (02:09)
--- NOTE | 2022-12-18 02:16 | PC.PHAR ---
Pharmacokinetic dosing service Date: 12/18/22 Time: 215 Objective: Patient: Alexey An Floor: 252-2 Age: 87 yo Serum creatinine: 2.5 mg/dL Height: 75.0 Inches Weight (kg): 95.254 Diagnosis: Relevant medical/social history: Cultures and sensitivities: Other labs: Assessment: IBW (kg): 84.50 Dosing wt(kg): 95.254 Estimated Creatinine clearance (ml/min): 25.8 CRCL method: Cockcroft and Gault using ibw(default). Drug selected: Vancomycin Loading dose (mg): 0 Vd (liters): 85.7 (factor used: 0.9 L/kg) Jermain (hr-1): 0.026 Half life (hrs): 26.66 Recommended dose: 1500 mg Interval: 36 hrs Infusion time (hrs): 1.5 Predicted peak (mcg/mL): 28.2 Predicted trough (mcg/mL): 11.50 Total body weight is being used for vancomycin dosing. Renal function is stable [ ] /unstable [ ] Recommendations: Give Vancomycin 1500 mg q 36 hrs with an expected Cpeak of 28.2 mcg/ml and an expected Ctrough of 11.50 mcg/ml Renal dosing of other antibiotics (review renal dosing of other medications and list guidelines here): Thank you for the consult, will continue to follow. Signature: Katerin Velasquez [facility]
[2022-12-18] MEDS: pantoprazole 40 mg SDV IVP (02:17)
[2022-12-18 02:32] LABS: Cholesterol 148 mg/dL (0-200); HDL Cholesterol 37 mg/dL (60-100); LDL Cholesterol Calculated 95 mg/dL (50-129); LDL HDL Ratio 2.57 RATIO (0.00-3.22); Thyroid Stimulating Hormone 2.16 uIU/mL (0.27-4.20); Triglycerides 81 mg/dL (0-150)
[2022-12-18] MEDS: ondansetron 2 mg/ML SDV 2 mL 4 MG IVP (02:32)
[2022-12-18 03:00] LABS: Estmated Average Glucose 114; Hemoglobin A1C 5.6 % (4.0-6.0)
[2022-12-18] MEDS: vancomycin 1,500 MG/300 ML PIGGYBACK 200 MG IV (03:17)
[2022-12-18 03:45] LABS: Troponin 5 2HR 37.41 ng/L (0-15)
[2022-12-18 03:49] LABS: Troponin 5 2HR Delta -2.59 ABS# (0-10)
[2022-12-18 04:39] LABS: Adenovirus Not Detected (NOT DETECT); Chlamydia Pneumoniae Not Detected (NOT DETECT); Coronavirus 229E,HKU1,NL63,OC4 Not Detected (NOT DETECT); Human Metapneumovirus Not Detected (NOT DETECT); Human Rhinovirus/Enterovirus Not Detected (NOT DETECT); Influenza A Not Detected (NOT DETECT); Influenza A H1 Not Detected (NOT DETECT); Influenza A H1-2009 Not Detected (NOT DETECT); Influenza A H3 Not Detected (NOT DETECT); Influenza B Not Detected (NOT DETECT); Mycoplasma Pneumoniae Not Detected (NOT DETECT); Parainfluenza Virus Type 1 Not Detected (NOT DETECT); Parainfluenza Virus Type 2 Not Detected (NOT DETECT); Parainfluenza Virus Type 3 Not Detected (NOT DETECT); Parainfluenza Virus Type 4 Not Detected (NOT DETECT); Respiratory Syncytial Virus A Not Detected (NOT DETECT); Respiratory Syncytial Virus B Not Detected (NOT DETECT); SARS-COV-2 Not Detected (NOT DETECT)
[2022-12-18 07:16] LABS: Troponin 5 6HR 39.23 ng/L (0-15)
[2022-12-18 07:17] LABS: Troponin 5 6HR Delta -0.77 ng/L (0-12)
[2022-12-18] MEDS: ipratropium-albuterol 3 mL Neb INHALATION ×4 (07:48→20:32)
--- NOTE | 2022-12-18 08:31 | PC.PHAR ---
FAXING NE FOR MED LIST, PHONED [facility] FOR MED LIST (NOT OPEN UNTIL 9AM) 12/18/22 8:30AM
[2022-12-18] MEDS: sodium bicarbonate 650 mg Tablet PO (08:32)
[2022-12-18] MEDS: piperacillin-tazobactam 3.375 GM in sodium chloride 0.9% (plus) 50 ML IV ×2 (08:32→17:14)
[2022-12-18] MEDS: PARoxetine 20 mg Tablet 30 MG PO (08:33)
[2022-12-18] MEDS: allopurinol 100 mg Tablet PO (08:34)
[2022-12-18] MEDS: tamsulosin 0.4 mg Capsule PO (08:34)
[2022-12-18] MEDS: metoprolol tartrate 50 mg Tablet 100 MG PO ×2 (08:34→17:14)
[2022-12-18] MEDS: warfarin 3 mg Tablet PO (08:34)
[2022-12-18] MEDS: hyDRALAzine 10 mg Tablet PO ×2 (08:34→17:14)
--- NOTE | 2022-12-18 08:38 | FL_ITS ---
WS: [id number] MODIFIED BARIUM SWALLOW TECHNIQUE: Modified barium swallow with speech therapy using multiple consistencies. FLUOROSCOPY TIME: 3min [id number] # of spot films: 0 CLINICAL INFORMATION: Oropharyngeal dysphagia COMPARISON: None. FINDINGS: Multiple consistencies utilized. Delayed oropharyngeal phase with delayed bolus formation. Evidence o f early spillage with pooling and residue in the vallecula. Small amount of penetration with thin liq uids. Mild esophageal dysmotility partially visualized. No difficulty with the barium tablet. IMPRESSION: 1. Delayed oropharyngeal phase with delayed bolus formation. 2. Evidence of early spillage with pooling and residue in the vallecula. 3. Small amount of penetration with thin liquids 4. No leia aspiration.
--- NOTE | 2022-12-18 10:44 | PC.OT ---
OT EVALUATION ATTEMPTED AT [id number]. WAS ABLE TO GATHER INFORMATION FROM FAMILY BUT THE PATIENT IS UNABLE TO MAINTAIN ALERTNESS. WILL ATTEMPT AGAIN IN P.M.; FAMILY AGREEABLE.
--- NOTE | 2022-12-18 12:52 | P.PN_ITS ---
Subjective Subjective: This morning he is lethargic. As per discussion with his family he usually is more sleepy during the morning and early day, more awake later in the afternoons. He was visited by his family on the weekend and they state that for time he was lethargic, subsequently woke up, play dominoes with them, ambulated with his walker. Sleep-wake cycle appears may have shifted he was up at 3:30 in the morning 1 day. Then sometimes sleeps through the morning doses of his medications. He wakes up briefly to loud voice and shoulder squeeze, states is not in pain. Promptly falls asleep. He was coughing, did not specifically notice cough with food or drink. Vitals/I&O/Wt Last Vital Signs Temp 98.5 F 12/18/22 12:00 Pulse 60 12/18/22 12:00 Resp 17 12/18/22 12:00 BP 131/73 12/18/22 12:00 Pulse Ox 94 12/18/22 12:00 O2 Del Method Nasal Cannula 12/18/22 12:00 O2 Flow Rate 2 12/18/22 10:54 12/17/22 12/18/22 12/18/22 22:59 06:59 14:59 Intake Total 1350 / 1350 517.499 / 517.499 Output Total 200 / 200 200 / 200 Balance 1150 / 1150 317.499 / 317.499 Weight last 48 hrs Weight 95.254 kg Physical Exam Const: GENERAL APPEARANCE: cooperative and lethargic ORIENTATION/CONSCIOUSNESS: Yes lethargic HENMT: COMMON NORMALS: oropharynx normal Neck/C-Spine: COMMON NORMALS: no JVD Resp: COMMON NORMALS: normal respiratory effort and clear to auscultation bilaterally AUSCULTATION: clear to auscultation bilaterally Cardio: COMMON NORMALS: no JVD, regular rhythm, S1 normal heart sound present, S2 normal heart sound present and No murmurs present (Cardio) RHYTHM: regular rhythm HEART SOUNDS: S1 normal heart sound present and S2 normal heart sound present GI: COMMON NORMALS: Normal to inspection, nondistended, normoactive bowel sounds present, Soft to palpation and non-tender PALPATION: Yes Soft to palpation Extremity: COMMON NORMALS: no joint enlargement and no pedal edema Neuro: COMMON NORMALS: moves all extremities SENSORIUM/ORIENTATION: Yes lethargic Skin: COMMON NORMALS: no rashes or lesions noted GENERAL SKIN EXAM: no rashes or lesions noted Urinary Catheter Management: Hightower: Cath Placed During This Visit: yes Reason for Continuing Indwelling Catheter: Acute Urinary Retention or Obstruction Urinary Catheter Date of Insertion: 12/17/22 Urinary Catheter Time of Insertion: 22:50 Data 12/17/22 21:56 12/17/22 21:56 Micro: Microbiology 12/18/22 00:31 Blood Culture - Preliminary Blood SPECIMEN COLLECTED 12/18/22 00:31 Blood Culture - Preliminary Blood SPECIMEN COLLECTED A&P Assessment and plan (1) Pneumonia: (2) Acute alteration in mental status: (3) Atrial fibrillation: Qualifiers: Atrial fibrillation type: other persistent Qualified Code(s): I48.19 - Other persistent atrial fibrillation (4) Chronic kidney disease: (5) COPD (chronic obstructive pulmonary disease): (6) Hypertension: Qualifiers: Hypertension type: essential hypertension Qualified Code(s): I10 - Essential (primary) hypertension (7) Cardiomyopathy: Qualifiers: Cardiomyopathy type: dilated Qualified Code(s): I42.0 - Dilated cardiomyopathy Plan Acute encephalopathy He is lethargic this morning. Reviewed chest x-ray, discussed with his family. Appears to have pneumonia again, findings worsened compared to prior. Concern for possibility of aspiration. They did not notice overt aspiration with eating and drinking When they were with him over the weekend. They did notice some alteration of sleep-wake cycle, he did wake up at 3:30 in the morning to start his day. Additionally he does sometimes miss his morning doses of medications. Continue treatment of pneumonia. Requested MBS, although discussed with nursing staff and family in case he is not alert enough this may need to be postponed. no sign of UTI on review of UA. Reviewed and discussed respiratory viral panel as well. Reviewed TSH. -Neurochecks, aspiration precautions Discussed with case management. Repeat CBC, CMP. CPAP anytime he is asleep. Patient was found on the floor, with generalized weakness -PT OT Pneumonia Reviewed CT chest. MBS once able to. -Sputum cultures -Respiratory viral panel -Continue DuoNeb -Continue vancomycin, Zosyn CKD -Watch kidney function -Monitor urine output Hypertensive encephalopathy -Monitor blood pressures -Has received metoprolol -Labetalol as needed -resume home bp medications Atrial fibrillation -Continue home Coumadin -monitor INR Attestations Medical Necessity Statement*: Continue admission for assessment management of acute encephalopathy, treatment of pneumonia. Diagnoses Pneumonia J18.9 Acute alteration in mental status R41.82 Atrial fibrillation I48.19 Atrial fibrillation type: other persistent Chronic kidney disease N18.9 COPD (chronic obstructive pulmonary disease) J44.9 Hypertension I10 Hypertension type: essential hypertension Cardiomyopathy I42.0 Cardiomyopathy type: dilated
--- NOTE | 2022-12-18 23:58 | ECG_ITS ---
[facility] Test Date: 2022-12-19 Pat Name: Alexey An Department: Room: 252 Gender: Male Field Care Advocate: : [id number] Requested By: Aiden Mullen Order Number: [id number] Iain MD: Raya Hsieh M.D. Measurements Intervals Maud Rate: 69 P: 68 VT: 164 QRS: -41 QRSD: 165 T: 125 QT: 426 QTc: 459 Interpretive Statements SINUS RHYTHM WITH SINUS ARRHYTHMIA LEFT AXIS DEVIATION [QRS AXIS < -30] LEFT BUNDLE BRANCH BLOCK [120+ ms QRS DURATION, 80+ ms Q/S IN V1/V2, 85+ ms R IN I/aVL/V5/V6] Compared to ECG 12/18/2022 00:20:42 Ventricular premature complex(es) no longer present Ventricular-paced complex(es) or rhythm no longer present AV dual-paced complex(es) or rhythm no longer present Electronically Signed On 12-19-2022 20:48:23 CDT by Raya Hsieh M.D. [id number]
[2022-12-19] VITALS (14 sets, daily range): BP systolic 124–167; BP diastolic 73–88; PULSE 62–83; RESP 16–20; TEMP 36.8–37.2; O2SAT 93–98
[2022-12-19] MEDS: piperacillin-tazobactam 3.375 GM in sodium chloride 0.9% (plus) 50 ML IV ×3 (00:46→19:47)
[2022-12-19] MEDS: pantoprazole 40 mg SDV IVP (01:15)
[2022-12-19 04:23] LABS: Basophils # 0.1 10^3/uL (0.0-0.1); Basophils % 0.5 %; Eosinophils # 0.4 10^3/uL (0.0-0.8); Eosinophils % 4.6 %; Hematocrit 28.8 % (37-53); Lymphocytes # 1.5 10^3/uL (0.8-4.8); Lymphocytes % 16.6 %; Mean Corpuscular Hemoglobin 31.5 pg (27-33); Mean Corpuscular Volume 95.4 fl (82-101); Mean Platelet Volume 9.8 fL (7.4-10.4); Monocytes % 10.3 %; Neutrophils # 6.23 10^3/uL (1.8-7.7); Neutrophils % 67.6 %; Nucleated Red Blood Cells % 0 %; Platelet Count 170 10^3/cmm (157-399); Red Blood Count 3.02 10^6/uL (3.85-5.65); Red Cell Distribution Width 13.1 % (12.1-15.1); White Blood Count 9.22 10^3/uL (3.29-11.43)
[2022-12-19 04:37] LABS: Partial Thromboplastin Time 24.5 SECONDS (23.9-36.7)
[2022-12-19 04:41] LABS: Anion Gap 15.5 (5-19); Blood Urea Nitrogen 35 mg/dL (8-23); Calcium 9.2 mg/dL (8.5-10.5); Carbon Dioxide 22 mmol/L (22-29); Chloride 102 mmol/L (98-107); Glucose 106 mg/dL (65-115); Osmolality Calculated 288 mOsm/kg (285-295); Potassium 4.5 mmol/L (3.5-5.1); Sodium 135 mmol/L (136-145)
[2022-12-19 04:42] LABS: Magnesium 1.8 mg/dL (1.7-2.3); Phosphorus 2.9 mg/dL (2.5-4.5)
[2022-12-19] MEDS: ipratropium-albuterol 3 mL Neb INHALATION ×4 (08:33→20:32)
[2022-12-19] MEDS: allopurinol 100 mg Tablet PO (09:43)
[2022-12-19] MEDS: PARoxetine 20 mg Tablet 30 MG PO (09:43)
[2022-12-19] MEDS: hyDRALAzine 10 mg Tablet PO ×2 (09:44→17:24)
[2022-12-19] MEDS: sodium bicarbonate 650 mg Tablet PO (09:44)
[2022-12-19] MEDS: metoprolol tartrate 50 mg Tablet 100 MG PO ×2 (09:44→17:24)
[2022-12-19] MEDS: tamsulosin 0.4 mg Capsule PO (09:44)
[2022-12-19] MEDS: warfarin 3 mg Tablet PO (09:45)
--- NOTE | 2022-12-19 13:08 | PM.PN ---
Subjective Subjective: Days awake and alert, sitting up in chair. Reports he is feeling sick/achy all over. Has been coughing. Bringing up some phlegm. Vitals/I&O/Wt Last Vital Signs Temp 98.2 F 12/19/22 12:00 Pulse 79 12/19/22 12:00 Resp 16 12/19/22 12:00 BP 167/88 12/19/22 12:00 Pulse Ox 97 12/19/22 12:00 O2 Del Method Nasal Cannula 12/19/22 12:00 O2 Flow Rate 2 12/19/22 11:24 12/18/22 12/19/22 12/19/22 22:59 06:59 14:59 Intake Total 440 / 1080.000 170 / 1250.000 840 / 840 Output Total 200 / 1100 800 / 1900 Balance 240 / -20.000 -630 / -650.000 840 / 840 Weight last 48 hrs Weight 95.254 kg Physical Exam Const: COMMON NORMALS: patient oriented x3 and alert GENERAL APPEARANCE: cooperative and lethargic ORIENTATION/CONSCIOUSNESS: Yes awake and Yes lethargic HENMT: COMMON NORMALS: oropharynx normal Neck/C-Spine: COMMON NORMALS: no JVD Resp: COMMON NORMALS: normal respiratory effort and clear to auscultation bilaterally AUSCULTATION: clear to auscultation bilaterally Cardio: COMMON NORMALS: no JVD, regular rhythm, S1 normal heart sound present, S2 normal heart sound present and No murmurs present (Cardio) RHYTHM: regular rhythm HEART SOUNDS: S1 normal heart sound present and S2 normal heart sound present GI: COMMON NORMALS: Normal to inspection, nondistended, normoactive bowel sounds present, Soft to palpation and non-tender PALPATION: Yes Soft to palpation Extremity: COMMON NORMALS: no joint enlargement and no pedal edema Neuro: COMMON NORMALS: patient oriented x3 and moves all extremities SENSORIUM/ORIENTATION: Yes alert and Yes lethargic Skin: COMMON NORMALS: no rashes or lesions noted GENERAL SKIN EXAM: no rashes or lesions noted Urinary Catheter Management: Hightower: Cath Placed During This Visit: yes Reason for Continuing Indwelling Catheter: Acute Urinary Retention or Obstruction Urinary Catheter Date of Insertion: 12/17/22 Urinary Catheter Time of Insertion: 22:50 Data 12/19/22 04:10 12/19/22 04:10 Micro: Microbiology 12/18/22 00:31 Blood Culture - Preliminary Blood NEGATIVE TO DATE 12/18/22 00:31 Blood Culture - Preliminary Blood NEGATIVE TO DATE A&P Assessment and plan (1) Pneumonia: (2) Acute alteration in mental status: (3) Atrial fibrillation: Qualifiers: Atrial fibrillation type: other persistent Qualified Code(s): I48.19 - Other persistent atrial fibrillation (4) Chronic kidney disease: (5) COPD (chronic obstructive pulmonary disease): (6) Hypertension: Qualifiers: Hypertension type: essential hypertension Qualified Code(s): I10 - Essential (primary) hypertension (7) Cardiomyopathy: Qualifiers: Cardiomyopathy type: dilated Qualified Code(s): I42.0 - Dilated cardiomyopathy Plan Acute encephalopathy improving he is more alert this morning. Reports coughing, some generalized muscle ache. CK reviewed, normal. Reviewed and discussed with him results of modified barium swallow. Noted penetration with thin liquids. Discussed with him aspiration precautions. Started dysphagia diet, mildly thickened liquids for now. Speech therapy assessment is requested. Continue treatment of pneumonia. Sputum culture has been sent out, reviewed, pending. Blood culture reviewed, so far preliminary negative. Blood counts reviewed. Electrolytes and renal function reviewed. Repeat CBC, BMP requested. Magnesium reviewed, soft at 1.8. Will give 1 g magnesium. Discussed with case management. Arrangements for him to go to senior living after discharge. Concern for possibility of aspiration. Family did not notice overt aspiration with eating and drinking When they were with him over the weekend. They did notice some alteration of sleep-wake cycle, he did wake up at 3:30 in the morning to start his day. Additionally he does sometimes miss his morning doses of medications. Continue treatment of pneumonia. Requested MBS, although discussed with nursing staff and family in case he is not alert enough this may need to be postponed. CPAP anytime he is asleep. Patient was found on the floor, with generalized weakness -PT OT Pneumonia Reviewed CT chest. MBS once able to. -Sputum cultures -Respiratory viral panel -Continue DuoNeb -Continue vancomycin, Zosyn CKD -Watch kidney function -Monitor urine output Hypertensive encephalopathy Blood pressure slightly worse today. Resume amlodipine. -Monitor blood pressures -Has received metoprolol -Labetalol as needed -resume home bp medications Atrial fibrillation INR reviewed, noted subtherapeutic. Possibly from a missing medication. Follow-up INR requested. -Continue home Coumadin Attestations Medical Necessity Statement*: Continue admission for assessment management of acute encephalopathy, pneumonia in a gentleman with CKD, advanced age and additional comorbidities as above. Diagnoses Pneumonia J18.9 Acute alteration in mental status R41.82 Atrial fibrillation I48.19 Atrial fibrillation type: other persistent Chronic kidney disease N18.9 COPD (chronic obstructive pulmonary disease) J44.9 Hypertension I10 Hypertension type: essential hypertension Cardiomyopathy I42.0 Cardiomyopathy type: dilated
[2022-12-19] MEDS: magnesium sulfate premix 1 GM/100 ML PIGGYBACK IV (14:14)
[2022-12-19] MEDS: amlodipine 5 mg Tablet PO (14:15)
[2022-12-19] MEDS: vancomycin 1,500 MG/300 ML PIGGYBACK 200 MG IV (15:58)
[2022-12-20] VITALS (14 sets, daily range): BP systolic 129–184; BP diastolic 63–81; PULSE 60–89; RESP 15–19; TEMP 36.4–36.8; O2SAT 94–98
[2022-12-20] MEDS: pantoprazole 40 mg SDV IVP (00:56)
[2022-12-20] MEDS: piperacillin-tazobactam 3.375 GM in sodium chloride 0.9% (plus) 50 ML IV ×3 (03:38→19:29)
[2022-12-20 04:23] LABS: Basophils % 0.5 %; Eosinophils # 0.4 10^3/uL (0.0-0.8); Hematocrit 28.6 % (37-53); Lymphocytes # 1.6 10^3/uL (0.8-4.8); Lymphocytes % 18.4 %; Mean Corpuscular HGB Conc 32.5 g/dL (30-55); Mean Corpuscular Hemoglobin 31.4 pg (27-33); Mean Corpuscular Volume 96.6 fl (82-101); Mean Platelet Volume 9.8 fL (7.4-10.4); Monocytes # 0.9 10^3/uL (0.2-0.9); Monocytes % 10.5 %; Neutrophils # 5.78 10^3/uL (1.8-7.7); Nucleated Red Blood Cells % 0 %; Platelet Count 183 10^3/cmm (157-399); Red Blood Count 2.96 10^6/uL (3.85-5.65); White Blood Count 8.87 10^3/uL (3.29-11.43)
[2022-12-20 04:34] LABS: Partial Thromboplastin Time 31.5 SECONDS (23.9-36.7)
[2022-12-20 04:43] LABS: Anion Gap 14.1 (5-19); Blood Urea Nitrogen 29 mg/dL (8-23); Calcium 9.1 mg/dL (8.5-10.5); Carbon Dioxide 22 mmol/L (22-29); Chloride 104 mmol/L (98-107); Glucose 86 mg/dL (65-115); Osmolality Calculated 287 mOsm/kg (285-295); Potassium 4.1 mmol/L (3.5-5.1); Sodium 136 mmol/L (136-145)
[2022-12-20 04:44] LABS: Magnesium 1.9 mg/dL (1.7-2.3); Phosphorus 3.1 mg/dL (2.5-4.5)
[2022-12-20] MEDS: sodium bicarbonate 650 mg Tablet PO (09:00)
[2022-12-20] MEDS: tamsulosin 0.4 mg Capsule PO (09:00)
[2022-12-20] MEDS: allopurinol 100 mg Tablet PO (09:00)
[2022-12-20] MEDS: metoprolol tartrate 50 mg Tablet 100 MG PO ×2 (09:01→17:03)
[2022-12-20] MEDS: warfarin 3 mg Tablet PO (09:01)
[2022-12-20] MEDS: hyDRALAzine 10 mg Tablet PO ×2 (09:01→17:03)
[2022-12-20] MEDS: PARoxetine 20 mg Tablet 30 MG PO (09:01)
[2022-12-20] MEDS: amlodipine 5 mg Tablet PO (09:01)
[2022-12-20] MEDS: ipratropium-albuterol 3 mL Neb INHALATION ×4 (09:16→20:06)
--- NOTE | 2022-12-20 13:21 | P.PN_ITS ---
Subjective Subjective: Having cough. Not feeling any worse. Vitals/I&O/Wt Last Vital Signs Temp 98.3 F 12/20/22 11:39 Pulse 88 12/20/22 13:00 Resp 16 12/20/22 13:00 BP 129/63 12/20/22 11:39 Pulse Ox 96 12/20/22 13:00 O2 Del Method Nasal Cannula 12/20/22 13:00 O2 Flow Rate 2 12/20/22 13:00 12/19/22 12/20/22 12/20/22 22:59 06:59 14:59 Intake Total 640 / 1530 50 / 1580 290 / 290 Output Total 200 / 200 525 / 725 Balance 440 / 1330 -475 / 855 290 / 290 Physical Exam Narrative: Napping, CPAP on. Const: COMMON NORMALS: patient oriented x3 and alert GENERAL APPEARANCE: cooperative and lethargic ORIENTATION/CONSCIOUSNESS: Yes awake and Yes lethargic HENMT: COMMON NORMALS: oropharynx normal Neck/C-Spine: COMMON NORMALS: no JVD Resp: COMMON NORMALS: normal respiratory effort and clear to auscultation bilaterally AUSCULTATION: clear to auscultation bilaterally Cardio: COMMON NORMALS: no JVD, regular rhythm, S1 normal heart sound present, S2 normal heart sound present and No murmurs present (Cardio) RHYTHM: regular rhythm HEART SOUNDS: S1 normal heart sound present and S2 normal heart sound present GI: COMMON NORMALS: Normal to inspection, nondistended, normoactive bowel sounds present, Soft to palpation and non-tender PALPATION: Yes Soft to palpation Extremity: COMMON NORMALS: no joint enlargement and no pedal edema Neuro: COMMON NORMALS: patient oriented x3 and moves all extremities SENSORIUM/ORIENTATION: Yes alert and Yes lethargic Skin: COMMON NORMALS: no rashes or lesions noted GENERAL SKIN EXAM: no rashes or lesions noted Urinary Catheter Management: Hightower: Cath Placed During This Visit: yes Reason for Continuing Indwelling Catheter: Other Urinary Catheter Date of Insertion: 12/17/22 Urinary Catheter Time of Insertion: 22:50 Data 12/20/22 04:16 12/20/22 04:16 Micro: Microbiology 12/18/22 15:55 Gram Stain - Final Sputum - Expectorated Sputum A&P Assessment and plan (1) Pneumonia: (2) Acute alteration in mental status: (3) Atrial fibrillation: Qualifiers: Atrial fibrillation type: other persistent Qualified Code(s): I48.19 - Other persistent atrial fibrillation (4) Chronic kidney disease: (5) COPD (chronic obstructive pulmonary disease): (6) Hypertension: Qualifiers: Hypertension type: essential hypertension Qualified Code(s): I10 - Essential (primary) hypertension (7) Cardiomyopathy: Qualifiers: Cardiomyopathy type: dilated Qualified Code(s): I42.0 - Dilated cardiomyopathy Plan Acute encephalopathy improving he is more alert this morning. Encephalopathy appears resolved. Continue treatment of pneumonia. Aspiration precautions . Sputum culture reviewed, noted few gram-positive cocci in pairs. Pending. Blood culture reviewed, noted preliminary negative so far. Follow-up. He is afebrile. Blood counts reviewed, WBC noted normal, neutrophils normal. Recheck. Check MRSA PCR we will try to de-escalate Vanco mycin if negative. At risk of SHARMIN with combination of vancomycin and Zosyn. Monitor renal function. Recheck chemistry requested. Magnesium reviewed, noted 1.9.Recheck level. Speech therapy note reviewed. Continue current diet. Discussed with case management in rounds. Arrangements for him to go to care home after discharge. CPAP anytime he is asleep for ELLIOT. Patient was found on the floor, with generalized weakness -Reviewed PT OT notes Pneumonia: as above. Reviewed CT chest. MBS once able to. -Sputum cultures -Respiratory viral panel -Continue DuoNeb -Continue vancomycin, Zosyn CKD -Watch kidney function -Monitor urine output Hypertensive encephalopathy Blood pressure slightly worse today. Resume amlodipine. -Monitor blood pressures -Has received metoprolol -Labetalol as needed -resume home bp medications Atrial fibrillation INR reviewed, noted subtherapeutic. Possibly from a missing medication. Follow-up INR requested. -Continue home Coumadin Attestations Medical Necessity Statement*: Continue admission for assessment management of pneumonia after acute encephalopathy, arrangements for rehabilitation. and High MDM includes amount and/or complexity of data reviewed/ordered [ previous or external records, resulted lab(s)/test(s), ordered lab(s)/test(s) and other healthcare professional discussion] and described risk of complication, morbidity or mortality of management as documented Diagnoses Pneumonia J18.9 Acute alteration in mental status R41.82 Atrial fibrillation I48.19 Atrial fibrillation type: other persistent Chronic kidney disease N18.9 COPD (chronic obstructive pulmonary disease) J44.9 Hypertension I10 Hypertension type: essential hypertension Cardiomyopathy I42.0 Cardiomyopathy type: dilated
[2022-12-21] VITALS (9 sets, daily range): BP systolic 153–167; BP diastolic 72–78; PULSE 67–73; RESP 15–18; TEMP 36.5–37.1; O2SAT 92–97
[2022-12-21] MEDS: pantoprazole 40 mg SDV IVP (01:06)
[2022-12-21 02:44] LABS: Vancomycin Trough 11.2 ug/mL (10-15)
[2022-12-21] MEDS: vancomycin 1,500 MG/300 ML PIGGYBACK 200 MG IV (02:56)
[2022-12-21 04:32] LABS: Basophils % 0.4 %; Eosinophils # 0.3 10^3/uL (0.0-0.8); Eosinophils % 3.2 %; Hematocrit 28.4 % (37-53); Lymphocytes # 1.4 10^3/uL (0.8-4.8); Lymphocytes % 15.5 %; Mean Corpuscular HGB Conc 32.7 g/dL (30-55); Mean Corpuscular Hemoglobin 31.5 pg (27-33); Mean Corpuscular Volume 96.3 fl (82-101); Mean Platelet Volume 9.7 fL (7.4-10.4); Monocytes # 0.9 10^3/uL (0.2-0.9); Monocytes % 10.1 %; Neutrophils # 6.46 10^3/uL (1.8-7.7); Neutrophils % 70.3 %; Nucleated Red Blood Cells % 0 %; Platelet Count 201 10^3/cmm (157-399); Red Blood Count 2.95 10^6/uL (3.85-5.65)
[2022-12-21 04:45] LABS: Partial Thromboplastin Time 28.1 SECONDS (23.9-36.7)
[2022-12-21] MEDS: piperacillin-tazobactam 3.375 GM in sodium chloride 0.9% (plus) 50 ML IV (04:49)
[2022-12-21 04:53] LABS: Magnesium 1.8 mg/dL (1.7-2.3); Phosphorus 2.7 mg/dL (2.5-4.5)
[2022-12-21 04:58] LABS: Anion Gap 15.5 (5-19); Blood Urea Nitrogen 26 mg/dL (8-23); Calcium 8.9 mg/dL (8.5-10.5); Carbon Dioxide 21 mmol/L (22-29); Chloride 104 mmol/L (98-107); Glucose 89 mg/dL (65-115); Osmolality Calculated 286 mOsm/kg (285-295); Potassium 4.5 mmol/L (3.5-5.1); Sodium 136 mmol/L (136-145)
[2022-12-21] MEDS: ipratropium-albuterol 3 mL Neb INHALATION ×2 (08:09→11:10)
[2022-12-21] MEDS: allopurinol 100 mg Tablet PO (08:28)
[2022-12-21] MEDS: PARoxetine 20 mg Tablet 30 MG PO (08:28)
[2022-12-21] MEDS: amlodipine 5 mg Tablet PO (08:28)
[2022-12-21] MEDS: sodium bicarbonate 650 mg Tablet PO (08:28)
[2022-12-21] MEDS: tamsulosin 0.4 mg Capsule PO (08:28)
[2022-12-21] MEDS: hyDRALAzine 10 mg Tablet PO (08:28)
[2022-12-21] MEDS: metoprolol tartrate 50 mg Tablet 100 MG PO (08:28)
[2022-12-21] MEDS: warfarin 3 mg Tablet PO (08:40)
--- NOTE | 2022-12-21 10:10 | PC.SOCIAL ---
IMM Update pg 2 of IMM updated and reviewed w/ patient. Copy provided. Called and left message w/ patients JET Kauffman and updated IMM. Copy in chart dated, initialed and placed in chart.
[2022-12-21 10:23] LABS: SARS Covid-2 Antigen negative (Negative)
--- NOTE | 2022-12-21 10:44 | PM.DCS ---
Discharge Providers Date of Admission: 12/18/22 01:43 Date of Discharge: December 21, 2022 Attending Provider at Admission: Aiden Mullen MD Attending Provider at Discharge: Dariusz Ontiveros Primary Care Provider: Magaly Rivas MD Diagnoses at Discharge Discharge Diagnosis (1) Pneumonia: Status: Acute (2) Acute alteration in mental status: Status: Acute (3) Atrial fibrillation: Status: Acute Qualifiers: Atrial fibrillation type: other persistent Qualified Code(s): I48.19 - Other persistent atrial fibrillation (4) Chronic kidney disease: Status: Acute (5) COPD (chronic obstructive pulmonary disease): Status: Acute (6) Hypertension: Status: Acute Qualifiers: Hypertension type: essential hypertension Qualified Code(s): I10 - Essential (primary) hypertension (7) Cardiomyopathy: Status: Acute Qualifiers: Cardiomyopathy type: dilated Qualified Code(s): I42.0 - Dilated cardiomyopathy Reason for Visit Reason for Visit: FALL Hospital Course Hospital Course Pleasant 87-year-old gentleman with history of atrial fibrillation on Eliquis, CKD, HTN, HLD, history of cardiomyopathy, was admitted due to acute encephalopathy on presentation with finding of acute pneumonia, was treated with Zosyn, vancomycin combination, renal function was monitored, remaining at baseline. Respiratory viral panel was negative. Sputum cultures obtained, so far unrevealing with only normal lexy. Acute encephalopathy resolved. He remains awake and alert. Please exercise caution with any medications that may contribute to mental status changes. He overall has been doing better, although still is coughing, with some concern for aspiration was assessed by modified barium swallow, speech therapy. Noted to have delayed oropharyngeal phase with delayed bolus formation. Evidence of early spillage with pooling and residue in the vallecula small mount of penetration with thin liquids. No leia aspiration. Recommended to continue aspiration precautions, dysphagia diet with easy to chew cardiac diet with lightly thickened liquids. Encephalopathy additionally with possible component of hypertensive encephalopathy. Please continue to reassess and optimize blood pressure control. At current amlodipine is increased to 10 mg/day. Hydralazine escalated to 10 mg 3 times daily. Physical Exam Narrative: Napping, CPAP on. Const: COMMON NORMALS: patient oriented x3 and alert GENERAL APPEARANCE: cooperative and lethargic ORIENTATION/CONSCIOUSNESS: Yes awake and Yes lethargic HENMT: COMMON NORMALS: oropharynx normal Neck/C-Spine: COMMON NORMALS: no JVD Resp: COMMON NORMALS: normal respiratory effort and clear to auscultation bilaterally AUSCULTATION: clear to auscultation bilaterally Cardio: COMMON NORMALS: no JVD, regular rhythm, S1 normal heart sound present, S2 normal heart sound present and No murmurs present (Cardio) RHYTHM: regular rhythm HEART SOUNDS: S1 normal heart sound present and S2 normal heart sound present GI: COMMON NORMALS: Normal to inspection, nondistended, normoactive bowel sounds present, Soft to palpation and non-tender PALPATION: Yes Soft to palpation Extremity: COMMON NORMALS: no joint enlargement and no pedal edema Neuro: COMMON NORMALS: patient oriented x3 and moves all extremities SENSORIUM/ORIENTATION: Yes alert and Yes lethargic Skin: COMMON NORMALS: no rashes or lesions noted GENERAL SKIN EXAM: no rashes or lesions noted Urinary Catheter Management: Hightower: Cath Placed During This Visit: yes Reason for Continuing Indwelling Catheter: Other Urinary Catheter Date of Insertion: 12/17/22 Urinary Catheter Time of Insertion: 22:50 Discharge Data Studies Completed and Pending Completed Studies During Hospitalization Category Date Time Status CT chest wo con [id number] Stat Cat Scan 12/18/22 00:[address] head wo con* [id number] Stat Cat Scan 12/17/22 22:26 Completed Modified barium swallow [FL barium swallow modifd [id number] Exams 12/18/22 08:38 Completed ] Routine XR chest 1V portable [id number] Stat Exams 12/17/22 22:26 Completed Pending at discharge Category Date Time Status Blood Culture Stat Lab 12/18/22 00:31 Results MRSA [Methicillin Resistant S.aureu] Routine Lab 12/20/22 14:05 Ordered Sputum Culture and Gram Stain Stat Lab 12/18/22 15:55 Results Radiology Impressions Chest X-Ray 12/17/22 22:26 IMPRESSION: 1. Progressive areas of diffuse interstitial atelectasis, pneumonitis, or more likely edema from 10/14/2022. 2. Increasing right lung base atelectasis or scarring. Head CT 12/17/22 22:26 IMPRESSION: 1. No acute intracranial abnormality. 2. Moderate age-related changes. Chest CT 12/18/22 00:53 IMPRESSION: 1. Increasing areas of bilateral mid to lower lung atelectasis, edema, or developing pneumonia with underlying likely progressive lung scarring. Lung findings have progressed considerably from 07/18/2020. Recommend three-month follow-up. 2. Large heart with venous congestion, COPD, prominent right basilar benign-appearing calcifications, atherosclerosis, etc. COMMENTS: Consistent with the [employer]'s Incidental Findings Committee white paper (J Am Fernie Radiol 2018): Any incidental renal lesion less than 1 cm or classified as too small to characterize, or any incidental cystic renal lesion characterized as simple-appearing, is likely benign. No follow-up imaging is recommended for these lesions per consensus recommendations based on imaging criteria. Laboratory Results WBC 9.20 10^3/uL (3.29-11.43) 12/21/22 04:05 RBC 2.95 10^6/uL (3.85-5.65) L 12/21/22 04:05 Hgb 9.30 g/dL (11.27-16.99) L 12/21/22 04:05 Hct 28.4 % (37-53) L 12/21/22 04:05 MCV 96.3 fl (82-101) 12/21/22 04:05 MCH 31.5 pg (27-33) 12/21/22 04:05 MCHC 32.7 g/dL (30-55) 12/21/22 04:05 RDW 13.0 % (12.1-15.1) 12/21/22 04:05 Plt Count 201 10^3/cmm (157-399) 12/21/22 04:05 MPV 9.7 fL (7.4-10.4) 12/21/22 04:05 Neut % (Auto) 70.3 % 12/21/22 04:05 Lymph % (Auto) 15.5 % 12/21/22 04:05 [place] % (Auto) 10.1 % 12/21/22 04:05 Eos % (Auto) 3.2 % 12/21/22 04:05 Baso % (Auto) 0.4 % 12/21/22 04:05 Neut # (Auto) 6.46 10^3/uL (1.8-7.7) 12/21/22 04:05 Lymph # (Auto) 1.4 10^3/uL (0.8-4.8) 12/21/22 04:05 [place] # (Auto) 0.9 10^3/uL (0.2-0.9) 12/21/22 04:05 Eos # (Auto) 0.3 10^3/uL (0.0-0.8) 12/21/22 04:05 Baso # (Auto) 0.0 10^3/uL (0.0-0.1) 12/21/22 04:05 Nucleated RBC % (auto) 0 % 12/21/22 04:05 Nucleated RBCs # 0.0 /100WBC 12/21/22 04:05 PT 15.60 SECONDS (12.1-14.9) H 12/20/22 04:16 INR 1.20 (0.8-1.2) 12/20/22 04:16 APTT 28.1 SECONDS (23.9-36.7) 12/21/22 04:05 Sodium 136 mmol/L (136-145) 12/21/22 04:05 Potassium 4.5 mmol/L (3.5-5.1) 12/21/22 04:05 Chloride 104 mmol/L (98-107) 12/21/22 04:05 Carbon Dioxide 21 mmol/L (22-29) L 12/21/22 04:05 Anion Gap 15.5 (5-19) 12/21/22 04:05 BUN 26 mg/dL (8-23) H 12/21/22 04:05 Creatinine 2.5 mg/dL (0.7-1.2) H 12/21/22 04:05 GFR Calculation Not Reportable 12/21/22 04:05 Glucose 89 mg/dL (65-115) 12/21/22 04:05 Estimat Average Glucose 114 12/17/22 21:50 Hemoglobin A1c 5.6 % (4.0-6.0) 12/17/22 21:50 Calculated Osmolality 286 mOsm/kg (285-295) 12/21/22 04:05 Lactic Acid 1.2 mmol/L (0.5-2.2) 12/17/22 21:56 Calcium 8.9 mg/dL (8.5-10.5) 12/21/22 04:05 Phosphorus 2.7 mg/dL (2.5-4.5) 12/21/22 04:05 Magnesium 1.8 mg/dL (1.7-2.3) 12/21/22 04:05 Total Bilirubin 0.7 mg/dL (0.15-1.2) 12/17/22 21:56 AST 14 U/L (0-40) 12/17/22 21:56 ALT 16 U/L (0-41) 12/17/22 21:56 Alkaline Phosphatase 118 U/L (40-130) 12/17/22 21:56 Creatine Kinase 62 U/L (39-308) 12/17/22 21:56 Troponin T Baseline 40 ng/L (0-15) H 12/18/22 01:18 Troponin T 120 Minute 37.41 ng/L (0-15) H 12/18/22 03:23 Delta Troponin T -2.59 ABS# (0-10) L 12/18/22 03:23 Troponin T Hi Sens 6Hr 39.23 ng/L (0-15) H 12/18/22 06:39 Troponin T Hi Sens 6Hr Delta -0.77 ng/L (0-12) L 12/18/22 06:39 C-Reactive Protein 143.5 mg/L (0.0-4.9) H 12/17/22 21:56 NT-Pro-B Natriuret Pep 3395 pg/mL (0-450) H 12/17/22 21:50 Total Protein 7.1 g/dL (6.6-8.7) 12/17/22 21:56 Albumin 3.4 g/dL (3.5-5.2) L 12/17/22 21:56 Globulin 3.7 g/dL (1.3-4.6) 12/17/22 21:56 Triglycerides 81 mg/dL (0-150) 12/17/22 21:50 Cholesterol 148 mg/dL (0-200) 12/17/22 21:50 LDL Cholesterol, Calc 95 mg/dL (50-129) 12/17/22 21:50 HDL Cholesterol 37 mg/dL (60-100) L 12/17/22 21:50 LDL/HDL Ratio 2.57 RATIO (0.00-3.22) 12/17/22 21:50 Cholesterol/HDL Ratio 4.00 mg/dL (1.0-5.00) 12/17/22 21:50 Procalcitonin 0.30 ng/mL (0-0.5) 12/17/22 21:50 TSH 2.16 uIU/mL (0.27-4.20) 12/17/22 21:50 Urine Color Yellow (Yellow) 12/17/22 23:00 Urine Appearance Clear (CLEAR) 12/17/22 23:00 Urine pH 5 (5-7) 12/17/22 23:00 Ur Specific [place] 1.015 (1.005-1.030) 12/17/22 23:00 Urine Protein 2+ (Negative) H 12/17/22 23:00 Urine Glucose (UA) Norm (Normal) 12/17/22 23:00 Urine Ketones Negative (Negative) 12/17/22 23:00 Urine Blood 2+ (Negative) H 12/17/22 23:00 Urine Nitrate Negative (Negative) 12/17/22 23:00 Urine Bilirubin Neg (Negative) 12/17/22 23:00 Urine Urobilinogen Neg mg/dL (Negative) 12/17/22 23:00 Ur Leukocyte Esterase Negative (Negative) 12/17/22 23:00 Urine RBC 0-4 /hpf (0-2) H 12/17/22 23:00 Urine WBC None /hpf (0-5) 12/17/22 23:00 Ur Squamous Epith Cells None /hpf (0-5) 12/17/22 23:00 Amorphous Sediment Not Reportable 12/17/22 23:00 Urine Bacteria Trace /hpf (NONE) 12/17/22 23:00 Urine Mucus 1+ /hpf 12/17/22 23:00 Nasal Influ A H1 2008 PCR Not detected (NOT DETECT) 12/18/22 02:50 Vancomycin Trough 11.2 ug/mL (10-15) 12/21/22 02:06 Ethyl Alcohol < 10 mg/dL (0-10) 12/17/22 21:56 Adenovirus (PCR) Not detected (NOT DETECT) 12/18/22 02:50 C. pneumoniae DNA (PCR) Not detected (NOT DETECT) 12/18/22 02:50 Coronavirus 229E (PCR) Not detected (NOT DETECT) 12/18/22 02:50 Human Metapneumovir PCR Not detected (NOT DETECT) 12/18/22 02:50 Influenza A (H1) PCR Not detected (NOT DETECT) 12/18/22 02:50 Influenza A (H3) PCR Not detected (NOT DETECT) 12/18/22 02:50 Influenza Type A (PCR) Not detected (NOT DETECT) 12/18/22 02:50 Influenza Type B (PCR) Not detected (NOT DETECT) 12/18/22 02:50 M. pneumoniae (PCR) Not detected (NOT DETECT) 12/18/22 02:50 Parainfluenza 1 (PCR) Not detected (NOT DETECT) 12/18/22 02:50 Parainfluenza 2 (PCR) Not detected (NOT DETECT) 12/18/22 02:50 Parainfluenza 3 (PCR) Not detected (NOT DETECT) 12/18/22 02:50 Parainfluenza 4 (PCR) Not detected (NOT DETECT) 12/18/22 02:50 RSV Type A (PCR) Not detected (NOT DETECT) 12/18/22 02:50 RSV Type B (PCR) Not detected (NOT DETECT) 12/18/22 02:50 Entero/Rhino (PCR) Not detected (NOT DETECT) 12/18/22 02:50 SARS-CoV-2 (PCR) Not detected (NOT DETECT) 12/18/22 02:50 SARS-CoV-2 Ag (Rapid) negative (Negative) 12/21/22 09:43 Vitals Last Vital Signs Temp 97.8 F 12/21/22 08:00 Pulse 73 12/21/22 08:17 Resp 18 12/21/22 08:17 BP 153/73 12/21/22 08:00 Pulse Ox 93 12/21/22 08:17 O2 Del Method Room Air 12/21/22 08:17 O2 Flow Rate 2 12/20/22 20:00 Discharge Plan Discharge Patient Disposition: Xfer SNF Condition: Stable Prescriptions: New amoxicillin-pot clavulanate 875-125 mg tablet 1 tab PO BID Qty: 10 0RF Continued paroxetine HCl 30 mg tablet 30 mg PO DAILY tamsulosin 0.4 mg capsule 0.4 mg PO QPM (DME) BiPAP See Rx Instructions .Route .MEDSUPPLY Qty: 1 0RF Rx Instructions: Settings of 01/29 omeprazole 20 mg Capsule,Delayed Release(Dr/Ec) 20 mg PO QAM hydrocodone-acetaminophen 7.5-325 mg Tablet 1 tab PO BID PRN (Reason: Pain) sodium bicarbonate 650 mg Tablet 650 mg PO DAILY Qty: 30 0RF calcitriol 0.5 mcg capsule 0.5 mcg PO DAILY Qty: 30 0RF Senokot 8.6 mg Tablet 8.6 mg PO DAILY fexofenadine 60 mg Tablet 60 mg PO BID PRN (Reason: Allergic Symptoms) metoprolol tartrate 100 mg tablet 100 mg PO BID Eliquis 5 mg Tablet 2.5 mg PO BID Changed hydralazine 10 mg tablet 10 mg PO TID Qty: 30 0RF amlodipine 5 mg tablet 10 mg PO DAILY Qty: 30 0RF Discharge Orders: Discharge Order (Routine); Ordered 12/21/22 Ordered By: Dariusz Ontiveros Referrals: SNF, PCP [Other] - 4-7 days [facility] [Outside] Magaly Rivas MD [Primary Care Provider] - Discharge Diet: As Directed Discharge Activity: As per PT/OT instructions Patient Instructions: Opioid Safety Activity Restrictions/Additional Instructions: Maintain aspiration precautions. Continue easy to chew dysphagia level 7 cardiac diet with slightly thick liquids. Continue follow-up with speech therapy. Complete antibiotic course for pneumonia. Caution with any medications that may contribute to mental status changes. Continue to optimize control of hypertension. Avoid persistent hypotension. Follow-up regarding chronic conditions including atrial fibrillation, chronic kidney disease, hypertension. Discharge Attestations Time Spent in Discharge Care*: greater than 30 min Quality Metrics Clinical Quality Measures [ No reported AMI, CVA or VTE this stay] Coding Level of Care Code 51940 Total time (in minutes) for Discharge: 40 Diagnoses Pneumonia J18.9 Acute alteration in mental status R41.82 Atrial fibrillation I48.19 Atrial fibrillation type: other persistent Chronic kidney disease N18.9 COPD (chronic obstructive pulmonary disease) J44.9 Hypertension I10 Hypertension type: essential hypertension Cardiomyopathy I42.0 Cardiomyopathy type: dilated
== END 2022-12-21 12:31 | disposition short-term general hospital (02) | DRG 194 ==
LOC: ER 12-18 00:48 → MEDSURG 12-18 01:54
PROVIDERS: Admitting Provider Family Medicine; Emergency Provider Emergency Medicine; PCP Internal Medicine; Visit Provider Internal Medicine
DX: J18.9 Pneumonia, unspecified organism (principal); I42.0 Dilated cardiomyopathy; I48.19 Other persistent atrial fibrillation; J44.0 Chronic obstructive pulmonary disease with (acute) lower respiratory infection; I67.4 Hypertensive encephalopathy; N18.9 Chronic kidney disease, unspecified; I12.9 Hypertensive chronic kidney disease with stage 1 through stage 4 chronic kidney disease, or unspecified chronic kidney disease; E78.5 Hyperlipidemia, unspecified; Z79.891 Long term (current) use of opiate analgesic; Z79.02 Long term (current) use of antithrombotics/antiplatelets; Z86.73 Personal history of transient ischemic attack (TIA), and cerebral infarction without residual deficits; K21.9 Gastro-esophageal reflux disease without esophagitis; M10.9 Gout, unspecified; G31.84 Mild cognitive impairment of uncertain or unknown etiology; G47.33 Obstructive sleep apnea (adult) (pediatric); Z11.52 Encounter for screening for COVID-19; Z87.891 Personal history of nicotine dependence; Z87.440 Personal history of urinary (tract) infections; G62.9 Polyneuropathy, unspecified
CPT/HCPCS: 36415; 51702; 70450; 71045; 71250; 74230; 80048; 80053; 80061; 80202; 80307; 81001; 82550; 83036; 83605; 83735; 83880; 84100; 84145; 84443; 84484; 85025; 85610; 85730; 86140; 87040; 87070; 87205; 87426; 87486; 87581; 87633; 92507; 92523; 92526; 92610; 92611; 93005; 94640; 96365; 96375; 97110; 97116; 97161; 97166; 97530; 97535; 99285; C9113; J2405; J2543; J3370; J3475; J3490; J7030

== ENCOUNTER 2023-01-26 05:12 | Emergency (ER) | payer OTHER, SELFPAY ==
[2023-01-26 05:16] VITALS: PULSE 67; RESP 21; TEMP 36.6
--- NOTE | 2023-01-26 05:22 | ECG_ITS ---
[facility] Test Date: 2023-01-26 Pat Name: Alexey An Department: Room: Gender: Male [employer]ing [employer] Operator: : [id number] Requested By: Keith Guo Order Number: [id number] Timmons MD: Munira Balderas M.D. Measurements Intervals [place] Rate: 72 P: 109 IA: 200 QRS: -40 QRSD: 162 T: 131 QT: 409 QTc: 449 Interpretive Statements ELECTRONIC ATRIAL PACEMAKER LEFT AXIS DEVIATION [QRS AXIS < -30] LEFT BUNDLE BRANCH BLOCK [120+ ms QRS DURATION, 80+ ms Q/S IN V1/V2, 85+ ms R IN I/aVL/V5/V6] Compared to ECG 12/19/2022 00:24:47 Sinus rhythm no longer present Sinus arrhythmia no longer present Electronically Signed On 01-26-2023 10:09:14 CDT by Munira Balderas M.D. [email or web address]
--- NOTE | 2023-01-26 05:22 | XRR_ITS ---
PROCEDURE INFORMATION: Exam: XR Chest Exam date and time: 01/26/2023 5:25 AM Age: 87 years old Clinical indication: Other: Defib firing off; Prior surgery; Surgery date: 6+ months; Patient HX: From group home for defibrillator firing off twice. ; Additional info: Arrhythmia TECHNIQUE: Imaging protocol: Radiologic exam of the chest. Views: 1 view. COMPARISON: CT chest con [id number] 12/18/2022 3:00 AM FINDINGS: Tubes, catheters and devices: Left-sided pacemaker/AICD in place. Lungs: Chronic right basilar atelectasis or scarring. Pleural spaces: No significant costophrenic angle blunting. No pneumothorax. Heart/Mediastinum: Heart size appears prominent but is likely exaggerated by the portable AP technique. Vasculature: Atherosclerotic tortuosity and calcification of the thoracic aorta. Bones/joints: Thoracic spondylosis and degenerative bony changes. XR/XR chest 1V portable [id number] IMPRESSION: Chronic right basilar atelectasis or scarring.
[2023-01-26 05:36] LABS: Basophils # 0.1 10^3/uL (0.0-0.1); Basophils % 0.6 %; Eosinophils # 0.5 10^3/uL (0.0-0.8); Eosinophils % 4.6 %; Hematocrit 33.5 % (37-53); Lymphocytes # 2.2 10^3/uL (0.8-4.8); Lymphocytes % 21.8 %; Mean Corpuscular HGB Conc 32.5 g/dL (30-55); Mean Corpuscular Hemoglobin 30.8 pg (27-33); Mean Corpuscular Volume 94.6 fl (82-101); Mean Platelet Volume 9.6 fL (7.4-10.4); Monocytes # 0.9 10^3/uL (0.2-0.9); Monocytes % 8.9 %; Neutrophils # 6.36 10^3/uL (1.8-7.7); Neutrophils % 63.8 %; Nucleated Red Blood Cells % 0 %; Platelet Count 202 10^3/cmm (157-399); Red Blood Count 3.54 10^6/uL (3.85-5.65); White Blood Count 9.98 10^3/uL (3.29-11.43)
--- NOTE | 2023-01-26 05:42 | ED_ITS ---
Documented by User: Keith Melendez DO 01/26/23 15:37 HPI - Arrhythmia/Palpitations General: Chief Complaint: Arrhythmia/Palpitations Stated Complaint: DEFIB X 2 TIMES Time Seen by Provider: 01/26/23 05:20 History of Present Illness: 87-year-old gentleman with a history of cardiomyopathy with implanted AICD device. He presents after his device has fired twice in the last 24 hours or so. He notes that he has had an increased cough the past few days. No more shortness of breath than usual. No fever. No extra leg swelling. No chest pain. Associated symptoms: Deny nausea or vomiting Review of Systems Const: Denies: fever(s) Eyes: Denies: change in vision Card: Denies: chest pain or palpitations Resp: Reports: dyspnea, productive cough and non-productive cough GI: Denies: abdominal pain, nausea or vomiting [facility] ED PFSH: Medical History Acute metabolic encephalopathy Ataxia Atrial fibrillation Cardiomyopathy Carotid artery stenosis Chronic anticoagulation Chronic kidney disease COPD (chronic obstructive pulmonary disease) CVA (cerebral vascular accident) DDD (degenerative disc disease) GERD (gastroesophageal reflux disease) Gout Herpes zoster Hyperlipidemia Hypertension Hypomagnesemia Implantable cardioverter-defibrillator (ICD) discharge Long-term (current) use of anticoagulants, INR goal 2.0-3.0 Microscopic hematuria Mild cognitive impairment with memory loss Obstructive sleep apnea Orthostatic hypotension Pacemaker Peripheral neuropathy Rhabdomyolysis Stroke-like symptom Thrombocytopenia TIA (transient ischemic attack) UTI (urinary tract infection) Wide-complex tachycardia Surgical History History of appendectomy History of cataract extraction History of tonsillectomy and adenoidectomy Hx of laminectomy Family History Mother CAD (coronary artery disease) valve replaced at 86 Brother Chronic kidney disease (CKD) Father Stroke Family/Other Suicide Denies family history of Diabetes Clotting disorder Dementia Anesthesia complication Bleeding disorder Lung disease Cancer Social History Smoking and tobacco/nicotine status: former use of tobacco/nicotine Alcohol intake: never Substance/Drug Use: never Physical Exam Const: COMMON NORMALS: no acute distress GENERAL APPEARANCE: cooperative and frail appearing; not ill appearing HENMT: COMMON NORMALS: normocephalic, atraumatic and Normal external nose present HEAD & SCALP: normocephalic and atraumatic FACE & SINUS: normal facial exam and face symmetric NOSE: Normal external nose present Eye: COMMON NORMALS: Equal, round and reactive pupils present and EOMs intact bilaterally PUPIL: Yes Equal, round and reactive pupils present Neck/C-Spine: GENERAL: Yes trachea midline Chest: CHEST: Yes Symmetrical chest wall rise Resp: COMMON NORMALS: normal respiratory effort, No retractions, No use of accessory muscles and clear to auscultation bilaterally AUSCULTATION: clear to auscultation bilaterally Cardio: COMMON NORMALS: regular rate and regular rhythm RATE: regular rate RHYTHM: regular rhythm GI: COMMON NORMALS: Normal to inspection, nondistended, normoactive bowel sounds present Extremity: COMMON NORMALS: no pedal edema Neuro: KAJAL COMA SCALE: document GCS findings Kajal coma scale eye opening: Spontaneous [place] coma scale verbal response: Orientated [place] coma scale motor response: Obey commands Kajal coma scale total score: 15 SENSORY EXAM: Yes extremities (intact) Psych: COMMON NORMALS: speech normal SPEECH: Yes normal speech Skin: COMMON NORMALS: no rashes or lesions noted GENERAL SKIN EXAM: no rashes or lesions noted Course Vital Signs: Vital signs: Vital Signs Temperature 97.8 F 01/26/23 05:16 Pulse Rate 106 H 01/26/23 08:12 Respiratory Rate 18 01/26/23 08:12 Pulse Oximetry 93 01/26/23 08:12 Oxygen Delivery Me thod Room Air 01/26/23 08:12 MDM - Arrhythmia/Palpitations Medical Decision Making 87-year-old gentleman with cardiomyopathy and an AICD that has fired twice. We will interrogate the pacemaker. Laboratory work-up as well. Initial laboratory shows a hemoglobin of 11. Other laboratory is pending. EKG shows electronic atrial pacemaker with a rate of 70. No arrhythmias at this point on the monitor. Patient will be checked out to Dr. Restrepo at shift change. Lab Data 01/26/23 05:23 01/26/23 05:23 Radiology Impressions Chest X-Ray 01/26/23 05:22 IMPRESSION: Chronic right basilar atelectasis or scarring. Laboratory Results WBC 9.98 10^3/uL (3.29-11.43) 01/26/23 05: RBC 3.54 10^6/uL (3.85-5.65) L 01/26/23 05:23 Hgb 10.90 g/dL (11.27-16.99) L 01/26/23 05:23 Hct 33.5 % (37-53) L 01/26/23 05:23 MCV 94.6 fl (82-101) 01/26/23 05:23 MCH 30.8 pg (27-33) 01/26/23 05: MCHC 32.5 g/dL (30-55) 01/26/23 05: RDW 13.0 % (12.1-15.1) 01/26/23 05:23 Plt Count 202 10^3/cmm (157-399) 01/26/23 05:23 MPV 9.6 fL (7.4-10.4) 01/26/23 05:23 Neut % (Auto) 63.8 % 01/26/23 05:23 Lymph % (Auto) 21.8 % 01/26/23 05:23 [place] % (Auto) 8.9 % 01/26/23 05:23 Eos % (Auto) 4.6 % 01/26/23 05:23 Baso % (Auto) 0.6 % 01/26/23 05:23 Neut # (Auto) 6.36 10^3/uL (1.8-7.7) 01/26/23 05:23 Lymph # (Auto) 2.2 10^3/uL (0.8-4.8) 01/26/23 05:23 [place] # (Auto) 0.9 10^3/uL (0.2-0.9) 01/26/23 05:23 Eos # (Auto) 0.5 10^3/uL (0.0-0.8) 01/26/23 05:23 Baso # (Auto) 0.1 10^3/uL (0.0-0.1) 01/26/23 05:23 Nucleated RBC % (auto) 0 % 01/26/23 05:23 Nucleated RBCs # 0.0 /100WBC 01/26/23 05:23 PT 14.80 SECONDS (12.1-14.9) 01/26/23 05:23 INR 1.12 (0.8-1.2) 01/26/23 05:23 APTT 30.8 SECONDS (23.9-36.7) 01/26/23 05:23 Sodium 140 mmol/L (136-145) 01/26/23 05:23 Potassium 4.7 mmol/L (3.5-5.1) 01/26/23 05:23 Chloride 103 mmol/L (98-107) 01/26/23 05:23 Carbon Dioxide 28 mmol/L (22-29) 01/26/23 05:23 Anion Gap 13.7 (5-19) 01/26/23 05:23 BUN 30 mg/dL (8-23) H 01/26/23 05:23 Creatinine 2.3 mg/dL (0.7-1.2) H 01/26/23 05:23 GFR Calculation Not Reportable 01/26/23 05:23 Glucose 103 mg/dL (65-115) 01/26/23 05:23 Calculated Osmolality 296 mOsm/kg (285-295) H 01/26/23 05:23 Calcium 10.7 mg/dL (8.5-10.5) H 01/26/23 05:23 Magnesium 2.0 mg/dL (1.7-2.3) 01/26/23 05:23 Total Bilirubin 0.3 mg/dL (0.15-1.2) 01/26/23 05:23 AST 15 U/L (0-40) 01/26/23 05:23 ALT 22 U/L (0-41) 01/26/23 05:23 Alkaline Phosphatase 102 U/L (40-130) 01/26/23 05:23 Creatine Kinase 38 U/L (39-308) L 01/26/23 05:23 Troponin T Baseline 39 ng/L (0-15) H 01/26/23 05:23 Troponin T 120 Minute 38.15 ng/L (0-15) H 01/26/23 07:20 Delta Troponin T -0.85 ABS# (0-10) L 01/26/23 07:20 NT-Pro-B Natriuret Pep 2623 pg/mL (0-450) H 01/26/23 05:23 Total Protein 6.8 g/dL (6.6-8.7) 01/26/23 05:23 Albumin 3.5 g/dL (3.5-5.2) 01/26/23 05:23 Globulin 3.3 g/dL (1.3-4.6) 01/26/23 05:23 TSH 2.64 uIU/mL (0.27-4.20) 01/26/23 05:23 All radiology interpretation(s) finalized by discharge Discharge Plan Discharge Patient Disposition: Home Clinical Impression: Non-sustained ventricular tachycardia Condition: Stable Prescriptions: No Action paroxetine HCl 30 mg tablet 30 mg PO DAILY tamsulosin 0.4 mg capsule 0.4 mg PO QPM (DME) BiPAP See Rx Instructions .Route .MEDSUPPLY Qty: 1 0RF Rx Instructions: Settings of 01/29 omeprazole 20 mg Capsule,Delayed Release(Dr/Ec) 20 mg PO QAM hydrocodone-acetaminophen 7.5-325 mg Tablet 1 tab PO BID PRN (Reason: Pain) sodium bicarbonate 650 mg Tablet 650 mg PO DAILY Qty: 30 0RF calcitriol 0.5 mcg capsule 0.5 mcg PO DAILY Qty: 30 0RF Senokot 8.6 mg Tablet 8.6 mg PO DAILY fexofenadine 60 mg Tablet 60 mg PO BID PRN (Reason: Allergic Symptoms) metoprolol tartrate 100 mg tablet 100 mg PO BID Eliquis 5 mg Tablet 2.5 mg PO BID amoxicillin-pot clavulanate 875-125 mg tablet 1 tab PO BID Qty: 10 0RF hydralazine 10 mg tablet 10 mg PO TID Qty: 30 0RF amlodipine 5 mg tablet 10 mg PO DAILY Qty: 30 0RF Discharge Orders: Discharge ED (Routine); Ordered 01/26/23 Ordered By: Yifan Restrepo Referrals: Magaly Rivas MD [Primary Care Provider] - Discharge Diet: Usual diet Discharge Activity: Resume usual activity Patient Instructions: Opioid Safety, Pain Management Activity Restrictions/Additional Instructions: Thank you for choosing [facility] for your healthcare needs today. Please realize this is an emergency room and that we are providing you with a medical screening exam and this may not be complete and all inclusive of all the testing and or work up that you may need to determine your ailment or severity of your illness. It is very important that you follow up as instructed or that you return to the Emergency Department should you have concerns or if your condition changes or worsens in any way. Your pacemaker was interrogated/evaluated. It showed 7 events since November 16, 2022 when it was last evaluated. 3 of those events were last night. None of those events required any treatment from the pacemaker. There were no shocks delivered and no antitachycardia pacing used for these episodes. All 3 of the episodes were nonsustained ventricular tachycardia that lasted between 7 and 9 seconds and then resolved spontaneously. Follow-up with your facility operations manager. Sign Out Sign Out Data: Patient Sign Out occurred on 01/26/23 at 06:06. Patient's care was discussed, and care was transferred from to Yifan Restrepo DO. Coding Level of Care Code ED Sap Bobj Developer for Chg Fwd Documented by User: Yifan Restrepo DO 01/26/23 16:45 HPI - Arrhythmia/Palpitations General: Chief Complaint: Arrhythmia/Palpitations Stated Complaint: DEFIB X 2 TIMES Time Seen by Provider: 01/26/23 05:20 PFSH ED PFSH: Medical History Acute metabolic encephalopathy Ataxia Atrial fibrillation Cardiomyopathy Carotid artery stenosis Chronic anticoagulation Chronic kidney disease COPD (chronic obstructive pulmonary disease) CVA (cerebral vascular accident) DDD (degenerative disc disease) GERD (gastroesophageal reflux disease) Gout Herpes zoster Hyperlipidemia Hypertension Hypomagnesemia Implantable cardioverter-defibrillator (ICD) discharge Long-term (current) use of anticoagulants, INR goal 2.0-3.0 Microscopic hematuria Mild cognitive impairment with memory loss Obstructive sleep apnea Orthostatic hypotension Pacemaker Peripheral neuropathy Rhabdomyolysis Stroke-like symptom Thrombocytopenia TIA (transient ischemic attack) UTI (urinary tract infection) Wide-complex tachycardia Surgical History History of appendectomy History of cataract extraction History of tonsillectomy and adenoidectomy Hx of laminectomy Family History Mother CAD (coronary artery disease) valve replaced at 86 Brother Chronic kidney disease (CKD) Father Stroke Family/Other Suicide Denies family history of Diabetes Clotting disorder Dementia Anesthesia complication Bleeding disorder Lung disease Cancer Social History Smoking and tobacco/nicotine status: former use of tobacco/nicotine Alcohol intake: never Substance/Drug Use: never Physical Exam Neuro: KAJAL COMA SCALE: document GCS findings Kajal coma scale total score: 15 Course Vital Signs: Vital signs: Vital Signs Temperature 97.8 F 01/26/23 05:16 Pulse Rate 106 H 01/26/23 08:12 Respiratory Rate 18 01/26/23 08:12 Pulse Oximetry 93 01/26/23 08:12 Oxygen Delivery Me thod Room Air 01/26/23 08:12 MDM - Arrhythmia/Palpitations Medical Decision Making 87-year-old gentleman with cardiomyopathy and an AICD that has fired twice. We will interrogate the pacemaker. Laboratory work-up as well. Initial laboratory shows a hemoglobin of 11. Other laboratory is pending. EKG shows electronic atrial pacemaker with a rate of 70. No arrhythmias at this point on the monitor. Patient will be checked out to Dr. Restrepo at shift change. Care assumed at change of shift. Interrogation shows 3 nonsustained V. tach events lasting from 7 to 9 seconds. All no treatment no shocks no alternative pacing. Reviewed with the patient author reviewed the interrogation with Dr. Molina. Patient is convinced that he did have defib's because he states he seen the garcia in his fingers. Discussed with him that would not be caused by an I CD discharge. We will discharge patient back to the long term follow-up with cardiology Medical Records I reviewed the patient's medical records. Lab Data I reviewed the patient's lab results. 01/26/23 05:23 01/26/23 05:23 Radiology Impressions Chest X-Ray 01/26/23 05:22 IMPRESSION: Chronic right basilar atelectasis or scarring. Laboratory Results WBC 9.98 10^3/uL (3.29-11.43) 01/26/23 05:23 RBC 3.54 10^6/uL (3.85-5.65) L 01/26/23 05:23 Hgb 10.90 g/dL (11.27-16.99) L 01/26/23 05: Hct 33.5 % (37-53) L 01/26/23 05: MCV 94.6 fl (82-101) 01/26/23 05:23 MCH 30.8 pg (27-33) 01/26/23 05: MCHC 32.5 g/dL (30-55) 01/26/23 05: RDW 13.0 % (12.1-15.1) 01/26/23 05: Plt Count 202 10^3/cmm (157-399) 01/26/23 05: MPV 9.6 fL (7.4-10.4) 01/26/23 05: Neut % (Auto) 63.8 % 01/26/23 05: Lymph % (Auto) 21.8 % 01/26/23 05: [place] % (Auto) 8.9 % 01/26/23 05: Eos % (Auto) 4.6 % 01/26/23 05: Baso % (Auto) 0.6 % 01/26/23 05: Neut # (Auto) 6.36 10^3/uL (1.8-7.7) 01/26/23 05: Lymph # (Auto) 2.2 10^3/uL (0.8-4.8) 01/26/23 05:23 [place] # (Auto) 0.9 10^3/uL (0.2-0.9) 01/26/23 05: Eos # (Auto) 0.5 10^3/uL (0.0-0.8) 01/26/23 05: Baso # (Auto) 0.1 10^3/uL (0.0-0.1) 01/26/23 05: Nucleated RBC % (auto) 0 % 01/26/23 05: Nucleated RBCs # 0.0 /100WBC 01/26/23 05: PT 14.80 SECONDS (12.1-14.9) 01/26/23 05: INR 1.12 (0.8-1.2) 01/26/23 05: APTT 30.8 SECONDS (23.9-36.7) 01/26/23 05:23 Sodium 140 mmol/L (136-145) 01/26/23 05:23 Potassium 4.7 mmol/L (3.5-5.1) 01/26/23 05:23 Chloride 103 mmol/L (98-107) 01/26/23 05:23 Carbon Dioxide 28 mmol/L (22-29) 01/26/23 05:23 Anion Gap 13.7 (5-19) 01/26/23 05:23 BUN 30 mg/dL (8-23) H 01/26/23 05:23 Creatinine 2.3 mg/dL (0.7-1.2) H 01/26/23 05:23 GFR Calculation Not Reportable 01/26/23 05:23 Glucose 103 mg/dL (65-115) 01/26/23 05:23 Calculated Osmolality 296 mOsm/kg (285-295) H 01/26/23 05:23 Calcium 10.7 mg/dL (8.5-10.5) H 01/26/23 05:23 Magnesium 2.0 mg/dL (1.7-2.3) 01/26/23 05:23 Total Bilirubin 0.3 mg/dL (0.15-1.2) 01/26/23 05:23 AST 15 U/L (0-40) 01/26/23 05:23 ALT 22 U/L (0-41) 01/26/23 05:23 Alkaline Phosphatase 102 U/L (40-130) 01/26/23 05:23 Creatine Kinase 38 U/L (39-308) L 01/26/23 05:23 Troponin T Baseline 39 ng/L (0-15) H 01/26/23 05:23 Troponin T 120 Minute 38.15 ng/L (0-15) H 01/26/23 07:20 Delta Troponin T -0.85 ABS# (0-10) L 01/26/23 07:20 NT-Pro-B Natriuret Pep 2623 pg/mL (0-450) H 01/26/23 05:23 Total Protein 6.8 g/dL (6.6-8.7) 01/26/23 05:23 Albumin 3.5 g/dL (3.5-5.2) 01/26/23 05:23 Globulin 3.3 g/dL (1.3-4.6) 01/26/23 05:23 TSH 2.64 uIU/mL (0.27-4.20) 01/26/23 05:23 Discharge Plan Discharge Patient Disposition: Home Clinical Impression: Non-sustained ventricular tachycardia Condition: Stable Prescriptions: No Action paroxetine HCl 30 mg tablet 30 mg PO DAILY tamsulosin 0.4 mg capsule 0.4 mg PO QPM (DME) BiPAP See Rx Instructions .Route .MEDSUPPLY Qty: 1 0RF Rx Instructions: Settings of 01/29 omeprazole 20 mg Capsule,Delayed Release(Dr/Ec) 20 mg PO QAM hydrocodone-acetaminophen 7.5-325 mg Tablet 1 tab PO BID PRN (Reason: Pain) sodium bicarbonate 650 mg Tablet 650 mg PO DAILY Qty: 30 0RF calcitriol 0.5 mcg capsule 0.5 mcg PO DAILY Qty: 30 0RF Senokot 8.6 mg Tablet 8.6 mg PO DAILY fexofenadine 60 mg Tablet 60 mg PO BID PRN (Reason: Allergic Symptoms) metoprolol tartrate 100 mg tablet 100 mg PO BID Eliquis 5 mg Tablet 2.5 mg PO BID amoxicillin-pot clavulanate 875-125 mg tablet 1 tab PO BID Qty: 10 0RF hydralazine 10 mg tablet 10 mg PO TID Qty: 30 0RF amlodipine 5 mg tablet 10 mg PO DAILY Qty: 30 0RF Discharge Orders: Discharge ED (Routine); Ordered 01/26/23 Ordered By: Yifan Restrepo Referrals: Magaly Rivas MD [Primary Care Provider] - Discharge Diet: Usual diet Discharge Activity: Resume usual activity Patient Instructions: Opioid Safety, Pain Management Activity Restrictions/Additional Instructions: Thank you for choosing [facility] for your healthcare needs today. Please realize this is an emergency room and that we are providing you with a medical screening exam and this may not be complete and all inclusive of all the testing and or work up that you may need to determine your ailment or severity of your illness. It is very important that you follow up as instructed or that you return to the Emergency Department should you have concerns or if your condition changes or worsens in any way. Your pacemaker was interrogated/evaluated. It showed 7 events since November 16, 2022 when it was last evaluated. 3 of those events were last night. None of those events required any treatment from the pacemaker. There were no shocks delivered and no antitachycardia pacing used for these episodes. All 3 of the episodes were nonsustained ventricular tachycardia that lasted between 7 and 9 seconds and then resolved spontaneously. Follow-up with your facility operations manager. Sign Out Sign Out Data: Patient Sign Out occurred on 01/26/23 at 06:06. Patient's care was discussed, and care was transferred from to Yifan Restrepo DO. Coding Level of Care Code ED Sap Bobj Developer for Nataliia Suggs
[2023-01-26 05:59] LABS: INR 1.12 (0.8-1.2)
[2023-01-26 06:00] LABS: Partial Thromboplastin Time 30.8 SECONDS (23.9-36.7)
[2023-01-26 06:17] LABS: Alanine Aminotransferase 22 U/L (0-41); Albumin Level 3.5 g/dL (3.5-5.2); Alkaline Phosphatase 102 U/L (40-130); Anion Gap 13.7 (5-19); Aspartate Amino Transferase 15 U/L (0-40); Blood Urea Nitrogen 30 mg/dL (8-23); Calcium 10.7 mg/dL (8.5-10.5); Carbon Dioxide 28 mmol/L (22-29); Chloride 103 mmol/L (98-107); Creatine Phosphokinase 38 U/L (39-308); Globulin 3.3 g/dL (1.3-4.6); Glucose 103 mg/dL (65-115); NT Pro B Type Natriuretic Pept 2623 pg/mL (0-450); Osmolality Calculated 296 mOsm/kg (285-295); Potassium 4.7 mmol/L (3.5-5.1); Sodium 140 mmol/L (136-145); Thyroid Stimulating Hormone 2.64 uIU/mL (0.27-4.20); Total Bilirubin 0.3 mg/dL (0.15-1.2); Total Protein 6.8 g/dL (6.6-8.7)
[2023-01-26 06:18] LABS: Creatinine Clr Calc Pharmacy 30.6985
[2023-01-26 06:34] LABS: Troponin(5th) Baseline 39 ng/L (0-15)
--- NOTE | 2023-01-26 07:22 | ECG_ITS ---
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 Measurements Intervals [place] Rate: 62 P: 91 MA: 163 QRS: -53 QRSD: 161 T: 120 QT: 436 QTc: 445 Interpretive Statements SINUS RHYTHM LEFT AXIS DEVIATION [QRS AXIS < -30] LEFT BUNDLE BRANCH BLOCK [120+ ms QRS DURATION, 80+ ms Q/S IN V1/V2, 85+ ms R IN I/aVL/V5/V6] Compared to ECG 01/26/2023 05:16:39 Atrial-paced complex(es) or rhythm no longer present Electronically Signed On 01-26-2023 10:10:19 CDT by Munira Balderas M.D. [email or web address] Search [email or web address] baptist medical [email or web address] TVtrihealth good samar[facility] hospital.[employer]/store/OM/[id number]
[2023-01-26 07:53] LABS: Troponin 5 2HR 38.15 ng/L (0-15)
[2023-01-26 08:11] LABS: Troponin 5 2HR Delta -0.85 ABS# (0-10)
[2023-01-26 08:12] VITALS: PULSE 106; RESP 18; O2SAT 93
== END 2023-01-26 08:42 | disposition home or self-care (01) ==
PROVIDERS: Emergency Medicine; Emergency Provider Family Medicine; PCP Internal Medicine
DX: I47.29 Other ventricular tachycardia (principal); Z79.01 Long term (current) use of anticoagulants; Z87.891 Personal history of nicotine dependence; I12.9 Hypertensive chronic kidney disease with stage 1 through stage 4 chronic kidney disease, or unspecified chronic kidney disease; N18.9 Chronic kidney disease, unspecified; Z86.73 Personal history of transient ischemic attack (TIA), and cerebral infarction without residual deficits; E78.5 Hyperlipidemia, unspecified; Z95.810 Presence of automatic (implantable) cardiac defibrillator
CPT/HCPCS: 36415; 71045; 80053; 82550; 83735; 83880; 84443; 84484; 85025; 85610; 85730; 93005; 99285

== ENCOUNTER 2023-03-09 05:28 | Inpatient (IN) | payer OTHER, SELFPAY ==
[2023-03-09] VITALS (22 sets, daily range): BP systolic 143–181; BP diastolic 72–99; PULSE 60–74; RESP 14–30; TEMP 36.3–36.6; O2SAT 93–100; BMI 31.2
--- NOTE | 2023-03-09 05:39 | ECG_ITS ---
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 Measurements Intervals [place] Rate: 89 P: 103 AK: 193 QRS: -26 QRSD: 158 T: 126 QT: 388 QTc: 472 Interpretive Statements ELECTRONIC ATRIAL PACEMAKER A paced V sensed rhythm with premature ventricular contractions ELECTRONIC VENTRICULAR PACEMAKER -- CONTOUR ANALYSIS BASED ON INTRINSIC RHYTHM LEFT BUNDLE BRANCH BLOCK [120+ ms QRS DURATION, 80+ ms Q/S IN V1/V2, 85+ ms R IN I/aVL/V5/V6] Compared to ECG 01/26/2023 07:09:33 Sinus rhythm no longer present Left-axis deviation no longer present Electronically Signed On 03-09-2023 18:42:26 AIR SAMPLER by Raya Hsieh M.D. [email or web address] hospital.[email or web address]/store/[id number] adeline
--- NOTE | 2023-03-09 05:40 | XRR_ITS ---
PROCEDURE INFORMATION: Exam: XR Chest Exam date and time: 03/09/2023 5:45 AM Age: 87 years old Clinical indication: Shortness of breath; Prior surgery; Surgery date: 6+ months; Surgery type: Pacer; Patient HX: EMS arrival from custodial for SOB and hypoxia. Was treated last week for pneumonia. TECHNIQUE: Imaging protocol: Radiologic exam of the chest. Views: 1 view. COMPARISON: CR (CHEST, ) 01/26/2023 5:25 AM FINDINGS: Tubes, catheters and devices: Multi lead pacemaker/defibrillator. Lungs: Impressive bilateral pulmonary infiltrates with increasing effusion. Extensive pneumonia versus congestive heart failure with pulmonary edema. Pleural spaces: Unremarkable. No pleural effusion. No pneumothorax. Heart/Mediastinum: See Vasculature finding. Vasculature: Mild cardiomegaly and uncoiling thoracic aorta accentuated by the AP positioning. Bones/joints: Unremarkable. XR/XR chest 1V portable [id number] IMPRESSION: Extensive developing pulmonary infiltrates, CHF versus pneumonia.
--- NOTE | 2023-03-09 05:43 | ED_ITS ---
HPI - SOB/Dyspnea 2 General: Chief Complaint: Shortness of Breath/Dyspnea Stated Complaint: SOB, AMS Time Seen by Provider: 03/09/23 05:39 Source: EMS Mode of arrival: EMS Limitations: altered mental status History of Present Illness: HPI Narrative: 87-year-old male who is here from [facility] as a history of CHF they had found him very short of breath this morning in a long term patient was placed on CPAP by EMS he is on BiPAP. 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 CVA (cerebral vascular accident) Chronic anticoagulation Long-term (current) use of anticoagulants, INR goal 2.0-3.0 Stroke-like symptom Implantable cardioverter-defibrillator (ICD) discharge Pacemaker Hypertension Hyperlipidemia Gout Cardiomyopathy COPD (chronic obstructive pulmonary disease) Carotid artery stenosis DDD (degenerative disc disease) GERD (gastroesophageal reflux disease) Atrial fibrillation Surgical History History of cataract extraction History of appendectomy History of tonsillectomy and adenoidectomy Hx of laminectomy Family History Mother CAD (coronary artery disease) valve replaced at 86 Brother Chronic kidney disease (CKD) Father Stroke Family/Other Suicide Denies family history of Diabetes Clotting disorder Dementia Anesthesia complication Bleeding disorder Lung disease Cancer Social History Smoking and tobacco/nicotine status: former use of tobacco/nicotine Alcohol intake: never Substance/Drug Use: never Physical Exam 2 Const: COMMON NORMALS: negative for patient oriented x3 HENMT: COMMON NORMALS: normocephalic and atraumatic HEAD & SCALP: n ormocephalic and atraumatic Eye: COMMON NORMALS: Equal, round and reactive pupils present and EOMs intact bilaterally PUPIL: Yes Equal, round and reactive pupils present Neck/C-Spine: COMMON NORMALS: full ROM and supple Chest: COMMONS NORMALS: normal inspection of the chest and normal palpation of entire chest wall Resp: COMMON NORMALS: No use of accessory muscles EFFORT & INSPECTION: Yes tachypneic and Yes respiratory distress AUSCULTATION: rales Cardio: COMMON NORMALS: regular rate, regular rhythm and No murmurs present (Cardio) RATE: regular rate RHYTHM: regular rhythm GI: COMMON NORMALS: Normal to inspection, nondistended, normoactive bowel sounds present, Soft to palpation, non-tender and no masses PALPATION: Yes Soft to palpation Extremity: COMMON NORMALS: normal to inspection and full ROM Neuro: COMMON NORMALS: moves all extremities and no focal motor deficits; negative for patient oriented x3 Psych: COMMON NORMALS: Normal thought process present and cooperative T HOUGHT PROCESS: Normal thought process present Skin: COMMON NORMALS: no rashes or lesions noted and no wounds GENERAL SKIN EXAM: no rashes or lesions noted Course 2 Vital Signs: Vital signs: Vital Signs Temperature 97.9 F 03/09/23 05:29 Pulse Rate 63 03/09/23 06:28 Respiratory Rate 30 H 03/09/23 05:29 Blood Pressure 145/73 03/09/23 06:28 Pulse Oximetry 96 03/09/23 06:28 Oxygen Delivery Me thod CPAP 03/09/23 05:29 Fraction of Inspir ed Oxygen 40 03/09/23 05:49 MDM - SOB/Dyspnea Medical Decision Making Patient presents here with shortness of breath with CHF exacerbation x-ray shows pulmonary edema he is on BiPAP did give him IV Lasix spoke to the hospitalist will admit at this time. Medical Records I reviewed the patient's medical records. Lab Data I reviewed the patient's lab results. 03/09/23 05:19 03/09/23 05:19 Labs/Radiology: Radiology Impressions Chest X-Ray 03/09/23 05:40 IMPRESSION: Extensive developing pulmonary infiltrates, CHF versus pneumonia. Laboratory Results WBC 12.87 10^3/uL (3.29-11.43) H 03/09/23 05:19 RBC 3.72 10^6/uL (3.85-5.65) L 03/09/23 05:19 Hgb 11.20 g/dL (11.27-16.99) L 03/09/23 05:19 Hct 34.1 % (37-53) L 03/09/23 05:19 MCV 91.7 fl (82-101) 03/09/23 05:19 MCH 30.1 pg (27-33) 03/09/23 05:19 MCHC 32.8 g/dL (30-55) 03/09/23 05:19 RDW 14.5 % (12.1-15.1) 03/09/23 05:19 Plt Count 218 10^3/cmm (157-399) 03/09/23 05:19 MPV 10.4 fL (7.4-10.4) 03/09/23 05:19 Neut % (Auto) 71.2 % 03/09/23 05:19 Lymph % (Auto) 17.9 % 03/09/23 05:19 [facility] % (Auto) 10.0 % 03/09/23 05:19 Eos % (Auto) 0.2 % 03/09/23 05:19 Baso % (Auto) 0.2 % 03/09/23 05:19 Neut # (Auto) 9.16 10^3/uL (1.8-7.7) H 03/09/23 05:19 Lymph # (Auto) 2.3 10^3/uL (0.8-4.8) 03/09/23 05:19 [facility] # (Auto) 1.3 10^3/uL (0.2-0.9) H 03/09/23 05:19 Eos # (Auto) 0.0 10^3/uL (0.0-0.8) 03/09/23 05:19 Baso # (Auto) 0.0 10^3/uL (0.0-0.1) 03/09/23 05:19 Nucleated RBC % (auto) 0 % 03/09/23 05:19 Nucleated RBCs # 0.0 /100WBC 03/09/23 05:19 PT 15.70 SECONDS (12.1-14.9) H 03/09/23 05:19 INR 1.21 (0.8-1.2) H 03/09/23 05:19 Specimen Type Arterial 03/09/23 05:32 Sample Site Radial, right 03/09/23 05:32 ABG pH 7.34 (7.35-7.45) L 03/09/23 05:32 ABG pCO2 46.1 mmHg (35-45) H 03/09/23 05:32 ABG pO2 149.0 mmHg (80.0-100.0) H 03/09/23 05:32 ABG PO2/FiO2 Ratio 0 03/09/23 05:32 ABG HCO3 25.0 mmol/L (22-26) 03/09/23 05:32 ABG Base Excess -1.0 mmol/L (-2.0-2.0) 03/09/23 05:32 López Test Pos 03/09/23 05:32 Hematocrit 34.3 % (42-52) L 03/09/23 05:32 Hgb O2 Saturation 97.5 % (95-100) 03/09/23 05:32 Carboxyhemoglobin 1.5 %THgb (0.4-20.1) 03/09/23 05:32 Methemoglobin 1.0 % (0.4-1.5) 03/09/23 05:32 Total Hemoglobin 11.2 g/dL (14-18) L 03/09/23 05:32 O2 Delivery Device Bipap 03/09/23 05:32 FiO2 100.0 % 03/09/23 05:32 Insurance Counselor ID [place] 03/09/23 05:32 Sodium 139 mmol/L (136-145) 03/09/23 05:19 Potassium 4.1 mmol/L (3.5-5.1) 03/09/23 05:19 Chloride 104 mmol/L (98-107) 03/09/23 05:19 Carbon Dioxide 26 mmol/L (22-29) 03/09/23 05:19 Anion Gap 13.1 (5-19) 03/09/23 05:19 BUN 47 mg/dL (8-23) H 03/09/23 05:19 Creatinine 2.6 mg/dL (0.7-1.2) H 03/09/23 05:19 GFR Calculation Not Reportable 03/09/23 05:19 Glucose 91 mg/dL (65-115) 03/09/23 05:19 Calculated Osmolality 300 mOsm/kg (285-295) H 03/09/23 05:19 Calcium 10.1 mg/dL (8.5-10.5) 03/09/23 05:19 Total Bilirubin 0.3 mg/dL (0.15-1.2) 03/09/23 05:19 AST 9 U/L (0-40) 03/09/23 05:19 ALT 9 U/L (0-41) 03/09/23 05:19 Alkaline Phosphatase 78 U/L (40-130) 03/09/23 05:19 NT-Pro-B Natriuret Pep 9735 pg/mL (0-450) H 03/09/23 05:19 Total Protein 7.0 g/dL (6.6-8.7) 03/09/23 05:19 Albumin 3.6 g/dL (3.5-5.2) 03/09/23 05:19 Globulin 3.4 g/dL (1.3-4.6) 03/09/23 05:19 SARS-CoV-2 Ag (Rapid) negative (Negative) 03/09/23 06:14 All radiology interpretation(s) finalized by discharge Discharge Plan Discharge Patient Disposition: Admitted As Inpatient Clinical Impression: Acute exacerbation of congestive heart failure Condition: Stable Prescriptions: No Action paroxetine HCl 30 mg tablet 30 mg PO DAILY tamsulosin 0.4 mg capsule 0.4 mg PO QPM (DME) BiPAP See Rx Instructions .Route .MEDSUPPLY Qty: 1 0RF Rx Instructions: Settings of 01/29 omeprazole 20 mg Capsule,Delayed Release(Dr/Ec) 20 mg PO QAM hydrocodone-acetaminophen 7.5-325 mg Tablet 1 tab PO BID PRN (Reason: Pain) sodium bicarbonate 650 mg Tablet 650 mg PO DAILY Qty: 30 0RF calcitriol 0.5 mcg capsule 0.5 mcg PO DAILY Qty: 30 0RF Senokot 8.6 mg Tablet 8.6 mg PO DAILY fexofenadine 60 mg Tablet 60 mg PO BID PRN (Reason: Allergic Symptoms) metoprolol tartrate 100 mg tablet 100 mg PO BID Eliquis 5 mg Tablet 2.5 mg PO BID amoxicillin-pot clavulanate 875-125 mg tablet 1 tab PO BID Qty: 10 0RF hydralazine 10 mg tablet 10 mg PO TID Qty: 30 0RF amlodipine 5 mg tablet 10 mg PO DAILY Qty: 30 0RF Referrals: Magaly Rivas MD [Primary Care Provider] - Coding Level of Care Code ED Workers Compensation Adjuster for Nataliia Suggs
[2023-03-09 05:44] LABS: ABG PCO2 46.1 mmHg (35-45); ABG PH Result 7.34 (7.35-7.45); Arterial Blood Gas Hematocrit 34.3 % (42-52); Blood Gas Allen Test Pos; Blood Gas Operator Identificat WALCI; Blood Gas Sample Site Radial, right; Blood Gas Sample Type Arterial; Carboxyhemoglobin 1.5 %THgb (0.4-20.1); HGB O2 Sat 97.5 % (95-100); PO2 FiO2 Ratio Arterial Blood 0; Total Hemoglobin 11.2 g/dL (14-18)
[2023-03-09 06:27] LABS: Basophils % 0.2 %; Eosinophils % 0.2 %; Hematocrit 34.1 % (37-53); Lymphocytes # 2.3 10^3/uL (0.8-4.8); Lymphocytes % 17.9 %; Mean Corpuscular HGB Conc 32.8 g/dL (30-55); Mean Corpuscular Hemoglobin 30.1 pg (27-33); Mean Corpuscular Volume 91.7 fl (82-101); Mean Platelet Volume 10.4 fL (7.4-10.4); Monocytes # 1.3 10^3/uL (0.2-0.9); Neutrophils # 9.16 10^3/uL (1.8-7.7); Neutrophils % 71.2 %; Nucleated Red Blood Cells % 0 %; Platelet Count 218 10^3/cmm (157-399); Red Blood Count 3.72 10^6/uL (3.85-5.65); Red Cell Distribution Width 14.5 % (12.1-15.1); White Blood Count 12.87 10^3/uL (3.29-11.43)
[2023-03-09 06:31] LABS: INR 1.21 (0.8-1.2)
[2023-03-09 06:54] LABS: Alanine Aminotransferase 9 U/L (0-41); Albumin Level 3.6 g/dL (3.5-5.2); Alkaline Phosphatase 78 U/L (40-130); Anion Gap 13.1 (5-19); Aspartate Amino Transferase 9 U/L (0-40); Blood Urea Nitrogen 47 mg/dL (8-23); Calcium 10.1 mg/dL (8.5-10.5); Carbon Dioxide 26 mmol/L (22-29); Chloride 104 mmol/L (98-107); Globulin 3.4 g/dL (1.3-4.6); Glucose 91 mg/dL (65-115); NT Pro B Type Natriuretic Pept 9735 pg/mL (0-450); Osmolality Calculated 300 mOsm/kg (285-295); Potassium 4.1 mmol/L (3.5-5.1); Sodium 139 mmol/L (136-145); Total Bilirubin 0.3 mg/dL (0.15-1.2)
[2023-03-09 06:59] LABS: SARS Covid-2 Antigen negative (Negative)
[2023-03-09] MEDS: FUROsemide 10 mg/mL SDV 10mL 60 MG IVP ×2 (07:20→22:27)
[2023-03-09 07:26] LABS: Oxygen Device BIPAP
--- NOTE | 2023-03-09 08:15 | PC.PHAR ---
[facility] PT L[facility] IS [facility] (CL[facility]ED ON [facility]EEKENDS) LAST VERIFIED 12/18/22. NEW MEDICATIONS ADDED FROM 12/21/22. UNABLE TO VERIFY WITH [facility]. 03/09/23
--- NOTE | 2023-03-09 14:22 | P.HP_ITS ---
Providers/Chief Complaint 2 Admitting Physician: Zaida Fuchs MD Primary Care Provider: Magaly Rivas MD Chief Complaint: SOB, AMS History of Present Illness Daly Ariza (daughter- &POA): [phone] Jimenez Ariza (Kathy's ) [phone] Zully Bell (grand daughter - a Registered Nurse) who lives here and takes him to his appointments: . 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 The patient's daughter states that yesterday, the patient was confused and thought that he was at work. He was dyspneic. They tried to convince the patient to come to the ED on the night of 03/08/2023, but the patient was not keen on coming. By this AM, he was so dyspneic, that the senior care staff was able to concerns him to present to the ED. Per the patient's daughter, the patient had no other complaints except for dyspnea. In the ED, the patient's EKG showed a sensed V paced rhythm with PVCs. His chest x-ray showed bilateral interstitial infiltrates concerning for CHF versus pneumonia. Review of Systems 2 General: Reports: ROS unobtainable due to mental status Medications/Allergies Home Medications Medication Instructions Recorded Confirmed Last Taken Type paroxetine HCl 30 mg tablet 30 mg PO DAILY 12/01/20 03/09/23 10/25/21 History BiPAP #1 ea 07/11/22 03/09/23 Unknown Rx hydrocodone 7.5 mg-acetaminophen 1 tab PO BID PRN Pain 10/11/22 03/09/23 Unknown History 325 mg tablet calcitriol 0.5 mcg capsule 0.5 mcg PO DAILY #30 caps 10/18/22 03/09/23 Unknown Rx sodium bicarbonate 650 mg tablet 650 mg PO DAILY #30 tabs 10/18/22 03/09/23 Unknown Rx apixaban 5 mg tablet (Eliquis) 2.5 mg PO BID 12/18/22 03/09/23 Unknown History fexofenadine 60 mg tablet 60 mg PO BID PRN Allergic Symptoms 12/18/22 03/09/23 Unknown History metoprolol tartrate 100 mg tablet 100 mg PO BID 12/18/22 03/09/23 Unknown History sennosides 8.6 mg tablet (Senokot) 8.6 mg PO DAILY 12/18/22 03/09/23 Unknown History amlodipine 5 mg tablet 10 mg (2 x 5 mg) PO DAILY #30 tabs 12/21/22 03/09/23 Unknown Rx hydralazine 10 mg tablet 10 mg PO TID #30 tabs 12/21/22 03/09/23 Unknown Rx Allergies Allergy/AdvReac Type Severity Reaction Status Date / Time Iodinated Contrast Media AdvReac STOMACH Verified 01/26/23 05:22 CRAMPING DURING A STRESS TEST. 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 CVA (cerebral vascular accident) Chronic anticoagulation Long-term (current) use of anticoagulants, INR goal 2.0-3.0 Stroke-like symptom Implantable cardioverter-defibrillator (ICD) discharge Pacemaker Hypertension Hyperlipidemia Gout Cardiomyopathy COPD (chronic obstructive pulmonary disease) Carotid artery stenosis DDD (degenerative disc disease) GERD (gastroesophageal reflux disease) Atrial fibrillation Surgical History History of cataract extraction History of appendectomy History of tonsillectomy and adenoidectomy Hx of laminectomy Family History Mother CAD (coronary artery disease) valve replaced at 86 Brother Chronic kidney disease (CKD) Father Stroke Family/Other Suicide Denies family history of Diabetes Clotting disorder Dementia Anesthesia complication Bleeding disorder Lung disease Cancer Social History Smoking and tobacco/nicotine status: former use of tobacco/nicotine Alcohol intake: never Substance/Drug Use: never Vitals/I&O/Wt Last Vital Signs Temp 97.5 F L 03/09/23 12:36 Pulse 65 03/09/23 12:36 Resp 18 03/09/23 12:36 BP 148/79 03/09/23 12:36 Pulse Ox 93 03/09/23 12:36 O2 Del Method Heated High Flow 03/09/23 13:57 FiO2 40 03/09/23 11:37 03/08/23 03/09/23 03/09/23 22:59 06:59 14:59 Output Total 1200 / 1200 Balance -1200 / -1200 Weight last 48 hrs Weight 113.398 kg Weight 113.398 kg Physical Exam 2 Const: GENERAL APPEARANCE: cooperative and comfortable NUTRITIONAL APPEARANCE: overweight ORIENTATION/CONSCIOUSNESS: Yes patient obtunded HENMT: OTHER: Patient is normocephalic and atraumatic. It is difficult to evaluate his oropharynx given that he is on BiPAP. Eye: OTHER: Pupils are PEERL. Neck/C-Spine: GENERAL: Yes normal visual inspection and Yes trachea midline OTHER: It was difficult to evaluate the patient's thyroid or carotid bruit given his mental status and the fact that he is on BiPAP. Lymph: LYMPHATIC: No lymphadenopathy Resp: OTHER: Diminished breath sounds and crackles in the bilateral lower lung judge anteriorly. Cardio: OTHER: Regular rate and rhythm, no murmurs, rubs, gallops or clicks. GI: OTHER: Bowel sounds positive. Nontender, nondistended, no guarding, no rigidity, no rebound tenderness. Extremity: NARRATIVE EXTREMITY EXAM: No clubbing, no cyanosis, 2+ pitting edema. Neuro: SENSORIUM/ORIENTATION: Yes obtunded MOTOR EXAM: 5/5 motor strength present throughout and Normal motor muscle tone present throughout Psych: OTHER: Unable to assess given mental status. 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 In the ED, the patient's EKG showed a sensed V paced rhythm with PVCs. His chest x-ray showed bilateral interstitial infiltrates concerning for CHF versus pneumonia. #Altered Mental Satus # Acute on chronic hypoxic respiratory failure: On BiPAP. ABG virtually unchanged from ED. Changed settings to 18/6 and 30% and re-peat ABG was improved to 7.43/43/72. # Acute on chronic HFrEF: - S/p 60mg IVP Lasix w/ 2.4L of clear light yellow UOP noted. Order another dose of Lasix 60mg IVP x 1. - F/u TTE - Strict Is & Os. #Vtach s/p PPM/ICD: PPM Interrogation. #L. LE swelling: F/u venous duplex US # Leukocytosis: It may be infectious or inflammatory. Respiratory pathogen panel ordered. F/u BCx, lactate. Start empiric Vanc, Zosyn, Azithromycin. # HTN: Hydralazine 10mg q4h IVP. Hold home meds at this time. # HLD: I don't see a Statin on his med rec. #Afib: on Eliquis at home. Start Lovenox BID. Place on Telemetry. # CKDIIIB: Strict Is & Os. Avoid Nephrotoxins. # ELLIOT on BiPAP: Currently on BiPAP. # COPD: Not in exacerbation. It is unclear that the patient is on any inhalers or DuoNebs. # Gout: On Allopurinol. Resume home meds prn. # BPH: On FLomax, per granddaughter, but it is not on his med list. # Depression: Resume home med of Paxil prn # Seasonal Allergic Rhinitis: N acute issues at this time. #hx of 3 TIAs w/ the last one occuring in summer of 2022 - sees Dr. Mckeon. On Eliquis. Code status: Per family members, the patient is DNR/DNI Attestations 2 Medical Necessity Statement*: The patient will be hospitalized for greater than 2 midnights for acute on chronic hypoxic respiratory failure, requiring BiPAP, concerning for acute on chronic heart failure with reduced ejection fraction exacerbation versus pneumonia. Coding Level of Care Code 83137 Diagnoses Acute exacerbation of congestive heart failure I50.9 Heart failure type: unspecified Other persistent atrial fibrillation I48.19 Atrial fibrillation type: other persistent Acute on chronic hypoxic respiratory failure J96.21 Time Spent (min) 76 Comment Time was spent on chart review, interview/exam, lab/image review, & plan formulation
[2023-03-09 15:23] LABS: ABG PCO2 45.2 mmHg (35-45); ABG PH Result 7.41 (7.35-7.45); Alveolar-Arterial Oxygen Gradi 16.4 mmHg (5-10); Arterial Blood Gas Hematocrit 30.3 % (42-52); Base Excess ABG 3.4 mmol/L (-2.0-2.0); Blood Gas Allen Test Pos; Blood Gas Operator Identificat glc; Blood Gas Sample Site Radial, right; Blood Gas Sample Type Arterial; HCO3 ABG 28.5 mmol/L (22-26); HGB O2 Sat 96.9 % (95-100); Ionized Calcium Level - ABG 1.3 mmol/L (1.1-1.4); Methemoglobin 0.6 % (0.4-1.5); Oxygen Device BIPAP; Oxygen Saturation ABG 98.5; PO2 FiO2 Ratio Arterial Blood 0; Total Hemoglobin 9.9 g/dL (14-18)
--- NOTE | 2023-03-09 15:26 | USCV_ITS ---
An Alexey Age: 87 Gender: M : 1935 Exam Date: 03/09/2023 18:41 Ordering Phys: Zaida Fuchs MD Technologist: Abundio Ngo Exam Location: [facility] – [place] Indication: CHF BP: 168 / 95 HR: Rhythm: Sinus Technical Quality: Very technically difficult study MEASUREMENTS (Male / Female) Normal Values 2D ECHO LVOT Diameter 2.0 cm LA Diameter 3.0 cm Aorta at Sinotubular Diameter 2.5 cm IVC Diameter 1.5 cm DOPPLER Right Atrial Pressure 8.0 mmHg FINDINGS Left Ventricle Could not visualize the left ventricule. No ultrasonic window Right Ventricle Right Atrium Left Atrium Normal left atrial size. Mitral Valve Aortic Valve Thickened aortic valve. Tricuspid Valve Pulmonic Valve Pericardium Aorta Normal aortic annulus size. IVC Normal inferior vena cava. CONCLUSIONS Patient did not have any good parasternal or apical windows. Left-ventricular could not be visualized. The left atrium appeared to be of normal size. Aortic root appeared to be normal size. The aortic valve is thickened but opening well. No pericardial effusion. Inferior vena cava was of normal size Dr Raya Hsieh MD FACC (Electronically Signed) Final Date: 09 March 2023 19:49 S
[2023-03-09 18:32] LABS: ABG PCO2 43.9 mmHg (35-45); ABG PH Result 7.43 (7.35-7.45); Arterial Blood Gas Hematocrit 33.5 % (42-52); Base Excess ABG 4.1 mmol/L (-2.0-2.0); Blood Gas Allen Test Pos; Blood Gas Operator Identificat glc; Blood Gas Sample Site Radial, left; Blood Gas Sample Type Arterial; Oxygen Device BIPAP; PO2 ABG 72.6 mmHg (80.0-100.0); PO2 FiO2 Ratio Arterial Blood 0
[2023-03-09 19:34] LABS: Troponin T (5th) Once 43 ng/L (0-15)
[2023-03-09 20:11] LABS: Bilirubin Urine Neg (Negative); Glucose Urine UA Norm (Normal); Ketones Urine Negative (Negative); Nitrate Urine Negative (Negative); Protein Urine 2+ (Negative); Urine Appearance Clear (CLEAR); Urine Color Straw (Yellow); pH Urine 8 (5-7)
[2023-03-09 20:12] LABS: Add Urine Culture? No; Add Urine Microscopic? YES; Bacteria Urine TRACE /hpf; Blood Urine 2+ (Negative); Leukocyte Esterase Urine Negative (Negative); RBC Urine 0-4 /hpf (0-2); Squamous Epithelial Cell Urine 0-4 /hpf (0-5); Sulfosalicylic Acid Urine Negative (Negative); Urobilinogen Urine Norm (Negative); WBC Urine 0-4 /hpf (0-5)
[2023-03-09 20:13] LABS: Coarse Granular Casts Urine 0-4 /lpf
[2023-03-09 20:19] LABS: Lactic Sepsis W/Reflex 0.9 mmol/L (0.5-2.2)
[2023-03-09 21:04] LABS: Adenovirus Not Detected (NOT DETECT); Chlamydia Pneumoniae Not Detected (NOT DETECT); Coronavirus 229E,HKU1,NL63,OC4 Not Detected (NOT DETECT); Human Metapneumovirus Not Detected (NOT DETECT); Human Rhinovirus/Enterovirus Not Detected (NOT DETECT); Influenza A Not Detected (NOT DETECT); Influenza A H1 Not Detected (NOT DETECT); Influenza A H1-2009 Not Detected (NOT DETECT); Influenza A H3 Not Detected (NOT DETECT); Influenza B Not Detected (NOT DETECT); Mycoplasma Pneumoniae Not Detected (NOT DETECT); Parainfluenza Virus Type 1 Not Detected (NOT DETECT); Parainfluenza Virus Type 2 Not Detected (NOT DETECT); Parainfluenza Virus Type 3 Not Detected (NOT DETECT); Parainfluenza Virus Type 4 Not Detected (NOT DETECT); Respiratory Syncytial Virus A Not Detected (NOT DETECT); Respiratory Syncytial Virus B Not Detected (NOT DETECT); SARS-COV-2 Not Detected (NOT DETECT)
[2023-03-09] MEDS: albumin 37.5 GM/150 ML VIAL IV (22:27)
[2023-03-09] MEDS: famotidine 20 mg/2 mL INJ IVP (22:27)
[2023-03-09] MEDS: vancomycin 1,750 MG/350 ML PIGGYBACK 233.33 MG IV (22:35)
[2023-03-09] MEDS: enoxaparin 100 mg/mL Syringe 110 MG SUBCUT (22:35)
[2023-03-10] VITALS (13 sets, daily range): BP systolic 147–175; BP diastolic 67–93; PULSE 61–126; RESP 13–20; TEMP 36.6–37.1; O2SAT 91–96
[2023-03-10] MEDS: azithromycin 250 MG in sodium chloride 0.9% 250 ML IV (00:13)
[2023-03-10] MEDS: piperacillin-tazobactam 3.375 GM in sodium chloride 0.9% (plus) 50 ML IV ×3 (01:49→17:04)
[2023-03-10 05:02] LABS: Basophils # 0.1 10^3/uL (0.0-0.1); Basophils % 0.6 %; Eosinophils # 0.1 10^3/uL (0.0-0.8); Eosinophils % 1.2 %; Hematocrit 30.7 % (37-53); Lymphocytes # 1.6 10^3/uL (0.8-4.8); Lymphocytes % 18.8 %; Mean Corpuscular HGB Conc 32.2 g/dL (30-55); Mean Platelet Volume 9.6 fL (7.4-10.4); Monocytes # 0.8 10^3/uL (0.2-0.9); Monocytes % 9.5 %; Neutrophils # 5.74 10^3/uL (1.8-7.7); Neutrophils % 69.4 %; Nucleated Red Blood Cells % 0 %; Platelet Count 172 10^3/cmm (157-399); Red Cell Distribution Width 14.4 % (12.1-15.1); White Blood Count 8.28 10^3/uL (3.29-11.43)
[2023-03-10 05:14] LABS: INR 1.21 (0.8-1.2); Partial Thromboplastin Time 36.1 SECONDS (23.9-36.7)
[2023-03-10 05:27] LABS: Alanine Aminotransferase 6 U/L (0-41); Albumin Level 3.5 g/dL (3.5-5.2); Alkaline Phosphatase 63 U/L (40-130); Aspartate Amino Transferase 7 U/L (0-40); Blood Urea Nitrogen 47 mg/dL (8-23); Calcium 9.5 mg/dL (8.5-10.5); Carbon Dioxide 27 mmol/L (22-29); Chloride 103 mmol/L (98-107); Globulin 2.8 g/dL (1.3-4.6); Glucose 80 mg/dL (65-115); Magnesium 1.9 mg/dL (1.7-2.3); Osmolality Calculated 305 mOsm/kg (285-295); Phosphorus 3.6 mg/dL (2.5-4.5); Sodium 142 mmol/L (136-145); Thyroid Stimulating Hormone 1.56 uIU/mL (0.27-4.20); Total Bilirubin 0.6 mg/dL (0.15-1.2); Total Protein 6.3 g/dL (6.6-8.7)
--- NOTE | 2023-03-10 06:00 | XRR_ITS ---
PROCEDURE INFORMATION: Exam: XR Chest Exam date and time: 03/10/2023 6:07 AM Age: 87 years old Clinical indication: Other: F/u pneumonia; Prior surgery; Surgery date: 6+ months; Surgery type: Pacer; Patient HX: F/u for pneumonia. On bipap. ; Additional info: Crackles TECHNIQUE: Imaging protocol: Radiologic exam of the chest. Views: 1 view. COMPARISON: CR (CHEST, ) 03/09/2023 5:45 AM FINDINGS: Tubes, catheters and devices: Left chest AICD device is in good projection, unchanged. Lungs: Diffusely distributed airspace opacities somewhat improved compared to previous exam, with most improvement in the right lung base. The findings are suggestive of bilateral pulmonary edema, less likely atypical pneumonia. Pleural spaces: Small bilateral pleural effusions can not be excluded, but no large pleural effusions are seen. No pneumothorax. Heart/Mediastinum: Cardiac silhouette is mildly enlarged. Bones/joints: No acute fractures. XR/XR chest 1V portable [id number] IMPRESSION: 1. Diffusely distributed airspace opacities somewhat improved compared to previous exam, with most improvement in the right lung base. The findings are suggestive of bilateral pulmonary edema, less likely atypical pneumonia. 2. Small bilateral pleural effusions can not be excluded, but no large pleural effusions are seen. 3. Cardiac silhouette is mildly enlarged.
[2023-03-10 06:25] LABS: Free T4 Free Thyroxine 1.54 ng/dL (0.82-1.77); NT Pro B Type Natriuretic Pept 8916 pg/mL (0-450)
--- NOTE | 2023-03-10 07:27 | PC.PHAR ---
Pharmacokinetic dosing service Date: 03/10/23 Time: 727 Objective: Patient: Alexey An Floor: [id number] Age: 87 yo Serum creatinine: 2.9 mg/dL Height: 75.0 Inches Weight (kg): 101.65 Diagnosis: Relevant medical/social history: Cultures and sensitivities: Other labs: Assessment: IBW (kg): 84.50 Dosing wt(kg): 101.65 Estimated Creatinine clearance (ml/min): 22.3 CRCL method: Cockcroft and Gault using ibw(default). Drug selected: Vancomycin Loading dose (mg): 0 Vd (liters): 91.5 (factor used: 0.9 L/kg) Jermain (hr-1): 0.023 Half life (hrs): 30.14 Recommended dose: 1500 mg Interval: 36 hrs Infusion time (hrs): 1.5 Predicted peak (mcg/mL): 28.6 Predicted trough (mcg/mL): 12.93 Total body weight is being used for vancomycin dosing. Renal function is stable [ ] /unstable [ ] Recommendations: Give Vancomycin 1500 mg q 36 hrs with an expected Cpeak of 28.6 mcg/ml and an expected Ctrough of 12.93 mcg/ml Renal dosing of other antibiotics (review renal dosing of other medications and list guidelines here): Thank you for the consult, will continue to follow. Signature: Katerin Velasquez [facility]
[2023-03-10] MEDS: famotidine 20 mg/2 mL INJ IVP ×2 (10:29→20:58)
--- NOTE | 2023-03-10 10:46 | PC.NURSE ---
This nurse returned patients daughterLiza, phone call to give an update at 1045. [phone]
--- NOTE | 2023-03-10 15:04 | P.PN_ITS ---
Subjective 2 Subjective: He had 4.4 L of UOP from yesterday to 7 AM this morning while he was on BiPAP yesterday. He is off BiPAP. He is on 5 LNC. He worked with physical therapy today, where he sat up on the edge of the bed, and did some standing up and sitting down. When the patient was seen, he coughed up a grayish creamy sputum, that was sent to the lab for sputum culture. He states that he is breathing better than before he came to the hospital. He denies fever, chills, CP, palpitations, abdominal pain, nausea, vomiting. He did drink water at the bedside. Vitals/I&O/Wt Last Vital Signs Temp 98.1 F 03/10/23 12:00 Pulse 86 03/10/23 12:16 Resp 18 03/10/23 12:00 BP 165/84 03/10/23 12:00 Pulse Ox 95 03/10/23 12:16 O2 Del Method Room Air, BiPAP 03/10/23 12:00 O2 Flow Rate 5 03/10/23 08:00 FiO2 30 03/10/23 12:16 03/10/23 03/10/23 03/10/23 06:59 14:59 22:59 Intake Total 800 / 800 1050 / 1050 Output Total 2250 / 4400 Balance -1450 / -3600 1050 / 1050 Weight last 48 hrs Weight 101.65 kg Weight 113.398 kg Weight 113.398 kg Physical Exam 2 Const: GENERAL APPEARANCE: cooperative and comfortable NUTRITIONAL APPEARANCE: overweight ORIENTATION/CONSCIOUSNESS: Yes patient obtunded HENMT: OTHER: Patient is normocephalic and atraumatic. It is difficult to evaluate his oropharynx given that he is on BiPAP. Eye: OTHER: Pupils are PEERL. Neck/C-Spine: GENERAL: Yes normal visual inspection and Yes trachea midline OTHER: It was difficult to evaluate the patient's thyroid or carotid bruit given his mental status and the fact that he is on BiPAP. Lymph: LYMPHATIC: No lymphadenopathy Resp: OTHER: Diminished breath sounds and crackles in the bilateral lower lung judge anteriorly. Cardio: OTHER: Regular rate and rhythm, no murmurs, rubs, gallops or clicks. GI: OTHER: Bowel sounds positive. Nontender, nondistended, no guarding, no rigidity, no rebound tenderness. Extremity: NARRATIVE EXTREMITY EXAM: No clubbing, no cyanosis, 2+ pitting edema. Neuro: SENSORIUM/ORIENTATION: Yes obtunded MOTOR EXAM: 5/5 motor strength present throughout and Normal motor muscle tone present throughout Psych: OTHER: Unable to assess given mental status. Skin: COMMON NORMALS: no rashes or lesions noted GENERAL SKIN EXAM: no rashes or lesions noted Data 03/10/23 04:48 03/10/23 04:48 Micro: Microbiology 03/09/23 19:35 Blood Culture - Preliminary Blood SPECIMEN COLLECTED 03/09/23 19:42 Blood Culture - Preliminary Blood SPECIMEN COLLECTED A&P Assessment and plan (1) Acute exacerbation of congestive heart failure: Qualifiers: Heart failure type: unspecified Qualified Code(s): I50.9 - Heart failure, unspecified (2) Atrial fibrillation: Qualifiers: Atrial fibrillation type: other persistent Qualified Code(s): I48.19 - Other persistent atrial fibrillation (3) Acute on chronic hypoxic respiratory failure: Plan Alexey An is a 87 yo w/ chronic hypoxic respiratory failure on 2L prn, chronic HFrEF, 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 In the ED, the patient's EKG showed a sensed V paced rhythm with PVCs. His chest x-ray showed bilateral interstitial infiltrates concerning for CHF versus pneumonia. #Altered Mental Satus # Acute on chronic hypoxic respiratory failure: On BiPAP. ABG virtually unchanged from ED. Changed settings to 18/6 and 30% and re-peat ABG was improved to 7.43/43/72. # Acute on chronic HFrEF: - S/p 60mg IVP Lasix w/ 2.4L of clear light yellow UOP noted. Ordered another dose of Lasix 60mg IVP x 1 on 03/09. - His TTE on 03/09/2023 was deemed a very technically difficult study, where the left ventricle could not be visualized. -Will give another dose of Lasix 60 mg IVP, start carvedilol 6.25 mg twice daily. Hold on initiating lisinopril. Instead we will substitute with hydralazine 50 mg p.o. TID. - Strict Is & Os. #Vtach s/p PPM/ICD: PPM Interrogation ordered on 03/10/2023. #L. LE swelling: F/u venous duplex US # Leukocytosis: It may be infectious or inflammatory. Respiratory pathogen panel was negative. - F/u BCx, lactate. On empiric Vanc, Zosyn, Azithromycin. # HTN: Hydralazine 10mg q4h IVP. Hold home meds at this time. # HLD: I don't see a Statin on his med rec. Will check lipid panel #Afib: on Eliquis at home. Start Lovenox BID. Place on Telemetry. # CKDIIIB: Strict Is & Os. Avoid Nephrotoxins. # ELLIOT on BiPAP: Currently on BiPAP. # COPD: Not in exacerbation. It is unclear that the patient is on any inhalers or DuoNebs. # Gout: On Allopurinol. Resume home meds prn. # BPH: On FLomax, per granddaughter, but it is not on his med list. # Depression: Resume home med of Paxil prn # Seasonal Allergic Rhinitis: N acute issues at this time. #hx of 3 TIAs w/ the last one occuring in summer of 2022 - sees Dr. Mckeon. On Eliquis. Code status: Per family members, the patient is DNR/DNI Attestations 2 Medical Necessity Statement*: Patient needs to remain hospitalized for acute on chronic hypoxic respiratory failure. Coding Level of Care Code 15557 Diagnoses Acute exacerbation of congestive heart failure I50.9 Heart failure type: unspecified Other persistent atrial fibrillation I48.19 Atrial fibrillation type: other persistent Acute on chronic hypoxic respiratory failure J96.21
--- NOTE | 2023-03-10 15:08 | PC.OT ---
OT TO HOLD EVAL DUE TO PATIENT BEING LETHARGIC AND DOESNOT WANT TO BE SEEN.
[2023-03-10 15:53] LABS: Troponin T (5th) Once 51 ng/L (0-15)
--- NOTE | 2023-03-10 16:14 | PC.NURSE ---
This nurse spoke with patients sister, Belinda, to provide an update at 1614.
[2023-03-10] MEDS: hyDRALAzine 50 mg Tablet PO ×2 (16:16→20:44)
--- NOTE | 2023-03-10 16:32 | PC.NURSE ---
This nurse spoke to Edith at [facility] to provide an update on pt at 1617.
[2023-03-10] MEDS: albumin 25 G/100 ML BAG 60 G IV (16:33)
[2023-03-10] MEDS: FUROsemide 10 mg/mL SDV 10mL 60 MG IVP (16:33)
[2023-03-10] MEDS: carvedilol 6.25 mg Tablet PO (17:04)
--- NOTE | 2023-03-10 19:13 | USR_ITS ---
PROCEDURE INFORMATION: Exam: US Duplex Left Lower Extremity Veins, Limited Exam date and time: 03/10/2023 7:25 AM Age: 87 years old Clinical indication: Edema, localized; Lower extremity, left; Additional info: Left lower exremity swelling, rule out dvt. TECHNIQUE: Imaging protocol: Real-time duplex ultrasound of the left extremity with 2-D red scale, color Doppler flow and spectral waveform analysis including responses to compression and other maneuvers (when performed) with image documentation. Limited exam focused on the left lower extremity veins. COMPARISON: No relevant prior studies available. FINDINGS: Left deep veins: Unremarkable. The common femoral, femoral, proximal profunda femoral and popliteal veins are patent without thrombus. Normal Doppler waveforms. Normal compressibility and/or augmentation response. Superficial veins: Unremarkable. Saphenofemoral junction is patent without thrombus. Soft tissues: Unremarkable. US/[place] [id number] IMPRESSION: No evidence of deep vein thrombosis.
--- NOTE | 2023-03-10 20:44 | ECG_ITS ---
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 Measurements Intervals [place] Rate: 129 P: 0 SD: 0 QRS: -58 QRSD: 162 T: 138 QT: 330 QTc: 485 Interpretive Statements ATRIAL FIBRILLATION WITH RAPID VENTRICULAR RESPONSE MARKED LEFT AXIS DEVIATION [QRS AXIS < -30] LEFT BUNDLE BRANCH BLOCK [120+ ms QRS DURATION, 80+ ms Q/S IN V1/V2, 85+ ms R IN I/aVL/V5/V6] Compared to ECG 03/09/2023 05:36:24 Left-axis deviation now present Atrial-paced complex(es) or rhythm no longer present Ventricular premature complex(es) no longer present Ventricular-paced complex(es) or rhythm no longer present Electronically Signed On 03-11-2023 15:52:31 GUT PULLER by Raya Hsieh M.D. [email or web address]
[2023-03-10] MEDS: metoprolol tartrate 1 mg/1 mL SDV 5 mL 5 MG IVP (20:58)
[2023-03-10] MEDS: metoprolol tartrate 50 mg Tablet 100 MG PO (21:30)
[2023-03-10] MEDS: enoxaparin 100 mg/mL Syringe 110 MG SUBCUT (21:32)
[2023-03-11] VITALS (9 sets, daily range): BP systolic 106–168; BP diastolic 57–83; PULSE 62–75; RESP 16–18; TEMP 36.4–36.8; O2SAT 91–97; BMI 27.0
[2023-03-11] MEDS: azithromycin 250 MG in sodium chloride 0.9% 250 ML IV (01:03)
[2023-03-11] MEDS: piperacillin-tazobactam 3.375 GM in sodium chloride 0.9% (plus) 50 ML IV ×2 (02:25→10:18)
[2023-03-11 05:20] LABS: Basophils # 0.1 10^3/uL (0.0-0.1); Basophils % 0.5 %; Eosinophils # 0.3 10^3/uL (0.0-0.8); Hematocrit 33.1 % (37-53); Lymphocytes % 20.7 %; Mean Corpuscular Hemoglobin 29.5 pg (27-33); Mean Corpuscular Volume 92.2 fl (82-101); Mean Platelet Volume 9.8 fL (7.4-10.4); Monocytes # 0.9 10^3/uL (0.2-0.9); Monocytes % 9.2 %; Neutrophils # 6.39 10^3/uL (1.8-7.7); Neutrophils % 66.4 %; Nucleated Red Blood Cells % 0 %; Platelet Count 182 10^3/cmm (157-399); Red Blood Count 3.59 10^6/uL (3.85-5.65); Red Cell Distribution Width 14.2 % (12.1-15.1); White Blood Count 9.63 10^3/uL (3.29-11.43)
[2023-03-11 05:40] LABS: Alanine Aminotransferase < 5 U/L (0-41); Albumin Level 3.7 g/dL (3.5-5.2); Alkaline Phosphatase 61 U/L (40-130); Anion Gap 14.8 (5-19); Aspartate Amino Transferase 7 U/L (0-40); Blood Urea Nitrogen 53 mg/dL (8-23); Calcium 9.5 mg/dL (8.5-10.5); Carbon Dioxide 28 mmol/L (22-29); Chloride 100 mmol/L (98-107); Globulin 2.8 g/dL (1.3-4.6); Glucose 91 mg/dL (65-115); Magnesium 1.9 mg/dL (1.7-2.3); Osmolality Calculated 302 mOsm/kg (285-295); Phosphorus 3.2 mg/dL (2.5-4.5); Potassium 3.8 mmol/L (3.5-5.1); Sodium 139 mmol/L (136-145); Total Bilirubin 0.6 mg/dL (0.15-1.2); Total Protein 6.5 g/dL (6.6-8.7)
[2023-03-11 05:44] LABS: NT Pro B Type Natriuretic Pept 5117 pg/mL (0-450)
[2023-03-11] MEDS: vancomycin 1,500 MG/300 ML PIGGYBACK 200 MG IV (10:18)
[2023-03-11] MEDS: metoprolol tartrate 50 mg Tablet 100 MG PO (10:19)
[2023-03-11] MEDS: famotidine 20 mg Tablet PO (12:02)
--- NOTE | 2023-03-11 12:27 | PC.SOCIAL ---
Pg 2 IMM Explained to pt Pg 2 IMM. No questions voiced. Provided pt a copy. Initialed, dated, & timed a copy & placed in chart.
--- NOTE | 2023-03-11 15:08 | PM.PN ---
Subjective Subjective: Patient lying in bed sleeping with BiPAP at his bedside. It is not on. He is at 3 L nasal cannula when his normal home oxygen is 5 L. Patient has no complaints Vitals/I&O/Wt Last Vital Signs Temp 97.5 F L 03/11/23 11:17 Pulse 75 03/11/23 11:17 Resp 18 03/11/23 11:17 BP 121/61 03/11/23 11:17 Pulse Ox 97 03/11/23 11:17 O2 Del Method Nasal Cannula 03/11/23 11:17 O2 Flow Rate 3 03/11/23 08:00 FiO2 30 03/10/23 20:00 03/11/23 03/11/23 03/11/23 06:59 14:59 22:59 Intake Total 300 / 2940 1070 / 1070 Output Total 1250 / 1950 Balance -950 / 990 1070 / 1070 Weight last 48 hrs Weight 98.112 kg Weight 101.65 kg Physical Exam Narrative: No acute distress Heart is regular no loud murmur Lungs clear to auscultation anteriorly Abdomen soft nontender nondistended positive bowel sounds Extremities no clubbing cyanosis or edema Data 03/11/23 04:29 03/11/23 04:29 Micro: Microbiology 03/10/23 15:22 Gram Stain - Final Sputum - Expectorated Sputum Sputum Culture - Preliminary Gram Negative Rods 03/09/23 19:35 Blood Culture - Preliminary Blood NEGATIVE TO DATE 03/09/23 19:42 Blood Culture - Preliminary Blood NEGATIVE TO DATE A&P Assessment and plan (1) Acute on chronic hypoxic respiratory failure: (2) Acute exacerbation of congestive heart failure: Qualifiers: Heart failure type: unspecified Qualified Code(s): I50.9 - Heart failure, unspecified (3) Cardiomyopathy: Qualifiers: Cardiomyopathy type: dilated Qualified Code(s): I42.0 - Dilated cardiomyopathy (4) Hypertension: Qualifiers: Hypertension type: essential hypertension Qualified Code(s): I10 - Essential (primary) hypertension (5) Atrial fibrillation: Qualifiers: Atrial fibrillation type: other persistent Qualified Code(s): I48.19 - Other persistent atrial fibrillation (6) [facility] resident: Plan Patient appears to have acute exacerbation of CHF. It has responded to 1 dose of Lasix. He does not take Lasix at the [facility]. Patient has chronic kidney disease and with the Lasix his creatinine worsens however in order to avoid dyspnea and assist cardiac function will require daily Lasix dosing. Also recommend adding isosorbide to the hydralazine dosing since patient cannot take an ADILIA inhibitor. Patient has no clinical indicators that patient had pneumonia will stop all IV antibiotics without changing to oral. Plan to discharge to the [facility] tomorrow. Attestations Medical Necessity Statement*: Patient needs to remain hospitalized for treatment of CHF with coexisting chronic renal disease. Ensure the patient does well off antibiotics. Coding Level of Care Code Acute Code for [facility] Fwd Diagnoses Acute on chronic hypoxic respiratory failure J96.21 Acute exacerbation of congestive heart failure I50.9 Heart failure type: unspecified Dilated cardiomyopathy I42.0 Cardiomyopathy type: dilated Essential hypertension I10 Hypertension type: essential hypertension Other persistent atrial fibrillation I48.19 Atrial fibrillation type: other persistent [facility] resident Z59.3
--- NOTE | 2023-03-11 15:17 | PC.NURSE ---
This nurse spoke with Belinda, Patients daughter, and gave her an update on status of pt at 1516.
[2023-03-11] MEDS: hyDRALAzine 50 mg Tablet PO (20:25)
[2023-03-11] MEDS: metoprolol tartrate 50 mg Tablet PO (20:25)
[2023-03-11] MEDS: enoxaparin 120 mg/0.8 mL Syringe 110 MG SUBCUT (20:25)
[2023-03-12] VITALS (8 sets, daily range): BP systolic 144–175; BP diastolic 63–81; PULSE 60–83; RESP 16–18; TEMP 36.3–36.9; O2SAT 93–98
[2023-03-12 06:09] LABS: Blood Urea Nitrogen 52 mg/dL (8-23); Calcium 9.5 mg/dL (8.5-10.5); Carbon Dioxide 25 mmol/L (22-29); Chloride 97 mmol/L (98-107); Glucose 85 mg/dL (65-115); Osmolality Calculated 291 mOsm/kg (285-295); Sodium 134 mmol/L (136-145)
[2023-03-12 06:11] LABS: Anion Gap 15.7 (5-19); Potassium 3.7 mmol/L (3.5-5.1)
[2023-03-12] MEDS: metoprolol tartrate 50 mg Tablet PO ×2 (08:26→21:03)
[2023-03-12] MEDS: hyDRALAzine 50 mg Tablet PO ×3 (08:27→21:03)
[2023-03-12] MEDS: FUROsemide 40 mg Tablet PO (08:27)
[2023-03-12] MEDS: isosorbide mononitrate ER 30 mg Tablet PO (08:27)
--- NOTE | 2023-03-12 13:19 | PM.PN ---
Subjective Subjective: Seen this morning. He is in good spirits and has no acute complaints at this time. Currently on nasal cannula. Vitals/I&O/Wt Last Vital Signs Temp 97.7 F 03/12/23 12:00 Pulse 62 03/12/23 12:00 Resp 16 03/12/23 12:00 BP 158/63 03/12/23 12:00 Pulse Ox 97 03/12/23 12:00 O2 Del Method Nasal Cannula 03/12/23 12:00 O2 Flow Rate 3 03/12/23 08:00 FiO2 30 03/10/23 20:00 03/11/23 03/12/23 03/12/23 22:59 06:59 14:59 Intake Total 600 / 1670 720 / 720 Output Total 900 / 900 1000 / 1900 Balance -300 / 770 -1000 / -230 720 / 720 Weight last 48 hrs Weight 98.248 kg Weight 98.112 kg Physical Exam Narrative: No acute distress Heart is regular no loud murmur Lungs clear to auscultation anteriorly Abdomen soft nontender nondistended positive bowel sounds Extremities no clubbing cyanosis or edema Data 03/11/23 04:29 03/12/23 05:08 Micro: Microbiology 03/10/23 15:22 Gram Stain - Final Sputum - Expectorated Sputum Sputum Culture - Final Proteus mirabilis A&P Assessment and plan (1) Acute on chronic hypoxic respiratory failure: (2) Acute exacerbation of congestive heart failure: Qualifiers: Heart failure type: unspecified Qualified Code(s): I50.9 - Heart failure, unspecified (3) Cardiomyopathy: Qualifiers: Cardiomyopathy type: dilated Qualified Code(s): I42.0 - Dilated cardiomyopathy (4) Hypertension: Qualifiers: Hypertension type: essential hypertension Qualified Code(s): I10 - Essential (primary) hypertension (5) Atrial fibrillation: Qualifiers: Atrial fibrillation type: other persistent Qualified Code(s): I48.19 - Other persistent atrial fibrillation (6) senior living resident: Plan #Altered mental status, shortness of breath at admission #CHF exacerbation, history of chronic heart failure with reduced ejection fraction #With tach status post pacemaker placement #A-fib, chronically on A-fib #Hypertension #Hyperlipidemia ? Patient is status post 1 dose of Lasix. ? Echo is pending at this time ? Lower extremity Dopplers rule out DVT. ? Continue Lasix 40 daily ? Check CBC CMP in AM. ? Will stop therapeutic Lovenox and placed back on Eliquis 2.5 twice daily #Leukocytosis ? May be infectious or inflammatory. Respiratory pathogen panel was ordered. Follow-up blood culture, sputum culture. Empiric vancomycin and Zosyn azithromycin were given. ?Due to not having any clinical indicators for pneumonia all antibiotics were stopped. ?Respiratory sputum culture did show Proteus Mirabella's resistant to levofloxacin, Zosyn. ? Will place on cefdinir orally x 7 days. #CKD, stage IIIb ? At baseline. Creatinine is at baseline. 2.9. ? Continue sodium bicarbonate 650 daily #Chronic hypoxic respiratory failure on 2 L as needed ? Stable #BPH #Gout ? Continue allopurinol, continue Flomax #Depression?continue home medication DNR/DNI Attestations Medical Necessity Statement*: Ready for discharge to retirement however pending insurance authorization Diagnoses Acute on chronic hypoxic respiratory failure J96.21 Acute exacerbation of congestive heart failure I50.9 Heart failure type: unspecified Dilated cardiomyopathy I42.0 Cardiomyopathy type: dilated Essential hypertension I10 Hypertension type: essential hypertension Other persistent atrial fibrillation I48.19 Atrial fibrillation type: other persistent senior living resident Z59.3
[2023-03-12] MEDS: cefdinir 300 MG CAPSULE PO (17:05)
[2023-03-12] MEDS: apixaban 5 mg Tablet 2.5 MG PO (17:05)
[2023-03-13] VITALS (7 sets, daily range): BP systolic 122–162; BP diastolic 68–82; PULSE 61–81; RESP 15–18; TEMP 36.6–36.8; O2SAT 94–97
[2023-03-13 05:50] LABS: Basophils % 0.4 %; Eosinophils # 0.4 10^3/uL (0.0-0.8); Eosinophils % 3.6 %; Hematocrit 35.8 % (37-53); Lymphocytes # 1.9 10^3/uL (0.8-4.8); Lymphocytes % 18.2 %; Mean Corpuscular HGB Conc 32.4 g/dL (30-55); Mean Corpuscular Hemoglobin 29.4 pg (27-33); Mean Corpuscular Volume 90.9 fl (82-101); Mean Platelet Volume 9.9 fL (7.4-10.4); Monocytes # 1.1 10^3/uL (0.2-0.9); Monocytes % 10.2 %; Neutrophils # 6.98 10^3/uL (1.8-7.7); Neutrophils % 67.3 %; Nucleated Red Blood Cells % 0 %; Platelet Count 186 10^3/cmm (157-399); Red Blood Count 3.94 10^6/uL (3.85-5.65); Red Cell Distribution Width 13.9 % (12.1-15.1); White Blood Count 10.37 10^3/uL (3.29-11.43)
[2023-03-13 06:07] LABS: Anion Gap 13.8 (5-19); Blood Urea Nitrogen 48 mg/dL (8-23); Calcium 9.9 mg/dL (8.5-10.5); Carbon Dioxide 26 mmol/L (22-29); Chloride 99 mmol/L (98-107); Glucose 84 mg/dL (65-115); Magnesium 2.1 mg/dL (1.7-2.3); Osmolality Calculated 292 mOsm/kg (285-295); Potassium 3.8 mmol/L (3.5-5.1); Sodium 135 mmol/L (136-145)
[2023-03-13] MEDS: isosorbide mononitrate ER 30 mg Tablet PO (10:29)
[2023-03-13] MEDS: cefdinir 300 MG CAPSULE PO (10:29)
[2023-03-13] MEDS: FUROsemide 40 mg Tablet PO (10:29)
[2023-03-13] MEDS: hyDRALAzine 50 mg Tablet PO ×2 (10:29→14:44)
[2023-03-13] MEDS: metoprolol tartrate 50 mg Tablet PO (10:29)
[2023-03-13] MEDS: sodium bicarbonate 650 mg Tablet PO (10:30)
[2023-03-13] MEDS: apixaban 5 mg Tablet 2.5 MG PO (10:30)
--- NOTE | 2023-03-13 13:14 | P.DS_ITS ---
Discharge Providers Date of Admission: 03/09/23 07:20 Date of Discharge: March 13, 2023 Attending Provider at Admission: Zaida Fuchs MD Attending Provider at Discharge: Sanjana Busch MD Primary Care Provider: Magaly Rivas MD Diagnoses at Discharge Discharge Diagnosis (1) Acute on chronic hypoxic respiratory failure: Status: Resolved (2) Acute exacerbation of congestive heart failure: Status: Resolved Qualifiers: Heart failure type: unspecified Qualified Code(s): I50.9 - Heart failure, unspecified (3) Cardiomyopathy: Status: Acute Qualifiers: Cardiomyopathy type: dilated Qualified Code(s): I42.0 - Dilated cardiomyopathy (4) Hypertension: Status: Acute Qualifiers: Hypertension type: essential hypertension Qualified Code(s): I10 - Essential (primary) hypertension (5) Atrial fibrillation: Status: Acute Qualifiers: Atrial fibrillation type: other persistent Qualified Code(s): I48.19 - Other persistent atrial fibrillation (6) skilled nursing resident: Status: Acute Reason for Visit Reason for Visit: SOB, AMS Brief History: per Dr. 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 The patient's daughter states that yesterday, the patient was confused and thought that he was at work. He was dyspneic. They tried to convince the patient to come to the ED on the night of 03/08/2023, but the patient was not keen on coming. By this AM, he was so dyspneic, that the [facility] staff was able to concerns him to present to the ED. Per the patient's daughter, the patient had no other complaints except for dyspnea. In the ED, the patient's EKG showed a sensed V paced rhythm with PVCs. His chest x-ray showed bilateral interstitial infiltrates concerning for CHF versus pneumonia. Hospital Course Hospital Course Patient presented with altered mental status and shortness of breath at admission. She was treated for CHF exacerbation during hospital stay with Lasix. Lower extremity Dopplers ruled out DVT. Initially patient was treated with therapeutic Lovenox but placed back on Eliquis at discharge. She also received empiric vancomycin and Zosyn azithromycin for possible pneumonia. Respiratory sputum culture showed Proteus mirabilis resistant to Levaquin and Zosyn. She will placed on cefdinir orally x 7 days at discharge. Physical Exam Narrative: No acute distress Heart is regular no loud murmur Lungs clear to auscultation anteriorly Abdomen soft nontender nondistended positive bowel sounds Extremities no clubbing cyanosis or edema Discharge Data Studies Completed and Pending Completed Studies During Hospitalization Category Date Time Status CXRP [XR chest 1V portable 00011] Routine Exams 03/10/23 06:00 Completed XR chest 1V portable [id number] Stat Exams 03/09/23 05:40 [place] [id number] Routine Ultrasound 03/10/23 19:13 Completed CV. echo complete* [id number] Routine Ultrasound 03/09/23 15:26 Completed Pending at discharge Category Date Time Status Blood Culture Stat Lab 03/09/23 19:35 Results SARS Covid-2 Antigen Stat Lab 03/13/23 12:33 Uncollected Radiology Impressions Chest X-Ray 03/10/23 06:00 IMPRESSION: 1. Diffusely distributed airspace opacities somewhat improved compared to previous exam, with most improvement in the right lung base. The findings are suggestive of bilateral pulmonary edema, less likely atypical pneumonia. 2. Small bilateral pleural effusions can not be excluded, but no large pleural effusions are seen. 3. Cardiac silhouette is mildly enlarged. Venous Duplex 03/10/23 19:13 IMPRESSION: No evidence of deep vein thrombosis. Laboratory Results WBC 10.37 10^3/uL (3.29-11.43) 03/13/23 05:25 RBC 3.94 10^6/uL (3.85-5.65) 03/13/23 05:25 Hgb 11.60 g/dL (11.27-16.99) 03/13/23 05:25 Hct 35.8 % (37-53) L 03/13/23 05:25 MCV 90.9 fl (82-101) 03/13/23 05:25 MCH 29.4 pg (27-33) 03/13/23 05:25 MCHC 32.4 g/dL (30-55) 03/13/23 05:25 RDW 13.9 % (12.1-15.1) 03/13/23 05:25 Plt Count 186 10^3/cmm (157-399) 03/13/23 05:25 MPV 9.9 fL (7.4-10.4) 03/13/23 05:25 Neut % (Auto) 67.3 % 03/13/23 05:25 Lymph % (Auto) 18.2 % 03/13/23 05:25 [place] % (Auto) 10.2 % 03/13/23 05:25 Eos % (Auto) 3.6 % 03/13/23 05:25 Baso % (Auto) 0.4 % 03/13/23 05:25 Neut # (Auto) 6.98 10^3/uL (1.8-7.7) 03/13/23 05:25 Lymph # (Auto) 1.9 10^3/uL (0.8-4.8) 03/13/23 05:25 [place] # (Auto) 1.1 10^3/uL (0.2-0.9) H 03/13/23 05:25 Eos # (Auto) 0.4 10^3/uL (0.0-0.8) 03/13/23 05:25 Baso # (Auto) 0.0 10^3/uL (0.0-0.1) 03/13/23 05:25 Nucleated RBC % (auto) 0 % 03/13/23 05:25 Nucleated RBCs # 0.0 /100WBC 03/13/23 05:25 PT 15.70 SECONDS (12.1-14.9) H 03/10/23 04:48 INR 1.21 (0.8-1.2) H 03/10/23 04:48 APTT 36.1 SECONDS (23.9-36.7) 03/10/23 04:48 Specimen Type Arterial 03/09/23 18:22 Sample Site Radial, left 03/09/23 18:22 ABG pH 7.43 (7.35-7.45) 03/09/23 18:22 ABG pCO2 43.9 mmHg (35-45) 03/09/23 18:22 ABG pO2 72.6 mmHg (80.0-100.0) L 03/09/23 18:22 ABG PO2/FiO2 Ratio 0 03/09/23 18:22 ABG HCO3 29.0 mmol/L (22-26) H 03/09/23 18:22 ABG O2 Saturation 98.5 03/09/23 15:13 ABG Base Excess 4.1 mmol/L (-2.0-2.0) H 03/09/23 18:22 López Test Pos 03/09/23 18:22 A-a O2 Gradient 16.4 mmHg (5-10) H 03/09/23 15:13 Hematocrit 33.5 % (42-52) L 03/09/23 18:22 Hgb O2 Saturation 96.9 % (95-100) 03/09/23 15:13 Carboxyhemoglobin 1.0 %THgb (0.4-20.1) 03/09/23 15:13 Methemoglobin 0.6 % (0.4-1.5) 03/09/23 15:13 Total Hemoglobin 9.9 g/dL (14-18) L 03/09/23 15:13 Sodium 142.0 mmol/L (131-143) 03/09/23 15:13 Potassium 4.0 mmol/L (3.5-5.0) 03/09/23 15:13 Glucose 90.0 mg/dL (70-115) 03/09/23 15:13 Ionized Calcium 1.3 mmol/L (1.1-1.4) 03/09/23 15:13 O2 Delivery Device Bipap 03/09/23 18:22 FiO2 30.0 % 03/09/23 18:22 Foundry Engineer ID [email or web address] 03/09/23 18:22 Sodium 135 mmol/L (136-145) L 03/13/23 05:25 Potassium 3.8 mmol/L (3.5-5.1) 03/13/23 05:25 Chloride 99 mmol/L (98-107) 03/13/23 05:25 Carbon Dioxide 26 mmol/L (22-29) 03/13/23 05:25 Anion Gap 13.8 (5-19) 03/13/23 05:25 BUN 48 mg/dL (8-23) H 03/13/23 05:25 Creatinine 2.4 mg/dL (0.7-1.2) H 03/13/23 05:25 GFR Calculation Not Reportable 03/13/23 05:25 Glucose 84 mg/dL (65-115) 03/13/23 05:25 Calculated Osmolality 292 mOsm/kg (285-295) 03/13/23 05:25 Lactic Acid 0.9 mmol/L (0.5-2.2) 03/09/23 19:42 Calcium 9.9 mg/dL (8.5-10.5) 03/13/23 05:25 Phosphorus 3.2 mg/dL (2.5-4.5) 03/11/23 04:29 Magnesium 2.1 mg/dL (1.7-2.3) 03/13/23 05:25 Total Bilirubin 0.6 mg/dL (0.15-1.2) 03/11/23 04:29 AST 7 U/L (0-40) 03/11/23 04:29 ALT < 5 U/L (0-41) 03/11/23 04:29 Alkaline Phosphatase 61 U/L (40-130) 03/11/23 04:29 Troponin T 5th Gen ng/L 51 ng/L (0-15) H 03/10/23 04:48 NT-Pro-B Natriuret Pep 5117 pg/mL (0-450) H 03/11/23 04:29 Total Protein 6.5 g/dL (6.6-8.7) L 03/11/23 04:29 Albumin 3.7 g/dL (3.5-5.2) 03/11/23 04:29 Globulin 2.8 g/dL (1.3-4.6) 03/11/23 04:29 TSH 1.56 uIU/mL (0.27-4.20) 03/10/23 04:48 Free T4 1.54 ng/dL (0.82-1.77) 03/10/23 04:48 Urine Color Straw (Yellow) 03/09/23 18:47 Urine Appearance Clear (CLEAR) 03/09/23 18:47 Urine pH 8 (5-7) H 03/09/23 18:47 Ur Specific [place] 1.010 (1.005-1.030) 03/09/23 18:47 Urine Protein 2+ (Negative) H 03/09/23 18:47 Urine Glucose (UA) Norm (Normal) 03/09/23 18:47 Urine Ketones Negative (Negative) 03/09/23 18:47 Urine Blood 2+ (Negative) H 03/09/23 18:47 Urine Nitrate Negative (Negative) 03/09/23 18:47 Urine Bilirubin Neg (Negative) 03/09/23 18:47 Prot Sulfosalicylic Acd Negative (Negative) 03/09/23 18:47 Urine Urobilinogen Norm mg/dL (Negative) 03/09/23 18:47 Ur Leukocyte Esterase Negative (Negative) 03/09/23 18:47 Urine RBC 0-4 /hpf (0-2) H 03/09/23 18:47 Urine WBC 0-4 /hpf (0-5) H 03/09/23 18:47 Ur Squamous Epith Cells 0-4 /hpf (0-5) H 03/09/23 18:47 Amorphous Sediment Not Reportable 03/09/23 18:47 Urine Bacteria Trace /hpf (NONE) 03/09/23 18:47 Coarse Granular Casts 0-4 /lpf H 03/09/23 18:47 Nasal Influ A H1 2009 PCR Not detected (NOT DETECT) 03/09/23 18:57 Adenovirus (PCR) Not detected (NOT DETECT) 03/09/23 18:57 C. pneumoniae DNA (PCR) Not detected (NOT DETECT) 03/09/23 18:57 Coronavirus 229E (PCR) Not detected (NOT DETECT) 03/09/23 18:57 Human Metapneumovir PCR Not detected (NOT DETECT) 03/09/23 18:57 Influenza A (H1) PCR Not detected (NOT DETECT) 03/09/23 18:57 Influenza A (H3) PCR Not detected (NOT DETECT) 03/09/23 18:57 Influenza Type A (PCR) Not detected (NOT DETECT) 03/09/23 18:57 Influenza Type B (PCR) Not detected (NOT DETECT) 03/09/23 18:57 M. pneumoniae (PCR) Not detected (NOT DETECT) 03/09/23 18:57 Parainfluenza 1 (PCR) Not detected (NOT DETECT) 03/09/23 18:57 Parainfluenza 2 (PCR) Not detected (NOT DETECT) 03/09/23 18:57 Parainfluenza 3 (PCR) Not detected (NOT DETECT) 03/09/23 18:57 Parainfluenza 4 (PCR) Not detected (NOT DETECT) 03/09/23 18:57 RSV Type A (PCR) Not detected (NOT DETECT) 03/09/23 18:57 RSV Type B (PCR) Not detected (NOT DETECT) 03/09/23 18:57 Entero/Rhino (PCR) Not detected (NOT DETECT) 03/09/23 18:57 SARS-CoV-2 (PCR) Not detected (NOT DETECT) 03/09/23 18:57 SARS-CoV-2 Ag (Rapid) negative (Negative) 03/09/23 06:14 Vitals Last Vital Signs Temp 98 F 03/13/23 13:06 Pulse 61 03/13/23 13:06 Resp 18 03/13/23 13:06 BP 122/68 03/13/23 13:06 Pulse Ox 95 03/13/23 13:06 O2 Del Method Nasal Cannula 03/13/23 13:06 O2 Flow Rate 2 03/13/23 08:32 FiO2 30 03/10/23 20:00 Discharge Plan Discharge Patient Disposition: Xfer SNF Condition: Stable Prescriptions: New isosorbide mononitrate 30 mg Tablet Extended Release 24 Hr 30 mg PO DAILY Qty: 30 0RF metoprolol tartrate 50 mg Tablet 50 mg PO BID@0900,2100 Qty: 60 0RF hydralazine 50 mg Tablet 50 mg PO TID Qty: 90 0RF cefdinir 300 mg Capsule 300 mg PO BID Qty: 14 0RF furosemide 40 mg Tablet 20 mg PO DAILY@0800 Qty: 30 0RF potassium chloride 8 mEq capsule, extended release 8 meq PO DAILY Qty: 30 0RF Continued paroxetine HCl 30 mg tablet 30 mg PO DAILY (DME) BiPAP See Rx Instructions .Route .MEDSUPPLY Qty: 1 0RF Rx Instructions: Settings of 01/29 hydrocodone-acetaminophen 7.5-325 mg Tablet 1 tab PO BID PRN (Reason: Pain) sodium bicarbonate 650 mg Tablet 650 mg PO DAILY Qty: 30 0RF calcitriol 0.5 mcg capsule 0.5 mcg PO DAILY Qty: 30 0RF sennosides [Senokot] 8.6 mg Tablet 8.6 mg PO DAILY fexofenadine 60 mg Tablet 60 mg PO BID PRN (Reason: Allergic Symptoms) Eliquis 5 mg Tablet 2.5 mg PO BID Discontinued metoprolol tartrate 100 mg tablet 100 mg PO BID hydralazine 10 mg tablet 10 mg PO TID Qty: 30 0RF amlodipine 5 mg tablet 10 mg PO DAILY Qty: 30 0RF Discharge Orders: Discharge Order (Routine); Ordered 03/13/23 Ordered By: Sanjana Busch Other Ambulatory Orders: Basic Metabolic Panel (Q7D) Timeframe: 20230316 Facility: [facility] - Location: Lab - Main Lab Ordered By: Sanjana Busch Basic Metabolic Panel (Q7D) Timeframe: 20230323 Facility: [facility] - Location: Lab - Main Lab Ordered By: Sanjana Busch Basic Metabolic Panel (Q7D) Timeframe: 20230330 Facility: [facility] - Location: Lab - Main Lab Ordered By: Sanjaan Busch Referrals: [facility] [Outside] Magaly Rivas MD [Primary Care Provider] - 03/21/23 9:30 am Discharge Diet: Cardiac Discharge Activity: Resume usual activity Patient Instructions: Metoprolol (By mouth), Furosemide (By mouth), Potassium Chloride (By mouth), Hydralazine (By mouth), Isosorbide Mononitrate (By mouth), Cefdinir (By mouth) Discharge Attestations Time Spent in Discharge Care*: greater than 30 min Quality Metrics Clinical Quality Measures [ No reported AMI, CVA or VTE this stay] Coding Level of Care Code Acute Code for Chg Fwd Diagnoses Acute on chronic hypoxic respiratory failure J96.21 Acute exacerbation of congestive heart failure I50.9 Heart failure type: unspecified Dilated cardiomyopathy I42.0 Cardiomyopathy type: dilated Essential hypertension I10 Hypertension type: essential hypertension Other persistent atrial fibrillation I48.19 Atrial fibrillation type: other persistent skilled nursing resident Z59.3
--- NOTE | 2023-03-13 13:40 | PC.SOCIAL ---
IMM Updated Updated pt on IMM. No questions voiced. Provided pt a copy. Initialed, dated, & timed copy in chart.
[2023-03-13 13:57] LABS: SARS Covid-2 Antigen positive (Negative)
== END 2023-03-13 15:43 | disposition home or self-care (01) | DRG 291 ==
LOC: ER 07:38 → MEDSURG 09:26
PROVIDERS: Internal Medicine; Admitting Provider Internal Medicine; Emergency Provider Emergency Medicine; PCP Internal Medicine; Visit Provider Internal Medicine
DX: I13.0 Hypertensive heart and chronic kidney disease with heart failure and stage 1 through stage 4 chronic kidney disease, or unspecified chronic kidney disease (principal); I50.23 Acute on chronic systolic (congestive) heart failure; J96.21 Acute and chronic respiratory failure with hypoxia; J18.9 Pneumonia, unspecified organism; I48.19 Other persistent atrial fibrillation; J44.0 Chronic obstructive pulmonary disease with (acute) lower respiratory infection; Z16.23 Resistance to quinolones and fluoroquinolones; I47.20 Ventricular tachycardia, unspecified; N18.30 Chronic kidney disease, stage 3 unspecified; I42.0 Dilated cardiomyopathy; B96.4 Proteus (mirabilis) (morganii) as the cause of diseases classified elsewhere; G47.33 Obstructive sleep apnea (adult) (pediatric); G62.9 Polyneuropathy, unspecified; G31.84 Mild cognitive impairment of uncertain or unknown etiology; E78.5 Hyperlipidemia, unspecified; Z66 Do not resuscitate; F32.A Depression, unspecified; N40.0 Benign prostatic hyperplasia without lower urinary tract symptoms; K21.9 Gastro-esophageal reflux disease without esophagitis; M10.9 Gout, unspecified; Z99.81 Dependence on supplemental oxygen; Z11.52 Encounter for screening for COVID-19; Z79.01 Long term (current) use of anticoagulants; Z87.440 Personal history of urinary (tract) infections; Z86.73 Personal history of transient ischemic attack (TIA), and cerebral infarction without residual deficits; Z95.810 Presence of automatic (implantable) cardiac defibrillator; Z87.891 Personal history of nicotine dependence
CPT/HCPCS: 36415; 36600; 71045; 80048; 80051; 80053; 81001; 82330; 82803; 82805; 83605; 83735; 83880; 84100; 84439; 84443; 84484; 85025; 85610; 85730; 87040; 87070; 87077; 87186; 87205; 87426; 87486; 87581; 87633; 93005; 93306; 93971; 94660; 94664; 96372; 96374; 97110; 97116; 97162; 97167; 97530; 97535; 99291; J0456; J1650; J1940; J2543; J3370; J3372; J3490; J7050; P9046; P9047; Q3014

== ENCOUNTER → 2023-06-17 14:37 | Outpatient (BNVA) | payer MEDICARE, MEDICAID, SELFPAY | PROVIDERS: PCP Internal Medicine; Visit Provider Internal Medicine Cardiovascular Disease | DX: Z95.810 Presence of automatic (implantable) cardiac defibrillator (principal); I48.19 Other persistent atrial fibrillation; I42.0 Dilated cardiomyopathy; I12.9 Hypertensive chronic kidney disease with stage 1 through stage 4 chronic kidney disease, or unspecified chronic kidney disease; N18.32 Chronic kidney disease, stage 3b; J44.9 Chronic obstructive pulmonary disease, unspecified; Z87.891 Personal history of nicotine dependence | CPT/HCPCS: 99214 ==

== ENCOUNTER 2023-07-08 05:29 | Day surgery (SDC) | payer MEDICARE, MEDICAID, SELFPAY ==
[2023-07-08] VITALS (12 sets, daily range): BP systolic 140–171; BP diastolic 57–121; PULSE 56–73; RESP 12–20; TEMP 36.2–36.4; O2SAT 92–99; BMI 27.1
--- NOTE | 2023-07-08 06:02 | XRR_ITS ---
PROCEDURE INFORMATION: Exam: XR Chest Exam date and time: 07/08/2023 5:36 AM Age: 88 years old Clinical indication: Pre-operative exam; Cardiovascular screening and respiratory screening exam; Prior surgery; Surgery date: 6+ months; Surgery type: Defib; Patient HX: Pre op for aicd exchange; Additional info: Aicd generator exchange - preop TECHNIQUE: Imaging protocol: Radiologic exam of the chest. Views: 1 view. COMPARISON: CR XR chest 1V portable [id number] 03/10/2023 6:07 AM FINDINGS: Tubes, catheters and devices: Multilead pacemaker/defibrillator. Lungs: Vascular engorgement with interstitial edema is mildly present and unchanged. A patchy infiltrate in the right lower lobe could represent a superimposed pneumonia. Pleural spaces: Small bilateral pleural effusions are suspected. Heart/Mediastinum: See Vasculature finding. Vasculature: Mild cardiomegaly and uncoiling of the thoracic aorta each accentuated by the AP positioning. Bones/joints: Unremarkable. XR/XR chest 1V portable [id number] IMPRESSION: Mild CHF with effusions. Superimposed right lower lobe infiltrate could be present.
--- NOTE | 2023-07-08 06:31 | PM.OPSURHP ---
Providers/Chief Complaint Admitting Physician: Dr. Donahue Referring Physican: Dr. Hsieh Primary Care Provider: Magaly Rivas MD Chief Complaint: I420 AICD generator end of service History of Present Illness Alexey An is an 88 year old male who is currently a resident of [facility] skilled care facility since September of last year. He is referred to our service after evaluation by Dr. Hsieh for known cardiac disease and AICD generator, currently at end of service. This device was originally implanted in [facility] back in 2000. 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 He has had several generator changes. Echocardiogram of October 2021 revealed ejection fraction of 45%. This has been decreased from prior studies. Mr. An has cognitive dysfunction and his daughter provides consent for planned generator exchange. Mr. An himself is cooperative and does answers some of our questions without difficulty. Overall, he appears to be in physically good health he does have longstanding atrial fibrillation and has been on Eliquis. He has a prior history for pneumonia. He was admitted to the hospital for 4 days back in February of last year after presenting with shortness of breath. He was treated for CHF exacerbation and treated empirically for pneumonia with vancomycin, Zosyn, and Zithromax. Sputum culture did return Proteus mirabilis. He was evaluated by Dr. Hsieh most recently Review of Systems General: Reports: ROS unobtainable due to mental status Narrative: His daughter reports no significant acute physical concerns. Medications/Allergies Home Medications Medication Instructions Recorded Confirmed Last Taken Type paroxetine HCl 30 mg tablet 20 mg PO DAILY 12/01/20 07/08/23 07/07/23 08:56 History BiPAP #1 ea 07/11/22 03/09/23 Unknown Rx hydrocodone 7.5 mg-acetaminophen 1 tab PO BID PRN Pain 10/11/22 07/08/23 06/17/23 12:49 History 325 mg tablet sodium bicarbonate 650 mg tablet 650 mg PO DAILY #30 tabs 10/18/22 07/08/23 07/07/23 08:56 Rx apixaban 5 mg tablet (Eliquis) 2.5 mg PO BID 12/18/22 07/08/23 07/05/23 08:18 History fexofenadine 60 mg tablet 60 mg PO BID PRN Allergic Symptoms 12/18/22 07/05/23 Unknown History sennosides 8.6 mg tablet (Senokot) 8.6 mg PO DAILY 12/18/22 07/08/23 07/07/23 08:56 History furosemide 40 mg tablet 20 mg (1/2 x 40 mg) PO DAILY@0800 03/13/23 07/08/23 07/07/23 08:56 Rx #30 tabs isosorbide mononitrate 30 mg 30 mg PO DAILY #30 tabs 03/13/23 07/08/23 07/08/23 Rx tablet,extended release 24 hr metoprolol tartrate 50 mg tablet 50 mg PO BID@0900,2100 #60 tabs 03/13/23 07/08/23 07/08/23 Rx potassium chloride 8 mEq 8 meq PO DAILY #30 caps 03/13/23 07/08/23 07/07/23 08:56 Rx capsule,extended release calcitriol 0.5 mcg capsule 0.5 mcg PO DAILY 07/05/23 07/08/23 07/07/23 08:56 History (Rocaltrol) hydralazine 50 mg tablet 25 mg PO TID 07/05/23 07/08/23 07/07/23 08:04 History acetaminophen 325 mg tablet 325 mg PO QID PRN Pain 07/08/23 07/08/23 05/25/23 13:34 History (Tylenol) budesonide 0.25 mg/2 mL suspension 0.25 mg inhalation BID 07/08/23 07/08/23 07/07/23 08:05 History for nebulization ipratropium 0.5 mg-albuterol 3 mg 0.5 ml inhalation TID 07/08/23 07/08/23 07/07/23 08:04 History (2.5 mg base)/3 mL nebulization soln omeprazole 20 mg capsule,delayed 20 mg PO DAILY 07/08/23 07/08/23 07/07/23 08:56 History release tamsulosin 0.4 mg capsule 0.4 mg PO DAILY 07/08/23 07/08/23 07/07/23 08:05 History Allergies Allergy/AdvReac Type Severity Reaction Status Date / Time Iodinated Contrast Media AdvReac STOMACH Verified 04/15/24 06:09 CRAMPING DURING A STRESS TEST. 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 CVA (cerebral vascular accident) Chronic anticoagulation Long-term (current) use of anticoagulants, INR goal 2.0-3.0 Stroke-like symptom Implantable cardioverter-defibrillator (ICD) discharge Pacemaker Hypertension Hyperlipidemia Gout Cardiomyopathy COPD (chronic obstructive pulmonary disease) Carotid artery stenosis DDD (degenerative disc disease) GERD (gastroesophageal reflux disease) Atrial fibrillation Surgical History History of cataract extraction History of appendectomy History of tonsillectomy and adenoidectomy Hx of laminectomy Family History Mother CAD (coronary artery disease) valve replaced at 86 Brother Chronic kidney disease (CKD) Father Stroke Family/Other Suicide Denies family history of Diabetes Clotting disorder Dementia Anesthesia complication Bleeding disorder Lung disease Cancer Social History Smoking and tobacco/nicotine status: former use of tobacco/nicotine Alcohol intake: never Substance/Drug Use: never Vital Signs Vitals Signs: Last Vital Signs Temp 97.5 F L 07/08/23 06:24 Pulse 56 L 07/08/23 06:24 Resp 16 07/08/23 06:24 BP 156/76 07/08/23 06:24 Pulse Ox 92 07/08/23 06:24 O2 Del Method Room Air 07/08/23 06:24 Weight: Weight last 48 hrs Weight 217 lb Physical Exam Const: COMMON NORMALS: no acute distress, average body habitus, alert and well nourished OTHER: Mr. An is aware that he is at the hospital for planned defibrillator generator exchange HENMT: COMMON NORMALS: normocephalic, atraumatic, hearing grossly normal bilaterally, external ears normal and Normal external nose present Eye: COMMON NORMALS: EOMs intact bilaterally Neck/C-Spine: COMMON NORMALS: no lymphadenopathy and No carotid bruits; negative for full ROM Chest: COMMONS NORMALS: normal palpation of entire chest wall OTHER: Defibrillator easily palpable in the left anterior chest wall. There are 3 prior surgical scars consistent with prior implantation. Resp: COMMON NORMALS: normal respiratory effort and clear to auscultation bilaterally Cardio: COMMON NORMALS: regular rate, S1 normal heart sound present and No murmurs present (Cardio); negative for regular rhythm GI: COMMON NORMALS: Normal to inspection, nondistended, normoactive bowel sounds present Extremity: COMMON NORMALS: no clubbing, cyanosis or edema and no calf tenderness Neuro: COMMON NORMALS: moves all extremities, no focal motor deficits, no sensory deficits noted and gait normal A&P Assessment and plan (1) ICD (implantable cardioverter-defibrillator) battery depletion: Pleasant 88-year-old gentleman with current AICD generator end of service. Original implantation was 2000 at the [facility] in [place], [place]. Currently a resident at [facility] skilled care facility with memory impairment and some cognitive decline. Daughter and son-in-law are present today. I discussed the recommendation for AICD generator exchange. She is well aware of this procedure. He has given informed consent having medical authority. Details the risk the procedure were discussed as well as increased risk related to advanced age, atrial fibrillation, and his cohort of medical problems. She does wish to proceed. Upon speaking with Mr. Archerett, he appears to have a good understanding of the reasoning for the generator exchange and also is in agreement. Coding Level of Care Code Acute Code for Chg Fwd Diagnoses ICD (implantable cardioverter-defibrillator) battery depletion Z45.02
[2023-07-08] MEDS: sodium chloride 0.9% 1,000 ML 30 ML IV (06:37)
--- NOTE | 2023-07-08 06:51 | ANES.PREANE2 ---
Pre-Anesthetic Assessment Height/Weight: Height 1.91 m Weight 98.43 kg Temp Pulse Resp BP Pulse Ox O2 Del Method 97.5 F L 56 L 16 156/76 92 Room Air 07/08/23 06:24 07/08/23 06:24 07/08/23 06:24 07/08/23 06:24 07/08/23 06:24 07/08/23 06:27 Preop Diagnosis: AICD generator end of service Operation Date: 07/08/23 07:00 Proposed Procedures p Defibillator Generator Exchange(Not Applicable) - Kris Donahue MD Familial anesthetic complications: None Was Beta Alpesh taken within 24 hours: N/A Was Clonidine taken within 24 hours: N/A Last intake: Intake Last Liquid Date 07/07/23 Last Liquid Time 22:00 Last Solid Date 07/07/23 Last Solid Time 17:00 Social No alcohol and No tobacco Exam alert, oriented x 3, clear to auscultation bilaterally and regular rate & rhythm Pulmonary Chronic Obstructive Pulmonary Disease and Sleep Apnea CV/HEM Atrial Fibrillation, Arrythmia, Congestive Heart Failure and Hypertension AICD Chronic Renal Insufficiency Neuropsych Cerebrovascular Accident Anesthetic Plan ASA status: 4 Anesthesia: MAC Risk of > 500 ml blood loss (7ml/kg in children): No Medications/Allergies Home Medications Medication Instructions Recorded Confirmed Last Taken Type paroxetine HCl 30 mg tablet 20 mg PO DAILY 12/01/20 07/08/23 07/07/23 08:56 History BiPAP #1 ea 07/11/22 03/09/23 Unknown Rx hydrocodone 7.5 mg-acetaminophen 1 tab PO BID PRN Pain 10/11/22 07/08/23 06/17/23 12:49 History 325 mg tablet sodium bicarbonate 650 mg tablet 650 mg PO DAILY #30 tabs 10/18/22 07/08/23 07/07/23 08:56 Rx apixaban 5 mg tablet (Eliquis) 2.5 mg PO BID 12/18/22 07/08/23 07/05/23 08:18 History fexofenadine 60 mg tablet 60 mg PO BID PRN Allergic Symptoms 12/18/22 07/05/23 Unknown History sennosides 8.6 mg tablet (Senokot) 8.6 mg PO DAILY 12/18/22 07/08/23 07/07/23 08:56 History furosemide 40 mg tablet 20 mg (1/2 x 40 mg) PO DAILY@0800 03/13/23 07/08/23 07/07/23 08:56 Rx #30 tabs isosorbide mononitrate 30 mg 30 mg PO DAILY #30 tabs 03/13/23 07/08/23 07/08/23 Rx tablet,extended release 24 hr metoprolol tartrate 50 mg tablet 50 mg PO BID@0900,2100 #60 tabs 03/13/23 07/08/23 07/08/23 Rx potassium chloride 8 mEq 8 meq PO DAILY #30 caps 03/13/23 07/08/23 07/07/23 08:56 Rx capsule,extended release calcitriol 0.5 mcg capsule 0.5 mcg PO DAILY 07/05/23 07/08/23 07/07/23 08:56 History (Rocaltrol) hydralazine 50 mg tablet 25 mg PO TID 07/05/23 07/08/23 07/07/23 08:04 History acetaminophen 325 mg tablet 325 mg PO QID PRN Pain 07/08/23 07/08/23 05/25/23 13:34 History (Tylenol) budesonide 0.25 mg/2 mL suspension 0.25 mg inhalation BID 07/08/23 07/08/23 07/07/23 08:05 History for nebulization ipratropium 0.5 mg-albuterol 3 mg 0.5 ml inhalation TID 07/08/23 07/08/23 07/07/23 08:04 History (2.5 mg base)/3 mL nebulization soln omeprazole 20 mg capsule,delayed 20 mg PO DAILY 07/08/23 07/08/23 07/07/23 08:56 History release tamsulosin 0.4 mg capsule 0.4 mg PO DAILY 07/08/23 07/08/23 07/07/23 08:05 History Allergies Allergy/AdvReac Type Severity Reaction Status Date / Time Iodinated Contrast Media AdvReac STOMACH Verified 07/08/23 06:09 CRAMPING DURING A STRESS TEST. 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 CVA (cerebral vascular accident) Chronic anticoagulation Long-term (current) use of anticoagulants, INR goal 2.0-3.0 Stroke-like symptom Implantable cardioverter-defibrillator (ICD) discharge Pacemaker Hypertension Hyperlipidemia Gout Cardiomyopathy COPD (chronic obstructive pulmonary disease) Carotid artery stenosis DDD (degenerative disc disease) GERD (gastroesophageal reflux disease) Atrial fibrillation Surgical History History of cataract extraction History of appendectomy History of tonsillectomy and adenoidectomy Hx of laminectomy Family History Mother CAD (coronary artery disease) valve replaced at 86 Brother Chronic kidney disease (CKD) Father Stroke Family/Other Suicide Denies family history of Diabetes Clotting disorder Dementia Anesthesia complication Bleeding disorder Lung disease Cancer Social History Smoking and tobacco/nicotine status: former use of tobacco/nicotine Alcohol intake: never Substance/Drug Use: never Data Anesthesia 07/08/23 06:30 07/08/23 06:30 Cardiac Studies: Echocardiogram 03/09/23 Sestamibi Stress Test (Cardiology) 03/10/20
[2023-07-08 06:55] LABS: Basophils # 0.1 10^3/uL (0.0-0.1); Basophils % 0.9 %; Eosinophils # 0.6 10^3/uL (0.0-0.8); Eosinophils % 6.5 %; Hematocrit 35.9 % (37-53); Lymphocytes % 20.8 %; Mean Corpuscular HGB Conc 32.9 g/dL (30-55); Mean Corpuscular Hemoglobin 30.2 pg (27-33); Mean Corpuscular Volume 91.8 fl (82-101); Mean Platelet Volume 10.2 fL (7.4-10.4); Monocytes # 0.8 10^3/uL (0.2-0.9); Monocytes % 8.7 %; Neutrophils % 62.8 %; Nucleated Red Blood Cells % 0 %; Platelet Count 191 10^3/cmm (157-399); Red Blood Count 3.91 10^6/uL (3.85-5.65); Red Cell Distribution Width 13.1 % (12.1-15.1); White Blood Count 9.39 10^3/uL (3.29-11.43)
[2023-07-08] MEDS: ceFAZolin 2,000 MG in sodium chloride 0.9% (plus) 50 ML 100 MG IV (06:57)
[2023-07-08 07:13] LABS: Anion Gap 12.4 (5-19); Blood Urea Nitrogen 38 mg/dL (8-23); Calcium 10.6 mg/dL (8.5-10.5); Carbon Dioxide 27 mmol/L (22-29); Chloride 103 mmol/L (98-107); Glucose 107 mg/dL (65-115); Osmolality Calculated 296 mOsm/kg (285-295); Potassium 4.4 mmol/L (3.5-5.1); Sodium 138 mmol/L (136-145)
[2023-07-08 07:14] LABS: Creatinine Clr Calc Pharmacy 21.7916
[2023-07-08] MEDS: lidocaine 1% INJ 10 mL (per mL) 20 ML XX (07:25)
[2023-07-08] MEDS: ceFAZolin 1,000 mg SDV 1000 MG IRRIGATION (07:27)
--- NOTE | 2023-07-08 08:54 | P.OP_ITS ---
Operative Report Date of procedure: July 08, 2023 Pre-op diagnosis: AICD generator end of service Post-op diagnosis: same Procedure done: [employer] AICD generator exchange Implants: [employer] AICD generator Specimens removed/disposition: Old generator delivered to [employer] administrative representative Pathology: none sent Surgeon: Kris Donahue MD Anesthesia: MAC and Local Complications: None Condition: stable Brief History: Mr. An is an 88-year-old gentleman who is a resident of [facility] care home care since last summer with increasing memory impairment. He has an AICD generator which was originally placed in 2000 and has had generator changes previously. Current generator is the end of service. Recommendation by Dr. Hsieh is to replace his generator. I discussed this with Mr. Sousa today along with family members including his daughter who provides informed consent. Procedure: Mr. An was appropriately positioned and sterilely prepped and draped. Appropriate timeout was completed by all members of the operating anesthesia team present. IV consicious sedation was given with anesthesia monitoring. 1% lidocaine was infiltrated through the prior insertion incision site. # 15 scalpel blade was used to incise the skin down to subcutaneous layer. The generator appeared to be in a submuscular position, requiring further dissection into the musculature of the pectoralis in order to reach the pseudocapsule. Bleeding was carefully controlled with the use of cautery, hemoclips, and Surgicel. Subsequently, using sharp and blunt dissection the pseudocapsule to the old generator was reached and opened with a scalpel blade. This area was then enhanced utilizing Metzenbaum scissors with care taken not to injure the pacing leads. Once the pocket was adequate opened, hemostats were utilized to deliver the old generator. Set screws were released and the leads were removed and inserted properly into the new generator with set screws then secured. The old generator was removed from the field. The incision was irrigated with antibiotic solution. Hemostasis was confirmed. The new generator was placed back into the old subcutaneous pocket. The wound was then closed in 2 layers of 3-0 Vicryl suture. Skin was closed in a subcuticular manner with 4-0 undyed Vicryl suture. A 2 layer pressure dressing was then applied. Left arm was placed in a sling. The entire system was interrogated and appropriate para meters obtained. Mr. An tolerated procedure well and was taken to the recovery room in stable condition. I did patient financial counselor with his daughter by phone at the completion of the procedure. Serial #: [id number] Model#: [id number] Right atrial lead amplitude of 4.4 mV with an impedance of 342 ohms capture threshold of 1.25 Right ventricular amplitude was 11.1 millivolts with an impedance of 132 ohms and a capture threshold of 6.0 Device mode is AAIR/DDDR VT monitor rate is 133
--- NOTE | 2023-07-08 09:39 | SUR.PHASEII ---
Patient is hard to wake in Phase II, was very sleepy in Pre-op as well. Hearing audible wheezing, called RT for a breathing treatment. PACU was using suction in Phase I with nothing obtained. Set patient up straighter in bed in hopes to help breathing and for patient to cough up secretions.
[2023-07-08] MEDS: albuterol 2.5 mg/3 mL Neb INHALATION (09:45)
--- NOTE | 2023-07-08 09:58 | SUR.PHASEII ---
Patient was suctioned in Phase II by RT, secretions were obtained in cannula. Breathing treatment was administered and lung sounds improved.
--- NOTE | 2023-07-08 10:45 | ANE.PACU2 ---
Inpatient post-anesthesia follow up: Airway intact: Yes Vital signs: Temperature 97.3 F Pulse Rate 70 Respiratory Rate 16 Blood Pressure 153/82 Pulse Oximetry 94 Oxygen Delivery Me thod Nasal Cannula Oxygen Flow Rate 2 Fraction of Inspir ed Oxygen Hydration adequate: Yes Nausea and vomiting: No Pain level: 1 Mental status: Baseline
== END 2023-07-08 10:45 | disposition home or self-care (01) ==
PROVIDERS: PCP Internal Medicine; Visit Provider Thoracic Surgery (Cardiothoracic Vascular Surgery)
PROC: 0JPT0PZ Removal of Cardiac Rhythm Related Device from Trunk Subcutaneous Tissue and Fascia, Open Approach (ICD-10-PCS; CPT 33263; principal; 2023-07-08 07:00)
DX: Z45.02 Encounter for adjustment and management of automatic implantable cardiac defibrillator (principal); J44.9 Chronic obstructive pulmonary disease, unspecified; Z86.73 Personal history of transient ischemic attack (TIA), and cerebral infarction without residual deficits; I13.0 Hypertensive heart and chronic kidney disease with heart failure and stage 1 through stage 4 chronic kidney disease, or unspecified chronic kidney disease; I50.20 Unspecified systolic (congestive) heart failure; N18.9 Chronic kidney disease, unspecified; I48.91 Unspecified atrial fibrillation; G47.33 Obstructive sleep apnea (adult) (pediatric); E78.5 Hyperlipidemia, unspecified; K21.9 Gastro-esophageal reflux disease without esophagitis; Z87.891 Personal history of nicotine dependence
CPT/HCPCS: 33263; 71045; 80048; 85025; 94640; 94799; C1721; J0690; J2371; J2704; J3010; J7030; J7613

== ENCOUNTER → 2023-07-17 14:30 | Outpatient (BNVA) | payer MEDICARE, MEDICAID, SELFPAY | PROVIDERS: PCP Internal Medicine; Visit Provider Nurse Practitioner Family | DX: Z95.810 Presence of automatic (implantable) cardiac defibrillator (principal); I48.19 Other persistent atrial fibrillation; I10 Essential (primary) hypertension; Z87.891 Personal history of nicotine dependence; Z79.01 Long term (current) use of anticoagulants | CPT/HCPCS: 99214 ==

== ENCOUNTER 2023-08-20 19:10 | Emergency (ER) | payer MEDICARE, MEDICAID, SELFPAY ==
[2023-08-20 19:10] VITALS: BP 154/107; PULSE 70; RESP 16; TEMP 36.4; O2SAT 94; BMI 16.5
[2023-08-20 19:21] VITALS: BP 154/107; PULSE 72; RESP 21; O2SAT 96
--- NOTE | 2023-08-20 19:26 | CTR_ITS ---
PROCEDURE INFORMATION: Exam: CT Head Without Contrast Exam date and time: 08/20/2023 7:39 PM Age: 88 years old Clinical indication: Altered mental status/memory loss; Additional info: Encephalopathy, altered mental status TECHNIQUE: Imaging protocol: Computed tomography of the head without contrast. Radiation optimization: All CT scans at this facility use at least one of these dose optimization techniques: automated exposure control; mA and/or kV adjustment per patient size (includes targeted exams where dose is matched to clinical indication); or iterative reconstruction. COMPARISON: CT head wo con* [id number] 12/17/2022 10:35 PM RADIATION DOSE METRICS: Total DLP (mGy-cm): 1175 FINDINGS: Brain: Mild diffuse white matter disease likely reflecting chronic microvascular ischemic changes. Cerebral ventricles: No ventriculomegaly. Paranasal sinuses: Paranasal sinus opacifications. Mastoid air cells: Visualized mastoid air cells are well aerated. Bones: Unremarkable. No acute fracture. Soft tissues: Unremarkable. CT/CT head wo con* [id number] IMPRESSION: Negative for intracranial hemorrhage or mass effect.
--- NOTE | 2023-08-20 19:26 | XRR_ITS ---
PROCEDURE INFORMATION: Exam: XR Chest Exam date and time: 08/20/2023 7:30 PM Age: 88 years old Clinical indication: Other: AMS; Prior surgery; Surgery date: 6+ months; Surgery type: Defib; Additional info: Weakness TECHNIQUE: Imaging protocol: Radiologic exam of the chest. Views: 1 view. COMPARISON: CR XR chest 1V portable [id number] 07/08/2023 5:36 AM FINDINGS: Tubes, catheters and devices: Left-sided pacemaker. Lungs: Pulmonary vascular congestion and interstitial edema. Right lower lobe ground-glass airspace opacity reflecting atelectasis versus infiltrate. Pleural spaces: Small right pleural effusion. Heart/Mediastinum: Cardiomegaly. Bones/joints: Unremarkable. XR/XR chest 1V portable [id number] IMPRESSION: 1. Small right pleural effusion. 2. Cardiomegaly. 3. Pulmonary vascular congestion and interstitial edema. 4. Right lower lobe ground-glass airspace opacity reflecting atelectasis versus infiltrate. 5. Left-sided pacemaker.
--- NOTE | 2023-08-20 19:28 | W.ED.AMS ---
HPI - Altered Mental Status General: Chief Complaint: Altered Mental Status Stated Complaint: AMS Time Seen by Provider: 08/20/23 19:22 History of Present Illness: 88-year-old male with a history of cardiomyopathy and congestive heart failure with ICD placement, atrial fibrillation, COPD, chronic hypoxemic respiratory failure on as needed 2 L nasal cannula, chronic anticoagulation on Eliquis, stroke, mild dementia, coronary artery disease and hypertension who presents to the emergency room by ambulance from detention with reports of fluctuating confusion and some generalized weakness. Nothing focal. On presentation here he is alert and oriented. No distress. He says he has not been feeling great but has no focal symptoms. No cough. No chest pain. No abdominal pain. No nausea or vomiting. Per report a urinalysis was done at the detention that was negative. Review of Systems Narrative: Constitutional symptoms: Negative except as documented in HPI. Skin symptoms: Negative except as documented in HPI. Eye symptoms: Negative except as documented in HPI. ENMT symptoms: Negative except as documented in HPI. Respiratory symptoms: Negative except as documented in HPI. Cardiovascular symptoms: Negative except as documented in HPI. Gastrointestinal symptoms: Negative except as documented in HPI. Genitourinary symptoms: Negative except as documented in HPI. Musculoskeletal symptoms: Negative except as documented in HPI. Neurologic symptoms: Negative except as documented in HPI. Psychiatric symptoms: Negative except as documented in HPI. Endocrine symptoms: Negative except as documented in HPI. 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 CVA (cerebral vascular accident) Chronic anticoagulation Long-term (current) use of anticoagulants, INR goal 2.0-3.0 Stroke-like symptom Implantable cardioverter-defibrillator (ICD) discharge Pacemaker Hypertension Hyperlipidemia Gout Cardiomyopathy COPD (chronic obstructive pulmonary disease) Carotid artery stenosis DDD (degenerative disc disease) GERD (gastroesophageal reflux disease) Atrial fibrillation Surgical History History of cataract extraction History of appendectomy History of tonsillectomy and adenoidectomy Hx of laminectomy Family History Mother CAD (coronary artery disease) valve replaced at 86 Brother Chronic kidney disease (CKD) Father Stroke Family/Other Suicide Denies family history of Diabetes Clotting disorder Dementia Anesthesia complication Bleeding disorder Lung disease Cancer Social History Smoking and tobacco/nicotine status: former use of tobacco/nicotine Alcohol intake: never Substance/Drug Use: never Physical Exam Narrative: General: Alert, no acute distress. Skin: Warm, dry. Head: Normocephalic, atraumatic. Neck: Supple, trachea midline. Eye: Extraocular movements are intact. Ears, nose, mouth and throat: mucosa moist. Cardiovascular: Regular, Normal peripheral perfusion. Respiratory: Lungs are clear to auscultation, respirations are non-labored, breath sounds are equal, Symmetrical chest wall expansion. Gastrointestinal: Soft, Nontender, Non distended, Normal bowel sounds. Musculoskeletal: Normal ROM, no deformity. Neurological: Alert and oriented, No focal neurological deficit observed. Psychiatric: Cooperative, appropriate mood & affect. Course Vital Signs: Vital signs: Vital Signs Temperature 97.5 F L 08/20/23 19:10 Pulse Rate 61 08/20/23 21:00 Respiratory Rate 16 08/20/23 21:00 Blood Pressure 143/86 08/20/23 21:00 Pulse Oximetry 97 08/20/23 21:00 Oxygen Delivery Me thod Room Air 08/20/23 21:00 Oxygen Flow Rate 2 08/20/23 20:51 MDM - Altered Mental Status Medical Decision Making Medical decision making: Differential diagnosis for patient presenting with generalized weakness including but not limited to and based on the above HPI, review of systems and physical exam: Sepsis. Dehydration. Renal failure. Electrolyte abnormalities. Anemia. Congestive heart failure. Hypotension. Coronary syndrome. Hepatitis. Cirrhosis. Infections such as pneumonia, urinary tract infection, [place] illness, Cellulitis, Viral infections including influenza and Covid-19. Workup: labwork and lab/exam driven imaging ordered to evaluate, rule in and rule out above pathologies. Chest x-ray: Cardiomegaly, AICD in place with lines. Perhaps some early congestive failure. There appears to be a little bit of fluid in the right fissure. Possible atelectasis versus small early infiltrate in the right lower lung. This appears extremely similar to chest x-ray done about a month ago. This was reviewed and interpreted by myself the emergency room physician. I also reviewed the radiology report. CT head: No acute intracranial process. no intracranial hemorrhage, no evidence of infarct. no evidence of acute fracture.This was reviewed and interpreted by myself the ER physician. EKG: Time 1951 rate 70. Normal sinus rhythm, No ST-T changes, no ectopy, paced rhythm, this was reviewed and interpreted by myself the emergency room physician at 1952 Lab Review: Laboratory results were reviewed and interpreted by myself the emergency room physician. White count is 10. Hemoglobin is 11. BUN and creatinine are 37 and 3. This is at or below his baseline creatinine levels. Has some chronic kidney disease. Urinalysis is negative for infection. I reviewed the patient's medical record. Reexamination: Patient remained stable. He has not had any altered mental status or focal motor deficits. No increased work of breathing. He does not report any cough or fevers. However given his changes in mentation and a possible right lower lobe infiltrate I will place him on some doxycycline. Assessment and plan: Metabolic encephalopathy Pneumonia - Discharged home - Discussed findings and plan with patient. Answered any questions. - All laboratory values were reviewed and interpreted personally by myself, the ER physician - All imaging was reviewed and interpreted personally by myself, the ER physician. - Evaluation and treatment of this problem were appropriate in the emergency setting Lab Data 08/20/23 19:25 08/20/23 19:25 Radiology Impressions Chest X-Ray 08/20/23 19:26 IMPRESSION: 1. Small right pleural effusion. 2. Cardiomegaly. 3. Pulmonary vascular congestion and interstitial edema. 4. Right lower lobe ground-glass airspace opacity reflecting atelectasis versus infiltrate. 5. Left-sided pacemaker. Head CT 08/20/23 19:26 IMPRESSION: Negative for intracranial hemorrhage or mass effect. Laboratory Results WBC 10.16 10^3/uL (3.29-11.43) 08/20/23 19:25 RBC 3.69 10^6/uL (3.85-5.65) L 08/20/23 19:25 Hgb 11.10 g/dL (11.27-16.99) L 08/20/23 19:25 Hct 34.0 % (37-53) L 08/20/23 19: MCV 92.1 fl (82-101) 08/20/23 19:25 MCH 30.1 pg (27-33) 08/20/23 19: MCHC 32.6 g/dL (30-55) 08/20/23 19: RDW 13.2 % (12.1-15.1) 08/20/23 19: Plt Count 238 10^3/cmm (157-399) 08/20/23 19:25 MPV 9.7 fL (7.4-10.4) 08/20/23 19:25 Neut % (Auto) 62.1 % 08/20/23 19: Lymph % (Auto) 22.9 % 08/20/23 19: [place] % (Auto) 9.4 % 08/20/23 19: Eos % (Auto) 4.5 % 08/20/23 19: Baso % (Auto) 0.8 % 08/20/23 19: Neut # (Auto) 6.31 10^3/uL (1.8-7.7) 08/20/23 19:25 Lymph # (Auto) 2.3 10^3/uL (0.8-4.8) 08/20/23 19:25 [place] # (Auto) 1.0 10^3/uL (0.2-0.9) H 08/20/23 19:25 Eos # (Auto) 0.5 10^3/uL (0.0-0.8) 08/20/23 19: Baso # (Auto) 0.1 10^3/uL (0.0-0.1) 08/20/23 19: Nucleated RBC % (auto) 0 % 08/20/23: Nucleated RBCs # 0.0 /100WBC 08/20/23 19:25 Specimen Type Arterial 08/20/23 20:00 Sample Site Radial, left 08/20/23 20:00 ABG pH 7.42 (7.35-7.45) 08/20/23 20:00 ABG pCO2 39.3 mmHg (35-45) 08/20/23 20:00 ABG pO2 91.9 mmHg (80.0-100.0) 08/20/23 20:00 ABG PO2/FiO2 Ratio 0 08/20/23 20:00 ABG HCO3 25.3 mmol/L (22-26) 08/20/23 20:00 ABG O2 Saturation 97.1 08/20/23 20:00 ABG Base Excess 0.8 mmol/L (-2.0-2.0) 08/20/23 20:00 López Test Pos 08/20/23 20:00 A-a O2 Gradient 7.6 mmHg (5-10) 08/20/23 20:00 Hematocrit 34.7 % (42-52) L 08/20/23 20:00 Hgb O2 Saturation 96.0 % (95-100) 08/20/23 20:00 Carboxyhemoglobin 0.8 %THgb (0.4-20.1) 08/20/23 20:00 Methemoglobin 0.3 % (0.4-1.5) L 08/20/23 20:00 Total Hemoglobin 11.3 g/dL (14-18) L 08/20/23 20:00 Sodium 139.0 mmol/L (131-143) 08/20/23 20:00 Potassium 4.4 mmol/L (3.5-5.0) 08/20/23 20:00 Glucose 96.0 mg/dL (70-115) 08/20/23 20:00 Ionized Calcium 1.4 mmol/L (1.1-1.4) 08/20/23 20:00 O2 Delivery Device Nc 08/20/23 20:00 O2 Liters/Min 2.0 % 08/20/23 20:00 FiO2 28.0 % 08/20/23 20:00 Bridal Consultant ID Alewe 08/20/23 20:00 Sodium 138 mmol/L (136-145) 08/20/23 19:25 Potassium 4.8 mmol/L (3.5-5.1) 08/20/23 19:25 Chloride 103 mmol/L (98-107) 08/20/23 19:25 Carbon Dioxide 24 mmol/L (22-29) 08/20/23 19:25 Anion Gap 15.8 (5-19) 08/20/23 19:25 BUN 37 mg/dL (8-23) H 08/20/23 19:25 Creatinine 3.0 mg/dL (0.7-1.2) H 08/20/23 19:25 GFR Calculation Not Reportable 08/20/23 19:25 Glucose 95 mg/dL (65-115) 08/20/23 19:25 Calculated Osmolality 294 mOsm/kg (285-295) 08/20/23 19:25 Lactic Acid 0.7 mmol/L (0.5-2.2) 08/20/23 19:25 Calcium 9.5 mg/dL (8.5-10.5) 08/20/23 19:25 Total Bilirubin 0.3 mg/dL (0.15-1.2) 08/20/23 19:25 AST 9 U/L (0-40) 08/20/23 19:25 ALT 6 U/L (0-41) 08/20/23 19:25 Alkaline Phosphatase 68 U/L (40-130) 08/20/23 19:25 Troponin T Baseline 51 ng/L (0-15) H 08/20/23 19:25 Troponin T 120 Minute 52.37 ng/L (0-15) H 08/20/23 20:57 Delta Troponin T 1.37 ABS# (0-10) 08/20/23 20:57 C-Reactive Protein 15.4 mg/L (0.0-4.9) H 08/20/23 19:25 Total Protein 6.3 g/dL (6.6-8.7) L 08/20/23 19:25 Albumin 3.4 g/dL (3.5-5.2) L 08/20/23 19:25 Globulin 2.9 g/dL (1.3-4.6) 08/20/23 19:25 Urine Color Yellow (Yellow) 08/20/23 20:00 Urine Appearance Clear (CLEAR) 08/20/23 20:00 Urine pH 6 (5-7) 08/20/23 20:00 Ur Specific [place] 1.015 (1.005-1.030) 08/20/23 20:00 Urine Protein 2+ (Negative) H 08/20/23 20:00 Urine Glucose (UA) Norm (Normal) 08/20/23 20:00 Urine Ketones Negative (Negative) 08/20/23 20:00 Urine Blood Neg (Negative) 08/20/23 20:00 Urine Nitrate Negative (Negative) 08/20/23 20:00 Urine Bilirubin Neg (Negative) 08/20/23 20:00 Urine Urobilinogen Neg mg/dL (Negative) 08/20/23 20:00 Ur Leukocyte Esterase Negative (Negative) 08/20/23 20:00 Urine RBC 0-4 /hpf (0-2) H 08/20/23 20:00 Urine WBC 0-4 /hpf (0-5) H 08/20/23 20:00 Ur Squamous Epith Cells None /hpf (0-5) 08/20/23 20:00 Amorphous Sediment Not Reportable 08/20/23 20:00 Urine Bacteria None /hpf (NONE) 08/20/23 20:00 Urine Mucus 1+ /hpf 08/20/23 20:00 All radiology interpretation(s) finalized by discharge Discharge Plan Discharge Patient Disposition: Home Clinical Impression: Pneumonia, Acute metabolic encephalopathy Condition: Stable Prescriptions: New doxycycline hyclate 100 mg capsule 100 mg PO BID 7 Days Qty: 14 0RF No Action paroxetine HCl 30 mg tablet 20 mg PO DAILY (DME) BiPAP See Rx Instructions .Route .MEDSUPPLY Qty: 1 0RF Rx Instructions: Settings of 01/29 isosorbide mononitrate 30 mg Tablet Extended Release 24 Hr 30 mg PO DAILY Qty: 30 0RF metoprolol tartrate 50 mg Tablet 50 mg PO BID@0900,2100 Qty: 60 0RF furosemide 40 mg Tablet 20 mg PO DAILY@0800 Qty: 30 0RF potassium chloride 8 mEq capsule, extended release 8 meq PO DAILY Qty: 30 0RF hydrocodone-acetaminophen 7.5-325 mg Tablet 1 tab PO BID PRN (Reason: Pain) sodium bicarbonate 650 mg Tablet 650 mg PO DAILY Qty: 30 0RF sennosides [Senokot] 8.6 mg Tablet 8.6 mg PO DAILY fexofenadine 60 mg Tablet 60 mg PO BID PRN (Reason: Allergic Symptoms) Eliquis 5 mg Tablet 2.5 mg PO BID calcitriol [Rocaltrol] 0.5 mcg capsule 0.5 mcg PO DAILY hydralazine 50 mg tablet 25 mg PO TID Tylenol 325 mg Tablet 325 mg PO QID PRN (Reason: Pain) ipratropium-albuterol 0.5 mg-3 mg(2.5 mg base)/3 mL solution for nebulization 0.5 ml INHALATION TID tamsulosin 0.4 mg capsule 0.4 mg PO DAILY budesonide 0.25 mg/2 mL suspension for nebulization 0.25 mg inhalation BID omeprazole 20 mg capsule,delayed release(DR/EC) 20 mg PO DAILY Discharge Orders: Discharge ED (Routine); Ordered 08/20/23 Ordered By: Adriana Rivers Referrals: Magaly Rivas MD [Primary Care Provider] - 4-7 days Discharge Diet: Usual diet Discharge Activity: Increase activity as tolerated Patient Instructions: Pneumonia (ED) Activity Restrictions/Additional Instructions: Thank you for choosing [facility] for your healthcare needs today. Please realize this is an emergency room and that we are providing you with a medical screening exam and this may not be complete and all inclusive of all the testing and or work up that you may need to determine your ailment or severity of your illness. You have been screened and evaluated and felt safe for discharge. Health conditions do change or evolve sometimes and as such it is important that you follow up with your Primary Doctor to be re checked, 3-5 days is a general good time frame for follow up. You are always welcome to return to the ED for re assessment if your symptoms are worsening or you have new concerns Coding Level of Care Code ED Production Welder for Nataliia Suggs
--- NOTE | 2023-08-20 19:33 | ECG_ITS ---
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 Measurements Intervals [place] Rate: 70 P: 110 NC: 203 QRS: -48 QRSD: 160 T: 127 QT: 435 QTc: 471 Interpretive Statements ELECTRONIC ATRIAL PACEMAKER LEFT AXIS DEVIATION [QRS AXIS < -30] LEFT BUNDLE BRANCH BLOCK [120+ ms QRS DURATION, 80+ ms Q/S IN V1/V2, 85+ ms R IN I/aVL/V5/V6] Compared to ECG 03/10/2023 20:44:24 Atrial fibrillation no longer present Electronically Signed On 08-21-2023 13:55:51 CDT by Anatoliy Muñoz M.D. [id number]
[2023-08-20 19:45] LABS: Basophils # 0.1 10^3/uL (0.0-0.1); Basophils % 0.8 %; Eosinophils # 0.5 10^3/uL (0.0-0.8); Eosinophils % 4.5 %; Lymphocytes # 2.3 10^3/uL (0.8-4.8); Lymphocytes % 22.9 %; Mean Corpuscular HGB Conc 32.6 g/dL (30-55); Mean Corpuscular Hemoglobin 30.1 pg (27-33); Mean Corpuscular Volume 92.1 fl (82-101); Mean Platelet Volume 9.7 fL (7.4-10.4); Monocytes % 9.4 %; Neutrophils # 6.31 10^3/uL (1.8-7.7); Neutrophils % 62.1 %; Nucleated Red Blood Cells % 0 %; Platelet Count 238 10^3/cmm (157-399); Red Blood Count 3.69 10^6/uL (3.85-5.65); Red Cell Distribution Width 13.2 % (12.1-15.1); White Blood Count 10.16 10^3/uL (3.29-11.43)
[2023-08-20 19:51] VITALS: BP 153/77; PULSE 72; RESP 17; O2SAT 95
[2023-08-20 19:56] LABS: Troponin(5th) Baseline 51 ng/L (0-15)
[2023-08-20 19:57] LABS: Lactic Sepsis W/Reflex 0.7 mmol/L (0.5-2.2)
[2023-08-20 19:59] LABS: Alanine Aminotransferase 6 U/L (0-41); Albumin Level 3.4 g/dL (3.5-5.2); Alkaline Phosphatase 68 U/L (40-130); Anion Gap 15.8 (5-19); Aspartate Amino Transferase 9 U/L (0-40); Blood Urea Nitrogen 37 mg/dL (8-23); C Reactive Protein 15.4 mg/L (0.0-4.9); Calcium 9.5 mg/dL (8.5-10.5); Carbon Dioxide 24 mmol/L (22-29); Chloride 103 mmol/L (98-107); Creatinine Clr Calc Pharmacy 14.9685; Globulin 2.9 g/dL (1.3-4.6); Glucose 95 mg/dL (65-115); Osmolality Calculated 294 mOsm/kg (285-295); Potassium 4.8 mmol/L (3.5-5.1); Sodium 138 mmol/L (136-145); Total Bilirubin 0.3 mg/dL (0.15-1.2); Total Protein 6.3 g/dL (6.6-8.7)
[2023-08-20 20:08] LABS: ABG PCO2 39.3 mmHg (35-45); ABG PH Result 7.42 (7.35-7.45); Alveolar-Arterial Oxygen Gradi 7.6 mmHg (5-10); Arterial Blood Gas Hematocrit 34.7 % (42-52); Base Excess ABG 0.8 mmol/L (-2.0-2.0); Blood Gas Allen Test Pos; Blood Gas Sample Site Radial, left; Blood Gas Sample Type Arterial; Carboxyhemoglobin 0.8 %THgb (0.4-20.1); HCO3 ABG 25.3 mmol/L (22-26); Ionized Calcium Level - ABG 1.4 mmol/L (1.1-1.4); Methemoglobin 0.3 % (0.4-1.5); Oxygen Device NC; Oxygen Saturation ABG 97.1; PO2 ABG 91.9 mmHg (80.0-100.0); PO2 FiO2 Ratio Arterial Blood 0; Potassium Level - ABG 4.4 mmol/L (3.5-5.0); Total Hemoglobin 11.3 g/dL (14-18)
[2023-08-20 20:28] LABS: Bilirubin Urine Neg (Negative); Blood Urine Neg (Negative); Glucose Urine UA Norm (Normal); Ketones Urine Negative (Negative); Leukocyte Esterase Urine Negative (Negative); Nitrate Urine Negative (Negative); Protein Urine 2+ (Negative); Specific Gravity, Urine 1.015 (1.005-1.030); Urine Appearance Clear (CLEAR); Urine Color Yellow (Yellow); Urobilinogen Urine Neg (Negative); pH Urine 6 (5-7)
[2023-08-20 20:29] LABS: Add Urine Culture? No; Mucus Urine 1+ /hpf; RBC Urine 0-4 /hpf (0-2); WBC Urine 0-4 /hpf (0-5)
[2023-08-20 20:51] VITALS: BP 161/76; PULSE 69; RESP 12; O2SAT 96
[2023-08-20 21:00] VITALS: BP 143/86; PULSE 61; RESP 16; O2SAT 97
[2023-08-20 21:31] LABS: Troponin 5 2HR 52.37 ng/L (0-15); Troponin 5 2HR Delta 1.37 ABS# (0-10)
[2023-08-20] MEDS: doxycycline 100 MG in sodium chloride 0.9% (plus) 100 ML IV (22:18)
[2023-08-21] VITALS (10 sets, daily range): BP systolic 150–171; BP diastolic 75–90; PULSE 70–73; RESP 15–20; TEMP 36.4; O2SAT 93–98
== END 2023-08-21 10:12 | disposition home or self-care (01) ==
PROVIDERS: Emergency Provider Emergency Medicine; PCP Internal Medicine
DX: J44.0 Chronic obstructive pulmonary disease with (acute) lower respiratory infection (principal); J18.9 Pneumonia, unspecified organism; G93.41 Metabolic encephalopathy; Z79.01 Long term (current) use of anticoagulants; Z87.891 Personal history of nicotine dependence; Z95.810 Presence of automatic (implantable) cardiac defibrillator; Z86.73 Personal history of transient ischemic attack (TIA), and cerebral infarction without residual deficits; N18.9 Chronic kidney disease, unspecified; E78.5 Hyperlipidemia, unspecified; I13.10 Hypertensive heart and chronic kidney disease without heart failure, with stage 1 through stage 4 chronic kidney disease, or unspecified chronic kidney disease; I43 Cardiomyopathy in diseases classified elsewhere
CPT/HCPCS: 36415; 36600; 70450; 71045; 80051; 80053; 81001; 82330; 82805; 83605; 84484; 85025; 86140; 87040; 93005; 96365; 99285; J3490

== ENCOUNTER → 2023-12-17 13:50 | Outpatient (BNVA) | payer MEDICARE, MEDICAID, SELFPAY | PROVIDERS: PCP Internal Medicine; Visit Provider Internal Medicine Cardiovascular Disease | DX: I48.19 Other persistent atrial fibrillation (principal); I42.0 Dilated cardiomyopathy; I11.0 Hypertensive heart disease with heart failure; N18.32 Chronic kidney disease, stage 3b; J44.9 Chronic obstructive pulmonary disease, unspecified; Z87.891 Personal history of nicotine dependence; Z95.810 Presence of automatic (implantable) cardiac defibrillator | CPT/HCPCS: 99214 ==

== ENCOUNTER 2024-02-09 02:40 | Emergency (ER) | payer MEDICARE, MEDICAID, SELFPAY ==
[2024-02-09 02:40] VITALS: BMI 25.0
[2024-02-09 02:48] VITALS: BP 177/102; PULSE 74; RESP 15; TEMP 36.9; O2SAT 95
[2024-02-09 03:32] LABS: Bilirubin Urine Negative (Negative); Blood Urine Negative (Negative); Glucose Urine UA Negative (Normal); Ketones Urine Negative (Negative); Leukocyte Esterase Urine Negative (Negative); Nitrate Urine Negative (Negative); Protein Urine 3+ (Negative); Specific Gravity, Urine 1.015 (1.005-1.030); Urine Appearance Clear (CLEAR); Urine Color Yellow (Yellow)
[2024-02-09 03:37] LABS: Add Urine Microscopic? YES; Bacteria Urine None Seen /hpf; Hyaline Casts Urine 1.21 /lpf; RBC Urine 0-2 /hpf (0-2); Squamous Epithelial Cell Urine 0-5 /hpf (0-5); Universal Test for UA Present (0); WBC Urine 0-5 /hpf (0-5)
--- NOTE | 2024-02-09 03:40 | XRR_ITS ---
PROCEDURE INFORMATION: Exam: XR Chest Exam date and time: 02/09/2024 3:42 AM Age: 88 years old Clinical indication: Wheezing; Additional info: AMS TECHNIQUE: Imaging protocol: Radiologic exam of the chest. Views: 1 view. COMPARISON: CR (CHEST, ) 08/20/2023 7:30 PM FINDINGS: Tubes, catheters and devices: A cardiac pacemaker/AICD is noted. Lungs: No infiltrate. Pleural spaces: Unremarkable. No pleural effusion. No pneumothorax. Heart/Mediastinum: There is moderate cardiomegaly with vascular congestion. Bones/joints: Unremarkable. XR/XR chest 1V portable [id number] IMPRESSION: Moderate cardiomegaly with vascular congestion.
[2024-02-09 03:52] LABS: Sperm Urine 1+ /hpf
--- NOTE | 2024-02-09 04:08 | W.ED.AMS ---
HPI - Altered Mental Status General: Chief Complaint: Altered Mental Status Stated Complaint: AMS Time Seen by Provider: 02/09/24 02:43 History of Present Illness: 88-year-old male gentleman presents from a longterm. Evidently he was awoken this morning, and seemed confused to the longterm staff. Ambulance was called. He is since cleared. He is essentially back to baseline mental status roberto. He had a recent urinary tract infection and the concern was that his urinary tract infection was back after having had antibiotics. The patient himself has no complaints. Related Data Home Medications Medication Instructions Recorded Confirmed paroxetine HCl 30 mg tablet 20 mg PO DAILY 12/01/20 07/17/23 hydrocodone 7.5 mg-acetaminophen 1 tab PO BID PRN Pain 10/11/22 07/17/23 325 mg tablet apixaban 5 mg tablet (Eliquis) 2.5 mg PO BID 12/18/22 07/17/23 fexofenadine 60 mg tablet 60 mg PO BID PRN Allergic Symptoms 12/18/22 07/17/23 sennosides 8.6 mg tablet (Senokot) 8.6 mg PO DAILY 12/18/22 07/17/23 calcitriol 0.5 mcg capsule 0.5 mcg PO DAILY 07/05/23 07/17/23 (Rocaltrol) hydralazine 50 mg tablet 25 mg PO TID 07/05/23 07/17/23 acetaminophen 325 mg tablet 325 mg PO QID PRN Pain 07/08/23 07/17/23 (Tylenol) budesonide 0.25 mg/2 mL suspension 0.25 mg inhalation BID 07/08/23 07/17/23 for nebulization ipratropium 0.5 mg-albuterol 3 mg 0.5 ml inhalation TID 07/08/23 07/17/23 (2.5 mg base)/3 mL nebulization soln omeprazole 20 mg capsule,delayed 20 mg PO DAILY 07/08/23 07/17/23 release tamsulosin 0.4 mg capsule 0.4 mg PO DAILY 07/08/23 07/17/23 Previous Rx's Medication Instructions Recorded BiPAP #1 ea 07/11/22 sodium bicarbonate 650 mg tablet 650 mg PO DAILY #30 tabs 10/18/22 furosemide 40 mg tablet 20 mg (1/2 x 40 mg) PO DAILY@0800 03/13/23 #30 tabs isosorbide mononitrate 30 mg 30 mg PO DAILY #30 tabs 03/13/23 tablet,extended release 24 hr metoprolol tartrate 50 mg tablet 50 mg PO BID@0900,2100 #60 tabs 03/13/23 potassium chloride 8 mEq 8 meq PO DAILY #30 caps 03/13/23 capsule,extended release Allergies Allergy/AdvReac Type Severity Reaction Status Date / Time Iodinated Contrast Media AdvReac STOMACH Verified 12/17/23 14:11 CRAMPING DURING A STRESS TEST. 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 CVA (cerebral vascular accident) Chronic anticoagulation Long-term (current) use of anticoagulants, INR goal 2.0-3.0 Stroke-like symptom Implantable cardioverter-defibrillator (ICD) discharge Pacemaker Hypertension Hyperlipidemia Gout Cardiomyopathy COPD (chronic obstructive pulmonary disease) Carotid artery stenosis DDD (degenerative disc disease) GERD (gastroesophageal reflux disease) Atrial fibrillation Surgical History History of cataract extraction History of appendectomy History of tonsillectomy and adenoidectomy Hx of laminectomy Family History Mother CAD (coronary artery disease) valve replaced at 86 Brother Chronic kidney disease (CKD) Father Stroke Family/Other Suicide Denies family history of Diabetes Clotting disorder Dementia Anesthesia complication Bleeding disorder Lung disease Cancer Social History Smoking and tobacco/nicotine status: never used tobacco/nicotine Alcohol intake: never Substance/Drug Use: never Physical Exam Const: COMMON NORMALS: no acute distress GENERAL APPEARANCE: cooperative; not ill appearing and not frail appearing HENMT: COMMON NORMALS: normocephalic, atraumatic and Normal external nose present HEAD & SCALP: normocephalic and atraumatic FACE & SINUS: normal facial exam and face symmetric NOSE: Normal external nose present Eye: COMMON NORMALS: Equal, round and reactive pupils present and EOMs intact bilaterally PUPIL: Yes Equal, round and reactive pupils present Neck/C-Spine: GENERAL: Yes trachea midline Chest: CHEST: Yes Symmetrical chest wall rise Resp: COMMON NORMALS: normal respiratory effort, No retractions and No use of accessory muscles AUSCULTATION: rales Cardio: COMMON NORMALS: regular rate and regular rhythm RATE: regular rate RHYTHM: regular rhythm GI: COMMON NORMALS: Normal to inspection, nondistended, normoactive bowel sounds present Extremity: COMMON NORMALS: no pedal edema Neuro: KAJAL COMA SCALE: document GCS findings Kajal coma scale eye opening: Spontaneous [place] coma scale verbal response: Orientated Kajal coma scale motor response: Obey commands Kajal coma scale total score: 15 SENSORY EXAM: Yes extremities (intact) Psych: COMMON NORMALS: speech normal SPEECH: Yes normal speech Skin: COMMON NORMALS: no rashes or lesions noted GENERAL SKIN EXAM: no rashes or lesions noted Course Vital Signs: Vital signs: Vital Signs Temperature 98.5 F 02/09/24 02:48 Pulse Rate 74 02/09/24 04:13 Respiratory Rate 18 02/09/24 04:13 Blood Pressure 175/85 02/09/24 04:13 Pulse Oximetry 94 02/09/24 04:13 Oxygen Delivery Me thod Room Air 02/09/24 04:13 MDM - Altered Mental Status Medical Decision Making The patient is back to baseline mental status roberto. He is hypertensive. Saturations are normal on room air. He is afebrile. Heart rate is controlled. Urinalysis is negative for infection. It does show significant proteinuria. Chest x-ray reveals cardiomegaly and vascular congestion. He is given extra furosemide for this. Lab Data Radiology Impressions Chest X-Ray 02/09/24 03:40 IMPRESSION: Moderate cardiomegaly with vascular congestion. Laboratory Results Urine Color Yellow (Yellow) 02/09/24 03:26 Urine Appearance Clear (CLEAR) 02/09/24 03:26 Urine pH 6.0 (5-7) 02/09/24 03:26 Ur Specific [place] 1.015 (1.005-1.030) 02/09/24 03:26 Urine Protein 3+ (Negative) A 02/09/24 03:26 Urine Glucose (UA) Negative (Normal) 02/09/24 03:26 Urine Ketones Negative (Negative) 02/09/24 03:26 Urine Blood Negative (Negative) 02/09/24 03:26 Urine Nitrate Negative (Negative) 02/09/24 03:26 Urine Bilirubin Negative (Negative) 02/09/24 03:26 Urine Urobilinogen 1.0 mg/dL (Negative) 02/09/24 03:26 Ur Leukocyte Esterase Negative (Negative) 02/09/24 03:26 Urine RBC 0-2 /hpf (0-2) 02/09/24 03:26 Urine WBC 0-5 /hpf (0-5) 02/09/24 03:26 Ur Squamous Epith Cells 0-5 /hpf (0-5) 02/09/24 03:26 Amorphous Sediment Not Reportable 02/09/24 03:26 Urine Bacteria None seen /hpf (NONE) 02/09/24 03:26 Hyaline Casts 1.21 /lpf 02/09/24 03:26 Urine Sperm 1+ /hpf 02/09/24 03:26 All radiology interpretation(s) finalized by discharge Discharge Plan Discharge Patient Disposition: Home Clinical Impression: Altered mental status, Pulmonary edema Condition: Stable Prescriptions: No Action paroxetine HCl 30 mg tablet 20 mg PO DAILY (DME) BiPAP See Rx Instructions .Route .MEDSUPPLY Qty: 1 0RF Rx Instructions: Settings of 01/29 isosorbide mononitrate 30 mg Tablet Extended Release 24 Hr 30 mg PO DAILY Qty: 30 0RF metoprolol tartrate 50 mg Tablet 50 mg PO BID@0900,2100 Qty: 60 0RF furosemide 40 mg Tablet 20 mg PO DAILY@0800 Qty: 30 0RF potassium chloride 8 mEq capsule, extended release 8 meq PO DAILY Qty: 30 0RF hydrocodone-acetaminophen 7.5-325 mg Tablet 1 tab PO BID PRN (Reason: Pain) sodium bicarbonate 650 mg Tablet 650 mg PO DAILY Qty: 30 0RF sennosides [Senokot] 8.6 mg Tablet 8.6 mg PO DAILY fexofenadine 60 mg Tablet 60 mg PO BID PRN (Reason: Allergic Symptoms) Eliquis 5 mg Tablet 2.5 mg PO BID calcitriol [Rocaltrol] 0.5 mcg capsule 0.5 mcg PO DAILY hydralazine 50 mg tablet 25 mg PO TID Tylenol 325 mg Tablet 325 mg PO QID PRN (Reason: Pain) ipratropium-albuterol 0.5 mg-3 mg(2.5 mg base)/3 mL solution for nebulization 0.5 ml INHALATION TID tamsulosin 0.4 mg capsule 0.4 mg PO DAILY budesonide 0.25 mg/2 mL suspension for nebulization 0.25 mg inhalation BID omeprazole 20 mg capsule,delayed release(DR/EC) 20 mg PO DAILY Discharge Orders: Discharge ED (Routine); Ordered 02/09/24 Ordered By: Keith Melendez Referrals: Magaly Rivas MD [Primary Care Provider] - 1-3 days Patient Instructions: Pulmonary Edema (ED), Altered Mental Status (ED), Opioid Safety, Pain Management Activity Restrictions/Additional Instructions: Return for any worsening mental status, fever, other concerning symptoms. Coding Level of Care Code ED Pipe Organ Builder for Nataliia Suggs
[2024-02-09 04:13] VITALS: BP 175/85; PULSE 74; RESP 18; O2SAT 94
[2024-02-09] MEDS: FUROsemide 40 mg Tablet 80 MG PO (04:27)
--- NOTE | 2024-02-09 04:40 | PC.NURSE ---
report called to [facility] staff. all questions/concerns addressed at this time.
[2024-02-09 05:04] VITALS: BP 167/73; PULSE 74; RESP 17; O2SAT 99
[2024-02-09 08:39] VITALS: BP 149/74; PULSE 75; O2SAT 96
== END 2024-02-09 08:41 | disposition home or self-care (01) ==
PROVIDERS: Emergency Provider Emergency Medicine; PCP Internal Medicine
DX: R41.82 Altered mental status, unspecified (principal); J81.1 Chronic pulmonary edema; Z79.01 Long term (current) use of anticoagulants; Z95.0 Presence of cardiac pacemaker; I10 Essential (primary) hypertension; E78.5 Hyperlipidemia, unspecified; J44.9 Chronic obstructive pulmonary disease, unspecified; Z86.73 Personal history of transient ischemic attack (TIA), and cerebral infarction without residual deficits
CPT/HCPCS: 71045; 81001; 99284

== ENCOUNTER 2024-02-29 19:31 | Inpatient (IN) | payer MEDICARE, MEDICAID, SELFPAY ==
--- NOTE | 2024-02-29 19:36 | XRR_ITS ---
PROCEDURE INFORMATION: Exam: XR Chest Exam date and time: 02/29/2024 8:00 PM Age: 88 years old Clinical indication: Other: Weakness/confusion; Prior surgery; Surgery date: 6+ months; Surgery type: Defibrillator; Patient HX: Weakness and confusion TECHNIQUE: Imaging protocol: Radiologic exam of the chest. Views: 1 view. COMPARISON: CR (CHEST, ) 02/09/2024 3:42 AM FINDINGS: Tubes, catheters and devices: Dual lead pacemaker is unchanged in position. Lungs: Interstitial prominence. No focal consolidation. Persistent right apical and to lesser extent apical opacity. This is unchanged from prior x-ray. On prior CT this appears to be pleural fat. Pleural spaces: Small amount of pleural fluid in the minor fissure. Heart/Mediastinum: Unremarkable. No cardiomegaly. Bones/joints: Unremarkable. XR/XR chest 1V portable [id number] IMPRESSION: 1. Interstitial prominence is likely interstitial edema and is slightly increased from prior x-ray. 2. Trace of fluid in the minor fissure slightly increased from prior x-ray.
--- NOTE | 2024-02-29 19:36 | CTR_ITS ---
PROCEDURE INFORMATION: Exam: CT Head Without Contrast Exam date and time: 02/29/2024 7:59 PM Age: 88 years old Clinical indication: Stroke-like symptoms; Altered mental status/memory loss; Additional info: EMS arrival from residential for sudden onset of severe confusion and unresponsiveness. Patient non verbal upon exam. TECHNIQUE: Imaging protocol: Computed tomography of the head without contrast. Radiation optimization: All CT scans at this facility use at least one of these dose optimization techniques: automated exposure control; mA and/or kV adjustment per patient size (includes targeted exams where dose is matched to clinical indication); or iterative reconstruction. Other technique: STROKE PROTOCOL was implemented. COMPARISON: CT head wo con* [id number] 08/20/2023 7:39 PM RADIATION DOSE METRICS: Total DLP (mGy-cm): 1237.78 FINDINGS: Brain: There is age-related volume loss. There is white matter lucency consistent with chronic microvascular disease. No acute infarct is identified. There is no hemorrhage or extra-axial collection. There is no mass. Cerebral ventricles: Ventricular size is proportionate to volume loss Paranasal sinuses: There is mucosal thickening in the sinuses. No air-fluid levels. Mastoid air cells: Visualized mastoid air cells are well aerated. Bones: Unremarkable. No acute fracture. Soft tissues: Unremarkable. CT/CT head wo con* [id number] IMPRESSION: 1. Age-related volume loss and moderate chronic microvascular disease. 2. No acute intracranial lesion or injury and no change from prior scan. ASSESSMENT: ASPECTS ([place] Stroke Program Early CT Score) is 10.
[2024-02-29 19:44] VITALS: BP 169/76; PULSE 75; RESP 16; TEMP 36.3; O2SAT 97; BMI 26.7
--- NOTE | 2024-02-29 19:44 | ED_ITS ---
HPI - General Adult 2 General: Chief complaint: Urogenital-Male Stated complaint: AMS Time Seen by Provider: 02/29/24 19:32 Source: patient Mode of arrival: ambulatory Limitations: no limitations History of Present Illness: 88-year-old male who is here from [facility] home they state that he has been lethargic and weak throughout the day and has had some confusion as well. This has been going on all day per EMS. Patient here is able to answer my questions he does notes 2023 does know his name does have some slight confusion states he is feels very weak denies any fever denies any vomiting denies any diarrhea Associated symptoms: Reports confusion and malaise; Deny chest pain, dyspnea, headache(s), nausea, rash or vomiting Related Data Home Medications Medication Instructions Recorded Confirmed paroxetine HCl 30 mg tablet 20 mg PO DAILY 12/01/20 07/17/23 hydrocodone 7.5 mg-acetaminophen 1 tab PO BID PRN Pain 10/11/22 07/17/23 325 mg tablet apixaban 5 mg tablet (Eliquis) 2.5 mg PO BID 12/18/22 07/17/23 fexofenadine 60 mg tablet 60 mg PO BID PRN Allergic Symptoms 12/18/22 07/17/23 sennosides 8.6 mg tablet (Senokot) 8.6 mg PO DAILY 12/18/22 07/17/23 calcitriol 0.5 mcg capsule 0.5 mcg PO DAILY 07/05/23 07/17/23 (Rocaltrol) hydralazine 50 mg tablet 25 mg PO TID 07/05/23 07/17/23 acetaminophen 325 mg tablet 325 mg PO QID PRN Pain 07/08/23 07/17/23 (Tylenol) budesonide 0.25 mg/2 mL suspension 0.25 mg inhalation BID 07/08/23 07/17/23 for nebulization ipratropium 0.5 mg-albuterol 3 mg 0.5 ml inhalation TID 07/08/23 07/17/23 (2.5 mg base)/3 mL nebulization soln omeprazole 20 mg capsule,delayed 20 mg PO DAILY 07/08/23 07/17/23 release tamsulosin 0.4 mg capsule 0.4 mg PO DAILY 07/08/23 07/17/23 Previous Rx's Medication Instructions Recorded BiPAP #1 ea 07/11/22 sodium bicarbonate 650 mg tablet 650 mg PO DAILY #30 tabs 10/18/22 furosemide 40 mg tablet 20 mg (1/2 x 40 mg) PO DAILY@0800 03/13/23 #30 tabs isosorbide mononitrate 30 mg 30 mg PO DAILY #30 tabs 03/13/23 tablet,extended release 24 hr metoprolol tartrate 50 mg tablet 50 mg PO BID@0900,2100 #60 tabs 03/13/23 potassium chloride 8 mEq 8 meq PO DAILY #30 caps 03/13/23 capsule,extended release Allergies Allergy/AdvReac Type Severity Reaction Status Date / Time Iodinated Contrast Media AdvReac STOMACH Verified 12/17/23 14:11 CRAMPING DURING A STRESS TEST. WAS TOLD D/T IODINE Review of Systems 2 Const: Reports: fatigue and malaise; Denies: fever(s), chills, body aches or change in appetite ENMT: Denies: throat pain or dental pain Card: Denies: chest pain Resp: Denies: dyspnea GI: Denies: abdominal pain, nausea, vomiting or diarrhea Musc: Denies: neck pain or back pain Skin/Breast: Denies: rash Neuro: Reports: confusion; Denies: headache(s) PFSH ED 2 PFSH: Medical History ICD (implantable cardioverter-defibrillator) in place Herpes zoster Microscopic hematuria Thrombocytopenia Wide-complex tachycardia Chronic kidney disease Rhabdomyolysis UTI (urinary tract infection) Hypomagnesemia Acute metabolic encephalopathy Obstructive sleep apnea TIA (transient ischemic attack) Peripheral neuropathy Orthostatic hypotension 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 CVA (cerebral vascular accident) Chronic anticoagulation Long-term (current) use of anticoagulants, INR goal 2.0-3.0 Stroke-like symptom Implantable cardioverter-defibrillator (ICD) discharge Pacemaker Hypertension Hyperlipidemia Gout Cardiomyopathy COPD (chronic obstructive pulmonary disease) Carotid artery stenosis DDD (degenerative disc disease) GERD (gastroesophageal reflux disease) Atrial fibrillation Surgical History History of cataract extraction History of appendectomy History of tonsillectomy and adenoidectomy Hx of laminectomy Family History Mother CAD (coronary artery disease) valve replaced at 86 Brother Chronic kidney disease (CKD) Father Stroke Family/Other Suicide Denies family history of Diabetes Clotting disorder Dementia Anesthesia complication Bleeding disorder Lung disease Cancer Social History Smoking and tobacco/nicotine status: never used tobacco/nicotine Alcohol intake: never Substance/Drug Use: never Physical Exam 2 Const: COMMON NORMALS: no acute distress, patient oriented x3 and healthy appearing HENMT: COMMON NORMALS: normocephalic and atraumatic HEAD & SCALP: n ormocephalic and atraumatic Eye: COMMON NORMALS: conjunctivae normal CONJUNCTIVA: Yes conjunctivae normal Neck/C-Spine: COMMON NORMALS: full ROM and supple Chest: COMMONS NORMALS: normal inspection of the chest Resp: COMMON NORMALS: normal respiratory effort, No retractions, No use of accessory muscles and clear to auscultation bilaterally AUSCULTATION: clear to auscultation bilaterally Cardio: COMMON NORMALS: regular rate, regular rhythm and No murmurs present (Cardio) RATE: regular rate RHYTHM: regular rhythm GI: COMMON NORMALS: Normal to inspection, nondistended, normoactive bowel sounds present, Soft to palpation, non-tender and no masses PALPATION: Yes Soft to palpation Extremity: COMMON NORMALS: normal to inspection and full ROM Neuro: COMMON NORMALS: patient oriented x3, moves all extremities and no focal motor deficits Psych: COMMON NORMALS: mental status grossly normal, Normal thought process present and cooperative THOUGHT PROCESS: Normal thought process present Skin: COMMON NORMALS: no rashes or lesions noted and no wounds GENERAL SKIN EXAM: no rashes or lesions noted Course 2 Vital Signs: Vital signs: Vital Signs Temperature 97.4 F L 02/29/24 19:44 Pulse Rate 75 02/29/24 19:44 Respiratory Rate 16 02/29/24 19:44 Blood Pressure 169/76 02/29/24 19:44 Pulse Oximetry 97 02/29/24 19:44 Oxygen Delivery Me thod Nasal Cannula 02/29/24 19:44 Oxygen Flow Rate 2 02/29/24 19:44 MDM - General Adult Medical Decision Making Patient presents here with generalized weakness he had been altered at halfway was answering my questions appropriately here. X-ray shows pulmonary edema does have some leg edema as well I spoke to the hospitalist will admit did give him Lasix here. Medical Records I reviewed the patient's medical records. Lab Data I reviewed the patient's lab results. 02/29/24 19:22 02/29/24 19:22 Radiology Impressions Chest X-Ray 02/29/24 19:36 IMPRESSION: 1. Interstitial prominence is likely interstitial edema and is slightly increased from prior x-ray. 2. Trace of fluid in the minor fissure slightly increased from prior x-ray. Head CT 02/29/24 19:36 IMPRESSION: 1. Age-related volume loss and moderate chronic microvascular disease. 2. No acute intracranial lesion or injury and no change from prior scan. ASSESSMENT: ASPECTS ([place] Stroke Program Early CT Score) is 10. ADDENDUM: 02/29/242021 Findings were discussed with Dr Rowan 02/29/2024 8:20 PM WINE PASTEURIZER. Laboratory Results WBC 9.47 10^3/uL (3.29-11.43) 02/29/24 19: RBC 3.59 10^6/uL (3.85-5.65) L 02/29/24 19:22 Hgb 10.80 g/dL (11.27-16.99) L 02/29/24 19:22 Hct 33.1 % (37-53) L 02/29/24 19:22 MCV 92.2 fl (82-101) 02/29/24 19:22 MCH 30.1 pg (27-33) 02/29/24 19:22 MCHC 32.6 g/dL (30-55) 02/29/24 19:22 RDW 13.7 % (12.1-15.1) 02/29/24 19:22 Plt Count 208 10^3/cmm (157-399) 02/29/24 19:22 MPV 9.9 fL (7.4-10.4) 02/29/24 19:22 Neut % (Auto) 66.0 % 02/29/24 19:22 Lymph % (Auto) 23.5 % 02/29/24 19:22 [place] % (Auto) 6.8 % 02/29/24 19:22 Eos % (Auto) 2.7 % 02/29/24 19:22 Baso % (Auto) 0.6 % 02/29/24 19:22 Neut # (Auto) 6.24 10^3/uL (1.8-7.7) 02/29/24 19:22 Lymph # (Auto) 2.2 10^3/uL (0.8-4.8) 02/29/24 19:22 [place] # (Auto) 0.6 10^3/uL (0.2-0.9) 02/29/24 19:22 Eos # (Auto) 0.3 10^3/uL (0.0-0.8) 02/29/24 19:22 Baso # (Auto) 0.1 10^3/uL (0.0-0.1) 02/29/24 19:22 Nucleated RBC % (auto) 0 % 02/29/24 19:22 Nucleated RBCs # 0.0 /100WBC 02/29/24 19:22 Sodium 141 mmol/L (136-145) 02/29/24 19:22 Potassium 4.3 mmol/L (3.5-5.1) 02/29/24 19:22 Chloride 105 mmol/L (98-107) 02/29/24 19:22 Carbon Dioxide 25 mmol/L (22-29) 02/29/24 19:22 Anion Gap 15.3 (5-19) 02/29/24 19:22 BUN 45 mg/dL (8-23) H 02/29/24 19:22 Creatinine 3.2 mg/dL (0.7-1.2) H 02/29/24 19:22 GFR Calculation Not Reportable 02/29/24 19:22 Glucose 100 mg/dL (65-115) 02/29/24 19:22 Calculated Osmolality 304 mOsm/kg (285-295) H 02/29/24 19:22 Calcium 10.6 mg/dL (8.5-10.5) H 02/29/24 19:22 Magnesium 1.7 mg/dL (1.7-2.3) 02/29/24 19:22 Total Bilirubin 0.3 mg/dL (0.15-1.2) 02/29/24 19:22 AST 15 U/L (0-40) 02/29/24 19:22 ALT 10 U/L (0-41) 02/29/24 19:22 Alkaline Phosphatase 71 U/L (40-130) 02/29/24 19:22 NT-Pro-B Natriuret Pep 7264 pg/mL (0-450) H 02/29/24 19:22 Total Protein 6.6 g/dL (6.6-8.7) 02/29/24 19:22 Albumin 3.5 g/dL (3.5-5.2) 02/29/24 19:22 Globulin 3.1 g/dL (1.3-4.6) 02/29/24 19:22 TSH 2.06 uIU/mL (0.27-4.20) 02/29/24 19:22 Urine Color Yellow (Yellow) 02/29/24 20:37 Urine Appearance Clear (CLEAR) 02/29/24 20: Urine pH 6.0 (5-7) 02/29/24 20:37 Ur Specific [place] 1.020 (1.005-1.030) 02/29/24 20:37 Urine Protein 3+ (Negative) A 02/29/24 20:37 Urine Glucose (UA) Negative (Normal) 02/29/24 20:37 Urine Ketones Negative (Negative) 02/29/24 20:37 Urine Blood 1+ (Negative) A 02/29/24 20:37 Urine Nitrate Negative (Negative) 02/29/24 20:37 Urine Bilirubin Negative (Negative) 02/29/24 20:37 Urine Urobilinogen 1.0 mg/dL (Negative) 02/29/24 20:37 Ur Leukocyte Esterase Negative (Negative) 02/29/24 20:37 Urine RBC 0-4 /hpf (0-2) H 02/29/24 20:37 Urine WBC 0-4 /hpf (0-5) H 02/29/24 20:37 Ur Squamous Epith Cells 0-4 /hpf (0-5) H 02/29/24 20:37 Ur Transition Epith Cell 0-4 /hpf 02/29/24 20:37 Amorphous Sediment Not Reportable 02/29/24 20:37 Urine Bacteria Trace /hpf (NONE) 02/29/24 20:37 Urine Mucus Trace /hpf 02/29/24 20:37 All radiology interpretation(s) finalized by discharge Discharge Plan Discharge Patient Disposition: Admitted As Inpatient Clinical Impression: Pulmonary edema, Generalized weakness Condition: Stable Prescriptions: No Action paroxetine HCl 30 mg tablet 20 mg PO DAILY (DME) BiPAP See Rx Instructions .Route .MEDSUPPLY Qty: 1 0RF Rx Instructions: Settings of 01/29 isosorbide mononitrate 30 mg Tablet Extended Release 24 Hr 30 mg PO DAILY Qty: 30 0RF metoprolol tartrate 50 mg Tablet 50 mg PO BID@0900,2100 Qty: 60 0RF furosemide 40 mg Tablet 20 mg PO DAILY@0800 Qty: 30 0RF potassium chloride 8 mEq capsule, extended release 8 meq PO DAILY Qty: 30 0RF hydrocodone-acetaminophen 7.5-325 mg Tablet 1 tab PO BID PRN (Reason: Pain) sodium bicarbonate 650 mg Tablet 650 mg PO DAILY Qty: 30 0RF sennosides [Senokot] 8.6 mg Tablet 8.6 mg PO DAILY fexofenadine 60 mg Tablet 60 mg PO BID PRN (Reason: Allergic Symptoms) Eliquis 5 mg Tablet 2.5 mg PO BID calcitriol [Rocaltrol] 0.5 mcg capsule 0.5 mcg PO DAILY hydralazine 50 mg tablet 25 mg PO TID Tylenol 325 mg Tablet 325 mg PO QID PRN (Reason: Pain) ipratropium-albuterol 0.5 mg-3 mg(2.5 mg base)/3 mL solution for nebulization 0.5 ml INHALATION TID tamsulosin 0.4 mg capsule 0.4 mg PO DAILY budesonide 0.25 mg/2 mL suspension for nebulization 0.25 mg inhalation BID omeprazole 20 mg capsule,delayed release(DR/EC) 20 mg PO DAILY Referrals: Magaly Rivas MD [Primary Care Provider] - Coding Level of Care Code 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
[2024-02-29 19:56] LABS: Basophils # 0.1 10^3/uL (0.0-0.1); Basophils % 0.6 %; Eosinophils # 0.3 10^3/uL (0.0-0.8); Eosinophils % 2.7 %; Hematocrit 33.1 % (37-53); Lymphocytes # 2.2 10^3/uL (0.8-4.8); Lymphocytes % 23.5 %; Mean Corpuscular HGB Conc 32.6 g/dL (30-55); Mean Corpuscular Hemoglobin 30.1 pg (27-33); Mean Corpuscular Volume 92.2 fl (82-101); Mean Platelet Volume 9.9 fL (7.4-10.4); Monocytes # 0.6 10^3/uL (0.2-0.9); Monocytes % 6.8 %; Neutrophils # 6.24 10^3/uL (1.8-7.7); Nucleated Red Blood Cells % 0 %; Platelet Count 208 10^3/cmm (157-399); Red Blood Count 3.59 10^6/uL (3.85-5.65); Red Cell Distribution Width 13.7 % (12.1-15.1); White Blood Count 9.47 10^3/uL (3.29-11.43)
[2024-02-29 20:15] LABS: Alanine Aminotransferase 10 U/L (0-41); Albumin Level 3.5 g/dL (3.5-5.2); Alkaline Phosphatase 71 U/L (40-130); Anion Gap 15.3 (5-19); Aspartate Amino Transferase 15 U/L (0-40); Blood Urea Nitrogen 45 mg/dL (8-23); Calcium 10.6 mg/dL (8.5-10.5); Carbon Dioxide 25 mmol/L (22-29); Chloride 105 mmol/L (98-107); Globulin 3.1 g/dL (1.3-4.6); Glucose 100 mg/dL (65-115); Magnesium 1.7 mg/dL (1.7-2.3); Osmolality Calculated 304 mOsm/kg (285-295); Potassium 4.3 mmol/L (3.5-5.1); Sodium 141 mmol/L (136-145); Thyroid Stimulating Hormone 2.06 uIU/mL (0.27-4.20); Total Bilirubin 0.3 mg/dL (0.15-1.2); Total Protein 6.6 g/dL (6.6-8.7)
--- NOTE | 2024-02-29 20:27 | ECG_ITS ---
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: : [id number] Requested By: Berna Erwin Order Number: [id number] Reading MD: JASON OSULLIVAN Measurements Intervals [place] Rate: 74 P: 109 CA: 197 QRS: -22 QRSD: 163 T: 133 QT: 428 QTc: 477 Interpretive Statements ELECTRONIC ATRIAL PACEMAKER LEFT BUNDLE BRANCH BLOCK [120+ ms QRS DURATION, 80+ ms Q/S IN V1/V2, 85+ ms R IN I/aVL/V5/V6] Compared to ECG 08/20/2023 19:52:16 Left-axis deviation no longer present Electronically Signed On 03-02-2024 16:11:03 BANKRUPTCY LEGAL ASSISTANT by JASON OSULLIVAN [email or web address]
[2024-02-29] MEDS: sodium chloride 0.9% 1,000 ML 999 ML IV (20:46)
[2024-02-29 20:47] LABS: Bilirubin Urine Negative (Negative); Blood Urine 1+ (Negative); Glucose Urine UA Negative (Normal); Ketones Urine Negative (Negative); Leukocyte Esterase Urine Negative (Negative); Nitrate Urine Negative (Negative); Protein Urine 3+ (Negative); Urine Appearance Clear (CLEAR); Urine Color Yellow (Yellow)
[2024-02-29 20:52] LABS: NT Pro B Type Natriuretic Pept 7264 pg/mL (0-450)
[2024-02-29 21:02] LABS: Add Urine Culture? No; Add Urine Microscopic? YES; Bacteria Urine TRACE /hpf; Mucus Urine TRACE /hpf; RBC Urine 0-4 /hpf (0-2); Squamous Epithelial Cell Urine 0-4 /hpf (0-5); Transitional Epi Cells Urine 0-4 /hpf; UA Manual Slide Review YES; UA Slide Review UA Slide Review Perf; WBC Urine 0-4 /hpf (0-5)
[2024-02-29] MEDS: AZITHROMYCIN ADD-Vantage 500 MG in 0.9% NaCl ADD-Vantage 250 ML 250 MG IV (21:07)
[2024-02-29] MEDS: cefTRIAXone 1,000 mg SDV 1000 MG IVP (21:09)
[2024-02-29 21:12] VITALS: BP 178/90; PULSE 85; RESP 22; O2SAT 100
[2024-02-29] MEDS: FUROsemide 10 mg/mL SDV 10mL 60 MG IVP (21:12)
--- NOTE | 2024-02-29 21:32 | P.HP_ITS ---
Providers/Chief Complaint 2 Primary Care Provider: Magaly Rivas MD Chief Complaint: AMS History of Present Illness Alexey An is a 88 year old male with history of nonischemic cardiomyopathy, status post AICD, A-fib chronic anticoagulation, chronic kidney disease, presented from home [facility] with chief complaint of confusion. In the ER patient was AOx3, he was diagnosed with CHF exacerbation., CBC BMP unremarkable, he was given ceftriaxone azithromycin for possible pneumonia along Lasix 60 mg, he has high BNP. At the time of my evaluation patient is AO x 4, stating that he is not sure why he was sent to the hospital but stating that he is on 2 L of oxygen [id number], uses a walker for ambulation, has been compliant with his medications, he is able to tell me his name, date of and he knows that she is in the hospital, not complaining of any active chest pain shortness of breath nausea vomiting diarrhea or dysuria. Patient is requesting if Hightower catheter could be placed because he is getting diuretics. CBC unremarkable, BMP consistent with chronic kidney disease Review of Systems 2 Const: Denies: fever(s) Eyes: Denies: change in vision ENMT: Denies: odynophagia Card: Reports: swelling of feet/ankles Resp: Reports: dyspnea GI: Denies: abdominal pain Medications/Allergies Home Medications Medication Instructions Recorded Confirmed Last Taken Type paroxetine HCl 30 mg tablet 20 mg PO DAILY 12/01/20 07/17/23 07/07/23 08:56 History BiPAP #1 ea 07/11/22 07/17/23 Unknown Rx hydrocodone 7.5 mg-acetaminophen 1 tab PO BID PRN Pain 10/11/22 07/17/23 06/17/23 12:49 History 325 mg tablet sodium bicarbonate 650 mg tablet 650 mg PO DAILY #30 tabs 10/18/22 07/17/23 07/07/23 08:56 Rx apixaban 5 mg tablet (Eliquis) 2.5 mg PO BID 12/18/22 07/17/23 07/05/23 08:18 History fexofenadine 60 mg tablet 60 mg PO BID PRN Allergic Symptoms 12/18/22 07/17/23 Unknown History sennosides 8.6 mg tablet (Senokot) 8.6 mg PO DAILY 12/18/22 07/17/2307/06/24 08:56 History furosemide 40 mg tablet 20 mg (1/2 x 40 mg) PO DAILY@0800 03/13/23 07/17/23 07/07/23 08:56 Rx #30 tabs isosorbide mononitrate 30 mg 30 mg PO DAILY #30 tabs 03/13/23 07/17/23 07/08/23 Rx tablet,extended release 24 hr metoprolol tartrate 50 mg tablet 50 mg PO BID@0900,2100 #60 tabs 03/13/23 07/17/23 07/08/23 Rx potassium chloride 8 mEq 8 meq PO DAILY #30 caps 03/13/23 07/17/23 07/07/23 08:56 Rx capsule,extended release calcitriol 0.5 mcg capsule 0.5 mcg PO DAILY 07/05/23 07/17/23 07/07/23 08:56 History (Rocaltrol) hydralazine 50 mg tablet 25 mg PO TID 07/05/23 07/17/23 07/07/23 08:04 History acetaminophen 325 mg tablet 325 mg PO QID PRN Pain 07/08/23 07/17/23 05/25/23 13:34 History (Tylenol) budesonide 0.25 mg/2 mL suspension 0.25 mg inhalation BID 07/08/23 07/17/23 07/07/23 08:05 History for nebulization ipratropium 0.5 mg-albuterol 3 mg 0.5 ml inhalation TID 07/08/23 07/17/23 07/07/23 08:04 History (2.5 mg base)/3 mL nebulization soln omeprazole 20 mg capsule,delayed 20 mg PO DAILY 07/08/23 07/17/23 07/07/23 08:56 History release tamsulosin 0.4 mg capsule 0.4 mg PO DAILY 07/08/23 07/17/23 07/07/23 08:05 History Allergies Allergy/AdvReac Type Severity Reaction Status Date / Time Iodinated Contrast Media AdvReac STOMACH Verified 12/17/23 14:11 CRAMPING DURING A STRESS TEST. 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 CVA (cerebral vascular accident) Chronic anticoagulation Long-term (current) use of anticoagulants, INR goal 2.0-3.0 Stroke-like symptom Implantable cardioverter-defibrillator (ICD) discharge Pacemaker Hypertension Hyperlipidemia Gout Cardiomyopathy COPD (chronic obstructive pulmonary disease) Carotid artery stenosis DDD (degenerative disc disease) GERD (gastroesophageal reflux disease) Atrial fibrillation Surgical History History of cataract extraction History of appendectomy History of tonsillectomy and adenoidectomy Hx of laminectomy Family History Mother CAD (coronary artery disease) valve replaced at 86 Brother Chronic kidney disease (CKD) Father Stroke Family/Other Suicide Denies family history of Diabetes Clotting disorder Dementia Anesthesia complication Bleeding disorder Lung disease Cancer Social History Smoking and tobacco/nicotine status: never used tobacco/nicotine Alcohol intake: never Substance/Drug Use: never Vitals/I&O/Wt Last Vital Signs Temp 97.4 F L 02/29/24 19:44 Pulse 85 02/29/24 21:12 Resp 22 H 02/29/24 21:12 BP 178/90 02/29/24 21:12 Pulse Ox 100 02/29/24 21:12 O2 Del Method Nasal Cannula 02/29/24 21:12 O2 Flow Rate 2 02/29/24 21:12 Weight last 48 hrs Weight 97.069 kg Physical Exam 2 Narrative: Patient is awake and alert AO x 4 I do not see any focal deficit Fatigued and lethargic Signs of fluid overload present 2+ edema of lower legs Currently on 2 L nasal cannula Hemodynamic stable Not complaining active chest pain S1, S2 No audible stridor or wheezing I do not see any sign of meningitis Nondistended, soft abdomen Data 02/29/24 19:22 02/29/24 19:22 Micro: Microbiology 02/29/24 20:53 Blood Culture - Preliminary Blood SPECIMEN COLLECTED 02/29/24 20:51 Blood Culture - Preliminary Blood SPECIMEN COLLECTED A&P Assessment and plan (1) Hypertension: Qualifiers: Hypertension type: essential hypertension Qualified Code(s): I10 - Essential (primary) hypertension (2) Cardiomyopathy: Qualifiers: Cardiomyopathy type: dilated Qualified Code(s): I42.0 - Dilated cardiomyopathy (3) Atrial fibrillation: Qualifiers: Atrial fibrillation type: other persistent Qualified Code(s): I48.19 - Other persistent atrial fibrillation (4) ICD (implantable cardioverter-defibrillator) in place: (5) Chronic kidney disease: Qualifiers: Chronic kidney disease stage: stage 3 (moderate) Chronic kidney disease stage 3 subtype: stage 3b (GFR 30-44) Qualified Code(s): N18.32 - Chronic kidney disease, stage 3b (6) COPD (chronic obstructive pulmonary disease): Qualifiers: COPD type: unspecified COPD Qualified Code(s): J44.9 - Chronic obstructive pulmonary disease, unspecified (7) Pneumonia: (8) Pulmonary edema: (9) long-term resident: (10) Generalized weakness: Plan Systolic CHF acute exacerbation EF is reduced Will put him on IV Bumex Hightower catheter to be placed patient is requesting Hightower catheter placement because he is too weak to get up No active chest pain Continue potassium supplementation Right middle lobe infiltrate Will put him on ceftriaxone and doxycycline Patient is afebrile No leukocytosis, If remains afebrile we can discontinue Baudilio with the morning Patient [facility] walker at the [facility] Generalized weakness and fatigue request physical therapy Chronic hypoxia requiring 2 L Chronic kidney disease without acute worsening continue bicarb tablets Hypercalcemia: Monitor for now AICD/pacemaker in place, DNR/DNI Cardiac diet Attestations 2 Medical Necessity Statement*: Anticipating discharge within 48 hours back to [facility] Diagnoses Essential hypertension I10 Hypertension type: essential hypertension Dilated cardiomyopathy I42.0 Cardiomyopathy type: dilated Other persistent atrial fibrillation I48.19 Atrial fibrillation type: other persistent ICD (implantable cardioverter-defibrillator) in place Z95.810 Stage 3b chronic kidney disease N18.32 Chronic kidney disease stage: stage 3 (moderate) Chronic kidney disease stage 3 subtype: stage 3b (GFR 30-44) Chronic obstructive pulmonary disease, unspecified COPD type J44.9 COPD type: unspecified COPD Pneumonia J18.9 Pulmonary edema J81.1 long-term resident Z59.3 Generalized weakness R53.1
[2024-02-29 22:16] LABS: Covid PCR NEGATIVE (Negative); Influenza A NEGATIVE (Negative); Influenza B NEGATIVE (Negative); Respiratory Syncytial Virus Ce NEGATIVE (Negative)
[2024-02-29 22:38] VITALS: BP 161/88; PULSE 75; RESP 23; O2SAT 95
--- NOTE | 2024-02-29 23:51 | PC.NURSE ---
Pt had SCDs on during assessment. The SCDs began squeezing the patient's legs and he stated Ow, that hurts! That hurts so bad! This nurse removed SCDs and patient stated the pain subsided.
[2024-03-01] VITALS (9 sets, daily range): BP systolic 159–184; BP diastolic 81–93; PULSE 70–81; RESP 14–25; TEMP 36.4–36.9; O2SAT 91–97
[2024-03-01] MEDS: ipratropium-albuterol 3 mL Neb INHALATION ×3 (00:45→20:55)
[2024-03-01 03:30] LABS: Basophils # 0.1 10^3/uL (0.0-0.1); Basophils % 0.7 %; Eosinophils # 0.2 10^3/uL (0.0-0.8); Eosinophils % 2.4 %; Hematocrit 33.1 % (37-53); Lymphocytes # 2.5 10^3/uL (0.8-4.8); Mean Corpuscular HGB Conc 32.6 g/dL (30-55); Mean Corpuscular Hemoglobin 30.5 pg (27-33); Mean Corpuscular Volume 93.5 fl (82-101); Mean Platelet Volume 10.3 fL (7.4-10.4); Monocytes # 0.8 10^3/uL (0.2-0.9); Monocytes % 8.5 %; Neutrophils # 5.43 10^3/uL (1.8-7.7); Neutrophils % 60.1 %; Nucleated Red Blood Cells % 0 %; Platelet Count 204 10^3/cmm (157-399); Red Blood Count 3.54 10^6/uL (3.85-5.65); Red Cell Distribution Width 13.6 % (12.1-15.1); White Blood Count 9.04 10^3/uL (3.29-11.43)
[2024-03-01 04:02] LABS: Blood Urea Nitrogen 42 mg/dL (8-23); Calcium 10.2 mg/dL (8.5-10.5); Carbon Dioxide 27 mmol/L (22-29); Chloride 105 mmol/L (98-107); Creatinine Clr Calc Pharmacy 23.1537; Glucose 93 mg/dL (65-115); Magnesium 1.9 mg/dL (1.7-2.3); Osmolality Calculated 304 mOsm/kg (285-295); Sodium 142 mmol/L (136-145)
--- NOTE | 2024-03-01 07:35 | PC.PHAR ---
patient is from [facility]
[2024-03-01] MEDS: budesonide 0.5 mg/2 mL Neb 0.25 MG INHALATION ×2 (08:56→20:55)
--- NOTE | 2024-03-01 10:22 | PC.NURSE ---
Pt appears drowsy. Responsive to verbal stimuli, but does not open eyes. Overnight nurse reports that he had little sleep and was awake most of night. Current state may impeded the administration of medications - fear of aspiration. Will reassess pt for readiness of medications frequently. VS stable.
[2024-03-01] MEDS: bumetanide 0.25 mg/mL SDV 4 mL 1 MG IVP ×2 (13:55→17:17)
--- NOTE | 2024-03-01 14:17 | PC.NURSE ---
Notified Dr. Busch about pt unable to take medications. Daily medications being rescheduled for 2100.
--- NOTE | 2024-03-01 14:43 | P.PN_ITS ---
Subjective 2 Subjective: Seen this morning. At the time my evaluation he is sleeping. Appears to be confused. Unable to answer any questions. On 3 L of cannula at this time. Vitals/I&O/Wt Last Vital Signs Temp 97.7 F 03/01/24 08:00 Pulse 78 03/01/24 08:58 Resp 18 03/01/24 08:58 BP 167/82 03/01/24 08:00 Pulse Ox 97 03/01/24 08:58 O2 Del Method Nasal Cannula 03/01/24 08:58 O2 Flow Rate 3 03/01/24 08:58 02/29/24 03/01/24 03/01/24 22:59 06:59 14:59 Intake Total 1250 / 1250 Output Total 675 / 675 Balance 1250 / 1250 -675 / 575 Weight last 48 hrs Weight 102.693 kg Weight 97.069 kg Physical Exam 2 Narrative: Patient is awake and alert Asleep, does wake up but not answering any questions. Fatigued, lethargic Signs of fluid overload present 2+ edema of lower legs Currently on 2 L nasal cannula Hemodynamic stable Not complaining active chest pain S1, S2 No audible stridor or wheezing Nondistended, soft abdomen Urinary Catheter Management: Hightower: Cath Placed During This Visit: yes Reason for Continuing Indwelling Catheter: Acute Urinary Retention or Obstruction Urinary Catheter Date of Insertion: 03/01/24 Urinary Catheter Time of Insertion: 01:20 Data 03/01/24 02:30 03/01/24 02:30 Micro: Microbiology 02/29/24 20:53 Blood Culture - Preliminary Blood SPECIMEN COLLECTED 02/29/24 20:51 Blood Culture - Preliminary Blood SPECIMEN COLLECTED A&P Assessment and plan (1) Hypertension: Qualifiers: Hypertension type: essential hypertension Qualified Code(s): I10 - Essential (primary) hypertension (2) Cardiomyopathy: Qualifiers: Cardiomyopathy type: dilated Qualified Code(s): I42.0 - Dilated cardiomyopathy (3) Atrial fibrillation: Qualifiers: Atrial fibrillation type: other persistent Qualified Code(s): I48.19 - Other persistent atrial fibrillation (4) ICD (implantable cardioverter-defibrillator) in place: (5) Chronic kidney disease: Qualifiers: Chronic kidney disease stage: stage 3 (moderate) Chronic kidney disease stage 3 subtype: stage 3b (GFR 30-44) Qualified Code(s): N18.32 - Chronic kidney disease, stage 3b (6) COPD (chronic obstructive pulmonary disease): Qualifiers: COPD type: unspecified COPD Qualified Code(s): J44.9 - Chronic obstructive pulmonary disease, unspecified (7) Pneumonia: (8) Pulmonary edema: (9) jail resident: (10) Generalized weakness: Plan Systolic CHF acute exacerbation EF is reduced Will put him on IV Bumex Hightower catheter to be placed patient is requesting Hightower catheter placement because he is too weak to get up No active chest pain Continue potassium supplementation Right middle lobe infiltrate Will put him on ceftriaxone and doxycycline Patient is afebrile No leukocytosis, If remains afebrile we can discontinue Baudilio with the morning Patient uses a walker at the [facility] Generalized weakness and fatigue request physical therapy Chronic hypoxia requiring 2 L Chronic kidney disease without acute worsening continue bicarb tablets Hypercalcemia: Monitor for now AICD/pacemaker in place, DNR/DNI Cardiac diet 03/01/2024 -Continue management as per assessment and plan. ? Monitor for fever ? Patient unable to take oral medications. Will switch to IV. ? Initially presented for confusion however in the ER was alert oriented x 4. Has had waxing waning mental status. Will check up on him again later. CT head negative on admission. He is moving all 4 extremities. ? Blood cultures pending ? Check urine culture ? Continue antibiotics. ? Chest x-ray does show additional edema and fluid in minor fissure. ? Check phosphorus level. Attestations 2 Medical Necessity Statement*: Requires continued hospitalization secondary to altered mental status, evidence of pneumonia and requires IV diuresis. Expect another 48 hours of hospitalization at this time. Diagnoses Essential hypertension I10 Hypertension type: essential hypertension Dilated cardiomyopathy I42.0 Cardiomyopathy type: dilated Other persistent atrial fibrillation I48.19 Atrial fibrillation type: other persistent ICD (implantable cardioverter-defibrillator) in place Z95.810 Stage 3b chronic kidney disease N18.32 Chronic kidney disease stage: stage 3 (moderate) Chronic kidney disease stage 3 subtype: stage 3b (GFR 30-44) Chronic obstructive pulmonary disease, unspecified COPD type J44.9 COPD type: unspecified COPD Pneumonia J18.9 Pulmonary edema J81.1 jail resident Z59.3 Generalized weakness R53.1
[2024-03-01] MEDS: doxycycline 100 mg Tablet PO (17:17)
[2024-03-01] MEDS: apixaban 5 mg Tablet 2.5 MG PO (17:17)
[2024-03-01] MEDS: hyDRALAzine 50 mg Tablet 25 MG PO (17:18)
[2024-03-01 18:12] LABS: Glucose Point of Care 83 mg/dL (70-110)
--- NOTE | 2024-03-01 18:47 | PC.NURSE ---
Pt a&ox4 at this time. Able to take PO medications. Hydralazine given along with 1800 medications d/t not having a dose today and increased bp to 184/92. Sitting up in bed and eating.
[2024-03-01] MEDS: isosorbide mononitrate ER 30 mg Tablet PO (21:30)
[2024-03-01] MEDS: tamsulosin 0.4 mg Capsule PO (21:31)
[2024-03-01] MEDS: potassium chloride ER 20 mEq Tablet PO (21:31)
[2024-03-01] MEDS: metoprolol tartrate 50 mg Tablet PO (21:31)
[2024-03-01] MEDS: sodium bicarbonate 650 mg Tablet PO (21:31)
[2024-03-01] MEDS: pantoprazole DR 40 mg Tablet PO (21:31)
[2024-03-01] MEDS: cefTRIAXone 1,000 mg SDV 1000 MG IVP (21:40)
--- NOTE | 2024-03-01 22:35 | USCV_ITS ---
Alexey An Age: 88 Gender: M : 1935 Exam Date: 03/01/2024 12:39 Ordering Phys: Grant Levin MD Technologist: Abundio Ngo Exam Location: [facility] [place] Indication: CHF BP: 143 / 83 HR: 67 Rhythm: Sinus Technical Quality: Poor quality MEASUREMENTS (Male / Female) Normal Values 2D ECHO LV Ejection Fraction MOD 4C 39.2 % LV Ejection Fraction MOD 2C 32.7 % LV Ejection Fraction 2C AL 31.4 % LA Diameter 4.0 cm RA Systolic Volume 4C AL 41.1 ml RA Systolic Volume 4C MOD 43.0 ml LA Sys Volume AL 33.4 cm cubed LA Sys Volume Index AL 14.5 cm cubed/m squared Aorta at Sinotubular Diameter 2.3 cm IVC Diameter 1.9 cm DOPPLER AV Peak Velocity 181.0 cm/s LVOT Peak Velocity 58.0 cm/s MV Peak Velocity 106.0 cm/s MV Area PHT 5.1 cm squared Mitral E to A Ratio 1.0 TV Peak Velocity 182.0 cm/s TR Peak Velocity 225.5 cm/s TR Peak Gradient 20.3 mmHg TR Mean Velocity 192.0 cm/s TR Mean Gradient 15.3 mmHg TR Velocity Time Integral 88.9 cm PV Peak Velocity 106.0 cm/s RV Ejection Time 0.3 s FINDINGS Left Ventricle Moderately increased left ventricular cavity size. Severely decreased left ventricular systolic function. Left ventricular ejection fraction is estimated at 30 %. Grade I/IV diastolic dysfunction (abnormal relaxation filling pattern), normal to mildly elevated filling pressures. Right Ventricle Right ventricle not well visualized. Right Atrium Right atrium not well visualized. Left Atrium Mildly increased left atrial size. Mitral Valve Moderately thickened mitral valve. Mild mitral annular calcification. No mitral valve stenosis. Moderate mitral valve regurgitation. Aortic Valve Aortic valve not well visualized. Tricuspid Valve Mild tricuspid valve regurgitation. Pulmonic Valve Pulmonic valve not well visualized. Pericardium Normal pericardium without effusion. Aorta Normal ascending aorta dimension. IVC Dilated IVC with decreased respiratory variation. CONCLUSIONS Poor quality echocardiogram Moderately increased left ventricular cavity size. Severely decreased left ventricular systolic function. Left ventricular ejection fraction is estimated at 30 %. Grade I/IV diastolic dysfunction (abnormal relaxation filling pattern), normal to mildly elevated filling pressures. Moderately thickened mitral valve. Mild mitral annular calcification. No mitral valve stenosis. Moderate mitral valve regurgitation. Mildly increased left atrial size. Moderately thickened mitral valve. Mild mitral annular calcification. No mitral valve stenosis. Moderate mitral valve regurgitation. Mild tricuspid valve regurgitation. There is no pericardial effusion. Right atrial pressure is around 15 mm of mercury. Grant Leonardo MD (Electronically Signed) Final Date: 01 March 2024 22:31 S
[2024-03-02] VITALS (9 sets, daily range): BP systolic 144–167; BP diastolic 54–80; PULSE 61–76; RESP 15–20; TEMP 36.3–36.8; O2SAT 93–98
[2024-03-02 03:37] LABS: Basophils # 0.1 10^3/uL (0.0-0.1); Basophils % 0.8 %; Eosinophils # 0.3 10^3/uL (0.0-0.8); Eosinophils % 2.8 %; Hematocrit 32.5 % (37-53); Lymphocytes # 2.4 10^3/uL (0.8-4.8); Lymphocytes % 26.6 %; Mean Corpuscular HGB Conc 32.3 g/dL (30-55); Mean Corpuscular Hemoglobin 30.5 pg (27-33); Mean Corpuscular Volume 94.5 fl (82-101); Monocytes # 0.9 10^3/uL (0.2-0.9); Monocytes % 9.4 %; Neutrophils # 5.52 10^3/uL (1.8-7.7); Neutrophils % 60.1 %; Nucleated Red Blood Cells % 0 %; Platelet Count 185 10^3/cmm (157-399); Red Blood Count 3.44 10^6/uL (3.85-5.65); Red Cell Distribution Width 13.5 % (12.1-15.1); White Blood Count 9.18 10^3/uL (3.29-11.43)
[2024-03-02 04:06] LABS: Anion Gap 11.2 (5-19); Blood Urea Nitrogen 43 mg/dL (8-23); Calcium 10.1 mg/dL (8.5-10.5); Carbon Dioxide 29 mmol/L (22-29); Chloride 103 mmol/L (98-107); Creatinine Clr Calc Pharmacy 24.5832; Glucose 80 mg/dL (65-115); Magnesium 1.9 mg/dL (1.7-2.3); Osmolality Calculated 298 mOsm/kg (285-295); Phosphorus 3.4 mg/dL (2.5-4.5); Potassium 4.2 mmol/L (3.5-5.1); Sodium 139 mmol/L (136-145)
[2024-03-02] MEDS: budesonide 0.5 mg/2 mL Neb 0.25 MG INHALATION ×2 (07:30→19:55)
[2024-03-02] MEDS: ipratropium-albuterol 3 mL Neb INHALATION ×2 (07:30→19:55)
[2024-03-02] MEDS: doxycycline 100 mg Tablet PO ×2 (09:28→17:44)
[2024-03-02] MEDS: hyDRALAzine 50 mg Tablet 25 MG PO ×3 (09:28→22:10)
[2024-03-02] MEDS: apixaban 5 mg Tablet 2.5 MG PO ×2 (09:28→17:44)
[2024-03-02] MEDS: metoprolol tartrate 50 mg Tablet PO ×2 (09:28→20:00)
[2024-03-02] MEDS: bumetanide 0.25 mg/mL SDV 4 mL 1 MG IVP ×2 (09:42→17:43)
--- NOTE | 2024-03-02 10:07 | PC.CHAP ---
Pastoral Care Encounter/Spiritual Assessment Type of Contact [] Declined calculus tutor visit [] Patient/Family/Request visit [] Outpatient visit [] Follow-up visit [] Physician referral [] Code/Alert [x] Routine visit [] Staff referral [] Actively dying [] Patient sleeping [] Family support [] [] Out of room [] Palliative care [] [x] Receiving care in room [] Pre-surgical visit [] Trauma [] Long length of stay [] ICU visit [] Other: Relational/Emotional Strength [] Patient feels connected with others/family/visitors/staff [] Distress [] Loneliness/isolation [] Abandonment Spirituality of Patient [] Person of Sari [] Attends Religious of their Sari [] Believes in Prayer [] Reads Bible or Latter Day materials [] There are Spiritual issues to be addressed 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 Interventions [x] Prayer [] Active listening [] Non-anxious presence [] Spiritual/emotional support [] Crisis/trauma care [] Spiritual counseling [] Bereavement support [] Provided bereavement packet [] Provided Bible/devotional materials [] Provided toy/stuffed animal, coloring book to patient or family member [] Provided Communion [] Anointing/[place] [] Salvation [] Completed spiritual assessment [] Other: Impact on Illness or Injury [] Angry [] Fearful [] Anxious [] Often cries [] Exhaustion [] Unable to work [] Unable to attend spiritism [] Unable to walk/stand [] Unable to read [] Unable to drive [] Unable to eat/drink [] Unable to sleep [] Unable to be with family [] Patient intubated [] Other: Summary Time spent with patient
--- NOTE | 2024-03-02 10:21 | PC.SOCIAL ---
IMM Update Pg. 2 of IMM updated. Initialed, dated, and timed. Copy provided at bedside.
--- NOTE | 2024-03-02 14:19 | P.PN_ITS ---
Subjective 2 Subjective: seen today still requiring O2 700 cc urine output overnight Vitals/I&O/Wt Last Vital Signs Temp 97.6 F 03/02/24 11:41 Pulse 76 03/02/24 11:41 Resp 15 03/02/24 11:41 BP 145/66 03/02/24 11:41 Pulse Ox 96 03/02/24 11:41 O2 Del Method Nasal Cannula 03/02/24 11:41 O2 Flow Rate 2 03/02/24 11:41 03/01/24 03/02/24 03/02/24 22:59 06:59 14:59 Intake Total 476 / 476 Output Total 50 / 1250 650 / 1900 Balance -50 / -1250 -650 / -1900 476 / 476 Weight last 48 hrs Weight 99.819 kg Weight 102.693 kg Weight 97.069 kg Physical Exam 2 Narrative: AO x3 2+ edema of lower legs Currently on 2 L nasal cannula Hemodynamic stable Not complaining active chest pain S1, S2 No audible stridor or wheezing Nondistended, soft abdomen Mild crackles at bases b/l Urinary Catheter Management: Hightower: Cath Placed During This Visit: yes Reason for Continuing Indwelling Catheter: Acute Urinary Retention or Obstruction Urinary Catheter Date of Insertion: 03/01/24 Urinary Catheter Time of Insertion: 01:20 Data 03/02/24 03:15 03/02/24 03:15 Micro: Microbiology 03/01/24 16:37 Urine Culture - Preliminary Urine Catheterized 02/29/24 20:53 Blood Culture - Preliminary Blood NEGATIVE TO DATE 02/29/24 20:51 Blood Culture - Preliminary Blood NEGATIVE TO DATE A&P Assessment and plan (1) Hypertension: Qualifiers: Hypertension type: essential hypertension Qualified Code(s): I10 - Essential (primary) hypertension (2) Cardiomyopathy: Qualifiers: Cardiomyopathy type: dilated Qualified Code(s): I42.0 - Dilated cardiomyopathy (3) Atrial fibrillation: Qualifiers: Atrial fibrillation type: other persistent Qualified Code(s): I48.19 - Other persistent atrial fibrillation (4) ICD (implantable cardioverter-defibrillator) in place: (5) Chronic kidney disease: Qualifiers: Chronic kidney disease stage: stage 3 (moderate) Chronic kidney disease stage 3 subtype: stage 3b (GFR 30-44) Qualified Code(s): N18.32 - Chronic kidney disease, stage 3b (6) COPD (chronic obstructive pulmonary disease): Qualifiers: COPD type: unspecified COPD Qualified Code(s): J44.9 - Chronic obstructive pulmonary disease, unspecified (7) Pneumonia: (8) Pulmonary edema: (9) longterm resident: (10) Generalized weakness: Plan Systolic CHF acute exacerbation EF is reduced Will put him on IV Bumex Hightower catheter to be placed patient is requesting Hightower catheter placement because he is too weak to get up No active chest pain Continue potassium supplementation Right middle lobe infiltrate Will put him on ceftriaxone and doxycycline Patient is afebrile No leukocytosis, If remains afebrile we can discontinue Baudilio with the morning [facility] Generalized weakness and fatigue request physical therapy Chronic hypoxia requiring 2 L Chronic kidney disease without acute worsening continue bicarb tablets Hypercalcemia: Monitor for now AICD/pacemaker in place, DNR/DNI Cardiac diet 03/02/2024 -Continue management as per assessment and plan. ? Monitor for fever ? continue medications as ordered ? Initially presented for confusion however in the ER was alert oriented x 4. Has had waxing waning mental status. Will check up on him again later. CT head negative on admission. He is moving all 4 extremities. ? Blood cultures pending ? Check urine culture ? Continue antibiotics. ? Chest x-ray does show additional edema and fluid in minor fissure. ? Check phosphorus level. - continue antibiotics plan for possible dc in am Attestations 2 Medical Necessity Statement*: Requires continued hospitalization secondary to altered mental status, evidence of pneumonia and requires IV diuresis. Expect another 48 hours of hospitalization at this time. Diagnoses Essential hypertension I10 Hypertension type: essential hypertension Dilated cardiomyopathy I42.0 Cardiomyopathy type: dilated Other persistent atrial fibrillation I48.19 Atrial fibrillation type: other persistent ICD (implantable cardioverter-defibrillator) in place Z95.810 Stage 3b chronic kidney disease N18.32 Chronic kidney disease stage: stage 3 (moderate) Chronic kidney disease stage 3 subtype: stage 3b (GFR 30-44) Chronic obstructive pulmonary disease, unspecified COPD type J44.9 COPD type: unspecified COPD Pneumonia J18.9 Pulmonary edema J81.1 longterm resident Z59.3 Generalized weakness R53.1
[2024-03-02] MEDS: cefTRIAXone 1,000 mg SDV 1000 MG IVP (22:08)
[2024-03-02] MEDS: isosorbide mononitrate ER 30 mg Tablet PO (22:08)
[2024-03-02] MEDS: pantoprazole DR 40 mg Tablet PO (22:09)
[2024-03-02] MEDS: tamsulosin 0.4 mg Capsule PO (22:09)
[2024-03-02] MEDS: sodium bicarbonate 650 mg Tablet PO (22:09)
[2024-03-02] MEDS: potassium chloride ER 20 mEq Tablet PO (22:10)
[2024-03-03] VITALS (7 sets, daily range): BP systolic 133–151; BP diastolic 67–73; PULSE 54–69; RESP 16–18; TEMP 36.4–37.1; O2SAT 92–95
[2024-03-03 06:38] LABS: Basophils # 0.1 10^3/uL (0.0-0.1); Basophils % 0.5 %; Eosinophils # 0.3 10^3/uL (0.0-0.8); Eosinophils % 3.5 %; Hematocrit 31.1 % (37-53); Lymphocytes # 2.9 10^3/uL (0.8-4.8); Lymphocytes % 30.7 %; Mean Corpuscular HGB Conc 32.8 g/dL (30-55); Mean Corpuscular Hemoglobin 30.1 pg (27-33); Mean Corpuscular Volume 91.7 fl (82-101); Mean Platelet Volume 10.2 fL (7.4-10.4); Monocytes # 0.8 10^3/uL (0.2-0.9); Monocytes % 8.6 %; Neutrophils % 56.4 %; Nucleated Red Blood Cells % 0 %; Platelet Count 190 10^3/cmm (157-399); Red Blood Count 3.39 10^6/uL (3.85-5.65); Red Cell Distribution Width 13.5 % (12.1-15.1); White Blood Count 9.41 10^3/uL (3.29-11.43)
[2024-03-03] MEDS: doxycycline 100 mg Tablet PO (07:59)
[2024-03-03] MEDS: bumetanide 0.25 mg/mL SDV 4 mL 1 MG IVP (07:59)
[2024-03-03] MEDS: apixaban 5 mg Tablet 2.5 MG PO (08:00)
[2024-03-03] MEDS: hyDRALAzine 50 mg Tablet 25 MG PO (08:00)
[2024-03-03] MEDS: metoprolol tartrate 50 mg Tablet PO (08:00)
[2024-03-03] MEDS: budesonide 0.5 mg/2 mL Neb 0.25 MG INHALATION (08:26)
--- NOTE | 2024-03-03 10:01 | P.DS_ITS ---
Discharge Providers Date of Admission: 03/01/24 14:50 Date of Discharge: March 03, 2024 Attending Provider at Admission: Grant Levin MD Attending Provider at Discharge: Sanjana Busch MD Primary Care Provider: Magaly Rivas MD Diagnoses at Discharge Discharge Diagnosis (1) Hypertension: Status: Acute Qualifiers: Hypertension type: essential hypertension Qualified Code(s): I10 - Essential (primary) hypertension (2) Cardiomyopathy: Status: Acute Qualifiers: Cardiomyopathy type: dilated Qualified Code(s): I42.0 - Dilated cardiomyopathy (3) Atrial fibrillation: Status: Acute Qualifiers: Atrial fibrillation type: other persistent Qualified Code(s): I48.19 - Other persistent atrial fibrillation (4) ICD (implantable cardioverter-defibrillator) in place: Status: Acute (5) Chronic kidney disease: Status: Acute Qualifiers: Chronic kidney disease stage: stage 3 (moderate) Chronic kidney disease stage 3 subtype: stage 3b (GFR 30-44) Qualified Code(s): N18.32 - Chronic kidney disease, stage 3b (6) COPD (chronic obstructive pulmonary disease): Status: Acute Qualifiers: COPD type: unspecified COPD Qualified Code(s): J44.9 - Chronic obstructive pulmonary disease, unspecified (7) Pneumonia: Status: Acute (8) Pulmonary edema: Status: Acute (9) [facility] resident: Status: Acute (10) Generalized weakness: Status: Acute Reason for Visit Reason for Visit: AMS Hospital Course Hospital Course Patient was admitted for heart failure exacerbation and pneumonia. Placed on antibiotics which were switched to oral at discharge. He was diuresed during hospital stay with bumetanide 1 mg IV twice daily. Home dose Lasix was 20 mg. At discharge we doubled to 40. He will go home on Lasix 40 daily. He is lying flat on 2 L nasal cannula which is his baseline. [facility] Patient agreeable to the plan. Alert oriented x 3. Physical Exam Narrative: AO x3 Edema has improved bilateral lower extremities. Currently on 2 L nasal cannula Hemodynamic stable Not complaining active chest pain S1, S2 No audible stridor or wheezing Nondistended, soft abdomen Clear to auscultation bilaterally no wheezes no rhonchi no crackles. Urinary Catheter Management: Hightower: Cath Placed During This Visit: yes Reason for Continuing Indwelling Catheter: Acute Urinary Retention or Obstruction Urinary Catheter Date of Insertion: 03/01/24 Urinary Catheter Time of Insertion: 01:20 Discharge Data Studies Completed and Pending Completed Studies During Hospitalization Category Date Time Status CT head wo con* [id number] Stat Cat Scan 02/29/24 19:36 Completed XR chest 1V portable [id number] Stat Exams 02/29/24 19:36 Completed CV. echo complete* [id number] Routine Ultrasound 03/01/24 22:35 Completed Pending at discharge Category Date Time Status Basic Metabolic Panel Routine Lab 03/03/24 07:50 Ordered Blood Culture Stat Lab 02/29/24 20:53 Results Magnesium Routine Lab 03/03/24 07:50 Ordered Radiology Impressions Chest X-Ray 02/29/24 19:36 IMPRESSION: 1. Interstitial prominence is likely interstitial edema and is slightly increased from prior x-ray. 2. Trace of fluid in the minor fissure slightly increased from prior x-ray. Head CT 02/29/24 19:36 IMPRESSION: 1. Age-related volume loss and moderate chronic microvascular disease. 2. No acute intracranial lesion or injury and no change from prior scan. ASSESSMENT: ASPECTS ([place] Stroke Program Early CT Score) is 10. ADDENDUM: 02/29/242021 Findings were discussed with Dr Rowan 02/29/2024 8:20 PM KILN PUSHER. Laboratory Results WBC 9.41 10^3/uL (3.29-11.43) 03/03/24 05:55 RBC 3.39 10^6/uL (3.85-5.65) L 03/03/24 05:55 Hgb 10.20 g/dL (11.27-16.99) L 03/03/24 05:55 Hct 31.1 % (37-53) L 03/03/24 05:55 MCV 91.7 fl (82-101) 03/03/24 05:55 MCH 30.1 pg (27-33) 03/03/24 05:55 MCHC 32.8 g/dL (30-55) 03/03/24 05:55 RDW 13.5 % (12.1-15.1) 03/03/24 05:55 Plt Count 190 10^3/cmm (157-399) 03/03/24 05:55 MPV 10.2 fL (7.4-10.4) 03/03/24 05:55 Neut % (Auto) 56.4 % 03/03/24 05:55 Lymph % (Auto) 30.7 % 03/03/24 05:55 [place] % (Auto) 8.6 % 03/03/24 05:55 Eos % (Auto) 3.5 % 03/03/24 05:55 Baso % (Auto) 0.5 % 03/03/24 05:55 Neut # (Auto) 5.30 10^3/uL (1.8-7.7) 03/03/24 05:55 Lymph # (Auto) 2.9 10^3/uL (0.8-4.8) 03/03/24 05:55 [place] # (Auto) 0.8 10^3/uL (0.2-0.9) 03/03/24 05:55 Eos # (Auto) 0.3 10^3/uL (0.0-0.8) 03/03/24 05:55 Baso # (Auto) 0.1 10^3/uL (0.0-0.1) 03/03/24 05:55 Nucleated RBC % (auto) 0 % 03/03/24 05:55 Nucleated RBCs # 0.0 /100WBC 03/03/24 05:55 Sodium Cancelled 03/03/24 05:55 Potassium Cancelled 03/03/24 05:55 Chloride Cancelled 03/03/24 05:55 Carbon Dioxide Cancelled 03/03/24 05:55 Anion Gap Cancelled 03/03/24 05:55 BUN Cancelled 03/03/24 05:55 Creatinine Cancelled 03/03/24 05:55 GFR Calculation Cancelled 03/03/24 05:55 Glucose Cancelled 03/03/24 05:55 POC Glucose 83 mg/dL (70-110) 03/01/24 18:05 Calculated Osmolality Cancelled 03/03/24 05:55 Calcium Cancelled 03/03/24 05:55 Phosphorus 3.4 mg/dL (2.5-4.5) 03/02/24 03:15 Magnesium Cancelled 03/03/24 05:55 Total Bilirubin 0.3 mg/dL (0.15-1.2) 02/29/24 19:22 AST 15 U/L (0-40) 02/29/24 19:22 ALT 10 U/L (0-41) 02/29/24 19:22 Alkaline Phosphatase 71 U/L (40-130) 02/29/24 19:22 NT-Pro-B Natriuret Pep 7264 pg/mL (0-450) H 02/29/24 19:22 Total Protein 6.6 g/dL (6.6-8.7) 02/29/24 19:22 Albumin 3.5 g/dL (3.5-5.2) 02/29/24 19:22 Globulin 3.1 g/dL (1.3-4.6) 02/29/24 19:22 TSH 2.06 uIU/mL (0.27-4.20) 02/29/24 19:22 Urine Color Yellow (Yellow) 02/29/24 20:37 Urine Appearance Clear (CLEAR) 02/29/24 20:37 Urine pH 6.0 (5-7) 02/29/24 20:37 Ur Specific [place] 1.020 (1.005-1.030) 02/29/24 20:37 Urine Protein 3+ (Negative) A 02/29/24 20:37 Urine Glucose (UA) Negative (Normal) 02/29/24 20:37 Urine Ketones Negative (Negative) 02/29/24 20:37 Urine Blood 1+ (Negative) A 02/29/24 20: Urine Nitrate Negative (Negative) 02/29/24 20:37 Urine Bilirubin Negative (Negative) 02/29/24 20:37 Urine Urobilinogen 1.0 mg/dL (Negative) 02/29/24 20:37 Ur Leukocyte Esterase Negative (Negative) 02/29/24 20:37 Urine RBC 0-4 /hpf (0-2) H 02/29/24 20:37 Urine WBC 0-4 /hpf (0-5) H 02/29/24 20:37 Ur Squamous Epith Cells 0-4 /hpf (0-5) H 02/29/24 20:37 Ur Transition Epith Cell 0-4 /hpf 02/29/24 20:37 Amorphous Sediment Not Reportable 02/29/24 20:37 Urine Bacteria Trace /hpf (NONE) 02/29/24 20:37 Urine Mucus Trace /hpf 02/29/24 20:37 Coronavirus (PCR) Negative (Negative) 02/29/24 21:28 Influenza A (PCR) Negative (Negative) 02/29/24 21:28 Influenza Type B (PCR) Negative (Negative) 02/29/24 21:28 RSV (PCR) Negative (Negative) 02/29/24 21:28 Vitals Last Vital Signs Temp 97.5 F L 03/03/24 07:20 Pulse 69 03/03/24 08:35 Resp 16 03/03/24 08:00 BP 143/71 03/03/24 07:20 Pulse Ox 92 03/03/24 08:00 O2 Del Method Nasal Cannula 03/03/24 08:00 O2 Flow Rate 2 03/03/24 08:00 Discharge Plan Discharge Patient Disposition: Xfer SNF Condition: Stable Prescriptions: New amoxicillin-pot clavulanate 875-125 mg tablet 1 tab PO BID Qty: 14 0RF Continued (DME) BiPAP See Rx Instructions .Route .MEDSUPPLY Qty: 1 0RF Rx Instructions: Settings of 01/29 isosorbide mononitrate 30 mg Tablet Extended Release 24 Hr 30 mg PO DAILY Qty: 30 0RF metoprolol tartrate 50 mg Tablet 50 mg PO BID@0900,2100 Qty: 60 0RF potassium chloride 8 mEq capsule, extended release 8 meq PO DAILY Qty: 30 0RF paroxetine HCl 10 mg tablet 10 mg PO QAM hydrocodone-acetaminophen 7.5-325 mg Tablet 1 tab PO BID PRN (Reason: Pain) sodium bicarbonate 650 mg Tablet 650 mg PO DAILY Qty: 30 0RF sennosides [Senokot] 8.6 mg Tablet 8.6 mg PO DAILY fexofenadine 60 mg Tablet 60 mg PO BID PRN (Reason: Allergic Symptoms) Eliquis 5 mg Tablet 2.5 mg PO BID calcitriol [Rocaltrol] 0.5 mcg capsule 0.5 mcg PO DAILY hydralazine 50 mg tablet 25 mg PO TID acetaminophen [Tylenol] 325 mg Tablet 325 mg PO QID PRN (Reason: Pain) ipratropium-albuterol 0.5 mg-3 mg(2.5 mg base)/3 mL solution for nebulization 0.5 ml INHALATION TID tamsulosin 0.4 mg capsule 0.4 mg PO DAILY budesonide 0.25 mg/2 mL suspension for nebulization 0.25 mg inhalation BID omeprazole 20 mg capsule,delayed release(DR/EC) 20 mg PO DAILY Changed furosemide 40 mg Tablet 40 mg PO DAILY@0800 Qty: 30 0RF Discharge Orders: Discharge Order (Routine); Ordered 03/03/24 Ordered By: Sanjana Busch Referrals: [facility] [Outside] Bina Grace FNP [Nurse Practitioner] - 03/11/24 3:00 pm () Discharge Diet: Cardiac Discharge Activity: Resume usual activity and Use walker/crutches as instructed Patient Instructions: Furosemide (By mouth), Amoxicillin/Clavulanate Potassium (By mouth), CHF Stoplight Discharge Attestations Time Spent in Discharge Care*: greater than 30 min Quality Metrics Clinical Quality Measures [ No reported AMI, CVA or VTE this stay] Coding Level of Care Code Acute Code for Chg Fwd Diagnoses Essential hypertension I10 Hypertension type: essential hypertension Dilated cardiomyopathy I42.0 Cardiomyopathy type: dilated Other persistent atrial fibrillation I48.19 Atrial fibrillation type: other persistent ICD (implantable cardioverter-defibrillator) in place Z95.810 Stage 3b chronic kidney disease N18.32 Chronic kidney disease stage: stage 3 (moderate) Chronic kidney disease stage 3 subtype: stage 3b (GFR 30-44) Chronic obstructive pulmonary disease, unspecified COPD type J44.9 COPD type: unspecified COPD Pneumonia J18.9 Pulmonary edema J81.1 [facility] resident Z59.3 Generalized weakness R53.1
[2024-03-03 10:43] LABS: Anion Gap 13.1 (5-19); Blood Urea Nitrogen 47 mg/dL (8-23); Calcium 10.2 mg/dL (8.5-10.5); Carbon Dioxide 26 mmol/L (22-29); Chloride 102 mmol/L (98-107); Creatinine Clr Calc Pharmacy 22.5678; Glucose 123 mg/dL (65-115); Magnesium 1.8 mg/dL (1.7-2.3); Osmolality Calculated 298 mOsm/kg (285-295); Potassium 4.1 mmol/L (3.5-5.1); Sodium 137 mmol/L (136-145)
--- NOTE | 2024-03-03 10:46 | PC.CHAP ---
Pastoral Care Encounter/Spiritual Assessment Type of Contact [] Declined major account manager visit [] Patient/Family/Request visit [] Outpatient visit [] Follow-up visit [] Physician referral [] Code/Alert [] Routine visit [] Staff referral [] Actively dying [] Patient sleeping [] Family support [] [] Out of room [] Palliative care [] [x] Receiving care in room [] Pre-surgical visit [] Trauma [] Long length of stay [] ICU visit [] Other: Relational/Emotional Strength [] Patient feels connected with others/family/visitors/staff [] Distress [] Loneliness/isolation [] Abandonment Spirituality of Patient [] Person of Sari [] Attends Church of their Sari [] Believes in Prayer [] Reads Bible or Zoroastrianism materials [] There are Spiritual issues to be addressed American Indian Policy Specialist Interventions [] Prayer [] Active listening [] Non-anxious presence [] Spiritual/emotional support [] Crisis/trauma care [] Spiritual counseling [] Bereavement support [] Provided bereavement packet [] Provided Bible/devotional materials [] Provided toy/stuffed animal, coloring book to patient or family member [] Provided Communion [] Anointing/[place] [] Salvation [] Completed spiritual assessment [] Other: Impact on Illness or Injury [] Angry [] Fearful [] Anxious [] Often cries [] Exhaustion [] Unable to work [] Unable to attend moravian [] Unable to walk/stand [] Unable to read [] Unable to drive [] Unable to eat/drink [] Unable to sleep [] Unable to be with family [] Patient intubated [] Other: Summary Time spent with patient
--- NOTE | 2024-03-03 13:24 | PC.NURSE ---
Patient dressed. IV removed for discharge. Patient stood beside bed to assist with dressing. Tolerated fair.
--- NOTE | 2024-03-03 13:45 | PC.NURSE ---
Patient returning to [facility] today. Report called to CORBIN Navarro. Hightower and IV removed. Patient tolerated well. Patient go with double gown as patient's close are wet. Pending transport at this time. Patient denies pain.
== END 2024-03-03 14:38 | disposition skilled nursing facility (03) | DRG 291 ==
LOC: ER 21:13 → MEDSURG 21:55
PROVIDERS: Admitting Provider Internal Medicine; Emergency Provider Emergency Medicine; PCP Internal Medicine; Visit Provider Internal Medicine
DX: I13.0 Hypertensive heart and chronic kidney disease with heart failure and stage 1 through stage 4 chronic kidney disease, or unspecified chronic kidney disease (principal); I50.23 Acute on chronic systolic (congestive) heart failure; J18.9 Pneumonia, unspecified organism; I48.19 Other persistent atrial fibrillation; J44.0 Chronic obstructive pulmonary disease with (acute) lower respiratory infection; N18.32 Chronic kidney disease, stage 3b; I42.0 Dilated cardiomyopathy; Z95.810 Presence of automatic (implantable) cardiac defibrillator; Z79.01 Long term (current) use of anticoagulants; Z99.81 Dependence on supplemental oxygen; Z79.891 Long term (current) use of opiate analgesic; Z91.041 Radiographic dye allergy status; Z87.440 Personal history of urinary (tract) infections; G47.33 Obstructive sleep apnea (adult) (pediatric); Z86.73 Personal history of transient ischemic attack (TIA), and cerebral infarction without residual deficits; G62.9 Polyneuropathy, unspecified; F06.70 Mild neurocognitive disorder due to known physiological condition without behavioral disturbance; Z66 Do not resuscitate; E83.52 Hypercalcemia; R09.02 Hypoxemia; K21.9 Gastro-esophageal reflux disease without esophagitis; M10.9 Gout, unspecified; E78.5 Hyperlipidemia, unspecified; Z82.3 Family history of stroke; Z82.49 Family history of ischemic heart disease and other diseases of the circulatory system
CPT/HCPCS: 0241U; 36415; 36416; 51702; 70450; 71045; 80048; 80053; 81001; 82962; 83735; 83880; 84100; 84443; 85025; 87040; 87086; 93005; 93306; 94640; 96365; 96375; 99285; G0378; J0456; J0696; J1940; J3490; J7030; J7050; J7626

== ENCOUNTER → 2024-03-11 14:47 | Outpatient (BNVA) | payer MEDICARE, MEDICAID, SELFPAY | PROVIDERS: PCP Internal Medicine; Visit Provider Nurse Practitioner Family | DX: I11.0 Hypertensive heart disease with heart failure (principal); I50.9 Heart failure, unspecified; Z95.810 Presence of automatic (implantable) cardiac defibrillator; Z87.891 Personal history of nicotine dependence | CPT/HCPCS: 99214 ==

== ENCOUNTER 2024-05-22 01:42 | Inpatient (IN) | payer MEDICARE, MEDICAID, SELFPAY ==
[2024-05-22] VITALS (29 sets, daily range): BP systolic 115–182; BP diastolic 61–130; PULSE 21–129; RESP 18–35; TEMP 36.4–37.3; O2SAT 83–99
--- NOTE | 2024-05-22 01:44 | XRR_ITS ---
PROCEDURE INFORMATION: Exam: XR Chest Exam date and time: 05/22/2024 2:04 AM Age: 89 years old Clinical indication: Shortness of breath; Prior surgery; Surgery date: 6+ months; Surgery type: Pacer TECHNIQUE: Imaging protocol: Radiologic exam of the chest. Views: 1 view. COMPARISON: CR XR chest 1V portable [id number] 02/29/2024 8:00 PM FINDINGS: Tubes, catheters and devices: AICD projects in satisfactory location. Lungs: Increased interstitial and alveolar opacities in the lower lung zones suggestive of worsened edema. Pleural spaces: Unremarkable. No pleural effusion. No pneumothorax. Heart/Mediastinum: Unremarkable. No cardiomegaly. Bones/joints: Unremarkable. XR/XR chest 1V portable [id number] IMPRESSION: Increased interstitial and alveolar opacities in the lower lung zones suggestive of worsened edema.
--- NOTE | 2024-05-22 01:46 | ECG_ITS ---
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 Measurements Intervals [place] Rate: 127 P: 126 CO: 110 QRS: 5 QRSD: 145 T: 240 QT: 294 QTc: 427 Interpretive Statements UNCERTAIN IRREGULAR RHYTHM WITH BASELINE ARTIFACT LEFT BUNDLE BRANCH BLOCK [120+ ms QRS DURATION, 80+ ms Q/S IN V1/V2, 85+ ms R IN I/aVL/V5/V6] Compared to ECG 02/29/2024 20:27:19 Atrial-paced complex(es) or rhythm no longer present Electronically Signed On 05-23-2024 07:48:13 MEDICAL TRANSPORT SPECIALIST by Anatoliy Muñoz M.D. [email or web address] [id number]
[2024-05-22 01:57] LABS: Basophils % 0.1 %; Hematocrit 35.6 % (37-53); Lymphocytes # 3.8 10^3/uL (0.8-4.8); Lymphocytes % 21.5 %; Mean Corpuscular HGB Conc 32.6 g/dL (30-55); Mean Corpuscular Hemoglobin 29.7 pg (27-33); Mean Corpuscular Volume 91.3 fl (82-101); Mean Platelet Volume 10.1 fL (7.4-10.4); Monocytes # 1.7 10^3/uL (0.2-0.9); Monocytes % 9.5 %; Neutrophils # 11.92 10^3/uL (1.8-7.7); Neutrophils % 68.2 %; Nucleated Red Blood Cells % 0 %; Platelet Count 278 10^3/cmm (157-399); Red Cell Distribution Width 12.9 % (12.1-15.1); White Blood Count 17.47 10^3/uL (3.29-11.43)
[2024-05-22 02:00] LABS: ABG PCO2 48.9 mmHg (35-45); ABG PH Result 7.28 (7.35-7.45); Alveolar-Arterial Oxygen Gradi 76.9 mmHg (5-10); Arterial Blood Gas Hematocrit 36.8 % (42-52); Blood Gas Allen Test Pos; Blood Gas Operator Identificat gerca; Blood Gas Sample Site Brachial, left; Blood Gas Sample Type Arterial; Carboxyhemoglobin 0.9 %THgb (0.4-20.1); HGB O2 Sat 87.9 % (95-100); Ionized Calcium Level - ABG 1.3 mmol/L (1.1-1.4); Methemoglobin 1.2 % (0.4-1.5); Oxygen Device BIPAP; Oxygen Saturation ABG 89.7; PO2 FiO2 Ratio Arterial Blood 63; Potassium Level - ABG 3.9 mmol/L (3.5-5.0)
[2024-05-22] MEDS: amiodarone 50 mg/mL SDV 3 mL 300 MG IVP (02:04)
--- NOTE | 2024-05-22 02:14 | W.ED.SOB ---
HPI - SOB/Dyspnea General: Chief Complaint: ER Hold Stated Complaint: Resp Distress Time Seen by Provider: 05/22/24 01:44 History of Present Illness: HPI Narrative: This is an 89-year-old man with a history of congestive heart failure with ICD placement, chronic kidney disease, obstructive sleep apnea, dementia, history of stroke, chronic anticoagulation on Eliquis, hypertension, pacemaker placement, COPD and A-fib who presents to the emergency room by ambulance from [facility] with increased work of breathing. EMS reports that [facility] was concerned that he may have had an aspiration event as this came on fairly suddenly they think. He is on a nonrebreather on presentation with an O2 sat of 83% initially 15 L 100% FiO2. He is working very hard to breathe. EMS does have paperwork with them that says that he is a DNR. Related Data Home Medications ?Medication ?Instructions ?Recorded ?Confirmed hydrocodone 7.5 mg-acetaminophen 1 tab PO BID PRN Pain 10/11/22 03/11/24 325 mg tablet apixaban 5 mg tablet (Eliquis) 2.5 mg PO BID 12/18/22 03/11/24 fexofenadine 60 mg tablet 60 mg PO BID PRN Allergic Symptoms 12/18/22 03/11/24 sennosides 8.6 mg tablet (Senokot) 8.6 mg PO DAILY 12/18/22 03/11/24 calcitriol 0.5 mcg capsule 0.5 mcg PO DAILY 07/05/23 03/11/24 (Rocaltrol) hydralazine 50 mg tablet 25 mg PO TID 07/05/23 03/11/24 acetaminophen 325 mg tablet 325 mg PO QID PRN Pain 07/08/23 03/01/24 (Tylenol) budesonide 0.25 mg/2 mL suspension 0.25 mg inhalation BID 07/08/23 03/11/24 for nebulization ipratropium 0.5 mg-albuterol 3 mg 0.5 ml inhalation TID 07/08/23 03/11/24 (2.5 mg base)/3 mL nebulization soln omeprazole 20 mg capsule,delayed 20 mg PO DAILY 07/08/23 03/11/24 release tamsulosin 0.4 mg capsule 0.4 mg PO DAILY 07/08/23 03/11/24 paroxetine HCl 10 mg tablet 10 mg PO QAM 03/01/24 03/11/24 Previous Rx's ?Medication ?Instructions ?Recorded BiPAP #1 ea 07/11/22 sodium bicarbonate 650 mg tablet 650 mg PO DAILY #30 tabs 10/18/22 isosorbide mononitrate 30 mg 30 mg PO DAILY #30 tabs 03/13/23 tablet,extended release 24 hr metoprolol tartrate 50 mg tablet 50 mg PO BID@0900,2100 #60 tabs 03/13/23 potassium chloride 8 mEq 8 meq PO DAILY #30 caps 03/13/23 capsule,extended release amoxicillin 875 mg-potassium 1 tab PO BID #14 tabs 03/03/24 clavulanate 125 mg tablet furosemide 40 mg tablet 40 mg PO DAILY@0800 #30 tabs 03/03/24 Allergies Allergy/AdvReac Type Severity Reaction Status Date / Time Iodinated Contrast Media AdvReac STOMACH Verified 03/11/24 14:52 CRAMPING DURING A STRESS TEST. 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 CVA (cerebral vascular accident) Chronic anticoagulation Long-term (current) use of anticoagulants, INR goal 2.0-3.0 Stroke-like symptom Implantable cardioverter-defibrillator (ICD) discharge Pacemaker Hypertension Hyperlipidemia Gout Cardiomyopathy COPD (chronic obstructive pulmonary disease) Carotid artery stenosis DDD (degenerative disc disease) GERD (gastroesophageal reflux disease) Atrial fibrillation Surgical History History of cataract extraction History of appendectomy History of tonsillectomy and adenoidectomy Hx of laminectomy Family History Mother CAD (coronary artery disease) valve replaced at 86 Brother Chronic kidney disease (CKD) Father Stroke Family/Other Suicide Denies family history of Diabetes Clotting disorder Dementia Anesthesia complication Bleeding disorder Lung disease Cancer Social History Smoking and tobacco/nicotine status: former use of tobacco/nicotine Alcohol intake: never Substance/Drug Use: never Physical Exam Narrative: EXAM NARRATIVE: General: Alert, moderate distress. Skin: Warm, dry. Head: Normocephalic, atraumatic. Neck: Supple, trachea midline. Eye: Extraocular movements are intact. Ears, nose, mouth and throat: Oral mucosa moist. Cardiovascular: Tachycardic, irregular Respiratory: coarse, scattered wheeze, rhonchi, moderate increased wob. tachypnea, severe respiratory distress Gastrointestinal: Soft, Nontender, Non distended, Normal bowel sounds. Musculoskeletal: Normal ROM, no deformity. Neurological: Alert, No focal neurological deficit observed. Psychiatric: Unable to assess Course Vital Signs: Vital signs: Vital Signs Temperature 99.1 F 05/22/24 01:49 Pulse Rate 108 H 05/22/24 02:26 Respiratory Rate 35 H 05/22/24 02:26 Blood Pressure 182/130 05/22/24 01:49 Pulse Oximetry 94 05/22/24 02:26 Oxygen Delivery Me thod BiPAP 05/22/24 02:26 Oxygen Flow Rate 15 05/22/24 01:49 Fraction of Inspir ed Oxygen 100 05/22/24 02:26 MDM - SOB/Dyspnea Medical Decision Making Differential diagnosis for patient with shortness of breath includes but is not limited to and based on the above HPI, review of systems and physical exam: Pneumonia. Bronchitis. Asthma or COPD with acute exacerbation. Acute coronary syndrome / [place]. Pulmonary embolism. Anxiety. Congestive heart failure. Viral infections including influenza and Covid-19. Atrial fibrillation. Anxiety. Pleural effusion. Pneumothorax. Orders placed to evaluate differential diagnosis based on the above differential, HPI and physical exam EKG: Time 1:46 AM. Rate 127. Atrial fibrillation with rapid ventricular response, No ST-T changes, no ectopy, This was reviewed and interpreted by myself the ER physician at 1:50 AM. Chest x-ray: Cardiomegaly. Pulmonary edema. No obvious focal infiltrates. Pacemaker/AICD in place. This was reviewed and interpreted by myself the emergency room physician. I also reviewed the radiology report. AB.2 with an O2 sat of 88% on 100% nonrebreather. Lab Review: Laboratory results were reviewed and interpreted by myself the emergency room physician. Leukocytosis. No significant anemia. BUN and creatinine are 52 and 2.9 which is about at his baseline. Flu COVID and RSV are negative. I reviewed the patient's medical record. Reexamination: Patient's work of breathing is much improved on BiPAP. No focal motor deficits. He has not complained of any chest pain. Consultation: I spoke with Dr. Levin who is on-call for the hospitalist service who agrees to admission. Assessment and plan: Acute hypoxemic respiratory failure Pulmonary edema CHF with acute exacerbation Atrial fibrillation with rapid ventricular response ?80 mg IV Lasix, BiPAP. ? 300 mg amiodarone bolus and amiodarone drip has been initiated. -I discussed the patient with the hospitalist on-call who is admitting the patient. - Discussed findings and plan with patient. Answered any questions. - All laboratory values were reviewed and interpreted personally by myself, the ER physician - All imaging was reviewed and interpreted personally by myself, the ER physician. - Evaluation and treatment of this problem were appropriate in the emergency setting Critical care -I spent a total of >35 minutes of critical care time managing the patient, independent of any other practitioner. -The time involved in the performance of separately reportable procedures was not counted towards critical care time. Lab Data 05/22/24 01:52 05/22/24 01:52 Labs/Radiology: Radiology Impressions Chest X-Ray 05/22/24 01:44 IMPRESSION: Increased interstitial and alveolar opacities in the lower lung zones suggestive of worsened edema. Laboratory Results WBC 17.47 10^3/uL (3.29-11.43) H 05/22/24 01:52 RBC 3.90 10^6/uL (3.85-5.65) 05/22/24 01:52 Hgb 11.60 g/dL (11.27-16.99) 05/22/24 01:52 Hct 35.6 % (37-53) L 05/22/24 01:52 MCV 91.3 fl (82-101) 05/22/24 01:52 MCH 29.7 pg (27-33) 05/22/24 01:52 MCHC 32.6 g/dL (30-55) 05/22/24 01:52 RDW 12.9 % (12.1-15.1) 05/22/24 01:52 Plt Count 278 10^3/cmm (157-399) 05/22/24 01:52 MPV 10.1 fL (7.4-10.4) 05/22/24 01:52 Neut % (Auto) 68.2 % 05/22/24 01:52 Lymph % (Auto) 21.5 % 05/22/24 01:52 Stone % (Auto) 9.5 % 05/22/24 01:52 Eos % (Auto) 0.0 % 05/22/24 01:52 Baso % (Auto) 0.1 % 05/22/24 01:52 Neut # (Auto) 11.92 10^3/uL (1.8-7.7) H 05/22/24 01:52 Lymph # (Auto) 3.8 10^3/uL (0.8-4.8) 05/22/24 01:52 Stone # (Auto) 1.7 10^3/uL (0.2-0.9) H 05/22/24 01:52 Eos # (Auto) 0.0 10^3/uL (0.0-0.8) 05/22/24 01:52 Baso # (Auto) 0.0 10^3/uL (0.0-0.1) 05/22/24 01:52 Nucleated RBC % (auto) 0 % 05/22/24 01:52 Nucleated RBCs # 0.0 /100WBC 05/22/24 01:52 Specimen Type Arterial 05/22/24 01:48 Sample Site Brachial, left 05/22/24 01:48 ABG pH 7.28 (7.35-7.45) L 05/22/24 01:48 ABG pCO2 48.9 mmHg (35-45) H 05/22/24 01:48 ABG pO2 63.0 mmHg (80.0-100.0) L 05/22/24 01:48 ABG PO2/FiO2 Ratio 63 05/22/24 01:48 ABG HCO3 23.0 mmol/L (22-26) 05/22/24 01:48 ABG O2 Saturation 89.7 05/22/24 01:48 ABG Base Excess -4.0 mmol/L (-2.0-2.0) L 05/22/24 01:48 López Test Pos 05/22/24 01:48 A-a O2 Gradient 76.9 mmHg (5-10) H 05/22/24 01:48 Hematocrit 36.8 % (42-52) L 05/22/24 01:48 Hgb O2 Saturation 87.9 % (95-100) L 05/22/24 01:48 Carboxyhemoglobin 0.9 %THgb (0.4-20.1) 05/22/24 01:48 Methemoglobin 1.2 % (0.4-1.5) 05/22/24 01:48 Total Hemoglobin 12.0 g/dL (14-18) L 05/22/24 01:48 Sodium 134.0 mmol/L (131-143) 05/22/24 01:48 Potassium 3.9 mmol/L (3.5-5.0) 05/22/24 01:48 Glucose 207.0 mg/dL (70-115) H 05/22/24 01:48 Ionized Calcium 1.3 mmol/L (1.1-1.4) 05/22/24 01:48 O2 Delivery Device Bipap 05/22/24 01:48 FiO2 100.0 % 05/22/24 01:48 PEEP 12.0 cmH20 05/22/24 01:48 Needle Loom Operator Helper ID [id number] 05/22/24 01:48 Sodium 131 mmol/L (136-145) L 05/22/24 01:52 Potassium 3.9 mmol/L (3.5-5.1) 05/22/24 01:52 Chloride 96 mmol/L (98-107) L 05/22/24 01:52 Carbon Dioxide 23 mmol/L (22-29) 05/22/24 01:52 Anion Gap 15.9 (5-19) 05/22/24 01:52 BUN 52 mg/dL (8-23) H 05/22/24 01:52 Creatinine 2.9 mg/dL (0.7-1.2) H 05/22/24 01:52 GFR Calculation Not Reportable 05/22/24 01:52 Glucose 192 mg/dL (65-115) H 05/22/24 01:52 Calculated Osmolality 291 mOsm/kg (285-295) 05/22/24 01:52 Lactic Acid 3.7 mmol/L (0.5-2.2) H 05/22/24 01:52 Calcium 10.0 mg/dL (8.5-10.5) 05/22/24 01:52 Total Bilirubin 0.3 mg/dL (0.15-1.2) 05/22/24 01:52 AST 29 U/L (0-40) 05/22/24 01:52 ALT 40 U/L (0-41) 05/22/24 01:52 Alkaline Phosphatase 81 U/L (40-130) 05/22/24 01:52 Troponin T Baseline 112 ng/L (0-15) H* 05/22/24 01:52 C-Reactive Protein 40.0 mg/L (0.0-4.9) H 05/22/24 01:52 Total Protein 7.3 g/dL (6.6-8.7) 05/22/24 01:52 Albumin 3.5 g/dL (3.5-5.2) 05/22/24 01:52 Globulin 3.8 g/dL (1.3-4.6) 05/22/24 01:52 Lipase 21 U/L (13-60) 05/22/24 01:52 Influenza A (PCR) Negative (Negative) 05/22/24 01:55 Influenza Type B (PCR) Negative (Negative) 05/22/24 01:55 RSV (PCR) Negative (Negative) 05/22/24 01:55 SARS-CoV-2 (PCR) Negative (Negative) 05/22/24 01:55 All radiology interpretation(s) finalized by discharge Discharge Plan Discharge Patient Disposition: Admitted As Inpatient Admit Provider: Grant Levin Clinical Impression: Acute hypoxemic respiratory failure, Acute exacerbation of congestive heart failure, Pulmonary edema, Atrial fibrillation with rapid ventricular response Condition: Stable Coding Level of Care Code ED Liquefaction Plant Operator for Nataliia Suggs
[2024-05-22 02:19] LABS: Alanine Aminotransferase 40 U/L (0-41); Albumin Level 3.5 g/dL (3.5-5.2); Alkaline Phosphatase 81 U/L (40-130); Anion Gap 15.9 (5-19); Aspartate Amino Transferase 29 U/L (0-40); Blood Urea Nitrogen 52 mg/dL (8-23); Carbon Dioxide 23 mmol/L (22-29); Chloride 96 mmol/L (98-107); Globulin 3.8 g/dL (1.3-4.6); Glucose 192 mg/dL (65-115); Lipase 21 U/L (13-60); Osmolality Calculated 291 mOsm/kg (285-295); Potassium 3.9 mmol/L (3.5-5.1); Sodium 131 mmol/L (136-145); Total Bilirubin 0.3 mg/dL (0.15-1.2); Total Protein 7.3 g/dL (6.6-8.7); Troponin(5th) Baseline 112 ng/L (0-15)
[2024-05-22 02:20] LABS: Lactic Sepsis W/Reflex 3.7 mmol/L (0.5-2.2)
[2024-05-22 02:46] LABS: Influenza A NEGATIVE (Negative); Influenza B NEGATIVE (Negative); Respiratory Syncytial Virus Ce NEGATIVE (Negative); SARS-CoV-2 PCR NEGATIVE (Negative)
[2024-05-22] MEDS: FUROsemide 10 mg/mL SDV 10mL 80 MG IVP (03:00)
[2024-05-22 03:18] LABS: NT Pro B Type Natriuretic Pept 13555 pg/mL (0-450)
[2024-05-22] MEDS: doxycycline 100 MG in sodium chloride 0.9% (plus) 100 ML IV (03:20)
[2024-05-22 03:42] LABS: Reflex Lactate Order REFLEX LACTIC ORDERD
--- NOTE | 2024-05-22 03:45 | ECG_ITS ---
[facility] Test Date: 2024-05-22 Pat Name: Alexey An Department: Room: ED Gender: Male Conciliation Court Judge: : 1935 Requested By: Adriana Bolden Order Number: [id number] Iain MD: Anatoliy Muñoz M.D. Measurements Intervals [place] Rate: 82 P: 0 HI: 0 QRS: -9 QRSD: 161 T: 157 QT: 402 QTc: 470 Interpretive Statements ATRIAL FIBRILLATION LEFT BUNDLE BRANCH BLOCK [120+ ms QRS DURATION, 80+ ms Q/S IN V1/V2, 85+ ms R IN I/aVL/V5/V6] Compared to ECG 05/22/2024 07:07:37 Sinus rhythm no longer present Ventricular premature complex(es) no longer present Electronically Signed On 05-23-2024 08:17:44 STEM DRYER MAINTAINER by Anatoliy Muñoz M.D. [id number]
[2024-05-22 03:48] LABS: Bilirubin Urine Negative (Negative); Blood Urine Negative (Negative); Glucose Urine UA Trace (Normal); Ketones Urine Negative (Negative); Leukocyte Esterase Urine Negative (Negative); Nitrate Urine Negative (Negative); Protein Urine 3+ (Negative); Specific Gravity, Urine 1.014 (1.005-1.030); Urine Appearance Clear (CLEAR); Urine Color Yellow (Yellow); Urobilinogen Urine 0.2 mg/dL (Negative)
[2024-05-22 03:53] LABS: Transitional Epi Cells Urine 0-4 /hpf; WBC Urine 0-4 /hpf (0-5)
[2024-05-22 03:54] LABS: Add Urine Culture? No; Mucus Urine TRACE /hpf
[2024-05-22 04:07] LABS: Troponin 5 2HR 166.6 ng/L (0-15); Troponin 5 2HR Delta 54.6 ABS# (0-10)
--- NOTE | 2024-05-22 04:31 | PM.HP ---
Providers/Chief Complaint Admitting Physician: Grant Levin MD Primary Care Provider: Magaly Rivas MD Chief Complaint: Resp Distress History of Present Illness Alexey An is a 89 year old male with history of A-fib, Eliquis, chronic kidney disease, reduced EF, status post AICD/pacemaker: Resident of group home: Chronic hypoxia uses 2 L of oxygen at baseline, presented with worsening of shortness of breath and cough. Patient is stating that for last few days he has been experiencing worsening of cough, he is not endorsing any chest pain, fever nausea vomiting or diarrhea, workup in the ER revealed non-STEMI: Increased work of breathing: BiPAP requested to decrease work of breathing. As per the nursing staff from group home they had concerns regarding aspiration because patient suddenly started getting short of breath. Patient has been started on heparin drip with ACS protocol Eliquis was put on hold. Patient was in A-fib with RVR which improved with amiodarone 300 mg, currently heart rate is around 80s Review of Systems Const: Denies: fever(s) Eyes: Denies: change in vision ENMT: Denies: throat pain Card: Reports: swelling of feet/ankles Resp: Reports: dyspnea GI: Denies: abdominal pain Medications/Allergies Home Medications ?Medication ?Instructions ?Recorded ?Confirmed ?Last Taken ?Type BiPAP #1 ea 07/11/22 03/01/24 Unknown Rx hydrocodone 7.5 mg-acetaminophen 1 tab PO BID PRN Pain 10/11/22 03/11/24 02/29/24 History 325 mg tablet sodium bicarbonate 650 mg tablet 650 mg PO DAILY #30 tabs 10/18/22 03/11/24 02/29/24 Rx apixaban 5 mg tablet (Eliquis) 2.5 mg PO BID 12/18/22 03/11/24 02/29/24 History fexofenadine 60 mg tablet 60 mg PO BID PRN Allergic Symptoms 12/18/22 03/11/24 Unknown History sennosides 8.6 mg tablet (Senokot) 8.6 mg PO DAILY 12/18/22 03/11/24 02/29/24 History isosorbide mononitrate 30 mg 30 mg PO DAILY #30 tabs 03/13/23 03/11/24 02/29/24 Rx tablet,extended release 24 hr metoprolol tartrate 50 mg tablet 50 mg PO BID@0900,2100 #60 tabs 03/13/23 03/11/24 02/29/24 Rx potassium chloride 8 mEq 8 meq PO DAILY #30 caps 03/13/23 03/11/24 07/07/23 08:56 Rx capsule,extended release calcitriol 0.5 mcg capsule 0.5 mcg PO DAILY 07/05/23 03/11/24 02/29/24 History (Rocaltrol) hydralazine 50 mg tablet 25 mg PO TID 07/05/23 03/11/24 02/29/24 History acetaminophen 325 mg tablet 325 mg PO QID PRN Pain 07/08/23 03/01/24 02/28/24 History (Tylenol) budesonide 0.25 mg/2 mL suspension 0.25 mg inhalation BID 07/08/23 03/11/24 02/29/24 History for nebulization ipratropium 0.5 mg-albuterol 3 mg 0.5 ml inhalation TID 07/08/23 03/11/24 02/29/24 History (2.5 mg base)/3 mL nebulization soln omeprazole 20 mg capsule,delayed 20 mg PO DAILY 07/08/23 03/11/24 02/29/24 History release tamsulosin 0.4 mg capsule 0.4 mg PO DAILY 07/08/23 03/11/24 02/29/24 History paroxetine HCl 10 mg tablet 10 mg PO QAM 03/01/24 03/11/24 02/29/24 History amoxicillin 875 mg-potassium 1 tab PO BID #14 tabs 03/03/24 Unknown Rx clavulanate 125 mg tablet furosemide 40 mg tablet 40 mg PO DAILY@0800 #30 tabs 03/03/24 03/11/24 Unknown Rx Allergies Allergy/AdvReac Type Severity Reaction Status Date / Time Iodinated Contrast Media AdvReac STOMACH Verified 03/11/24 14:52 CRAMPING DURING A STRESS TEST. 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 CVA (cerebral vascular accident) Chronic anticoagulation Long-term (current) use of anticoagulants, INR goal 2.0-3.0 Stroke-like symptom Implantable cardioverter-defibrillator (ICD) discharge Pacemaker Hypertension Hyperlipidemia Gout Cardiomyopathy COPD (chronic obstructive pulmonary disease) Carotid artery stenosis DDD (degenerative disc disease) GERD (gastroesophageal reflux disease) Atrial fibrillation Surgical History History of cataract extraction History of appendectomy History of tonsillectomy and adenoidectomy Hx of laminectomy Family History Mother CAD (coronary artery disease) valve replaced at 86 Brother Chronic kidney disease (CKD) Father Stroke Family/Other Suicide Denies family history of Diabetes Clotting disorder Dementia Anesthesia complication Bleeding disorder Lung disease Cancer Social History Smoking and tobacco/nicotine status: former use of tobacco/nicotine Alcohol intake: never Substance/Drug Use: never Vitals/I&O/Wt Last Vital Signs Temp 99.1 F 05/22/24 01:49 Pulse 84 05/22/24 04:28 Resp 29 H 05/22/24 04:28 BP 115/78 05/22/24 04:28 Pulse Ox 95 05/22/24 04:28 O2 Del Method BiPAP 05/22/24 02:26 O2 Flow Rate 15 05/22/24 01:49 FiO2 55 05/22/24 04:08 05/21/24 05/21/24 05/22/24 14:59 22:59 06:59 Intake Total 0 / 0 Balance 0 / 0 Physical Exam Narrative: Patient laying supine with BiPAP Bilateral breath sound with crackles and rhonchi Awake and alert Able to provide history AOx4 GCS 15 No active focal deficit Close lymphedema Distended abdomen nontender No active chest pain S1, S2 variable Urinary Catheter Management: Hightower: Cath Placed During This Visit: yes Urinary Catheter Date of Insertion: 05/22/24 Urinary Catheter Time of Insertion: 02:59 Sepsis: Is patient septic: Yes Focused sepsis exam performed: Yes Focused sepsis exam: Patient is not encephalopathic Peripheral pulses intact Capillary refill less than 3 sec. No encephalopathy Patient tachypneic Saturating 95% on BiPAP Date exam was performed: 05/22/24 Time exam was performed: 06:02 Data 05/22/24 01:52 05/22/24 01:52 Micro: Microbiology 05/22/24 02:00 Blood Culture - Preliminary Blood SPECIMEN COLLECTED 05/22/24 01:55 Blood Culture - Preliminary Blood SPECIMEN COLLECTED A&P Assessment and plan (1) Cardiomyopathy: Qualifiers: Cardiomyopathy type: dilated Qualified Code(s): I42.0 - Dilated cardiomyopathy (2) Acute exacerbation of congestive heart failure: (3) ICD (implantable cardioverter-defibrillator) in place: (4) Atrial fibrillation with rapid ventricular response: (5) Chronic kidney disease: Qualifiers: Chronic kidney disease stage: stage 3 (moderate) Chronic kidney disease stage 3 subtype: stage 3b (GFR 30-44) Qualified Code(s): N18.32 - Chronic kidney disease, stage 3b (6) Acute hypoxemic respiratory failure: (7) Pulmonary edema: Plan Non-STEMI Start ACS protocol EF is 30% Status post AICD/pacemaker No active chest pain Requested echo A-fib with RVR: Given amiodarone 200 mg in the ER which improved his heart rate currently is around 80s I would continue p.o. AV alisia blocking agents for now Discontinue Eliquis started using heparin drip Acute on chronic hypoxia Increased work of breathing Concern for aspiration pneumonia Start cefepime and Zosyn Currently on BiPAP to decrease work of breathing Chronic kidney disease: Creatinine seems around baseline SIRS criteria met: Patient tachypnea tachycardia with high leukocytosis and lactic acid: Not at good candidate for sepsis bolus because of CHF exacerbation pulm edema Started antibiotics, request sputum culture DNR/DNI Cardiac diet PDMP PDMP Reviewed: Not Reviewed Attestations Medical Necessity Statement*: More than 2 midnights anticipated Diagnoses Dilated cardiomyopathy I42.0 Cardiomyopathy type: dilated Acute exacerbation of congestive heart failure I50.9 ICD (implantable cardioverter-defibrillator) in place Z95.810 Atrial fibrillation with rapid ventricular response I48.91 Stage 3b chronic kidney disease N18.32 Chronic kidney disease stage: stage 3 (moderate) Chronic kidney disease stage 3 subtype: stage 3b (GFR 30-44) Acute hypoxemic respiratory failure J96.01 Pulmonary edema J81.1
[2024-05-22 05:13] LABS: Procalcitonin 0.99 ng/mL (0-0.5)
[2024-05-22] MEDS: aspirin 325 mg EC Tablet PO (05:21)
[2024-05-22] MEDS: clopidogrel 300 mg Tablet PO (05:21)
--- NOTE | 2024-05-22 05:46 | PC.NURSE ---
pharmacy contacted to verify medications. Current delay due weight based medications.
[2024-05-22] MEDS: cefepime 2,000 mg SDV 2000 MG IVP (06:21)
[2024-05-22] MEDS: heparin drip 25,000 UNIT/500 ML PREMIX 26.42 UNIT IV (06:25)
[2024-05-22] MEDS: heparin 5,000 unit/mL INJ 1 mL IVP ×2 (06:27→14:45)
[2024-05-22] MEDS: piperacillin-tazobactam 3.375 GM in sodium chloride 0.9% (plus) 50 ML IV ×3 (07:30→23:17)
[2024-05-22 07:40] LABS: Lactic Acid level (Lactate) 2.1 mmol/L (0.5-2.2)
[2024-05-22 07:45] LABS: Troponin 5 6HR 405.5 ng/L (0-15); Troponin 5 6HR Delta 293.5 ng/L (0-12)
--- NOTE | 2024-05-22 07:45 | ECG_ITS ---
[facility] Test Date: 2024-05-22 Pat Name: Alexey An Department: Room: ED Gender: Male Principal Scientist: : [id number] Requested By: Adriana Bolden Order Number: [id number] Iain MD: Anatoliy Muñoz M.D. Measurements Intervals [place] Rate: 81 P: 117 NC: 150 QRS: -26 QRSD: 162 T: 163 QT: 406 QTc: 474 Interpretive Statements SINUS RHYTHM WITH OCCASIONAL VENTRICULAR PREMATURE COMPLEXES WITH OCCASIONAL SUPRAVENTRICULAR PREMATURE COMPLEXES LEFT BUNDLE BRANCH BLOCK [120+ ms QRS DURATION, 80+ ms Q/S IN V1/V2, 85+ ms R IN I/aVL/V5/V6] Compared to ECG 05/22/2024 01:46:25 Ventricular premature complex(es) now present Electronically Signed On 05-23-2024 08:18:23 HEAD OF ART by Anatoliy Muñoz M.D. [email or web address]
--- NOTE | 2024-05-22 07:51 | PC.NURSE ---
Attempted to call Dr. Busch to notify her of pt critical lab values, unable to reach MD at this time.
--- NOTE | 2024-05-22 08:42 | PC.PHAR ---
Patient is from [facility] . Medication verified from their list .
[2024-05-22] MEDS: aspirin 81 mg EC Tablet PO (09:30)
[2024-05-22] MEDS: calcitriol 0.25 mcg Capsule 0.5 MCG PO (09:32)
[2024-05-22] MEDS: sennosides-docusate Tablet 1 TAB PO (09:33)
[2024-05-22] MEDS: metoprolol tartrate 50 mg Tablet PO ×2 (09:33→20:39)
[2024-05-22] MEDS: tamsulosin 0.4 mg Capsule PO (09:34)
[2024-05-22] MEDS: pantoprazole 40 mg SDV IVP ×2 (09:35→17:36)
--- NOTE | 2024-05-22 09:45 | PM.CONSULT ---
Providers/Reason For Consult Consulting Physician/Specialty*: Dr. Busch Reason for Consult*: Low EF, NSTEMI Attending Physician: Sanjana Busch MD Primary Care Provider: Magaly Rivas MD History of Present Illness History of Present Illness Alexey An is a 89 year old male with a known history of cardiomyopathy, LVEF around 30% now admitted with worsening shortness of air, orthopnea and PND. There are also symptoms of intermittent palpitation. Questionable history of chest pain. On admission patient was found to be in atrial fibrillation with rapid ventricular rate. There were also nonsustained runs of likely VT, 3-4 beats. Patient was managed since admission with IV diuretics, BiPAP and his symptoms improved. He is currently wearing BiPAP and is saturating 94%. He is not in any discomfort at present no resting shortness of air or chest pain. He has underlying sinus rhythm with the PACs. ECG has shown left bundle branch block which is an old finding. Noted his cardiac troponin enzymes is moderately elevated. Review of Systems Narrative: Detailed 10 point systemic review unremarkable except for as mentioned above in the history of present illness. Medications/Allergies Home Medications ?Medication ?Instructions ?Recorded ?Confirmed ?Last Taken ?Type BiPAP #1 ea 07/11/22 05/22/24 Unknown Rx hydrocodone 7.5 mg-acetaminophen 1 tab PO BID PRN Pain 10/11/22 05/22/24 05/09/24 06:30 History 325 mg tablet sodium bicarbonate 650 mg tablet 650 mg PO DAILY #30 tabs 10/18/22 05/22/24 05/21/24 06:25 Rx apixaban 5 mg tablet (Eliquis) 2.5 mg PO BID 12/18/22 05/22/24 05/21/24 19:55 History fexofenadine 60 mg tablet 60 mg PO BID PRN Allergic Symptoms 12/18/22 05/22/24 Unknown History sennosides 8.6 mg tablet (Senokot) 8.6 mg PO DAILY 12/18/22 05/22/24 05/21/24 06:25 History isosorbide mononitrate 30 mg 30 mg PO DAILY #30 tabs 03/13/23 05/22/24 05/21/24 06:25 Rx tablet,extended release 24 hr metoprolol tartrate 50 mg tablet 50 mg PO BID@0900,2100 #60 tabs 03/13/23 05/22/24 05/21/24 19:55 Rx potassium chloride 8 mEq 8 meq PO DAILY #30 caps 03/13/23 05/22/24 05/21/24 06:25 Rx capsule,extended release hydralazine 50 mg tablet 25 mg PO TID 07/05/23 05/22/24 05/21/24 19:55 History acetaminophen 325 mg tablet 325 mg PO QID PRN Pain 07/08/23 05/22/24 05/18/24 07:35 History (Tylenol) budesonide 0.25 mg/2 mL suspension 0.25 mg inhalation BID 07/08/23 05/22/24 05/21/24 19:55 History for nebulization ipratropium 0.5 mg-albuterol 3 mg 0.5 ml inhalation TID 07/08/23 05/22/24 05/21/24 19:55 History (2.5 mg base)/3 mL nebulization soln omeprazole 20 mg capsule,delayed 20 mg PO DAILY 07/08/23 05/22/24 05/21/24 06:25 History release tamsulosin 0.4 mg capsule 0.4 mg PO DAILY 07/08/23 05/22/24 05/21/24 06:25 History paroxetine HCl 10 mg tablet 10 mg PO QAM 03/01/24 05/22/24 05/21/24 06:25 History furosemide 40 mg tablet 40 mg PO DAILY@0800 #30 tabs 03/03/24 05/22/24 05/21/24 06:25 Rx bisacodyl 10 mg rectal suppository 10 mg AL DAILY PRN Constipation 05/22/24 05/22/24 Unknown History (Dulcolax (bisacodyl)) bisacodyl 5 mg tablet,delayed 10 mg PO DAILY PRN constipation 05/22/24 05/22/24 Unknown History release (Laxative (bisacodyl)) calcitriol 0.5 mcg capsule 0.5 mcg PO DAILY 05/22/24 05/22/24 05/21/24 06:25 History magnesium hydroxide 400 mg/5 mL 30 ml PO Q72H PRN Constipation 05/22/24 05/22/24 Unknown History oral suspension (Milk of Magnesia) prednisone 20 mg tablet 40 mg PO DAILY 05/22/24 05/22/24 05/21/24 06:25 History Allergies Allergy/AdvReac Type Severity Reaction Status Date / Time Iodinated Contrast Media AdvReac STOMACH Verified 03/11/24 14:52 CRAMPING DURING A STRESS TEST. WAS TOLD D/T IODINE Current Medications Generic Name Dose Route Start Last Admin Trade Name Freq PRN Reason Stop Dose Admin Aspirin 81 mg 05/22/24 09:00 05/22/24 09:30 Aspirin 81 Mg Ec Tablet PO 81 mg DAILY MARY JANE Administration Calcitriol 0.5 mcg 05/22/24 09:00 05/22/24 09:32 Calcitriol 0.25 Mcg Capsule PO 0.5 mcg DAILY MARY JANE Administration Cefepime HCl 2,000 mg 05/22/24 04:45 05/22/24 06:21 Cefepime 2,000 Mg Sdv IVP 2,000 mg Q24H MARY JANE Administration Protocol Piperacillin Sod/Tazobactam 50 mls @ 12.5 mls/hr 05/22/24 06:30 05/22/24 07:30 Sod 3.375 gm/ Sodium Chloride IV 12.5 mls/hr Q8H MARY JANE Administration Protocol Heparin Sodium/Sodium Chloride 25,000 unit in 500 mls @ 0 mls/hr 05/22/24 05:00 05/22/24 06:25 Heparin Drip IV 14 unit/kg/hr CONT MARY JANE 26.42 mls/hr Administration Protocol Per Protocol Metoprolol Tartrate 50 mg 05/22/24 09:00 05/22/24 09:33 Metoprolol Tartrate 50 Mg Tablet PO 50 mg BID@0900,2100 MARY JANE Administration Pantoprazole Sodium 40 mg 05/22/24 09:00 05/22/24 09:35 Pantoprazole 40 Mg Sdv IVP 40 mg BID MARY JANE Administration Senna/Docusate Sodium 1 tab 05/22/24 09:00 05/22/24 09:33 Sennosides-Docusate Tablet PO 1 tab DAILY MARY JANE Administration Tamsulosin HCl 0.4 mg 05/22/24 09:00 05/22/24 09:34 Tamsulosin 0.4 Mg Capsule PO 0.4 mg DAILY MARY JANE Administration PFSH Acute PFSH: Medical History ICD (implantable cardioverter-defibrillator) in place Herpes zoster Microscopic hematuria Thrombocytopenia Wide-complex tachycardia Chronic kidney disease Rhabdomyolysis UTI (urinary tract infection) Hypomagnesemia Acute metabolic encephalopathy Obstructive sleep apnea TIA (transient ischemic attack) Peripheral neuropathy Orthostatic hypotension 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 CVA (cerebral vascular accident) Chronic anticoagulation Long-term (current) use of anticoagulants, INR goal 2.0-3.0 Stroke-like symptom Implantable cardioverter-defibrillator (ICD) discharge Pacemaker Hypertension Hyperlipidemia Gout Cardiomyopathy COPD (chronic obstructive pulmonary disease) Carotid artery stenosis DDD (degenerative disc disease) GERD (gastroesophageal reflux disease) Atrial fibrillation Surgical History History of cataract extraction History of appendectomy History of tonsillectomy and adenoidectomy Hx of laminectomy Family History Mother CAD (coronary artery disease) valve replaced at 86 Brother Chronic kidney disease (CKD) Father Stroke Family/Other Suicide Denies family history of Diabetes Clotting disorder Dementia Anesthesia complication Bleeding disorder Lung disease Cancer Social History Smoking and tobacco/nicotine status: former use of tobacco/nicotine Alcohol intake: never Substance/Drug Use: never Vitals/I&O/Wt Last Vital Signs Temp 99.1 F 05/22/24 01:49 Pulse 77 05/22/24 09:39 Resp 22 H 05/22/24 09:39 BP 137/61 05/22/24 07:00 Pulse Ox 91 05/22/24 09:39 O2 Del Method BiPAP 05/22/24 09:39 O2 Flow Rate 6 05/22/24 09:39 FiO2 55 05/22/24 09:01 05/21/24 05/22/24 05/22/24 22:59 06:59 14:59 Intake Total 0 / 0 Balance 0 / 0 Weight last 48 hrs Weight 208 lb Physical Exam Narrative: Patient laying comfortably on a stretcher in the ER. He is currently on BiPAP. He is not in any respiratory distress at his vitals are stable. Blood pressure 131/76, pulse 80 bpm sinus rhythm with PACs. Const: OTHER: Normal for his age. HENMT: OTHER: HENMT unremarkable. Eye: OTHER: Normal Resp: OTHER: Good air entry bilaterally. There are mild rales at the bases bilaterally. No expiratory wheezes. Cardio: OTHER: Normal first and second heart sounds. There is a mild systolic murmur at the left lower sternal border. GI: OTHER: Abdomen soft nontender. Bowel sounds audible. Extremity: NARRATIVE EXTREMITY EXAM: Extremities warm and dry. There is a trace edema at the ankles bilaterally. Neuro: OTHER: Grossly intact Urinary Catheter Management: Hightower: Cath Placed During This Visit: yes Reason for Continuing Indwelling Catheter: Other Urinary Catheter Date of Insertion: 05/22/24 Urinary Catheter Time of Insertion: 02:59 Data 05/22/24 01:52 05/22/24 01:52 Micro: Microbiology 05/22/24 02:00 Blood Culture - Preliminary Blood SPECIMEN COLLECTED 05/22/24 01:55 Blood Culture - Preliminary Blood SPECIMEN COLLECTED A&P Assessment and plan (1) Acute exacerbation of congestive heart failure: (2) Pulmonary edema: (3) Cardiomyopathy: Qualifiers: Cardiomyopathy type: dilated Qualified Code(s): I42.0 - Dilated cardiomyopathy (4) Atrial fibrillation with rapid ventricular response: Plan 89-year-old male patient with known history of ischemic cardiomyopathy, LVEF 30% now admitted clinically with heart failure symptoms. There is a likely element of superadded lower respiratory tract infection. White cell count is elevated with a neutrophilia. EKG showed left bundle branch block which is old 1. There was transient atrial fibrillation with rapid ventricular rate on admission. Since then patient is in sinus rhythm with PACs. Clinically no active angina. there was a brief episode of likely chest pain on admission. The elevated troponins are very likely secondary to heart failure rather than due to primarily acute cardiac ischemia. I reviewed his current medication. Agree with the management plan we will follow him during this hospitalization. PDMP PDMP Reviewed: Not Reviewed Coding Level of Care Code 55505 Diagnoses Acute exacerbation of congestive heart failure I50.9 Pulmonary edema J81.1 Dilated cardiomyopathy I42.0 Cardiomyopathy type: dilated Atrial fibrillation with rapid ventricular response I48.91 Time Spent (min) 30
[2024-05-22] MEDS: sodium bicarbonate 650 mg Tablet PO (10:59)
[2024-05-22] MEDS: bumetanide 0.25 mg/mL SDV 4 mL 1 MG IVP (11:00)
--- NOTE | 2024-05-22 11:08 | PC.SOCIAL ---
IMM Update pg 2 of IMM updated and reviewed w/ patient. Copy provided and copy dated, initialed and placed in chart.
--- NOTE | 2024-05-22 11:53 | PC.NURSE ---
bipap removed and patient put back on nasal cannula at 1153
[2024-05-22 13:15] LABS: Partial Thromboplastin Time 43.4 SECONDS (23.9-36.7)
--- NOTE | 2024-05-22 13:59 | PM.MISC ---
Miscellaneous Note Note: seen today cardio consult appreciated continue mgmt as per HnP
[2024-05-22] MEDS: ipratropium-albuterol 3 mL Neb INHALATION (15:08)
[2024-05-22 19:41] LABS: Partial Thromboplastin Time 108.9 SECONDS (23.9-36.7)
[2024-05-22 20:07] LABS: MRSA PCR OZH (swab) NOT DETECTED (Negative)
[2024-05-23] VITALS (17 sets, daily range): BP systolic 127–142; BP diastolic 64–75; PULSE 69–107; RESP 18–27; TEMP 36.6–36.8; O2SAT 93–98
[2024-05-23] MEDS: heparin drip 25,000 UNIT/500 ML PREMIX 26 UNIT IV (01:41)
[2024-05-23 03:52] LABS: Basophils % 0.2 %; Eosinophils % 0.2 %; Hematocrit 27.8 % (37-53); Lymphocytes # 1.4 10^3/uL (0.8-4.8); Lymphocytes % 9.7 %; Mean Corpuscular HGB Conc 32.7 g/dL (30-55); Mean Corpuscular Hemoglobin 30.4 pg (27-33); Mean Platelet Volume 10.2 fL (7.4-10.4); Monocytes # 0.9 10^3/uL (0.2-0.9); Monocytes % 6.3 %; Neutrophils # 11.85 10^3/uL (1.8-7.7); Neutrophils % 82.6 %; Nucleated Red Blood Cells % 0 %; Platelet Count 172 10^3/cmm (157-399); Red Blood Count 2.99 10^6/uL (3.85-5.65); Red Cell Distribution Width 13.2 % (12.1-15.1); White Blood Count 14.35 10^3/uL (3.29-11.43)
[2024-05-23 04:11] LABS: Partial Thromboplastin Time 63.1 SECONDS (23.9-36.7)
[2024-05-23 04:31] LABS: Anion Gap 13.1 (5-19); Blood Urea Nitrogen 62 mg/dL (8-23); C Reactive Protein 182.4 mg/L (0.0-4.9); Calcium 9.4 mg/dL (8.5-10.5); Carbon Dioxide 24 mmol/L (22-29); Chloride 97 mmol/L (98-107); Creatinine Clr Calc Pharmacy 21.2028; Glucose 87 mg/dL (65-115); Magnesium 1.6 mg/dL (1.7-2.3); Osmolality Calculated 287 mOsm/kg (285-295); Potassium 4.1 mmol/L (3.5-5.1); Sodium 130 mmol/L (136-145)
[2024-05-23] MEDS: cefepime 1,000 mg SDV 1000 MG IVP (06:10)
[2024-05-23] MEDS: piperacillin-tazobactam 3.375 GM in sodium chloride 0.9% (plus) 50 ML IV ×3 (06:13→23:00)
[2024-05-23] MEDS: pantoprazole 40 mg SDV IVP ×2 (08:10→17:32)
[2024-05-23] MEDS: calcitriol 0.25 mcg Capsule 0.5 MCG PO (08:10)
[2024-05-23] MEDS: sennosides-docusate Tablet 1 TAB PO (08:10)
[2024-05-23] MEDS: tamsulosin 0.4 mg Capsule PO (08:10)
[2024-05-23] MEDS: sodium bicarbonate 650 mg Tablet PO (08:11)
[2024-05-23] MEDS: clopidogrel 75 mg Tablet PO (08:11)
[2024-05-23] MEDS: metoprolol tartrate 50 mg Tablet PO ×2 (08:11→20:59)
[2024-05-23] MEDS: aspirin 81 mg EC Tablet PO (08:11)
[2024-05-23 09:35] LABS: Partial Thromboplastin Time 57.4 SECONDS (23.9-36.7)
[2024-05-23] MEDS: bumetanide 0.25 mg/mL SDV 4 mL 1 MG IVP (10:24)
--- NOTE | 2024-05-23 10:36 | PC.NURSE ---
Assisted patient back to bed x2 assist. Patient tolerated well.
--- NOTE | 2024-05-23 10:50 | PC.CHAP ---
Pastoral Care Encounter/Spiritual Assessment Type of Contact [] Declined territory manager visit [] Patient/Family/Request visit [] Outpatient visit [] Follow-up visit [] Physician referral [] Code/Alert [] Routine visit [] Staff referral [] Actively dying [] Patient sleeping [] Family support [] [] Out of room [] Palliative care [] [X] Receiving care in room [] Pre-surgical visit [] Trauma [] Long length of stay [] ICU visit [] Other: Relational/Emotional Strength [] Patient feels connected with others/family/visitors/staff [] Distress [] Loneliness/isolation [] Abandonment Spirituality of Patient [] Person of Sari [] Attends Advent of their Sari [] Believes in Prayer [] Reads Bible or Samaritan materials [] There are Spiritual issues to be addressed Data Conversion Operator Interventions [] Prayer [] Active listening [] Non-anxious presence [] Spiritual/emotional support [] Crisis/trauma care [] Spiritual counseling [] Bereavement support [] Provided bereavement packet [] Provided Bible/devotional materials [] Provided toy/stuffed animal, coloring book to patient or family member [] Provided Communion [] Anointing/[place] [] Salvation [] Completed spiritual assessment [] Other: Impact on Illness or Injury [] Angry [] Fearful [] Anxious [] Often cries [] Exhaustion [] Unable to work [] Unable to attend restorationism [] Unable to walk/stand [] Unable to read [] Unable to drive [] Unable to eat/drink [] Unable to sleep [] Unable to be with family [] Patient intubated [] Other: Summary Time spent with patient
--- NOTE | 2024-05-23 15:09 | P.PN_ITS ---
Subjective 2 Subjective: Seen this morning. He states he starting to feel better. On nasal cannula at this time. He says breathing has eased up. 1400 cc urine output overnight. Patient has a net positive balance. Vitals/I&O/Wt Last Vital Signs Temp 97.8 F 05/23/24 15:09 Pulse 73 05/23/24 15:09 Resp 23 H 05/23/24 15:09 BP 137/70 05/23/24 15:09 Pulse Ox 96 05/23/24 15:09 O2 Del Method Nasal Cannula 05/23/24 15:09 O2 Flow Rate 3 05/23/24 10:00 FiO2 35 05/23/24 07:34 05/23/24 05/23/24 05/23/24 06:59 14:59 22:59 Intake Total 144.418 / 5725.171 4499.2 / 1316.2 Output Total 400 / 1475 Balance -255.582 / -842.188 1513.2 / 1316.2 Weight last 48 hrs Weight 96.479 kg Weight 96.388 kg Weight 94.347 kg Physical Exam 2 Narrative: Sitting up in bed on nasal cannula. Nontreated nasal cannula at this time. Lungs to auscultation bilaterally no wheezes no rhonchi appreciated at this time. He is about to work with physical therapy. Awake and alert AOx4 GCS 15 No active focal deficit lymphedema Distended abdomen nontender No active chest pain S1, S2 variable Urinary Catheter Management: Hightower: Cath Placed During This Visit: yes Reason for Continuing Indwelling Catheter: Accurate Measurement of Urinary Output in Critically Ill Patients Urinary Catheter Date of Insertion: 05/22/24 Urinary Catheter Time of Insertion: 02:59 Sepsis: Is patient septic: Yes Focused sepsis exam performed: Yes F ocused sepsis exam: Patient is not encephalopathic Peripheral pulses intact Capillary refill less than 3 sec. No encephalopathy Patient tachypneic Saturating 95% on BiPAP Date exam was performed: 05/22/24 Time exam was performed: 06:02 Data 05/23/24 02:54 05/23/24 02:54 Micro: Microbiology 05/22/24 02:00 Blood Culture - Preliminary Blood NEGATIVE TO DATE 05/22/24 01:55 Blood Culture - Preliminary Blood NEGATIVE TO DATE 05/22/24 03:30 Bacterial Antigens - Final Urine,Voided 05/22/24 03:30 Legionella Urinary Antigen - Final Unknown Source A&P Assessment and plan (1) Cardiomyopathy: Qualifiers: Cardiomyopathy type: dilated Qualified Code(s): I42.0 - Dilated cardiomyopathy (2) Acute exacerbation of congestive heart failure: (3) ICD (implantable cardioverter-defibrillator) in place: (4) Atrial fibrillation with rapid ventricular response: (5) Chronic kidney disease: Qualifiers: Chronic kidney disease stage: stage 3 (moderate) Chronic kidney disease stage 3 subtype: stage 3b (GFR 30-44) Qualified Code(s): N18.32 - Chronic kidney disease, stage 3b (6) Acute hypoxemic respiratory failure: (7) Pulmonary edema: Plan Non-STEMI Start ACS protocol EF is 30% Status post AICD/pacemaker No active chest pain Requested echo A-fib with RVR: Given amiodarone 200 mg in the ER which improved his heart rate currently is around 80s I would continue p.o. AV alisia blocking agents for now Discontinue Eliquis started using heparin drip Acute on chronic hypoxia Increased work of breathing Concern for aspiration pneumonia Start cefepime and Zosyn Currently on BiPAP to decrease work of breathing Chronic kidney disease: Creatinine seems around baseline SIRS criteria met: Patient tachypnea tachycardia with high leukocytosis and lactic acid: Not at good candidate for sepsis bolus because of CHF exacerbation pulm edema Started antibiotics, request sputum culture DNR/DNI Cardiac diet 05/23/2024 Cardiology consult appreciated. Manage medically at this time. Continue cefepime Zosyn patient now on nasal cannula. Continue to diurese. Continue Bumex 1 mg every 24 hours Stop heparin drip at 48 hour marked. Continue Zosyn Continue cefepime. Await sputum culture Gram stain Await blood cultures Check PT OT Continue Acapella, flutter valve PDMP PDMP Reviewed: Not Reviewed Attestations 2 Medical Necessity Statement*: Continue to hospitalize at this time for diuresis and treatment for pneumonia. Patient currently on NSTEMI protocol with 48 hours of heparin. Diagnoses Dilated cardiomyopathy I42.0 Cardiomyopathy type: dilated Acute exacerbation of congestive heart failure I50.9 ICD (implantable cardioverter-defibrillator) in place Z95.810 Atrial fibrillation with rapid ventricular response I48.91 Stage 3b chronic kidney disease N18.32 Chronic kidney disease stage: stage 3 (moderate) Chronic kidney disease stage 3 subtype: stage 3b (GFR 30-44) Acute hypoxemic respiratory failure J96.01 Pulmonary edema J81.1
[2024-05-23] MEDS: ipratropium-albuterol 3 mL Neb INHALATION (16:16)
[2024-05-23 16:55] LABS: Partial Thromboplastin Time 38.8 SECONDS (23.9-36.7)
[2024-05-23] MEDS: heparin 5,000 unit/mL INJ 1 mL IVP (17:31)
[2024-05-23] MEDS: morphine IR 15 mg Tablet PO (20:59)
[2024-05-23] MEDS: heparin drip 25,000 UNIT/500 ML PREMIX 30 UNIT IV (23:00)
[2024-05-23 23:23] LABS: Partial Thromboplastin Time 68.1 SECONDS (23.9-36.7)
[2024-05-24] VITALS (15 sets, daily range): BP systolic 130–156; BP diastolic 63–95; PULSE 70–81; RESP 16–24; TEMP 36.4–36.9; O2SAT 91–99; BMI 26.3
[2024-05-24 05:04] LABS: Basophils % 0.2 %; Eosinophils # 0.1 10^3/uL (0.0-0.8); Eosinophils % 0.6 %; Hematocrit 28.3 % (37-53); Lymphocytes # 1.1 10^3/uL (0.8-4.8); Lymphocytes % 8.4 %; Mean Corpuscular HGB Conc 33.2 g/dL (30-55); Mean Corpuscular Hemoglobin 30.3 pg (27-33); Mean Corpuscular Volume 91.3 fl (82-101); Mean Platelet Volume 10.2 fL (7.4-10.4); Monocytes # 0.8 10^3/uL (0.2-0.9); Neutrophils # 11.06 10^3/uL (1.8-7.7); Neutrophils % 83.6 %; Nucleated Red Blood Cells % 0 %; Platelet Count 160 10^3/cmm (157-399); Red Cell Distribution Width 13.4 % (12.1-15.1); White Blood Count 13.22 10^3/uL (3.29-11.43)
[2024-05-24 05:17] LABS: Partial Thromboplastin Time 66.8 SECONDS (23.9-36.7)
[2024-05-24 05:18] LABS: Anion Gap 15.1 (5-19); Blood Urea Nitrogen 65 mg/dL (8-23); Calcium 9.7 mg/dL (8.5-10.5); Carbon Dioxide 22 mmol/L (22-29); Chloride 95 mmol/L (98-107); Creatinine Clr Calc Pharmacy 19.8313; Glucose 90 mg/dL (65-115); Magnesium 1.7 mg/dL (1.7-2.3); Osmolality Calculated 284 mOsm/kg (285-295); Potassium 4.1 mmol/L (3.5-5.1); Sodium 128 mmol/L (136-145)
[2024-05-24] MEDS: cefepime 1,000 mg SDV 1000 MG IVP (06:00)
[2024-05-24] MEDS: piperacillin-tazobactam 3.375 GM in sodium chloride 0.9% (plus) 50 ML IV ×2 (06:04→15:15)
[2024-05-24] MEDS: ipratropium-albuterol 3 mL Neb INHALATION ×2 (08:45→19:46)
[2024-05-24] MEDS: pantoprazole 40 mg SDV IVP ×2 (09:28→18:19)
--- NOTE | 2024-05-24 10:54 | XRR_ITS ---
PROCEDURE INFORMATION: Exam: XR Chest Exam date and time: 05/24/2024 11:10 AM Age: 89 years old Clinical indication: Shortness of breath; Prior surgery; Surgery date: 6+ months; Surgery type: Pacemaker; Additional info: Shortness of breath, low oxygen sat TECHNIQUE: Imaging protocol: Radiologic exam of the chest. Views: 1 view. COMPARISON: CR (CHEST, ) 05/22/2024 2:04 AM FINDINGS: Tubes, catheters and devices: There is a left chest AICD. Lungs: Persistent bilateral airspace disease. Pleural spaces: No pneumothorax. Heart/Mediastinum: Cardiomediastinal silhouette is within normal limits. Bones/joints: Unremarkable. XR/XR chest 1V portable [id number] IMPRESSION: No significant change
--- NOTE | 2024-05-24 11:32 | PC.NURSE ---
pt is more lethargic and sleepy today. 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 Spo2 ranges from 84% on 5 L/NC, strong coughing noted, suction set up for him, oral care provided, Held all opened PO meds and wasted in pyxis. RT in room. Notified Dr on pt's condition. Received orders to get stat chest xray and ABG.
[2024-05-24 11:56] LABS: ABG PH Result 7.35 (7.35-7.45); Alveolar-Arterial Oxygen Gradi 17.8 mmHg (5-10); Base Excess ABG -2.7 mmol/L (-2.0-2.0); Blood Gas Allen Test Pos; Blood Gas Operator Identificat glc; Blood Gas Sample Site Radial, left; Blood Gas Sample Type Arterial; HCO3 ABG 22.8 mmol/L (22-26); HGB O2 Sat 96.8 % (95-100); Ionized Calcium Level - ABG 1.4 mmol/L (1.1-1.4); Methemoglobin 0.4 % (0.4-1.5); Oxygen Device BIPAP; Oxygen Saturation ABG 98.2; PO2 ABG 98.6 mmHg (80.0-100.0); PO2 FiO2 Ratio Arterial Blood 246; Potassium Level - ABG 3.8 mmol/L (3.5-5.0); Total Hemoglobin 10.4 g/dL (14-18)
[2024-05-24] MEDS: bumetanide 0.25 mg/mL SDV 4 mL 1 MG IVP (12:01)
--- NOTE | 2024-05-24 13:56 | P.PN_ITS ---
Subjective 2 Subjective: Seen this morning. Patient has been slightly lethargic this morning. He he did get morphine orally last night x 1. He is on BiPAP at this time however alert oriented x 3 and able to have a conversation. He is not somnolent. Sodium 128 this morning. Patient currently on Bumex. He states he is does not feel so good today. He just feels tired. Denies any chest pain or shortness of breath at this time. Chest x-ray and ABG have been ordered this morning. Vitals/I&O/Wt Last Vital Signs Temp 97.5 F L 05/24/24 11:41 Pulse 73 05/24/24 11:48 Resp 21 H 05/24/24 11:41 BP 130/63 05/24/24 11:41 Pulse Ox 96 05/24/24 11:48 O2 Del Method BiPAP 05/24/24 11:41 O2 Flow Rate 3 05/23/24 10:00 FiO2 40 05/24/24 11:48 05/23/24 05/24/24 05/24/24 22:59 06:59 14:59 Intake Total 323.800 / 1640.000 550 / 2190.000 50 / 50 Output Total 1150 / 1150 700 / 1850 550 / 550 Balance -826.200 / 490.000 -150 / 340.000 -500 / -500 Weight last 48 hrs Weight 95.51 kg Weight 96.479 kg Physical Exam 2 Narrative: On BiPAP at this time. Rhonchi appreciated bilaterally. Awake and alert AOx4 GCS 15 No active focal deficit lymphedema Distended abdomen nontender No active chest pain S1, S2 variable Urinary Catheter Management: Hightower: Cath Placed During This Visit: yes Reason for Continuing Indwelling Catheter: Accurate Measurement of Urinary Output in Critically Ill Patients Urinary Catheter Date of Insertion: 05/22/24 Urinary Catheter Time of Insertion: 02:59 Data 05/24/24 04:51 05/24/24 04:51 A&P Assessment and plan (1) Cardiomyopathy: Qualifiers: Cardiomyopathy type: dilated Qualified Code(s): I42.0 - Dilated cardiomyopathy (2) Acute exacerbation of congestive heart failure: (3) ICD (implantable cardioverter-defibrillator) in place: (4) Atrial fibrillation with rapid ventricular response: (5) Chronic kidney disease: Qualifiers: Chronic kidney disease stage: stage 3 (moderate) Chronic kidney disease stage 3 subtype: stage 3b (GFR 30-44) Qualified Code(s): N18.32 - Chronic kidney disease, stage 3b (6) Acute hypoxemic respiratory failure: (7) Pulmonary edema: Plan Non-STEMI Start ACS protocol EF is 30% Status post AICD/pacemaker No active chest pain Requested echo A-fib with RVR: Given amiodarone 200 mg in the ER which improved his heart rate currently is around 80s I would continue p.o. AV alisia blocking agents for now Discontinue Eliquis started using heparin drip Acute on chronic hypoxia Increased work of breathing Concern for aspiration pneumonia Start cefepime and Zosyn Currently on BiPAP to decrease work of breathing Chronic kidney disease: Creatinine seems around baseline SIRS criteria met: Patient tachypnea tachycardia with high leukocytosis and lactic acid: Not at good candidate for sepsis bolus because of CHF exacerbation pulm edema Started antibiotics, request sputum culture DNR/DNI Cardiac diet 05/23/2024 Cardiology consult appreciated. Manage medically at this time. Continue cefepime Zosyn patient now on nasal cannula. Continue to diurese. Continue Bumex 1 mg every 24 hours Stop heparin drip at 48 hour marked. Continue Zosyn Continue cefepime. Await sputum culture Gram stain Await blood cultures Check PT OT Continue Acapella, flutter valve 05/24/2024 Cardiology consult appreciated. Continue to manage medically at this time. Heparin drip has stopped at 48 hours. I will put back on Eliquis at this time. Continue Zosyn and cefepime for pneumonia. Urine culture Gram stain not obtained as it is not collected yet. Blood cultures negative to date Bacterial antigens Legionella is negative. PT OT continued Continue Acapella and incentive spirometer Hold Bumex at this time. Patient is becoming hyponatremic. Sodium 128 today. Continue BiPAP and wean off as able. Check chest x-ray, ABG. Will check respiratory viral panel. Patient does have rhonchi present. Will add Solu-Medrol 40 IV twice daily today. PDMP PDMP Reviewed: Not Reviewed Attestations 2 Medical Necessity Statement*: Continue to treat for pneumonia. Patient is on BiPAP at this time. Diagnoses Dilated cardiomyopathy I42.0 Cardiomyopathy type: dilated Acute exacerbation of congestive heart failure I50.9 ICD (implantable cardioverter-defibrillator) in place Z95.810 Atrial fibrillation with rapid ventricular response I48.91 Stage 3b chronic kidney disease N18.32 Chronic kidney disease stage: stage 3 (moderate) Chronic kidney disease stage 3 subtype: stage 3b (GFR 30-44) Acute hypoxemic respiratory failure J96.01 Pulmonary edema J81.1
[2024-05-24] MEDS: methylPREDNISolone sod succ 40 mg/mL INJ IVP (15:15)
[2024-05-24] MEDS: apixaban 5 mg Tablet 2.5 MG PO (18:22)
[2024-05-24 20:31] LABS: Adenovirus Not Detected (NOT DETECT); Chlamydia Pneumoniae Not Detected (NOT DETECT); Coronavirus 229E,HKU1,NL63,OC4 Not Detected (NOT DETECT); Human Metapneumovirus Not Detected (NOT DETECT); Human Rhinovirus/Enterovirus Not Detected (NOT DETECT); Influenza A Not Detected (NOT DETECT); Influenza A H1 Not Detected (NOT DETECT); Influenza A H1-2009 Not Detected (NOT DETECT); Influenza A H3 Not Detected (NOT DETECT); Influenza B Not Detected (NOT DETECT); Mycoplasma Pneumoniae Not Detected (NOT DETECT); Parainfluenza Virus Type 1 Not Detected (NOT DETECT); Parainfluenza Virus Type 2 Not Detected (NOT DETECT); Parainfluenza Virus Type 3 Not Detected (NOT DETECT); Parainfluenza Virus Type 4 Not Detected (NOT DETECT); Respiratory Syncytial Virus A Not Detected (NOT DETECT); Respiratory Syncytial Virus B Not Detected (NOT DETECT); SARS-COV-2 Not Detected (NOT DETECT)
[2024-05-24] MEDS: metoprolol tartrate 50 mg Tablet PO (21:29)
[2024-05-25] VITALS (13 sets, daily range): BP systolic 149–161; BP diastolic 78–99; PULSE 70–77; RESP 14–26; TEMP 36.3–37.3; O2SAT 95–98
[2024-05-25] MEDS: methylPREDNISolone sod succ 40 mg/mL INJ IVP (03:24)
[2024-05-25] MEDS: piperacillin-tazobactam 3.375 GM in sodium chloride 0.9% (plus) 50 ML IV (03:27)
[2024-05-25 04:16] LABS: Basophils % 0.1 %; Hematocrit 28.2 % (37-53); Lymphocytes # 0.3 10^3/uL (0.8-4.8); Lymphocytes % 4.7 %; Mean Corpuscular HGB Conc 32.6 g/dL (30-55); Mean Corpuscular Hemoglobin 29.4 pg (27-33); Mean Corpuscular Volume 90.1 fl (82-101); Mean Platelet Volume 10.4 fL (7.4-10.4); Monocytes # 0.1 10^3/uL (0.2-0.9); Monocytes % 1.7 %; Neutrophils % 92.6 %; Nucleated Red Blood Cells % 0 %; Platelet Count 184 10^3/cmm (157-399); Red Blood Count 3.13 10^6/uL (3.85-5.65); Red Cell Distribution Width 13.4 % (12.1-15.1); White Blood Count 7.02 10^3/uL (3.29-11.43)
[2024-05-25 04:43] LABS: Alanine Aminotransferase 13 U/L (0-41); Albumin Level 2.6 g/dL (3.5-5.2); Alkaline Phosphatase 63 U/L (40-130); Anion Gap 17.5 (5-19); Aspartate Amino Transferase 6 U/L (0-40); Blood Urea Nitrogen 79 mg/dL (8-23); Calcium 10.3 mg/dL (8.5-10.5); Carbon Dioxide 20 mmol/L (22-29); Chloride 99 mmol/L (98-107); Creatinine Clr Calc Pharmacy 18.6981; Glucose 176 mg/dL (65-115); Osmolality Calculated 302 mOsm/kg (285-295); Potassium 4.5 mmol/L (3.5-5.1); Sodium 132 mmol/L (136-145); Total Bilirubin 0.5 mg/dL (0.15-1.2); Total Protein 6.6 g/dL (6.6-8.7)
[2024-05-25] MEDS: cefepime 1,000 mg SDV 1000 MG IVP (05:32)
[2024-05-25] MEDS: aspirin 81 mg EC Tablet PO (08:54)
[2024-05-25] MEDS: clopidogrel 75 mg Tablet PO (08:54)
[2024-05-25] MEDS: apixaban 5 mg Tablet 2.5 MG PO ×2 (08:54→17:44)
[2024-05-25] MEDS: sodium bicarbonate 650 mg Tablet PO (08:54)
[2024-05-25] MEDS: tamsulosin 0.4 mg Capsule PO (08:55)
[2024-05-25] MEDS: sennosides-docusate Tablet 1 TAB PO (08:55)
[2024-05-25] MEDS: pantoprazole DR 40 mg Tablet PO (08:55)
[2024-05-25] MEDS: calcitriol 0.25 mcg Capsule 0.5 MCG PO (08:55)
[2024-05-25] MEDS: metoprolol tartrate 50 mg Tablet PO ×2 (11:42→20:40)
--- NOTE | 2024-05-25 12:22 | PC.SOCIAL ---
IMM Update pg 2 of IMM Updated and reviewed w/ patient and his daughter. Copy provided and copy dated, initialed and placed in chart.
--- NOTE | 2024-05-25 12:28 | PM.PN ---
Subjective Subjective: Off BiPAP this morning. Currently on 5 L/min supplemental O2. States that his breathing feels a little bit better today. Noted to have coarse crackles on exam bilaterally. Medications: Reviewed: Yes Vitals/I&O/Wt Last Vital Signs Temp 97.5 F L 05/25/24 08:00 Pulse 70 05/25/24 08:00 Resp 14 05/25/24 08:00 BP 161/78 05/25/24 08:00 Pulse Ox 97 05/25/24 09:37 O2 Del Method Nasal Cannula 05/25/24 09:37 O2 Flow Rate 4 05/25/24 09:37 FiO2 40 05/25/24 07:43 05/24/24 05/25/24 05/25/24 22:59 06:59 14:59 Intake Total 290 / 340 170 / 170 Output Total 1150 / 1700 300 / 2000 Balance -860 / -1360 -300 / -1660 170 / 170 Weight last 48 hrs Weight 95.254 kg Weight 95.51 kg Physical Exam Narrative: General: No acute distress, AO x2 HEENT: PERRLA, pupils bilaterally equal and reactive, pallors not present Chest: Bilateral coarse crackles CVS: S1-S2 regular, no murmurs, no tachycardia, no gallops, no rubs Abdomen: Soft, nontender, no organomegaly, bowel sounds present Neuro: No focal deficits, no facial deformity, AO x3, power 5/5 in all limbs Extremities: No lower extremity edema. Urinary Catheter Management: Hightower: Cath Placed During This Visit: yes Reason for Continuing Indwelling Catheter: Other Urinary Catheter Date of Insertion: 05/22/24 Urinary Catheter Time of Insertion: 02:59 Data 05/25/24 03:45 05/25/24 03:45 A&P Assessment and plan (1) Cardiomyopathy: Qualifiers: Cardiomyopathy type: dilated Qualified Code(s): I42.0 - Dilated cardiomyopathy (2) Acute exacerbation of congestive heart failure: (3) ICD (implantable cardioverter-defibrillator) in place: (4) Atrial fibrillation with rapid ventricular response: (5) Chronic kidney disease: Qualifiers: Chronic kidney disease stage: stage 3 (moderate) Chronic kidney disease stage 3 subtype: stage 3b (GFR 30-44) Qualified Code(s): N18.32 - Chronic kidney disease, stage 3b (6) Acute hypoxemic respiratory failure: (7) Pulmonary edema: Plan Non-STEMI Start ACS protocol EF is 30% Status post AICD/pacemaker No active chest pain Requested echo A-fib with RVR: Given amiodarone 200 mg in the ER which improved his heart rate currently is around 80s I would continue p.o. AV alisia blocking agents for now Discontinue Eliquis started using heparin drip Acute on chronic hypoxia Increased work of breathing Concern for aspiration pneumonia Start cefepime and Zosyn Currently on BiPAP to decrease work of breathing Chronic kidney disease: Creatinine seems around baseline SIRS criteria met: Patient tachypnea tachycardia with high leukocytosis and lactic acid: Not at good candidate for sepsis bolus because of CHF exacerbation pulm edema Started antibiotics, request sputum culture DNR/DNI Cardiac diet 05/23/2024 Cardiology consult appreciated. Manage medically at this time. Continue cefepime Zosyn patient now on nasal cannula. Continue to diurese. Continue Bumex 1 mg every 24 hours Stop heparin drip at 48 hour marked. Continue Zosyn Continue cefepime. Await sputum culture Gram stain Await blood cultures Check PT OT Continue Acapella, flutter valve 05/24/2024 Cardiology consult appreciated. Continue to manage medically at this time. Heparin drip has stopped at 48 hours. I will put back on Eliquis at this time. Continue Zosyn and cefepime for pneumonia. Urine culture Gram stain not obtained as it is not collected yet. Blood cultures negative to date Bacterial antigens Legionella is negative. PT OT continued Continue Acapella and incentive spirometer Hold Bumex at this time. Patient is becoming hyponatremic. Sodium 128 today. Continue BiPAP and wean off as able. Check chest x-ray, ABG. Will check respiratory viral panel. Patient does have rhonchi present. Will add Solu-Medrol 40 IV twice daily today. May 25, 2024 Chart reviewed. 89-year-old male with a past medical history of CHF, A-fib, known cardiomyopathy status post AICD, hypertension, CKD COPD admitted to the hospital on May 22, 2024 with chief complaints of worsening shortness of breath and hypoxia. Typically patient is on 2 L/min supplemental O2. He was noted to be in respiratory distress and placed on BiPAP upon admission. I was also concerned about potential aspiration [facility]. He was in A-fib RVR when he initially arrived, just improved with her amiodarone bolus in the ER. He was diagnosed with NSTEMI with baseline troponin at 166, increasing to 405 with a delta of 293. He was on a heparin drip until yesterday, has now been transitioned to Eliquis 2.5 mg p.o. twice daily. Complement he is also on Plavix 75 mg p.o. daily. Metoprolol at 50 mg p.o. twice daily. Rate is currently well-controlled. Last echocardiogram dates back to February 2024 at which time he was found to have severely reduced EF of 30% grade 1 diastolic dysfunction. He was evaluated by Dr. Lenz from cardiology service on May 22. His elevated troponins were thought to be related to transient A-fib with RVR, respiratory illness and heart failure, less likely ACS. No angiogram was recommended at this time. His chest x-ray has shown bilateral interstitial and alveolar opacities in the lower lung zones per radiology thought to be related to CHF. Given an elevated white blood cell count possibility of infectious pneumonia not excluded. He has been on treatment with Zosyn and cefepime. Discontinue Zosyn as patient does not require dual antipseudomonal coverage at this time. He has been on IV steroids methylprednisolone for COPD exacerbation. Respiratory viral panel negative. Nasal MRSA screen negative. Blood culture from admission is negative. Urine bacterial Ag is negative. Plan: D/c Zosyn. continue Cefepime. Taper steroids, CXR shows B/[place] [address], coarse crackles to auscultation. He has been on Bumex 1mg ivp q24h on 05/22, 05/23 and 05/24, with diuresis placed on hold since then due to worsenign SHARMIN. Urine output currently at 1400 cc ; net negative 1.3L since admission. Plan to resume lasix at a lower dose of 20mg po daily if cr remains stable. Appreciate speech therapy eveluation- no gross aspiration noted on level 4 dysphagia diet. Add scheduled duoneb inhalation PDMP PDMP Reviewed: Not Reviewed Attestations Medical Necessity Statement*: transition to oral steroids, hold diuresis today and monitor kidney function, continue iv abx . Coding Level of Care Code Acute Code for [facility] Diagnoses Dilated cardiomyopathy I42.0 Cardiomyopathy type: dilated Acute exacerbation of congestive heart failure I50.9 ICD (implantable cardioverter-defibrillator) in place Z95.810 Atrial fibrillation with rapid ventricular response I48.91 Stage 3b chronic kidney disease N18.32 Chronic kidney disease stage: stage 3 (moderate) Chronic kidney disease stage 3 subtype: stage 3b (GFR 30-44) Acute hypoxemic respiratory failure J96.01 Pulmonary edema J81.1
[2024-05-25] MEDS: ipratropium-albuterol 3 mL Neb INHALATION ×2 (14:00→19:38)
[2024-05-25] MEDS: pantoprazole 40 mg SDV IVP (17:44)
[2024-05-26] VITALS (15 sets, daily range): BP systolic 148–164; BP diastolic 75–94; PULSE 69–84; RESP 13–28; TEMP 36.3–37.1; O2SAT 92–98
[2024-05-26] MEDS: ipratropium-albuterol 3 mL Neb INHALATION ×4 (01:40→21:13)
[2024-05-26 03:30] LABS: Basophils % 0.1 %; Hematocrit 30.1 % (37-53); Lymphocytes # 0.8 10^3/uL (0.8-4.8); Lymphocytes % 4.7 %; Mean Corpuscular HGB Conc 31.6 g/dL (30-55); Mean Corpuscular Hemoglobin 29.1 pg (27-33); Mean Platelet Volume 10.3 fL (7.4-10.4); Monocytes # 0.9 10^3/uL (0.2-0.9); Neutrophils # 15.25 10^3/uL (1.8-7.7); Neutrophils % 89.1 %; Nucleated Red Blood Cells % 0 %; Platelet Count 220 10^3/cmm (157-399); Red Blood Count 3.27 10^6/uL (3.85-5.65); Red Cell Distribution Width 13.3 % (12.1-15.1); White Blood Count 17.11 10^3/uL (3.29-11.43)
[2024-05-26 03:47] LABS: Alanine Aminotransferase 15 U/L (0-41); Albumin Level 2.7 g/dL (3.5-5.2); Alkaline Phosphatase 70 U/L (40-130); Anion Gap 16.3 (5-19); Aspartate Amino Transferase 18 U/L (0-40); Calcium 10.3 mg/dL (8.5-10.5); Carbon Dioxide 22 mmol/L (22-29); Chloride 102 mmol/L (98-107); Creatinine Clr Calc Pharmacy 18.6765; Globulin 3.6 g/dL (1.3-4.6); Glucose 155 mg/dL (65-115); Osmolality Calculated 310 mOsm/kg (285-295); Potassium 4.3 mmol/L (3.5-5.1); Sodium 136 mmol/L (136-145); Total Bilirubin 0.3 mg/dL (0.15-1.2); Total Protein 6.3 g/dL (6.6-8.7)
[2024-05-26 04:05] LABS: Blood Urea Nitrogen 83 mg/dL (8-23)
[2024-05-26] MEDS: cefepime 1,000 mg SDV 1000 MG IVP (05:07)
[2024-05-26] MEDS: sennosides-docusate Tablet 1 TAB PO (10:10)
[2024-05-26] MEDS: aspirin 81 mg EC Tablet PO (10:10)
[2024-05-26] MEDS: calcitriol 0.25 mcg Capsule 0.5 MCG PO (10:11)
[2024-05-26] MEDS: metoprolol tartrate 50 mg Tablet PO ×2 (10:11→20:34)
[2024-05-26] MEDS: tamsulosin 0.4 mg Capsule PO (10:11)
[2024-05-26] MEDS: clopidogrel 75 mg Tablet PO (10:11)
[2024-05-26] MEDS: pantoprazole DR 40 mg Tablet PO (10:12)
[2024-05-26] MEDS: sodium bicarbonate 650 mg Tablet PO (10:12)
[2024-05-26] MEDS: apixaban 5 mg Tablet 2.5 MG PO ×2 (10:12→17:45)
[2024-05-26] MEDS: predniSONE 20 mg Tablet 40 MG PO (10:13)
--- NOTE | 2024-05-26 13:06 | P.PN_ITS ---
<Statement entered by Anatoliy Muñoz M.D - 05/28/24 08:24> Patient was cared for in conjunction with an advanced practice practitioner.? I personally reviewed the chart and all pertinent data including imaging, telemetry, and laboratory results.? I discussed the patient in detail with the advanced practice practitioner.? Please see? their note for complete progress note,, testing results and agreed upon plan of care for the patient. Subjective 2 Subjective: Patient initially evaluated by Dr. Lenz on 05/22/2024 for troponin elevation in the setting of A-fib RVR, congestive heart failure. He converted to sinus rhythm with administration of amiodarone. He was diuresed, currently 1900 mL negative. Creatinine today 3.5, up from 2.9 on admission. Weight is 9 pounds down from admission. He has been using 2 L nasal cannula during the day, BiPAP at night. Receiving breathing treatments and antibiotics for possible pneumonia, placed on dysphagia 4 diet. Vitals/I&O/Wt Last Vital Signs Temp 97.3 F L 05/26/24 08:00 Pulse 71 05/26/24 08:19 Resp 20 H 05/26/24 08:19 BP 164/75 05/26/24 08:00 Pulse Ox 95 05/26/24 08:19 O2 Del Method Nasal Cannula 05/26/24 08:19 O2 Flow Rate 2 05/26/24 08:19 FiO2 35 05/26/24 03:45 05/25/24 05/26/24 05/26/24 22:59 06:59 14:59 Intake Total 240 / 890 360 / 890 240 / 240 Output Total 800 / 1750 950 / 1750 Balance -560 / -860 -590 / -860 240 / 240 Weight last 48 hrs Weight 203 lb 11.2 oz Weight 210 lb Physical Exam 2 Const: COMMON NORMALS: no acute distress and patient oriented x3 GENERAL APPEARANCE: cooperative and comfortable ORIENTATION/CONSCIOUSNESS: Yes awake, Yes oriented to person, Yes oriented to place and Yes oriented to time Chest: COMMONS NORMALS: normal inspection of the chest and normal palpation of entire chest wall CHEST: Yes Symmetrical chest wall rise Resp: COMMON NORMALS: normal respiratory effort, No retractions, No use of accessory muscles and clear to auscultation bilaterally (scattered rhonchi) E FFORT & INSPECTION: Yes symmetric chest movement AUSCULTATION: clear to auscultation bilaterally (scattered rhonchi) Cardio: COMMON NORMALS: regular rate, regular rhythm, S1 normal heart sound present, S2 normal heart sound present, No gallops present (Cardio), No clicks present (Cardio), No murmurs present (Cardio) and No rub (Cardio) RATE: r egular rate RHYTHM: regular rhythm HEART SOUNDS: S1 normal heart sound present and S2 normal heart sound present PERIPHERAL PULSES: radial pulses present Extremity: COMMON NORMALS: no pedal edema Neuro: COMMON NORMALS: patient oriented x3 and moves all extremities S ENSORIUM/ORIENTATION: Yes oriented to person, Yes oriented to place and Yes oriented to time Urinary Catheter Management: Hightower: Cath Placed During This Visit: yes Reason for Continuing Indwelling Catheter: Accurate Measurement of Urinary Output in Critically Ill Patients Urinary Catheter Date of Insertion: 05/22/24 Urinary Catheter Time of Insertion: 02:59 Data 05/26/24 02:53 05/26/24 02:53 A&P Assessment and plan (1) Acute exacerbation of congestive heart failure: (2) Atrial fibrillation with rapid ventricular response: (3) ICD (implantable cardioverter-defibrillator) in place: (4) Hypertension: Qualifiers: Hypertension type: essential hypertension Qualified Code(s): I10 - Essential (primary) hypertension (5) NSTEMI (non-ST elevated myocardial infarction): (6) Chronic kidney disease: Qualifiers: Chronic kidney disease stage: stage 3 (moderate) Chronic kidney disease stage 3 subtype: stage 3b (GFR 30-44) Qualified Code(s): N18.32 - Chronic kidney disease, stage 3b (7) Pulmonary edema: Plan He appears to be improved over the last few days. Agree with discontinuation of aspirin and continuing Plavix and apixaban 2.5 mg twice a day. He appears euvolemic currently-would recommend continuing to hold diuretic at this time, at discharge would suggest Lasix 20 mg daily, with second dose of 20 mg at 2 PM if he gains greater than 3 pounds in 24 hours or 5 pounds in a week. PDMP PDMP Reviewed: Not Reviewed Attestations 2 Medical Necessity Statement*: per hospitalist Coding Level of Care Code Acute Code for [facility] Diagnoses Acute exacerbation of congestive heart failure I50.9 Atrial fibrillation with rapid ventricular response I48.91 ICD (implantable cardioverter-defibrillator) in place Z95.810 Essential hypertension I10 Hypertension type: essential hypertension NSTEMI (non-ST elevated myocardial infarction) I21.4 Stage 3b chronic kidney disease N18.32 Chronic kidney disease stage: stage 3 (moderate) Chronic kidney disease stage 3 subtype: stage 3b (GFR 30-44) Pulmonary edema J81.1
--- NOTE | 2024-05-26 13:26 | P.PN_ITS ---
Subjective 2 Subjective: Currently on 2 L/min supplemental O2. Complains of generalized weakness. White count up from 7000 to 17,000. No fever. Medications: Reviewed: Yes Vitals/I&O/Wt Last Vital Signs Temp 97.7 F 05/26/24 12:00 Pulse 73 05/26/24 12:00 Resp 22 H 05/26/24 12:00 BP 149/84 05/26/24 12:00 Pulse Ox 94 05/26/24 12:00 O2 Del Method Nasal Cannula 05/26/24 12:00 O2 Flow Rate 2 05/26/24 12:00 FiO2 35 05/26/24 03:45 05/25/24 05/26/24 05/26/24 22:59 06:59 14:59 Intake Total 240 / 530 360 / 890 480 / 480 Output Total 800 / 800 950 / 1750 Balance -560 / -270 -590 / -860 480 / 480 Weight last 48 hrs Weight 92.397 kg Weight 95.254 kg Physical Exam 2 Narrative: General: No acute distress, AO x3 HEENT: PERRLA, pupils bilaterally equal and reactive, pallors not present Chest: clear B/L CVS: S1-S2 regular, no murmurs, no tachycardia, no gallops, no rubs Abdomen: Soft, nontender, no organomegaly, bowel sounds present Neuro: No focal deficits, no facial deformity, AO x3, power 5/5 in all limbs Extremities: No lower extremity edema. Urinary Catheter Management: Hightower: Cath Placed During This Visit: yes Reason for Continuing Indwelling Catheter: Accurate Measurement of Urinary Output in Critically Ill Patients Urinary Catheter Date of Insertion: 05/22/24 Urinary Catheter Time of Insertion: 02:59 Data 05/26/24 02:53 05/26/24 02:53 A&P Assessment and plan (1) Cardiomyopathy: Qualifiers: Cardiomyopathy type: dilated Qualified Code(s): I42.0 - Dilated cardiomyopathy (2) Acute exacerbation of congestive heart failure: (3) ICD (implantable cardioverter-defibrillator) in place: (4) Atrial fibrillation with rapid ventricular response: (5) Chronic kidney disease: Qualifiers: Chronic kidney disease stage: stage 3 (moderate) Chronic kidney disease stage 3 subtype: stage 3b (GFR 30-44) Qualified Code(s): N18.32 - Chronic kidney disease, stage 3b (6) Acute hypoxemic respiratory failure: (7) Pulmonary edema: (8) NSTEMI (non-ST elevated myocardial infarction): Plan Non-STEMI Start ACS protocol EF is 30% Status post AICD/pacemaker No active chest pain Requested echo A-fib with RVR: Given amiodarone 200 mg in the ER which improved his heart rate currently is around 80s I would continue p.o. AV alisia blocking agents for now Discontinue Eliquis started using heparin drip Acute on chronic hypoxia Increased work of breathing Concern for aspiration pneumonia Start cefepime and Zosyn Currently on BiPAP to decrease work of breathing Chronic kidney disease: Creatinine seems around baseline SIRS criteria met: Patient tachypnea tachycardia with high leukocytosis and lactic acid: Not at good candidate for sepsis bolus because of CHF exacerbation pulm edema Started antibiotics, request sputum culture DNR/DNI Cardiac diet 05/23/2024 Cardiology consult appreciated. Manage medically at this time. Continue cefepime Zosyn patient now on nasal cannula. Continue to diurese. Continue Bumex 1 mg every 24 hours Stop heparin drip at 48 hour marked. Continue Zosyn Continue cefepime. Await sputum culture Gram stain Await blood cultures Check PT OT Continue Acapella, flutter valve 05/24/2024 Cardiology consult appreciated. Continue to manage medically at this time. Heparin drip has stopped at 48 hours. I will put back on Eliquis at this time. Continue Zosyn and cefepime for pneumonia. Urine culture Gram stain not obtained as it is not collected yet. Blood cultures negative to date Bacterial antigens Legionella is negative. PT OT continued Continue Acapella and incentive spirometer Hold Bumex at this time. Patient is becoming hyponatremic. Sodium 128 today. Continue BiPAP and wean off as able. Check chest x-ray, ABG. Will check respiratory viral panel. Patient does have rhonchi present. Will add Solu-Medrol 40 IV twice daily today. May 25, 2024 Chart reviewed. 89-year-old male with a past medical history of CHF, A-fib, known cardiomyopathy status post AICD, hypertension, CKD COPD admitted to the hospital on May 22, 2024 with chief complaints of worsening shortness of breath and hypoxia. Typically patient is on 2 L/min supplemental O2. He was noted to be in respiratory distress and placed on BiPAP upon admission. I was also concerned about potential [facility]. He was in A-fib RVR when he initially arrived, just improved with her amiodarone bolus in the ER. He was diagnosed with NSTEMI with baseline troponin at 166, increasing to 405 with a delta of 293. He was on a heparin drip until yesterday, has now been transitioned to Eliquis 2.5 mg p.o. twice daily. Complement he is also on Plavix 75 mg p.o. daily. Metoprolol at 50 mg p.o. twice daily. Rate is currently well-controlled. Last echocardiogram dates back to February 2024 at which time he was found to have severely reduced EF of 30% grade 1 diastolic dysfunction. He was evaluated by Dr. Lenz from cardiology service on May 22. His elevated troponins were thought to be related to transient A-fib with RVR, respiratory illness and heart failure, less likely ACS. No angiogram was recommended at this time. His chest x-ray has shown bilateral interstitial and alveolar opacities in the lower lung zones per radiology thought to be related to CHF. Given an elevated white blood cell count possibility of infectious pneumonia not excluded. He has been on treatment with Zosyn and cefepime. Discontinue Zosyn as patient does not require dual antipseudomonal coverage at this time. He has been on IV steroids methylprednisolone for COPD exacerbation. Respiratory viral panel negative. Nasal MRSA screen negative. Blood culture from admission is negative. Urine bacterial Ag is negative. Plan: D/c Zosyn. continue Cefepime. Taper steroids, CXR shows B/[place] [address], coarse crackles to auscultation. He has been on Bumex 1mg ivp q24h on 05/22, 05/23 and 05/24, with diuresis placed on hold since then due to worsenign SHARMIN. Urine output currently at 1400 cc ; net negative 1.3L since admission. Plan to resume lasix at a lower dose of 20mg po daily if cr remains stable. Appreciate speech therapy eveluation- no gross aspiration noted on level 4 dysphagia diet. Add scheduled duoneb inhalation May 26, 2024 Afebrile. Hemodynamically stable. White count at 17,000 today. No clinical change no new localizing signs or symptoms of infection. Patient is afebrile. Elevated white count may be related to margination from steroids versus dehydration from overdiuresis. His lungs sound much better today. Less crackles. Continue to hold diuresis. Creatinine stable at 3.5. Urine output at 1.7 L. Will obtain limited echo. Plan: cotninue cefepime, continue Eliquis and Plavix. Will discuss with cardiology if aspirin can be discontinued at discharge and patient remains on Eliquis and Plavix long-term. Continue prednisone 40 mg p.o. daily, will titrate down next 24 hours. Continue scheduled nebulization with DuoNeb. All updates discussed with daughter. Patient typically uses a BiPAP at nighttime even at the [facility]. Continue dysphagia 4 diet. Encourage ambulation and out of bed. His acute issues currently appear to be improving, however he is significantly deconditioned as a result of his acute illness. Add statins . PDMP PDMP Reviewed: Not Reviewed Attestations 2 Medical Necessity Statement*: Continue to hold diuresis today. Encourage ambulation. Monitor leukocytosis and kidney function next 24 hours. If both remaining stable may be able to discharge in the upcoming 24 to 48 hours. Coding Level of Care Code Acute Code for Chg Fwd High MDM includes number and complexity of problems actively addressed during encounter, amount and/or complexity of data reviewed/ordered and described risk of complication, morbidity or mortality of management as documented Diagnoses Dilated cardiomyopathy I42.0 Cardiomyopathy type: dilated Acute exacerbation of congestive heart failure I50.9 ICD (implantable cardioverter-defibrillator) in place Z95.810 Atrial fibrillation with rapid ventricular response I48.91 Stage 3b chronic kidney disease N18.32 Chronic kidney disease stage: stage 3 (moderate) Chronic kidney disease stage 3 subtype: stage 3b (GFR 30-44) Acute hypoxemic respiratory failure J96.01 Pulmonary edema J81.1 NSTEMI (non-ST elevated myocardial infarction) I21.4
--- NOTE | 2024-05-26 13:35 | USCV_ITS ---
Alexey An Age: 89 Gender: M : 1935 Exam Date: 05/26/2024 14:06 Ordering Phys: Adriana Owen MD Technologist: Exam Location: [facility] [place] Indication: nstemi BP: 148 / 84 HR: Rhythm: Sinus Technical Quality: Adequate MEASUREMENTS (Male / Female) Normal Values 2D ECHO LVOT Diameter 2.1 cm LV Ejection Fraction MOD 4C 40.4 % LV Ejection Fraction MOD 2C 34.1 % LV Ejection Fraction 2C AL 36.7 % LA Diameter 4.4 cm RA Systolic Volume 4C AL 45.6 ml RA Systolic Volume 4C MOD 42.0 ml FINDINGS Left Ventricle Right Ventricle Right Atrium Left Atrium Mitral Valve Aortic Valve Tricuspid Valve Pulmonic Valve Pericardium Aorta IVC CONCLUSIONS Limited echocardiogram performed to assess LV systolic function. LV systolic function is moderate to severely reduced with EF of 30-35%. Moderate to severe global hypokinesis. Anatoliy Muñoz MD (Electronically Signed) Final Date: 27 May 2024 10:56 S
[2024-05-26] MEDS: pantoprazole 40 mg SDV IVP (17:45)
[2024-05-26] MEDS: atorvastatin 40 mg Tablet 20 MG PO (20:34)
[2024-05-27] VITALS (17 sets, daily range): BP systolic 152–189; BP diastolic 69–95; PULSE 60–114; RESP 17–31; TEMP 36.6–36.7; O2SAT 90–99
[2024-05-27] MEDS: ipratropium-albuterol 3 mL Neb INHALATION ×4 (03:04→20:08)
[2024-05-27 03:28] LABS: Basophils % 0.1 %; Hematocrit 31.1 % (37-53); Lymphocytes # 0.8 10^3/uL (0.8-4.8); Lymphocytes % 5.9 %; Mean Corpuscular HGB Conc 31.8 g/dL (30-55); Mean Corpuscular Hemoglobin 29.2 pg (27-33); Mean Corpuscular Volume 91.7 fl (82-101); Mean Platelet Volume 9.8 fL (7.4-10.4); Monocytes % 7.4 %; Neutrophils % 85.6 %; Nucleated Red Blood Cells % 0 %; Platelet Count 208 10^3/cmm (157-399); Red Blood Count 3.39 10^6/uL (3.85-5.65); Red Cell Distribution Width 13.3 % (12.1-15.1); White Blood Count 13.08 10^3/uL (3.29-11.43)
[2024-05-27 03:47] LABS: Alanine Aminotransferase 19 U/L (0-41); Albumin Level 2.8 g/dL (3.5-5.2); Alkaline Phosphatase 82 U/L (40-130); Anion Gap 15.3 (5-19); Aspartate Amino Transferase 17 U/L (0-40); Blood Urea Nitrogen 80 mg/dL (8-23); Calcium 10.3 mg/dL (8.5-10.5); Carbon Dioxide 22 mmol/L (22-29); Chloride 106 mmol/L (98-107); Creatinine Clr Calc Pharmacy 21.5089; Globulin 3.5 g/dL (1.3-4.6); Glucose 134 mg/dL (65-115); Osmolality Calculated 314 mOsm/kg (285-295); Potassium 4.3 mmol/L (3.5-5.1); Sodium 139 mmol/L (136-145); Total Bilirubin 0.4 mg/dL (0.15-1.2); Total Protein 6.3 g/dL (6.6-8.7)
[2024-05-27] MEDS: cefepime 1,000 mg SDV 1000 MG IVP (05:22)
--- NOTE | 2024-05-27 08:06 | XR_ITS ---
WS: [id number] XR chest 1V portable [id number] REASON FOR EXAM: sob FINDINGS: Cardiac device over the left chest with trans left subclavian vein leads to the right atrium and right ventricle. The heart is not significantly enlarged. Diffuse reticular and groundglass opacities in the left lower lung field, right upper lobe, left lower lobe. Moderate progression in the volume of lung involved with the lung opacities compared to the previous examination of 05/24/2024. XR/XR chest 1V portable [id number] IMPRESSION: Abnormal chest with progression of lung opacities. This this could represent a somewhat atypical congestive heart failure or pulmonary edema of other etiology . Potentially pneumonitis.
[2024-05-27] MEDS: apixaban 5 mg Tablet 2.5 MG PO ×2 (08:39→17:56)
[2024-05-27] MEDS: predniSONE 20 mg Tablet 40 MG PO (08:39)
[2024-05-27] MEDS: pantoprazole DR 40 mg Tablet PO (08:40)
[2024-05-27] MEDS: calcitriol 0.25 mcg Capsule 0.5 MCG PO (08:40)
[2024-05-27] MEDS: tamsulosin 0.4 mg Capsule PO (08:40)
[2024-05-27] MEDS: aspirin 81 mg EC Tablet PO (08:40)
[2024-05-27] MEDS: sodium bicarbonate 650 mg Tablet PO (08:40)
[2024-05-27] MEDS: clopidogrel 75 mg Tablet PO (08:40)
[2024-05-27] MEDS: metoprolol tartrate 50 mg Tablet PO ×2 (08:40→20:41)
[2024-05-27] MEDS: sennosides-docusate Tablet 1 TAB PO (08:42)
--- NOTE | 2024-05-27 09:20 | P.PN_ITS ---
Subjective 2 Subjective: Patient's respiratory status is worse this morning. He was attempting to get out of bed today when suddenly desaturated down to the 80%. He was diaphoretic and pale at the time. Chest x-ray showing worsening bilateral infiltrates per personal interpretation. Medications: Reviewed: Yes Vitals/I&O/Wt Last Vital Signs Temp 98.0 F 05/27/24 08:00 Pulse 89 05/27/24 08:20 Resp 31 H 05/27/24 08:00 BP 189/87 05/27/24 08:00 Pulse Ox 92 05/27/24 08:20 O2 Del Method BiPAP 05/27/24 08:00 O2 Flow Rate 3 05/27/24 07:25 FiO2 40 05/27/24 08:20 05/26/24 05/27/24 05/27/24 22:59 06:59 14:59 Intake Total 120 / 600 300 / 900 Output Total 1500 / 1500 600 / 2100 Balance -1380 / -900 -300 / -1200 Weight last 48 hrs Weight 93.984 kg Weight 92.397 kg Physical Exam 2 Narrative: General: Sitting in chair at bedside, BiPAP in place. HEENT: PERRLA, pupils bilaterally equal and reactive, pallors not present Chest: clear B/L CVS: S1-S2 regular, no murmurs, no tachycardia, no gallops, no rubs Abdomen: Soft, nontender, no organomegaly, bowel sounds present Neuro: No focal deficits, no facial deformity, AO x3, power 5/5 in all limbs Extremities: No lower extremity edema. Urinary Catheter Management: Hightower: Cath Placed During This Visit: yes Reason for Continuing Indwelling Catheter: Accurate Measurement of Urinary Output in Critically Ill Patients Urinary Catheter Date of Insertion: 05/22/24 Urinary Catheter Time of Insertion: 02:59 Data 05/27/24 03:12 05/27/24 03:12 Micro: Microbiology 05/22/24 02:00 Blood Culture - Final Blood NO GROWTH AFTER 5 DAYS 05/22/24 01:55 Blood Culture - Final Blood NO GROWTH AFTER 5 DAYS A&P Assessment and plan (1) Cardiomyopathy: Qualifiers: Cardiomyopathy type: dilated Qualified Code(s): I42.0 - Dilated cardiomyopathy (2) Acute exacerbation of congestive heart failure: (3) ICD (implantable cardioverter-defibrillator) in place: (4) Atrial fibrillation with rapid ventricular response: (5) Chronic kidney disease: Qualifiers: Chronic kidney disease stage: stage 3 (moderate) Chronic kidney disease stage 3 subtype: stage 3b (GFR 30-44) Qualified Code(s): N18.32 - Chronic kidney disease, stage 3b (6) Acute hypoxemic respiratory failure: (7) Pulmonary edema: (8) NSTEMI (non-ST elevated myocardial infarction): Plan Non-STEMI Start ACS protocol EF is 30% Status post AICD/pacemaker No active chest pain Requested echo A-fib with RVR: Given amiodarone 200 mg in the ER which improved his heart rate currently is around 80s I would continue p.o. AV alisia blocking agents for now Discontinue Eliquis started using heparin drip Acute on chronic hypoxia Increased work of breathing Concern for aspiration pneumonia Start cefepime and Zosyn Currently on BiPAP to decrease work of breathing Chronic kidney disease: Creatinine seems around baseline SIRS criteria met: Patient tachypnea tachycardia with high leukocytosis and lactic acid: Not at good candidate for sepsis bolus because of CHF exacerbation pulm edema Started antibiotics, request sputum culture DNR/DNI Cardiac diet 05/23/2024 Cardiology consult appreciated. Manage medically at this time. Continue cefepime Zosyn patient now on nasal cannula. Continue to diurese. Continue Bumex 1 mg every 24 hours Stop heparin drip at 48 hour marked. Continue Zosyn Continue cefepime. Await sputum culture Gram stain Await blood cultures Check PT OT Continue Acapella, flutter valve 05/24/2024 Cardiology consult appreciated. Continue to manage medically at this time. Heparin drip has stopped at 48 hours. I will put back on Eliquis at this time. Continue Zosyn and cefepime for pneumonia. Urine culture Gram stain not obtained as it is not collected yet. Blood cultures negative to date Bacterial antigens Legionella is negative. PT OT continued Continue Acapella and incentive spirometer Hold Bumex at this time. Patient is becoming hyponatremic. Sodium 128 today. Continue BiPAP and wean off as able. Check chest x-ray, ABG. Will check respiratory viral panel. Patient does have rhonchi present. Will add Solu-Medrol 40 IV twice daily today. May 25, 2024 Chart reviewed. 89-year-old male with a past medical history of CHF, A-fib, known cardiomyopathy status post AICD, hypertension, CKD COPD admitted to the hospital on May 22, 2024 with chief complaints of worsening shortness of breath and hypoxia. Typically patient is on 2 L/min supplemental O2. He was noted to be in respiratory distress and placed on BiPAP upon admission. I was also concerned about potential aspiration at the [facility] where he is a chronic resident. He was in A-fib RVR when he initially arrived, just improved with her amiodarone bolus in the ER. He was diagnosed with NSTEMI with baseline troponin at 166, increasing to 405 with a delta of 293. He was on a heparin drip until yesterday, has now been transitioned to Eliquis 2.5 mg p.o. twice daily. Complement he is also on Plavix 75 mg p.o. daily. Metoprolol at 50 mg p.o. twice daily. Rate is currently well-controlled. Last echocardiogram dates back to February 2024 at which time he was found to have severely reduced EF of 30% grade 1 diastolic dysfunction. He was evaluated by Dr. Lenz from cardiology service on May 22. His elevated troponins were thought to be related to transient A-fib with RVR, respiratory illness and heart failure, less likely ACS. No angiogram was recommended at this time. His chest x-ray has shown bilateral interstitial and alveolar opacities in the lower lung zones per radiology thought to be related to CHF. Given an elevated white blood cell count possibility of infectious pneumonia not excluded. He has been on treatment with Zosyn and cefepime. Discontinue Zosyn as patient does not require dual antipseudomonal coverage at this time. He has been on IV steroids methylprednisolone for COPD exacerbation. Respiratory viral panel negative. Nasal MRSA screen negative. Blood culture from admission is negative. Urine bacterial Ag is negative. Plan: D/c Zosyn. continue Cefepime. Taper steroids, CXR shows B/[place] [id number], coarse crackles to auscultation. He has been on Bumex 1mg ivp q24h on 05/22, 05/23 and 05/24, with diuresis placed on hold since then due to worsenign SHARMIN. Urine output currently at 1400 cc ; net negative 1.3L since admission. Plan to resume lasix at a lower dose of 20mg po daily if cr remains stable. Appreciate speech therapy eveluation- no gross aspiration noted on level 4 dysphagia diet. Add scheduled duoneb inhalation May 26, 2024 Afebrile. Hemodynamically stable. White count at 17,000 today. No clinical change no new localizing signs or symptoms of infection. Patient is afebrile. Elevated white count may be related to margination from steroids versus dehydration from overdiuresis. His lungs sound much better today. Less crackles. Continue to hold diuresis. Creatinine stable at 3.5. Urine output at 1.7 L. Will obtain limited echo. Plan: cotninue cefepime, continue Eliquis and Plavix. Will discuss with cardiology if aspirin can be discontinued at discharge and patient remains on Eliquis and Plavix long-term. Continue prednisone 40 mg p.o. daily, will titrate down next 24 hours. Continue scheduled nebulization with DuoNeb. All updates discussed with daughter. Patient typically uses a BiPAP at nighttime even at the SN[facility]. Continue dysphagia 4 diet. Encourage ambulation and out of bed. His acute issues currently appear to be improving, however he is significantly deconditioned as a result of his acute illness. Add statins . May 27, 2024 Leukocytosis is trending down to 13,000 today. No fever. This morning had episode of respiratory distress with saturation dropping down to 80% on attempting to stand. Chest x-ray is showing worsening bilateral infiltrates per personal interpretation. Awaiting radiology read. Possibilities include pulmonary edema given that diuretics have been on hold for the past 3 days due to worsening SHARMIN. Will need to resume Lasix. 40 mg IV now. Monitor kidney function and urine output by the afternoon and then decide regarding further doses. Patient may have potentially aspirated. He has been on a dysphagia diet during course of this admission. Will obtain modified barium swallow once he is improved from a respiratory standpoint. He has been on antibiotic coverage with cefepime and Zosyn during his hospital course with Zosyn having been discontinued on May 25, 2024 Unlikely that discontinuation of one of the 2 antibiotics has led to the worsening. Reviewed prior respiratory cultures from 2022. Patient has had Proteus mirabilis in the past. Change cefepime to meropenem for potential of ESBL Enterobacter cloacae. Add atypical coverage with azithromycin and add vancomycin empirically.. previously MRSA nasal screen was negative. Obtain sputum culture and Gram stain if patient able to expectorate today. Kidney function was improving down to 3.0, however with reinitiation of diuretics, will need to be monitored closely. PDMP PDMP Reviewed: Not Reviewed Attestations 2 Medical Necessity Statement*: worsened respiratory status today, resume iv diuretics, broden abx , continue NIVV Coding Level of Care Code Acute Code for Chg Fwd Diagnoses Dilated cardiomyopathy I42.0 Cardiomyopathy type: dilated Acute exacerbation of congestive heart failure I50.9 ICD (implantable cardioverter-defibrillator) in place Z95.810 Atrial fibrillation with rapid ventricular response I48.91 Stage 3b chronic kidney disease N18.32 Chronic kidney disease stage: stage 3 (moderate) Chronic kidney disease stage 3 subtype: stage 3b (GFR 30-44) Acute hypoxemic respiratory failure J96.01 Pulmonary edema J81.1 NSTEMI (non-ST elevated myocardial infarction) I21.4
[2024-05-27] MEDS: FUROsemide 10 mg/mL SDV 4mL 40 MG IVP (10:19)
[2024-05-27] MEDS: meropenem 1,000 mg SDV 1000 MG IVP ×2 (10:21→20:41)
[2024-05-27] MEDS: vancomycin 2,000 MG/400 ML PIGGYBACK 200 MG IV (10:21)
[2024-05-27] MEDS: azithromycin 250 mg Tablet 500 MG PO (10:22)
--- NOTE | 2024-05-27 12:13 | PC.SOCIAL ---
IMM Update pg 2 of IMM Updated and reviewed w/ patient. Copy provided and copy dated, initialed and placed in chart.
--- NOTE | 2024-05-27 13:55 | PC.NURSE ---
pt up to chair with heavy assist of p.t....o2 sats noted to drop after about 1/2 hr in chair.(low 80's on 3 liters nc.)diminished breath sounds.hr increased to low 100's with freq pvc's and pac's.placed on bipap at 40 % fio2 by r.t..pcxr obtained.dr benson notified of status...ordered 40 mg lasix iv push...and antibiotic readjusted.pt placed back in bed with sit to stand apparatus assist.
--- NOTE | 2024-05-27 14:25 | P.PN_ITS ---
<Statement entered by Anatoliy Muñoz M.D - 05/29/24 21:22> Patient was cared for in conjunction with an advanced practice practitioner. I personally reviewed the chart and all pertinent data including imaging, telemetry, and laboratory results. I discussed the patient in detail with the advanced practice practitioner. Please see their note for complete progress note, results and agreed upon plan of care for the patient. Subjective 2 Subjective: He is sitting up in a chair this morning, had an acute episode of oxygen desaturation into the 80's, currently using BiPAP therapy. Diuretics had been held since 05/24/24 but dose given this morning due to possible volume overload contributing to increased work of breathing/hypoxia with increased opacities on chest xray this morning. Radiologist interpretation atypical congestive heart failure vs possible pneumonitis . He is -1200 mL today, has been consistently negative in fluid balance every day, cumulative for this admission -4 L, however weight is 5 pounds up from yesterday. Blood pressure is elevated, recommend to resume home dose of hydralazine and start amlodipine 10 mg daily if BP not improved. Vitals/I&O/Wt Last Vital Signs Temp 98.0 F 05/27/24 08:00 Pulse 72 05/27/24 13:19 Resp 18 05/27/24 13:06 BP 152/76 05/27/24 11:27 Pulse Ox 98 05/27/24 13:06 O2 Del Method BiPAP 05/27/24 13:06 O2 Flow Rate 3 05/27/24 07:25 FiO2 35 05/27/24 13:06 05/26/24 05/27/24 05/27/24 22:59 06:59 14:59 Intake Total 120 / 900 300 / 900 0 / 0 Output Total 1500 / 2100 600 / 2100 450 / 450 Balance -1380 / -1200 -300 / -1200 -450 / -450 Weight last 48 hrs Weight 207 lb 3.2 oz Weight 203 lb 11.2 oz Physical Exam 2 Const: COMMON NORMALS: no acute distress and patient oriented x3 GENERAL APPEARANCE: cooperative and comfortable ORIENTATION/CONSCIOUSNESS: Yes awake, Yes oriented to person, Yes oriented to place and Yes oriented to time Chest: COMMONS NORMALS: normal inspection of the chest and normal palpation of entire chest wall CHEST: Yes Symmetrical chest wall rise Resp: COMMON NORMALS: normal respiratory effort, No retractions, No use of accessory muscles and clear to auscultation bilaterally EFFORT & INSPECTION: Yes symmetric chest movement AUSCULTATION: clear to auscultation bilaterally Cardio: COMMON NORMALS: regular rate, regular rhythm, S1 normal heart sound present, S2 normal heart sound present, No gallops present (Cardio), No clicks present (Cardio), No murmurs present (Cardio) and No rub (Cardio) RATE: r egular rate RHYTHM: regular rhythm HEART SOUNDS: S1 normal heart sound present and S2 normal heart sound present PERIPHERAL PULSES: radial pulses present Extremity: COMMON NORMALS: no pedal edema Neuro: COMMON NORMALS: patient oriented x3 and moves all extremities S ENSORIUM/ORIENTATION: Yes oriented to person, Yes oriented to place and Yes oriented to time Urinary Catheter Management: Hightower: Cath Placed During This Visit: yes Reason for Continuing Indwelling Catheter: Accurate Measurement of Urinary Output in Critically Ill Patients Urinary Catheter Date of Insertion: 05/22/24 Urinary Catheter Time of Insertion: 02:59 Data 05/27/24 03:12 05/27/24 03:12 Micro: Microbiology 05/22/24 02:00 Blood Culture - Final Blood NO GROWTH AFTER 5 DAYS 05/22/24 01:55 Blood Culture - Final Blood NO GROWTH AFTER 5 DAYS A&P Assessment and plan (1) Atrial fibrillation: Qualifiers: Atrial fibrillation type: other persistent Qualified Code(s): I48.19 - Other persistent atrial fibrillation (2) Hypertension: Qualifiers: Hypertension type: essential hypertension Qualified Code(s): I10 - Essential (primary) hypertension (3) ICD (implantable cardioverter-defibrillator) in place: Plan Recommend to hold diuretic after this dose to assess response. Clinically he does not seem volume overloaded. Remains in sinus rhythm. Continue Plavix and apixaban 2.5 mg twice a day. Will start hydralazine 25 mg 3 times a day for elevated blood pressure. PDMP PDMP Reviewed: Not Reviewed Attestations 2 Medical Necessity Statement*: CHF exacerbation Coding Level of Care Code Acute Code for Chg Fwd Diagnoses Other persistent atrial fibrillation I48.19 Atrial fibrillation type: other persistent Essential hypertension I10 Hypertension type: essential hypertension ICD (implantable cardioverter-defibrillator) in place Z95.810
--- NOTE | 2024-05-27 14:55 | PHA.VACGOAL ---
Vancomycin Goal - Goal Vancomycin Goal:: 15-20 mg/L Vancomycin Indication:: Pneumonia - Therapy Current therapy:: Meropenem Day of therpy:: Day []of [] . Actual body weight (kg): 93.984 kg - Data Labs: WBC 13.08 10^3/uL (3.29-11.43) H 05/27/24 03:12 RBC 3.39 10^6/uL (3.85-5.65) L 05/27/24 03:12 Hgb 9.90 g/dL (11.27-16.99) L 05/27/24 03:12 Hct 31.1 % (37-53) L 05/27/24 03:12 MCV 91.7 fl (82-101) 05/27/24 03:12 MCH 29.2 pg (27-33) 05/27/24 03:12 MCHC 31.8 g/dL (30-55) 05/27/24 03:12 RDW 13.3 % (12.1-15.1) 05/27/24 03:12 Sodium 139 mmol/L (136-145) 05/27/24 03:12 Potassium 4.3 mmol/L (3.5-5.1) 05/27/24 03:12 Chloride 106 mmol/L (98-107) 05/27/24 03:12 Carbon Dioxide 22 mmol/L (22-29) 05/27/24 03:12 Anion Gap 15.3 (5-19) 05/27/24 03:12 BUN 80 mg/dL (8-23) H 05/27/24 03:12 Creatinine 3.0 mg/dL (0.7-1.2) H 05/27/24 03:12 GFR Calculation Not Reportable 05/27/24 03:12 Treatment plan:: new consult Regimen:: New start vancomycin for Pneumonia. Patient received 2000 mg load dose. No prior history of vancomycin found. Due to CrCl <30 mL/min starting patient on pulse dosing. Vanomycin level ordered for @0900 05/28/24.
--- NOTE | 2024-05-27 15:15 | PC.OT ---
Pt experiencing decline in status today. Difficulty breathing, increased BP and now on bipap to maintain O2 sats. OT tx to be held today. Pt to be reassessed for tx tolerance again in the a.m.
[2024-05-27 16:40] LABS: Alanine Aminotransferase 18 U/L (0-41); Albumin Level 2.7 g/dL (3.5-5.2); Alkaline Phosphatase 77 U/L (40-130); Anion Gap 16.8 (5-19); Aspartate Amino Transferase 14 U/L (0-40); Blood Urea Nitrogen 80 mg/dL (8-23); Calcium 10.1 mg/dL (8.5-10.5); Carbon Dioxide 23 mmol/L (22-29); Chloride 105 mmol/L (98-107); Creatinine Clr Calc Pharmacy 22.4117; Globulin 3.7 g/dL (1.3-4.6); Glucose 195 mg/dL (65-115); Osmolality Calculated 319 mOsm/kg (285-295); Potassium 4.8 mmol/L (3.5-5.1); Sodium 140 mmol/L (136-145); Total Bilirubin 0.6 mg/dL (0.15-1.2); Total Protein 6.4 g/dL (6.6-8.7)
[2024-05-27] MEDS: hyDRALAzine 25 mg Tablet PO ×2 (17:56→20:41)
[2024-05-27] MEDS: pantoprazole 40 mg SDV IVP (17:56)
--- NOTE | 2024-05-27 19:06 | PC.NURSE ---
pt has slept all day.on bipap.awakened easily to take crushed po meds.
[2024-05-27] MEDS: atorvastatin 40 mg Tablet 20 MG PO (20:41)
[2024-05-28] VITALS (12 sets, daily range): BP systolic 145–165; BP diastolic 67–84; PULSE 70–79; RESP 13–24; TEMP 36.5–37; O2SAT 89–99
[2024-05-28] MEDS: ipratropium-albuterol 3 mL Neb INHALATION ×4 (02:03→20:37)
[2024-05-28] MEDS: meropenem 1,000 mg SDV 1000 MG IVP (09:04)
[2024-05-28] MEDS: pantoprazole 40 mg SDV IVP (09:06)
[2024-05-28] MEDS: apixaban 5 mg Tablet 2.5 MG PO (09:07)
[2024-05-28] MEDS: sodium bicarbonate 650 mg Tablet PO (09:08)
[2024-05-28] MEDS: tamsulosin 0.4 mg Capsule PO (09:08)
[2024-05-28] MEDS: sennosides-docusate Tablet 1 TAB PO (09:08)
[2024-05-28] MEDS: metoprolol tartrate 50 mg Tablet PO ×2 (09:08→21:05)
[2024-05-28] MEDS: pantoprazole DR 40 mg Tablet PO (09:08)
[2024-05-28] MEDS: hyDRALAzine 25 mg Tablet PO (09:08)
[2024-05-28] MEDS: predniSONE 20 mg Tablet 40 MG PO (09:08)
[2024-05-28] MEDS: clopidogrel 75 mg Tablet PO (09:08)
[2024-05-28] MEDS: azithromycin 250 mg Tablet 500 MG PO (09:08)
[2024-05-28] MEDS: calcitriol 0.25 mcg Capsule 0.5 MCG PO (09:08)
[2024-05-28 09:24] LABS: Vancomycin Trough 19.8 ug/mL (10-15)
--- NOTE | 2024-05-28 11:13 | P.PN_ITS ---
<Statement entered by Anatoliy Muñoz M.D - 05/29/24 21:44> Patient was cared for in conjunction with an advanced practice practitioner. I personally reviewed the chart and all pertinent data including imaging, telemetry, and laboratory results. I discussed the patient in detail with the advanced practice practitioner. Please see their note for complete progress note, results and agreed upon plan of care for the patient. Subjective 2 Subjective: He is on BiPAP therapy this morning, conversation is limited. He is currently 2300 mL negative with cumulative -6 L. Blood pressure ranging around the 150 to 160's systolic. No labs resulted yet for today. He appears clinically compensated. Vitals/I&O/Wt Last Vital Signs Temp 97.7 F 05/28/24 07:40 Pulse 73 05/28/24 07:48 Resp 19 H 05/28/24 07:40 BP 164/77 05/28/24 07:40 Pulse Ox 96 05/28/24 07:40 O2 Del Method BiPAP 05/28/24 07:40 O2 Flow Rate 3 05/27/24 07:25 FiO2 35 05/28/24 07:40 05/27/24 05/28/24 05/28/24 22:59 06:59 14:59 Intake Total 400 / 400 Output Total 1400 / 2750 900 / 2750 Balance -1000 / -2350 -900 / -2350 Weight last 48 hrs Weight 209 lb 6.4 oz Weight 207 lb 3.2 oz Physical Exam 2 Const: COMMON NORMALS: no acute distress and patient oriented x3 GENERAL APPEARANCE: cooperative and comfortable ORIENTATION/CONSCIOUSNESS: Yes awake, Yes oriented to person, Yes oriented to place and Yes oriented to time Chest: COMMONS NORMALS: normal inspection of the chest and normal palpation of entire chest wall CHEST: Yes Symmetrical chest wall rise Resp: COMMON NORMALS: normal respiratory effort, No retractions, No use of accessory muscles and clear to auscultation bilaterally EFFORT & INSPECTION: Yes symmetric chest movement AUSCULTATION: clear to auscultation bilaterally Cardio: COMMON NORMALS: regular rate, regular rhythm, S1 normal heart sound present, S2 normal heart sound present, No gallops present (Cardio), No clicks present (Cardio), No murmurs present (Cardio) and No rub (Cardio) RATE: r egular rate RHYTHM: regular rhythm HEART SOUNDS: S1 normal heart sound present and S2 normal heart sound present PERIPHERAL PULSES: radial pulses present Extremity: COMMON NORMALS: no pedal edema Neuro: COMMON NORMALS: patient oriented x3 and moves all extremities S ENSORIUM/ORIENTATION: Yes oriented to person, Yes oriented to place and Yes oriented to time Urinary Catheter Management: Hightower: Cath Placed During This Visit: yes Reason for Continuing Indwelling Catheter: Accurate Measurement of Urinary Output in Critically Ill Patients Urinary Catheter Date of Insertion: 05/22/24 Urinary Catheter Time of Insertion: 02:59 Data 05/27/24 03:12 05/27/24 16:06 A&P Assessment and plan (1) Atrial fibrillation: Qualifiers: Atrial fibrillation type: other persistent Qualified Code(s): I48.19 - Other persistent atrial fibrillation (2) Hypertension: Qualifiers: Hypertension type: essential hypertension Qualified Code(s): I10 - Essential (primary) hypertension (3) ICD (implantable cardioverter-defibrillator) in place: Plan He appears euvolemic. Remains in sinus rhythm. Continue Plavix and apixaban. Will add amlodipine 5mg daily as blood pressure uncontrolled after adding back hydralazine. PDMP PDMP Reviewed: Not Reviewed Attestations 2 Medical Necessity Statement*: per hospitalist Coding Level of Care Code Acute Code for Chg Fwd Diagnoses Other persistent atrial fibrillation I48.19 Atrial fibrillation type: other persistent Essential hypertension I10 Hypertension type: essential hypertension ICD (implantable cardioverter-defibrillator) in place Z95.810
[2024-05-28] MEDS: amlodipine 5 mg Tablet PO (12:52)
--- NOTE | 2024-05-28 13:41 | P.PN_ITS ---
Subjective 2 Subjective: Patient's case was discussed quite extensively with his daughter Ms. Ariza and granddaughter Zully. Family had expressed interest in transitioning to hospice care last evening. They are at bedside today for further goals of care discussion. Patient had remained on BiPAP last evening, this morning he is transition to 3 L/min supplemental O2. Still becomes tachypneic on attempting conversation. Has some crackles on bilateral lung bases. Medications: Reviewed: Yes Vitals/I&O/Wt Last Vital Signs Temp 97.7 F 05/28/24 07:40 Pulse 73 05/28/24 12:00 Resp 23 H 05/28/24 12:00 BP 145/67 05/28/24 12:00 Pulse Ox 92 05/28/24 12:00 O2 Del Method Nasal Cannula 05/28/24 12:00 O2 Flow Rate 3 05/27/24 07:25 FiO2 35 05/28/24 07:40 05/27/24 05/28/24 05/28/24 22:59 06:59 14:59 Intake Total 400 / 400 Output Total 1400 / 1850 900 / 2750 Balance -1000 / -1450 -900 / -2350 Weight last 48 hrs Weight 94.982 kg Weight 93.984 kg Physical Exam 2 Narrative: General: In bed no acute distress HEENT: PERRLA, pupils bilaterally equal and reactive, pallors not present Chest: Scattered crackles to auscultation bilaterally CVS: S1-S2 regular, no murmurs, no tachycardia, no gallops, no rubs Abdomen: Soft, nontender, no organomegaly, bowel sounds present Neuro: No focal deficits, no facial deformity, AO x3, power 5/5 in all limbs Urinary Catheter Management: Hightower: Cath Placed During This Visit: yes Reason for Continuing Indwelling Catheter: Accurate Measurement of Urinary Output in Critically Ill Patients Urinary Catheter Date of Insertion: 05/22/24 Urinary Catheter Time of Insertion: 02:59 Data 05/27/24 03:12 05/27/24 16:06 A&P Assessment and plan (1) Cardiomyopathy: Qualifiers: Cardiomyopathy type: dilated Qualified Code(s): I42.0 - Dilated cardiomyopathy (2) Acute exacerbation of congestive heart failure: (3) ICD (implantable cardioverter-defibrillator) in place: (4) Atrial fibrillation with rapid ventricular response: (5) Chronic kidney disease: Qualifiers: Chronic kidney disease stage: stage 3 (moderate) Chronic kidney disease stage 3 subtype: stage 3b (GFR 30-44) Qualified Code(s): N18.32 - Chronic kidney disease, stage 3b (6) Acute hypoxemic respiratory failure: (7) Pulmonary edema: (8) NSTEMI (non-ST elevated myocardial infarction): Plan Non-STEMI Start ACS protocol EF is 30% Status post AICD/pacemaker No active chest pain Requested echo A-fib with RVR: Given amiodarone 200 mg in the ER which improved his heart rate currently is around 80s I would continue p.o. AV alisia blocking agents for now Discontinue Eliquis started using heparin drip Acute on chronic hypoxia Increased work of breathing Concern for aspiration pneumonia Start cefepime and Zosyn Currently on BiPAP to decrease work of breathing Chronic kidney disease: Creatinine seems around baseline SIRS criteria met: Patient tachypnea tachycardia with high leukocytosis and lactic acid: Not at good candidate for sepsis bolus because of CHF exacerbation pulm edema Started antibiotics, request sputum culture DNR/DNI Cardiac diet 05/23/2024 Cardiology consult appreciated. Manage medically at this time. Continue cefepime Zosyn patient now on nasal cannula. Continue to diurese. Continue Bumex 1 mg every 24 hours Stop heparin drip at 48 hour marked. Continue Zosyn Continue cefepime. Await sputum culture Gram stain Await blood cultures Check PT OT Continue Acapella, flutter valve 05/24/2024 Cardiology consult appreciated. Continue to manage medically at this time. Heparin drip has stopped at 48 hours. I will put back on Eliquis at this time. Continue Zosyn and cefepime for pneumonia. Urine culture Gram stain not obtained as it is not collected yet. Blood cultures negative to date Bacterial antigens Legionella is negative. PT OT continued Continue Acapella and incentive spirometer Hold Bumex at this time. Patient is becoming hyponatremic. Sodium 128 today. Continue BiPAP and wean off as able. Check chest x-ray, ABG. Will check respiratory viral panel. Patient does have rhonchi present. Will add Solu-Medrol 40 IV twice daily today. May 25, 2024 Chart reviewed. 89-year-old male with a past medical history of CHF, A-fib, known cardiomyopathy status post AICD, hypertension, CKD COPD admitted to the hospital on May 22, 2024 with chief complaints of worsening shortness of breath and hypoxia. Typically patient is on 2 L/min supplemental O2. He was noted to be in respiratory distress and placed on BiPAP upon admission. I was also concerned about potential aspiration at the intermediate where he is a chronic resident. He was in A-fib RVR when he initially arrived, just improved with her amiodarone bolus in the ER. He was diagnosed with NSTEMI with baseline troponin at 166, increasing to 405 with a delta of 293. He was on a heparin drip until yesterday, has now been transitioned to Eliquis 2.5 mg p.o. twice daily. Complement he is also on Plavix 75 mg p.o. daily. Metoprolol at 50 mg p.o. twice daily. Rate is currently well-controlled. Last echocardiogram dates back to February 2024 at which time he was found to have severely reduced EF of 30% grade 1 diastolic dysfunction. He was evaluated by Dr. Lenz from cardiology service on May 22. His elevated troponins were thought to be related to transient A-fib with RVR, respiratory illness and heart failure, less likely ACS. No angiogram was recommended at this time. His chest x-ray has shown bilateral interstitial and alveolar opacities in the lower lung zones per radiology thought to be related to CHF. Given an elevated white blood cell count possibility of infectious pneumonia not excluded. He has been on treatment with Zosyn and cefepime. Discontinue Zosyn as patient does not require dual antipseudomonal coverage at this time. He has been on IV steroids methylprednisolone for COPD exacerbation. Respiratory viral panel negative. Nasal MRSA screen negative. Blood culture from admission is negative. Urine bacterial Ag is negative. Plan: D/c Zosyn. continue Cefepime. Taper steroids, CXR shows B/[place] [id number], coarse crackles to auscultation. He has been on Bumex 1mg ivp q24h on 05/22, 05/23 and 05/24, with diuresis placed on hold since then due to worsenign SHARMIN. Urine output currently at 1400 cc ; net negative 1.3L since admission. Plan to resume lasix at a lower dose of 20mg po daily if cr remains stable. Appreciate speech therapy eveluation- no gross aspiration noted on level 4 dysphagia diet. Add scheduled duoneb inhalation May 26, 2024 Afebrile. Hemodynamically stable. White count at 17,000 today. No clinical change no new localizing signs or symptoms of infection. Patient is afebrile. Elevated white count may be related to margination from steroids versus dehydration from overdiuresis. His lungs sound much better today. Less crackles. Continue to hold diuresis. Creatinine stable at 3.5. Urine output at 1.7 L. Will obtain limited echo. Plan: cotninue cefepime, continue Eliquis and Plavix. Will discuss with cardiology if aspirin can be discontinued at discharge and patient remains on Eliquis and Plavix long-term. Continue prednisone 40 mg p.o. daily, will titrate down next 24 hours. Continue scheduled nebulization with DuoNeb. All updates discussed with daughter. Patient typically uses a BiPAP at nighttime even at the SNF. Continue dysphagia 4 diet. Encourage ambulation and out of bed. His acute issues currently appear to be improving, however he is significantly deconditioned as a result of his acute illness. Add statins . May 27, 2024 Leukocytosis is trending down to 13,000 today. No fever. This morning had episode of respiratory distress with saturation dropping down to 80% on attempting to stand. Chest x-ray is showing worsening bilateral infiltrates per personal interpretation. Awaiting radiology read. Possibilities include pulmonary edema given that diuretics have been on hold for the past 3 days due to worsening SHARMIN. Will need to resume Lasix. 40 mg IV now. Monitor kidney function and urine output by the afternoon and then decide regarding further doses. Patient may have potentially aspirated. He has been on a dysphagia diet during course of this admission. Will obtain modified barium swallow once he is improved from a respiratory standpoint. He has been on antibiotic coverage with cefepime and Zosyn during his hospital course with Zosyn having been discontinued on May 25, 2024 Unlikely that discontinuation of one of the 2 antibiotics has led to the worsening. Reviewed prior respiratory cultures from 2022. Patient has had Proteus mirabilis in the past. Change cefepime to meropenem for potential of ESBL Enterobacter cloacae. Add atypical coverage with azithromycin and add vancomycin empirically.. previously MRSA nasal screen was negative. Obtain sputum culture and Gram stain if patient able to expectorate today. Kidney function was improving down to 3.0, however with reinitiation of diuretics, will need to be monitored closely. May 28, 2024 Patient's breathing status is better compared to yesterday. He was on BiPAP overnight and early this morning continuously. Was able to be transitioned to 3 L/min supplemental O2. He is tachypneic with minimal movement and conversation. Additional Lasix 20 mg IV push to be given today. He is currently diuresed 2300 cc last 24 hours with net negative of 1900 cc.Creatinine stable at 2.9 as of last evening. All updates were discussed with his family including his daughter Charu Ariza who is his DPOA and also his granddaughter Zully who is his frequent caregiver. Family had expressed transitioning to hospice. Patient's chart was extensively reviewed. Patient has several chronic comorbidities including A-fib, chronic anticoagulation, chronic kidney disease with a baseline creatinine between 2.3- 3.1, cardiomyopathy with low ejection fraction of 30 to 35%, chronic systolic heart failure, chronic hypoxic respiratory failure on 2 L/min supplemental O2. Review of chart shows that patient has been admitted to the hospital here since May 22, 2024 and was previously admitted here in February 2024. He is a long-term intermediate resident. He is currently admitted to the hospital for A-fib with RVR, NSTEMI, acute on chronic systolic heart failure, acute kidney injury on top of chronic kidney disease , pneumonia. He has needed BiPAP ventilatory support not just at nighttime but even intermittently during the day. He is severely deconditioned as a result of his hospitalization and acute illness. At a baseline, reportedly patient is able to ambulate with a walker and self-feed, however since the past few weeks has been unable to do so. Currently he is weak and needs assistance to the point of being need to fed. He is on a modified dysphagia diet. He is requiring max assist with physical therapy at this time. In view of his multiple comorbidities and previously expressed opinions to the family and prioritizing quality of life over life-prolonging measures, family expressed interest in transitioning to hospice. Given his multiple comorbidities, advanced age and stated wishes for quality of life and comfort, hospice seems reasonable. Family has elected [facility] at this time. Referral is being faxed via case management. In the interim we will focus mainly on hospice and comfort care management. Discussed with patient and family that we will continue medications that help with comfort such as Lasix as needed and will continue metoprolol so he is not uncomfortable with palpitations. Will discontinue anticoagulation, add Plavix, blood pressure medication, calcium supplements, multivitamins etc. with goal of prioritizing comfort only. As needed morphine and Ativan additionally added should he develop air hunger and anxiety. Family understands the risk of respiratory depression with use of these medications however again wishes to prioritize patient comfort overall ills. Will discontinue daily labs based on above stated change in goals of care. PDMP PDMP Reviewed: Not Reviewed Attestations 2 Medical Necessity Statement*: Extensive goals of care discussion, patient changed to hospice/comfort care management only Coding Level of Care Code Acute Code for [facility] Fwd Diagnoses Dilated cardiomyopathy I42.0 Cardiomyopathy type: dilated Acute exacerbation of congestive heart failure I50.9 ICD (implantable cardioverter-defibrillator) in place Z95.810 Atrial fibrillation with rapid ventricular response I48.91 Stage 3b chronic kidney disease N18.32 Chronic kidney disease stage: stage 3 (moderate) Chronic kidney disease stage 3 subtype: stage 3b (GFR 30-44) Acute hypoxemic respiratory failure J96.01 Pulmonary edema J81.1 NSTEMI (non-ST elevated myocardial infarction) I21.4
--- NOTE | 2024-05-28 14:19 | PC.SLP ---
Nursing stated patient moved to hospice/comfort care and to hold speech therapy.
[2024-05-28] MEDS: FUROsemide 10 mg/mL SDV 4mL 40 MG IVP (15:23)
--- NOTE | 2024-05-28 15:36 | PC.OT ---
OT tx withheld as pt condition remains declined and care needs being discussed by multiple family members and physician today. Decision made to place pt on comfort care/hospice at this time. Discontinue OT skilled services at this time.
--- NOTE | 2024-05-28 17:07 | PC.NURSE ---
Patient transferred to med surg via bed. Report given to Katelynn Bloom RN. Bedside report also given with Katelynn. Patient taken up on 3L NC.
[2024-05-28] MEDS: LORazepam 2 mg Tablet PO (23:46)
[2024-05-29] MEDS: ipratropium-albuterol 3 mL Neb INHALATION ×2 (01:54→09:07)
[2024-05-29 01:56] VITALS: PULSE 75; RESP 20; O2SAT 93
[2024-05-29 02:00] VITALS: PULSE 77
[2024-05-29 06:00] VITALS: BMI 26.2
[2024-05-29 08:00] VITALS: BP 107/76; PULSE 80; PULSE 83; RESP 14; RESP 20; TEMP 35.9; O2SAT 90; O2SAT 95
[2024-05-29] MEDS: sennosides-docusate Tablet 1 TAB PO (08:47)
[2024-05-29] MEDS: morphine 10 mg/0.5 mL oral liq UD SUBLINGUAL (08:47)
[2024-05-29] MEDS: metoprolol tartrate 50 mg Tablet PO (08:47)
--- NOTE | 2024-05-29 09:00 | PM.DCS ---
Discharge Providers Date of Admission: 05/22/24 03:04 Date of Discharge: June 07, 2024 Attending Provider at Admission: Grant Levin MD Attending Provider at Discharge: Adriana Owen MD Primary Care Provider: Magaly Rivas MD Diagnoses at Discharge Discharge Diagnosis (1) Cardiomyopathy: Status: Acute Qualifiers: Cardiomyopathy type: dilated Qualified Code(s): I42.0 - Dilated cardiomyopathy (2) Acute exacerbation of congestive heart failure: Status: Acute (3) ICD (implantable cardioverter-defibrillator) in place: Status: Acute (4) Atrial fibrillation with rapid ventricular response: Status: Acute (5) Chronic kidney disease: Status: Acute Qualifiers: Chronic kidney disease stage: stage 3 (moderate) Chronic kidney disease stage 3 subtype: stage 3b (GFR 30-44) Qualified Code(s): N18.32 - Chronic kidney disease, stage 3b (6) Acute hypoxemic respiratory failure: Status: Acute (7) Pulmonary edema: Status: Acute (8) NSTEMI (non-ST elevated myocardial infarction): Status: Acute Reason for Visit Reason for Visit: Resp Distress Hospital Course Hospital Course 89-year-old male with a past medical history of CHF, A-fib, known cardiomyopathy status post AICD, hypertension, CKD COPD admitted to the hospital on May 22, 2024 with chief complaints of worsening shortness of breath and hypoxia. He was in A-fib RVR when he initially arrived, just improved with her amiodarone bolus in the ER. He was diagnosed with NSTEMI with baseline troponin at 166, increasing to 405 with a delta of 293. He was managed conservatively for NSTEMI. Cardiology service was consulted. He received iv diuersis with close monitoring of kidney function. Also had suspected component of aspiration pneumonua for which he received antibiotics. All updates were discussed with his family including his daughter Charu Ariza who is his DPOA and also his granddaughter Zully who is his frequent caregiver. In view of his multiple comorbidities and previously expressed opinions to the family of prioritizing quality of life over life-prolonging measures, family expressed interest in transitioning to hospice. Given his multiple comorbidities, advanced age and stated wishes for quality of life and comfort, hospice at [facility] was sought and patient is being discharged today to SNF on hospice. Physical Exam Narrative: General: No acute distress, AO x3, deconditioned HEENT: PERRLA, pupils bilaterally equal and reactive, pallors not present Detailed exam not perfromed with aim of hospice/comfort only Neuro: No focal deficits grossly Urinary Catheter Management: Hightower: Cath Placed During This Visit: yes Reason for Continuing Indwelling Catheter: Other Urinary Catheter Date of Insertion: 05/22/24 Urinary Catheter Time of Insertion: 02:59 Discharge Data Studies Completed and Pending Completed Studies During Hospitalization Category Date Time Status CXRP [XR chest 1V portable [id number]] Routine Exams 05/27/24 08:06 Completed XR chest 1V portable [id number] Stat Exams 05/22/24 01:44 Completed XR chest 1V portable [id number] Stat Exams 05/24/24 10:54 Completed CV. echo limited [id number] Routine Ultrasound 05/26/24 13:35 Completed Radiology Impressions Chest X-Ray 05/27/24 08:06 IMPRESSION: Abnormal chest with progression of lung opacities. This this could represent a somewhat atypical congestive heart failure or pulmonary edema of other etiology. Potentially pneumonitis. Laboratory Results WBC 13.08 10^3/uL (3.29-11.43) H 05/27/24 03:12 RBC 3.39 10^6/uL (3.85-5.65) L 05/27/24 03:12 Hgb 9.90 g/dL (11.27-16.99) L 05/27/24 03:12 Hct 31.1 % (37-53) L 05/27/24 03:12 MCV 91.7 fl (82-101) 05/27/24 03:12 MCH 29.2 pg (27-33) 05/27/24 03:12 MCHC 31.8 g/dL (30-55) 05/27/24 03:12 RDW 13.3 % (12.1-15.1) 05/27/24 03:12 Plt Count 208 10^3/cmm (157-399) 05/27/24 03:12 MPV 9.8 fL (7.4-10.4) 05/27/24 03:12 Neut % (Auto) 85.6 % 05/27/24 03:12 Lymph % (Auto) 5.9 % 05/27/24 03:12 Desha % (Auto) 7.4 % 05/27/24 03:12 Eos % (Auto) 0.0 % 05/27/24 03:12 Baso % (Auto) 0.1 % 05/27/24 03:12 Neut # (Auto) 11.20 10^3/uL (1.8-7.7) H 05/27/24 03:12 Lymph # (Auto) 0.8 10^3/uL (0.8-4.8) 05/27/24 03:12 Desha # (Auto) 1.0 10^3/uL (0.2-0.9) H 05/27/24 03:12 Eos # (Auto) 0.0 10^3/uL (0.0-0.8) 05/27/24 03:12 Baso # (Auto) 0.0 10^3/uL (0.0-0.1) 05/27/24 03:12 Nucleated RBC % (auto) 0 % 05/27/24 03:12 Nucleated RBCs # 0.0 /100WBC 05/27/24 03:12 APTT 66.8 SECONDS (23.9-36.7) H 05/24/24 04:51 Specimen Type Arterial 05/24/24 11:47 Sample Site Radial, left 05/24/24 11:47 ABG pH 7.35 (7.35-7.45) 05/24/24 11:47 ABG pCO2 41.0 mmHg (35-45) 05/24/24 11:47 ABG pO2 98.6 mmHg (80.0-100.0) 05/24/24 11:47 ABG PO2/FiO2 Ratio 246 05/24/24 11:47 ABG HCO3 22.8 mmol/L (22-26) 05/24/24 11:47 ABG O2 Saturation 98.2 05/24/24 11:47 ABG Base Excess -2.7 mmol/L (-2.0-2.0) L 05/24/24 11:47 López Test Pos 05/24/24 11:47 A-a O2 Gradient 17.8 mmHg (5-10) H 05/24/24 11:47 Hematocrit 32.0 % (42-52) L 05/24/24 11:47 Hgb O2 Saturation 96.8 % (95-100) 05/24/24 11:47 Carboxyhemoglobin 1.0 %THgb (0.4-20.1) 05/24/24 11:47 Methemoglobin 0.4 % (0.4-1.5) 05/24/24 11:47 Total Hemoglobin 10.4 g/dL (14-18) L 05/24/24 11:47 Sodium 131.0 mmol/L (131-143) 05/24/24 11:47 Potassium 3.8 mmol/L (3.5-5.0) 05/24/24 11:47 Glucose 88.0 mg/dL (70-115) 05/24/24 11:47 Ionized Calcium 1.4 mmol/L (1.1-1.4) 05/24/24 11:47 O2 Delivery Device Bipap 05/24/24 11:47 FiO2 40.0 % 05/24/24 11:47 PEEP 12.0 cmH20 05/22/24 01:48 Electronic Parts Salesperson ID glc 05/24/24 11:47 Sodium 140 mmol/L (136-145) 05/27/24 16:06 Potassium 4.8 mmol/L (3.5-5.1) 05/27/24 16:06 Chloride 105 mmol/L (98-107) 05/27/24 16:06 Carbon Dioxide 23 mmol/L (22-29) 05/27/24 16:06 Anion Gap 16.8 (5-19) 05/27/24 16:06 BUN 80 mg/dL (8-23) H 05/27/24 16:06 Creatinine 2.9 mg/dL (0.7-1.2) H 05/27/24 16:06 GFR Calculation Not Reportable 05/27/24 16:06 Glucose 195 mg/dL (65-115) H 05/27/24 16:06 Calculated Osmolality 319 mOsm/kg (285-295) H 05/27/24 16:06 Lactic Acid 3.7 mmol/L (0.5-2.2) H 05/22/24 01:52 Lactic Acid (Sepsis) 2.1 mmol/L (0.5-2.2) 05/22/24 07:13 Calcium 10.1 mg/dL (8.5-10.5) 05/27/24 16:06 Phosphorus 2.0 mg/dL (2.5-4.5) L 05/23/24 02:54 Magnesium 2.0 mg/dL (1.7-2.3) 05/25/24 03:45 Total Bilirubin 0.6 mg/dL (0.15-1.2) 05/27/24 16:06 AST 14 U/L (0-40) 05/27/24 16:06 ALT 18 U/L (0-41) 05/27/24 16:06 Alkaline Phosphatase 77 U/L (40-130) 05/27/24 16:06 Troponin T Baseline 112 ng/L (0-15) H* 05/22/24 01:52 Troponin T 120 Minute 166.6 ng/L (0-15) H 05/22/24 03:40 Delta Troponin T 54.6 ABS# (0-10) H* 05/22/24 03:40 Troponin T Hi Sens 6Hr 405.5 ng/L (0-15) H 05/22/24 07:13 Troponin T Hi Sens 6Hr Delta 293.5 ng/L (0-12) H* 05/22/24 07:13 C-Reactive Protein 182.4 mg/L (0.0-4.9) H 05/23/24 02:54 NT-Pro-B Natriuret Pep 78036 pg/mL (0-450) H 05/22/24 01:52 Total Protein 6.4 g/dL (6.6-8.7) L 05/27/24 16:06 Albumin 2.7 g/dL (3.5-5.2) L 05/27/24 16:06 Globulin 3.7 g/dL (1.3-4.6) 05/27/24 16:06 Lipase 21 U/L (13-60) 05/22/24 01:52 Procalcitonin 0.99 ng/mL (0-0.5) H 05/22/24 03:40 Urine Color Yellow (Yellow) 05/22/24 03:30 Urine Appearance Clear (CLEAR) 05/22/24 03:30 Urine pH 5.0 (5-7) 05/22/24 03:30 Ur Specific [place] 1.014 (1.005-1.030) 05/22/24 03:30 Urine Protein 3+ (Negative) A 05/22/24 03:30 Urine Glucose (UA) Trace (Normal) H 05/22/24 03:30 Urine Ketones Negative (Negative) 05/22/24 03:30 Urine Blood Negative (Negative) 05/22/24 03:30 Urine Nitrate Negative (Negative) 05/22/24 03:30 Urine Bilirubin Negative (Negative) 05/22/24 03:30 Urine Urobilinogen 0.2 mg/dL (Negative) 05/22/24 03:30 Ur Leukocyte Esterase Negative (Negative) 05/22/24 03:30 Urine RBC None /hpf (0-2) 05/22/24 03:30 Urine WBC 0-4 /hpf (0-5) H 05/22/24 03:30 Ur Squamous Epith Cells None /hpf (0-5) 05/22/24 03:30 Ur Transition Epith Cell 0-4 /hpf 05/22/24 03:30 Amorphous Sediment Not Reportable 05/22/24 03:30 Urine Bacteria None /hpf (NONE) 05/22/24 03:30 Urine Mucus Trace /hpf 05/22/24 03:30 Nasal MRSA (PCR) Not detected (Negative) 05/22/24 18:00 Vancomycin Trough 19.8 ug/mL (10-15) H 05/28/24 08:59 Adenovirus (PCR) Not detected (NOT DETECT) 05/24/24 18:29 C. pneumoniae DNA (PCR) Not detected (NOT DETECT) 05/24/24 18:29 Coronavirus 229E (PCR) Not detected (NOT DETECT) 05/24/24 18:29 Human Metapneumovir PCR Not detected (NOT DETECT) 05/24/24 18:29 Influenza A (H1) PCR Not detected (NOT DETECT) 05/24/24 18:29 Influenza A (PCR) Negative (Negative) 05/22/24 01:55 Influ A (H1/09) PCR Not detected (NOT DETECT) 05/24/24 18:29 Influenza A (H3) PCR Not detected (NOT DETECT) 05/24/24 18:29 Influenza Type A (PCR) Not detected (NOT DETECT) 05/24/24 18:29 Influenza Type B (PCR) Not detected (NOT DETECT) 05/24/24 18:29 M. pneumoniae (PCR) Not detected (NOT DETECT) 05/24/24 18:29 Parainfluenza 1 (PCR) Not detected (NOT DETECT) 05/24/24 18:29 Parainfluenza 2 (PCR) Not detected (NOT DETECT) 05/24/24 18:29 Parainfluenza 3 (PCR) Not detected (NOT DETECT) 05/24/24 18:29 Parainfluenza 4 (PCR) Not detected (NOT DETECT) 05/24/24 18:29 RSV (PCR) Negative (Negative) 05/22/24 01:55 RSV Type A (PCR) Not detected (NOT DETECT) 05/24/24 18:29 RSV Type B (PCR) Not detected (NOT DETECT) 05/24/24 18:29 Entero/Rhino (PCR) Not detected (NOT DETECT) 05/24/24 18:29 SARS-CoV-2 (PCR) Not detected (NOT DETECT) 05/24/24 18: SARS-CoV-2 Ag (Rapid) Negative (Negative) 05/29/24 10:25 Vitals Last Vital Signs Temp 96.7 F L 05/29/24 11:39 Pulse 83 05/29/24 11:39 Resp 20 H 05/29/24 11:39 BP 107/76 05/29/24 11:39 Pulse Ox 95 05/29/24 11:39 O2 Del Method Nasal Cannula 05/29/24 08:00 O2 Flow Rate 3 05/29/24 08:00 FiO2 35 05/28/24 07:40 Discharge Plan Discharge Patient Disposition: Hospice - Medical Facility Condition: Stable Prescriptions: New albuterol sulfate 2.5 mg /3 mL (0.083 %) Solution For Nebulization 2.5 mg inhalation Q4H.RESPIRATORY PRN (Reason: Shortness Of Breath) 30 Days Qty: 30 0RF Continued (DME) BiPAP See Rx Instructions .Route .MEDSUPPLY Qty: 1 0RF Rx Instructions: Settings of 01/29 metoprolol tartrate 50 mg Tablet 50 mg PO BID@0900,2100 Qty: 60 0RF paroxetine HCl 10 mg tablet 10 mg PO QAM furosemide 40 mg Tablet 40 mg PO DAILY@0800 Qty: 30 0RF hydrocodone-acetaminophen 7.5-325 mg Tablet 1 tab PO BID PRN (Reason: Pain) sennosides [Senokot] 8.6 mg Tablet 8.6 mg PO DAILY acetaminophen [Tylenol] 325 mg Tablet 325 mg PO QID PRN (Reason: Pain) ipratropium-albuterol 0.5 mg-3 mg(2.5 mg base)/3 mL solution for nebulization 0.5 ml INHALATION TID budesonide 0.25 mg/2 mL suspension for nebulization 0.25 mg inhalation BID omeprazole 20 mg capsule,delayed release(DR/EC) 20 mg PO DAILY magnesium hydroxide [Milk of Magnesia] 400 mg/5 mL Suspension 30 ml PO Q72H PRN (Reason: Constipation) Rx Instructions: Give if no BM in 3 days bisacodyl [Dulcolax (bisacodyl)] 10 mg Suppository 10 mg ND DAILY PRN (Reason: Constipation) bisacodyl [Laxative (bisacodyl)] 5 mg tablet,delayed release (DR/EC) 10 mg PO DAILY PRN (Reason: constipation ) Rx Instructions: Give if no Results from M.O.M. Discontinued isosorbide mononitrate 30 mg Tablet Extended Release 24 Hr 30 mg PO DAILY Qty: 30 0RF potassium chloride 8 mEq capsule, extended release 8 meq PO DAILY Qty: 30 0RF sodium bicarbonate 650 mg Tablet 650 mg PO DAILY Qty: 30 0RF fexofenadine 60 mg Tablet 60 mg PO BID PRN (Reason: Allergic Symptoms) Eliquis 5 mg Tablet 2.5 mg PO BID hydralazine 50 mg tablet 25 mg PO TID tamsulosin 0.4 mg capsule 0.4 mg PO DAILY calcitriol 0.5 mcg capsule 0.5 mcg PO DAILY prednisone 20 mg tablet 40 mg PO DAILY Discharge Orders: Discharge Order (Routine); Ordered 05/29/24 Ordered By: Adriana Owen Referrals: [facility] [Outside] [facility] [Outside] Magaly Rivas MD [Primary Care Provider] - Discharge Diet: Advance as tolerated and Usual diet Discharge Activity: Resume usual activity Patient Instructions: CHF Stoplight, Opioid Safety, Pneumonia Stoplight Discharge Attestations Time Spent in Discharge Care*: greater than 30 min Quality Metrics Clinical Quality Measures [ Acute Myocardial Infaction { Clinical Trial Participant: No; Contraindication to aspirin: None; Aspirin prescribed; Contraindication to statin: None; Statin prescribed; Contraindication to PCI: Other;}] Coding Level of Care Code Acute Code for [facility] Diagnoses Dilated cardiomyopathy I42.0 Cardiomyopathy type: dilated Acute exacerbation of congestive heart failure I50.9 ICD (implantable cardioverter-defibrillator) in place Z95.810 Atrial fibrillation with rapid ventricular response I48.91 Stage 3b chronic kidney disease N18.32 Chronic kidney disease stage: stage 3 (moderate) Chronic kidney disease stage 3 subtype: stage 3b (GFR 30-44) Acute hypoxemic respiratory failure J96.01 Pulmonary edema J81.1 NSTEMI (non-ST elevated myocardial infarction) I21.4
[2024-05-29 10:56] LABS: SARS Covid-2 Antigen Negative (Negative)
--- NOTE | 2024-05-29 11:30 | PC.NURSE ---
Discharge Note Patient discharged to [facility] via ambulance accompanied by ambulance personelle. Discharge instructions reviewed with patient and/or special service representative. Mobile pharmacy medications and/or prescriptions provided. Belongings/home medications returned.
--- NOTE | 2024-05-29 11:36 | PC.NURSE ---
Attempted to call report to [facility] but was unable to give report due to the facility stating they did not receive a faxed discharge from our facility yet. Called case management and they stated they would fax it again.
[2024-05-29 11:39] VITALS: BP 107/76; PULSE 83; RESP 20; TEMP 35.9; O2SAT 95
== END 2024-05-29 11:42 | disposition hospice, inpatient (51) | DRG 177 ==
LOC: ER 02:47 → ER IP 03:05 → CSU 09:28 → MEDSURG 05-28 17:05
PROVIDERS: Internal Medicine; Admitting Provider Internal Medicine; Emergency Provider Emergency Medicine; PCP Internal Medicine; Visit Provider Student in an Organized Health Care Education/Training Program
DX: J69.0 Pneumonitis due to inhalation of food and vomit (principal); I21.4 Non-ST elevation (NSTEMI) myocardial infarction; I50.23 Acute on chronic systolic (congestive) heart failure; J96.01 Acute respiratory failure with hypoxia; I13.0 Hypertensive heart and chronic kidney disease with heart failure and stage 1 through stage 4 chronic kidney disease, or unspecified chronic kidney disease; N17.9 Acute kidney failure, unspecified; I48.19 Other persistent atrial fibrillation; I47.20 Ventricular tachycardia, unspecified; I42.0 Dilated cardiomyopathy; G47.33 Obstructive sleep apnea (adult) (pediatric); F03.90 Unspecified dementia, unspecified severity, without behavioral disturbance, psychotic disturbance, mood disturbance, and anxiety; E78.5 Hyperlipidemia, unspecified; J44.9 Chronic obstructive pulmonary disease, unspecified; N18.32 Chronic kidney disease, stage 3b; I44.7 Left bundle-branch block, unspecified; M10.9 Gout, unspecified; Z86.73 Personal history of transient ischemic attack (TIA), and cerebral infarction without residual deficits; Z79.01 Long term (current) use of anticoagulants; Z79.899 Other long term (current) drug therapy; Z91.041 Radiographic dye allergy status; Z95.810 Presence of automatic (implantable) cardiac defibrillator; Z87.440 Personal history of urinary (tract) infections; Z87.891 Personal history of nicotine dependence; Z99.81 Dependence on supplemental oxygen; Z66 Do not resuscitate; Z79.02 Long term (current) use of antithrombotics/antiplatelets; Z11.52 Encounter for screening for COVID-19
CPT/HCPCS: 36415; 36600; 51702; 71045; 80048; 80051; 80053; 80202; 81001; 82330; 82805; 83605; 83690; 83735; 83880; 84100; 84145; 84484; 85025; 85730; 86140; 86403; 87040; 87426; 87449; 87486; 87581; 87633; 87637; 92507; 92523; 92526; 92610; 93005; 93308; 94640; 94660; 94664; 96365; 96366; 96367; 96375; 96376; 97110; 97161; 97165; 97530; 97535; 99291; A9270; J0282; J0692; J1644; J1940; J2185; J2470; J2543; J2919; J3372; J3490; J7512; J9999; Q0144